=== PATIENT | male | born 1955 | race African-American/Black ===

== ENCOUNTER 2018-05-27 05:22 | Inpatient (IN) ==
[2018-05-27] MEDS ORDERED: Chlorhexidine Gluconate 2% 1 Pack (2 Cloths) TOPICAL ONE (05:42)
[2018-05-27] MEDS ORDERED: Metoprolol Tartrate 25 MG Tablet PO ONE (05:42)
[2018-05-27] MEDS ORDERED: Chlorhexidine 4% Topical 120 APPLIC/120 ML Bottle TOPICAL SCH (05:45)
[2018-05-27] MEDS ORDERED: Sodium Chlor 0.9% Inj 500 ML IV.SIG SCH (06:00)
[2018-05-27] MEDS ORDERED: Sodium Chlor 0.9% Inj 0 ML ONE (06:17)
[2018-05-27] MEDS ORDERED: Dexmedetomidine Inj 200 MCG/2 ML Vial ONE (06:18)
[2018-05-27] MEDS ORDERED: fentaNYL Citrate Inj 100 MCG/2 ML Ampul ONE ×3 (06:18→06:41)
[2018-05-27] MEDS ORDERED: Propofol Inj 500 MG/50 ML Vial ONE (06:18)
[2018-05-27] MEDS ORDERED: Famotidine PF Inj 20 MG/2 ML Vial ONE (06:18)
[2018-05-27] MEDS ORDERED: Bupivacaine/Dextrose 0.75% Inj 2 ML Ampul ONE (06:24)
[2018-05-27] MEDS ORDERED: Ketamine Inj 50 MG/5 ML Syringe IV.PUSH ONE (06:41)
[2018-05-27] MEDS ORDERED: Neostigmine Inj 5 MG/5 ML Syringe IV.PUSH ONE (06:42)
[2018-05-27] MEDS ORDERED: Lidocaine PF 1% Inj 5 ML Syringe OTHER ONE (06:42)
[2018-05-27] MEDS ORDERED: Glycopyrrolate Inj 1 MG/5 ML Syringe IV.PUSH ONE (06:42)
[2018-05-27] MEDS ORDERED: Phenylephrine/NS 1000 MCG/10ML Syringe IV.PUSH ONE (06:42)
[2018-05-27] MEDS ORDERED: Aluminum/Magnesium/Simethacone Susp 30 ML UDC PO PRN (06:51)
[2018-05-27] MEDS ORDERED: Morphine Sulfate Inj 2 MG/ML Vial IV.PUSH PRN (06:51)
[2018-05-27] MEDS ORDERED: Zolpidem Tartrate 5 MG Tablet PO PRN (06:51)
[2018-05-27] MEDS ORDERED: Tranexamic Acid Inj 0 MG in Sodium Chlor 0.9% Inj 100 ML IV.SIG ONE (06:51)
[2018-05-27] MEDS ORDERED: Bisacodyl 10 MG Supp RECTAL PRN (06:51)
[2018-05-27] MEDS ORDERED: Acetaminophen 325 MG Tablet PO PRN (06:51)
[2018-05-27] MEDS ORDERED: Post-op Orders (for Pharmacy) OTHER STA (06:51)
[2018-05-27] MEDS ORDERED: ceFAZolin Inj 3,000 MG in Sodium Chlor 0.9% Inj 100 ML IV.SIG SCH (07:00)
[2018-05-27] MEDS ORDERED: TRANEXAMIC ACID IV.SIG SCH ×5 (07:00→10:00)
[2018-05-27] MEDS ORDERED: SODIUM CHLOR 0.9% IV.SIG SCH ×5 (07:00→10:00)
[2018-05-27] MEDS ORDERED: Sodium Chlor 0.9% Inj 40 ML, Bupivacaine Liposo PF 1.3% Inj 20 ML P-ARTICULR SCH ×2 (07:00)
[2018-05-27] MEDS ORDERED: Dextrose 50% in Water 50 ML Vial IV.PUSH PRN (09:17)
--- NOTE | 2018-05-27 09:48 | P.DCO ---
- Physical Therapy Hip: Total hip, Protocol: Right, Posterior hip precautions, Progress to weight bearing Canvas Knee Splint: When in bed with 2 pillows between thighs Right Lower Extremity Weight Bearing: Weight bearing as tolerated Right Lower Extremity Range of Motion: Active ROM - Nursing Nursing: Dressing changes Dressing changes: Daily dressing change, Coverderm/Primapore Additional instructions: Do not remove Dermabond Prineo. - Certification Need for Home Health services: I have seen patient Alonso Daugherty on 05/27/18. My clinical findings support the need for the requested home health care services because: Need for Home Health Services: Limited mobility due to disease progression, Deconditioned with increased weakness, High risk of falls Homebound Certification: I certify that my clinical findings support that this patient is homebound because: Homebound Certification: Post-op weakness, Unsteady gait/balance, Unsafe to leave home unassisted
--- NOTE | 2018-05-27 09:59 | P.OP ---
- Preoperative Diagnosis (1) Primary osteoarthritis of right hip - Postoperative Diagnosis (1) Primary osteoarthritis of right hip Date of procedure: 05/27/18 Procedure: Right total hip arthroplasty using Anirudh prosthesis Anesthesia: GETA, local (Exparel L) Surgeon: Francesco Ward MD Tomato Paste Maker: WILDER Tubbs Estimated blood loss (mL): 200 Pathology: none sent Operation and Findings: Indications and Findings: This 62-year-old man has had long-standing arthritis in his right hip nonresponsive to conservative measures including intake inflammatory agents, analgesics, activity modification and ambulatory aids. He is ambulation tolerance is one half block because of the pain. He has pain in his buttock and lateral hip and has difficulty lying on his right side standing from a seated position, entering and exiting an automobile and ascending and descending stairs. Physical findings showed significant limitation of motion, antalgic gait, tenderness on motion. Radiographic findings showed severe osteoarthritis with loss of articular cartilage to expose subchondral bone, subchondral sclerosis. Operative findings: There is severe osteoarthritis with osteophytes, exposed subchondral bone, deformity of the femoral head, degenerative cysts. Implants: The acetabular component was a 48 mm Trident II Tritanium cluster cup with a 36 mm inner diameter 0 degree X3 polyethylene liner. The femoral component was an Accolade 2 size 3 x 132 degree stem. The femoral head was Biolox Delta 36 mm outer diameter with -5 mm offset. The patient was brought to the clean air operating suite and a general endotracheal anesthetic was administered. The patient was positioned into a lateral position with the operative hip up on a Biomet lateral positioner. The hip and lower extremity were prepped with alcohol, Hibiclens and ChloraPrep and draped in the usual manner with the hip draped free. Patient received prophylactic antibiotics preoperatively. The patient also received tranexamic acid preoperatively. An appropriate timeout procedure was carried out. An incision was made from the midportion of the greater trochanter proximally and posteriorly paralleling the fibers of the gluteus krunal. The incision was extended as needed. The incision was deepened through subcutaneous tissues down to the fascia kostas and gluteus fascia. The gluteus fascia was then split longitudinally in line with its fibers up to the upper portion of the fascia kostas. With wound towels in place, the Charnley retractor was inserted. The sciatic nerve was identified and protected throughout the procedure. Dissection was then carried down to the interval between the gluteus minimus and the piriformis. A retractor was inserted. The piriformis and obturator conjoined tendon was released from the greater trochanter and reflected off the capsule. A capsulotomy was made longitudinally along the femoral neck to the base of the femoral neck and then curved distally along the posterior aspect of the greater trochanter. The hip was internally rotated. Further release of the external rotators was carried out exposing the hip. The hip was dislocated. The femoral neck was transected at the appropriate level using the oscillating saw placement of appropriate retractors. The femoral head was removed. Preparation of the femur was initiated with a box osteotome followed by a curet to identify the medullary canal. Broaching was then initiated with the size 0 broach and went in 1 size increments up to size 3. The broach handle was removed. The femoral neck was then trimmed with a calcar planar. Attention was then directed to the acetabulum. Soft tissues were debrided from the acetabulum. Retractors were placed about the acetabulum. Reaming was then initiated with the 43 millimeter reamer and went in 1-2 mm increments up to the 48 millimeter diameter reamer. A trial reduction with the 48 millimeter trial prosthesis was carried out. When this was deemed to be appropriate, the trial prosthesis was removed. The acetabulum was irrigated and cleaned. The actual prosthesis as noted above was impacted into place and seated appropriately. Drill holes were made and sounded. Appropriate sized screws were inserted to stabilize the acetabulum further. The liner as noted above was inserted into the acetabular shell and impacted into place. Osteophytes were trimmed from the acetabulum. Local anesthetic was administered throughout the area of the acetabulum and anterior aspect of the femur. The trial neck was placed on the broach for the above-noted prosthesis. The femoral head trial was placed onto the femoral neck . A trial reduction was carried out. Adjustment was made as needed, after which the stability, leg length and motion were excellent. There was no pistoning. The trial prosthesis was removed. The broach was removed. The femoral component was impacted into the medullary canal of the femur after irrigation and suctioning. When this was appropriately seated a trial reduction was again carried out with the trial prosthesis. There was no pistoning. The leg length was appropriate. The stability and motion were excellent. The trial prosthesis was then removed. After cleaning and drying the trunion of the femoral component, the above-noted femoral head was impacted onto the trunnion. The hip was reduced. The stability and mobility were again checked along with leg lengths as noted above. The hip was positioned appropriately and closure commenced after the remainder of the local anesthetic was injected throughout the hip. The external rotators and capsule were repaired with #1 Vicryl interrupted transosseous sutures with a Krakw technique to reattach the external rotators and capsule to the posterior aspect of the greater trochanter. The capsule itself on the superior aspect was closed with #1 Vicryl interrupted [id number] sutures. The sciatic nerve was inspected. The fascia kostas and gluteus fascia were repaired with #1 Vicryl interrupted [id number] sutures. The subcutaneous tissues were closed with 2-0 Vicryl interrupted simple sutures with buried knots. The skin was closed with a continuous subcuticular closure of 4-0 Monocryl. The wound was then approximated with Dermabond Prineo. A silver impregnated dressing was applied to the hip. A knee immobilizer was applied to the leg. The patient was transferred from the operating room to the recovery room in satisfactory condition having tolerated the procedure well. Counts are correct. Specimens: None. Estimated blood loss: 200 mL
[2018-05-27] MEDS ORDERED: *morphine SULFATE 10 MG/ML PERIprocedure ONLY ONE (10:39)
[2018-05-27] MEDS: Ketorolac Inj 30 MG/ML (IVP) Vial IV.PUSH SCH ×3 (11:14→23:51)
[2018-05-27] MEDS: Insulin NovoLOG Aspart Correctional Sugar Inj SQ SCH ×3 (11:33→20:11)
--- NOTE | 2018-05-27 11:44 | XR ---
EXAM DATE: 05/27/2018 6:49 AM EDT AGE/SEX: 62 years / Male INDICATIONS: Post op right total hip replacement. CLINICAL DATA: This is the patient's initial encounter. Patient reports that signs and symptoms have been present for 1 day and indicates a pain score of 7/10. MEDICAL/SURGICAL HISTORY: Hypertension. Prostatectomy. COMPARISON: TLI, XR HIP AP AND LAT, RIGHT, 11/15/2015. . FINDINGS: Status post right total hip in anatomic alignment. Fracture not appreciated. CONCLUSION: Anatomic alignment. Electronically signed by: Misha Umaña MD 05/27/2018 11:43 AM EDT
--- NOTE | 2018-05-27 14:25 | P.CONIM ---
History of Present Illness Service: [facility] Consult date: 05/27/18 Requesting Physician: Francesco Ward Reason for Consult: MEDICAL EVALUATION AND TREATMENT Primary Care Provider: Vj Hernandez MD, R3 Family Provider: Vane Orta MD Chief Complaint: SSP RIGHT TOTAL HIP ARTHROPLASTY History of Present Illness: Patient is a 62-year-old gentleman who underwent a right total hip arthroplasty due to severe osteoarthritis. Patient has previously had bilateral arthroscopic surgeries. As well as a right total knee replacement. Has had prostate removal with the da Yash robotic procedure. Patient has a known history of diabetes and high cholesterol as well as hypertension history of a prostatectomy and history of the right total knee replacement as well as bilateral arthroscopic surgeries. We have been asked to help regarding medical management. Will place him on a sliding scale coverage with Accu-Cheks before meals and bedtime. Will continue on a diabetic diet and cardiac diet and will be followed throughout the admission. Review of Systems All other systems reviewed negative except as stated in HPI PMFSH - History History Provided By: Patient - Medical History Medical History: Medical History (Last Reviewed 05/27/18 @ 14:22 by Misha Zamora DO) Cold Diabetes High cholesterol History of claustrophobia Hypertension Joint pain Wears contact lenses Wears eyeglasses - Surgical History Surgical History: Surgical History (Last Updated 05/27/18 @ 14:22 by Misha Zamora DO) History of robot-assisted laparoscopic radical prostatectomy S/P arthroscopic surgery of left knee S/P arthroscopic surgery of right knee History of total right knee replacement (TKR) Hx of prostatectomy - Family History Family History: Family History (Last Updated 05/27/18 @ 14:22 by Misha Zamora DO) Other Family history of diabetes mellitus Family history of hypertension - Social History I have reviewed the patient's Social History: Yes - Tobacco History Second Hand Smoke Exposure: No Smoking Status: Never smoker - Alcohol History How Often Do You Have a Drink Containing Alcohol: Never - Substance Use History Substance History: No History of Abuse - Travel History Recent Travel in the [place] Within the Last 8 Weeks: Yes Recent Travel Out of the Country Within the Last 8 Weeks: No - Immunization History Tetanus Immunization: Unable to Assess Hx Influenza Vaccine This Season: No Medications and Allergies Active Medications: Active Medications Acetaminophen (Tylenol) 650 mg PO Q6H PRN PRN Reason: Pain Less Than 3 On Scale Hydrocodone Bitart/Acetaminophen ([place] 7.5/325) 1 tab PO Q4H PRN PRN Reason: PAIN SCALE 4 TO 6 MODERATE Last Admin: 05/27/18 13:31 Dose: 1 tab Hydrocodone Bitart/Acetaminophen ([place] 7.5/325) 2 tab PO Q6H PRN PRN Reason: PAIN SCALE 7 TO 10 SEVERE Al Hydrox/Mg Hydrox/Simethicone (Mag-Al Plus Susp Liq) 30 ml PO Q6H PRN PRN Reason: INDIGESTION Al Hydroxide/Mg Hydroxide (Milk Of Magnesia Liq) 30 ml PO BID PRN PRN Reason: Mild Constipation Amlodipine Besylate (Norvasc) 10 mg PO HS [facility] Aspirin (Aspirin Chew) 81 mg PO BID [facility] Last Admin: 05/27/18 11:14 Dose: 81 mg Bisacodyl (Dulcolax Supp) 10 mg RECTAL DAILY PRN PRN Reason: SEVERE CONSITIPATION Chlorhexidine Gluconate (Hibiclens 4% Topical) 1 applicatio TOPICAL ONCE [facility] Stop: 05/31/18 05:44 Last Admin: 05/27/18 05:45 Dose: 1 applicatio Dextrose (D50w Vial) 50 ml IV.PUSH UNSCH PRN PRN Reason: PER HYPOGLYCEMIA PROTOCOL Diphenhydramine HCl (Benadryl) 25 mg PO Q6H PRN PRN Reason: ITCHING Enalapril Maleate (Vasotec) 20 mg PO BID [facility] Glimepiride (Amaryl) 1 mg PO DAILY@0800 [facility] Glucagon (Glucagon Inj) 1 mg OTHER UNSCH PRN PRN Reason: for Hypoglycemia Protocol Cefazolin Sodium 3,000 mg/ (Sodium Chloride) 130 mls @ 200 mls/hr IV.SIG AUTO DEALER [facility] Stop: 05/31/18 06:59 Cefazolin Sodium 1,000 mg/ (Sodium Chloride) 100 mls @ 200 mls/hr IV.SIG Q6H [facility] Stop: 05/28/18 01:29 Last Admin: 05/27/18 12:36 Dose: 200 mls/hr Lactated Ringer's (Lr 1000 Ml Inj) 1,000 mls @ 80 mls/hr IV.CONT .[id number] [facility] Last Admin: 10/01/18 11:14 Dose: 80 mls/hr Insulin Aspart (Novolog Insulin Correctional Sugar Inj) 0 unit SQ ACHS AND 3AM HUMAIRA; Protocol Last Admin: 05/27/18 11:33 Dose: 3 unit Ketorolac Tromethamine (Toradol Inj) 15 mg IV.PUSH Q6H HUMAIRA Stop: 05/29/18 05:01 Last Admin: 05/27/18 11:14 Dose: 15 mg Lactulose (Lactulose Liq) 30 ml PO DAILY PRN PRN Reason: SEVERE CONSITIPATION Miscellaneous Information (Mis Nursing Information) 0 each OTHER UNSCH PRN PRN Reason: SEE LABEL COMMENTS Stop: 05/28/18 10:19 Morphine Sulfate (Morphine Inj) 2 mg IV.PUSH Q3H PRN PRN Reason: BREAKTHROUGH PAIN Ondansetron HCl (Zofran Odt) 4 mg PO Q6H PRN PRN Reason: NAUSEA OR VOMITING Pravastatin Sodium (Pravachol) 80 mg PO QPM [facility] Senna/Docusate Sodium (Nicole-Colace) 1 tab PO BID [facility] Sennosides (Senokot) 17.2 mg PO BID PRN PRN Reason: Moderate Constipation Sodium Chloride (Ns Flush) 2 ml IV.FLUSH BID [facility] Last Admin: 05/27/18 11:03 Dose: 2 ml Sodium Chloride (Ns Flush) 2 ml IV.FLUSH UNSCH PRN PRN Reason: FLUSH AFTER USING IV ACCESS Triamterene/HCTZ (Maxzide 37.5 Mg-25 Mg) 1 tab PO DAILY [facility] Zolpidem Tartrate (Ambien) 5 mg PO HS PRN PRN Reason: INSOMNIA Allergies Allergy/AdvReac Type Severity Reaction Status Date / Time No Known Allergies Allergy Verified 05/27/18 05:57 Home Medications Medication Instructions Recorded Confirmed Type amlodipine 10 mg PO HS 05/16/18 05/27/18 History enalapril maleate 20 mg PO BID 05/16/18 05/27/18 History glimepiride 1 mg PO QAM 05/16/18 05/27/18 History simvastatin 40 mg PO QPM 05/16/18 05/27/18 History triamterene-hydrochlorothiazid 1 tab PO DAILY 05/16/18 05/27/18 History Exam Vital signs: Vital Signs 05/27/18 05:45 05/27/18 10:19 10/01/18 10:30 Temperature 98.9 F 97.8 F Pulse Rate 99 H 74 80 Respiratory Rate 16 16 16 Blood Pressure 166/75 H 121/61 124/54 L Pulse Oximetry 98 100 97 05/27/18 10:45 05/27/18 11:00 05/27/18 12:00 Temperature 97.4 F L Pulse Rate 76 76 81 Respiratory Rate 16 16 18 Blood Pressure 116/56 L 118/60 111/58 L Pulse Oximetry 95 96 98 05/27/18 12:15 05/27/18 14:01 Temperature Pulse Rate 74 Respiratory Rate 16 18 Blood Pressure 112/56 L Pulse Oximetry 95 Intake & Output 05/26/18 05/27/18 05/27/18 18:59 06:59 18:59 Intake Total 2400.07 / 2400.07 Output Total 200 / 200 Balance 2200.07 / 2200.07 Weight 120.7 kg 123.8 kg Intake: IV 1112.07 / 1112.07 LR 1000 mL Inj 1,000 ML @ 30 1000 / 1000 mls/hr IV.SIG .Q24H [facility] Rx#: [id number] Cyklokapron Inj 1,207 MG In NS 112.07 / 112.07 Inj 100 ML @ 200 mls/hr IV.SIG ONCE HUMAIRA Rx#:[id number] Anesthesia Amount 1288 / 1288 Output: Estimated Blood Loss 200 / 200 Other: Weight On Admission 120.7 kg Narrative: GENERAL: Awake alert and oriented x3 talkative and cooperative appears to be in some pain at this time and is uncomfortable SKIN: Warm and dry. HEAD: Atraumatic. Normocephalic. EYES: Pupils equal and round. No scleral icterus. No injection or drainage. EOMI ENT: No nasal bleeding or discharge. Mucous membranes pink and moist. Tongue is midline NECK: Trachea midline. No JVD. Supple CARDIOVASCULAR: Regular rate and rhythm. S1-S2 no S3 or S4 RESPIRATORY: No accessory muscle use. Clear to auscultation. Breath sounds equal bilaterally. GASTROINTESTINAL: Abdomen soft, non-tender, nondistended. Hepatic and splenic margins not palpable. MUSCULOSKELETAL: Extremities without clubbing, cyanosis, or edema. No obvious deformities. Decreased range of motion of right hip at this time NEUROLOGICAL: Awake and alert. No obvious cranial nerve deficits. Motor grossly within normal limits. Five out of 5 muscle strength in the arms and legs. Normal speech. PSYCHIATRIC: Appropriate mood and affect; insight and judgment normal. Results - Labs Labs: Laboratory Results - last 24 hr 05/27/18 05/27/18 05:56 10:51 POC Glucose 245 H Blood Type A Positive Antibody Screen Negative - Imaging Impressions Hip X-Ray 05/27/18 06:49 CONCLUSION: Anatomic alignment. Assessment and Plan - Plan Status post right total hip arthroplasty due to severe osteoarthritis -Pain control -Physical therapy and occupational therapy -Patient will be going home with home health care at discharge -DVT prophylaxis Hypertension continue on home medications Hyperlipidemia continue on home medications Diabetes mellitus continue on sliding scale coverage with Accu-Cheks before meals and at bedtime and diabetic cardiac diet History of robotic prostatectomy stable Continue on GI and DVT prophylaxis A.m. labs Discussed with patient and RN and family and case management Code Status: Full code Discussed Condition With: RN and patient and family and case management Discharge Planning: Once cleared by orthopedic surgery will be discharged home with home health care
[2018-05-27] MEDS: Senna/Docusate Sodium 8.6/50 MG Tablet PO SCH ×2 (15:00→20:10)
[2018-05-27] MEDS: Glimepiride 1 MG Tablet PO SCH (15:01)
[2018-05-27] MEDS: Famotidine 20 MG Tablet PO SCH ×2 (16:13→20:10)
[2018-05-27] MEDS: amLODIPine 10 MG Tablet PO SCH (20:10)
[2018-05-28] MEDS: Insulin NovoLOG Aspart Correctional Sugar Inj SQ SCH ×5 (02:47→20:17)
[2018-05-28] MEDS: Ketorolac Inj 30 MG/ML (IVP) Vial IV.PUSH SCH ×4 (05:43→22:15)
--- NOTE | 2018-05-28 06:01 | P.PNOP ---
Subjective Interval history: Postop day #1 He is doing well. He has no complaints of significance. There is some pain. He does have difficulty with transfers. Physical therapy reports that the ambulation distance was 35 feet. Physical Exam Vital signs: Vital Signs 05/27/18 10:19 05/27/18 10:30 05/27/18 10:45 Temperature 97.8 F Pulse Rate 74 80 76 Respiratory Rate 16 16 16 Blood Pressure 121/61 124/54 L 116/56 L Pulse Oximetry 100 97 95 05/27/18 11:00 05/27/18 12:00 05/27/18 12:15 Temperature 97.4 F L Pulse Rate 76 81 74 Respiratory Rate 16 18 16 Blood Pressure 118/60 111/58 L 112/56 L Pulse Oximetry 96 98 95 05/27/18 14:01 05/27/18 15:55 05/27/18 16:54 Temperature 97.2 F L Pulse Rate 85 Respiratory Rate 18 20 18 Blood Pressure 121/57 L Pulse Oximetry 99 05/27/18 18:19 05/27/18 20:00 05/28/18 00:00 Temperature 99.4 F 98.9 F Pulse Rate 90 92 H Respiratory Rate 18 18 18 Blood Pressure 101/49 L 113/55 L Pulse Oximetry 97 98 Intake & Output 05/27/18 05/27/18 05/28/18 06:59 18:59 06:59 Intake Total 2600.07 / 2600.07 Output Total 200 / 200 Balance 2400.07 / 2400.07 Weight 120.7 kg 123.8 kg Intake: IV 1312.07 / 1312.07 LR 1000 mL Inj 1,000 ML @ 30 1000 / 1000 mls/hr IV.SIG .Q24H HUMAIRA Rx#: [id number] Cyklokapron Inj 1,207 MG In NS 112.07 / 112.07 Inj 100 ML @ 200 mls/hr IV.SIG ONCE HUMAIRA Rx#:[id number] Ancef Inj 1,000 MG In NS Inj 200 / 200 100 ML @ 200 mls/hr IV.SIG Q6H HUMAIRA Rx#:[id number] Anesthesia Amount 1288 / 1288 Output: Urine 0 / 0 Estimated Blood Loss 200 / 200 Other: Weight On Admission 120.7 kg Narrative: He is resting comfortably, supine in bed. The dressing is dry and intact. His neurovascular status is intact. Results - Labs CBC & Chem 7: 05/28/18 05:23 05/28/18 05:23 Laboratory Results - last 24 hr 05/27/18 05/27/18 05/27/18 05:56 10:51 16:20 POC Glucose 245 H 283 H Blood Type A Positive Antibody Screen Negative 05/27/18 05/28/18 19:48 02:40 POC Glucose 298 H 212 H Blood Type Antibody Screen - Imaging Impressions Hip X-Ray 05/27/18 06:49 CONCLUSION: Anatomic alignment. - Procedures Right total hip arthroplasty using [place] prosthesis on 05/27/2018. Assessment and Plan - Ortho Post Op Day # 1 - Problem List (1) Status post total replacement of right hip Code(s): Z96.641 - Presence of right artificial hip joint Status: Acute - Assessment and Plan Condition: Good. Orthopedically stable. DVT prophylaxis: TEDs, aspirin, sequentials. Discharge plans: Home with home health care. An appointment was scheduled through the office. Prescriptions: [place] 7.5/325; Patient is having significant pain caused by a total hip arthroplasty which will last more than 3 days. Trial of Tylenol has not helped. I believe that it is medically necessary to treat patients pain because it is affecting patients ability to participate in postoperative rehabilitation and perform activities of daily living in a comfortable and efficient manner.
[2018-05-28 06:37] LABS: Baso % (Auto) 0.1 % (0.0-2.0); Hematocrit 29.1 % (39.0-51.0); Hemoglobin 9.5 gm/dL (13.0-17.0); Lymph # (Auto) 1.6 th/mm3 (1.0-4.8); Lymph % (Auto) 12.7 % (9.0-44.0); Mean Corpuscular HGB Conc 32.8 % (32.0-36.0); Mean Corpuscular Hemoglobin 24.7 pg (27.0-34.0); Mean Corpuscular Volume 75.4 fL (80.0-100.0); Mean Platelet Volume 8.7 fL (7.0-11.0); Mono # (Auto) 1.3 th/mm3 (0.0-0.9); Mono % (Auto) 10.8 % (0.0-8.0); Neut # (Auto) 9.4 th/mm3 (1.8-7.7); Neut % (Auto) 76.4 % (16.0-70.0); Platelet Count 268 th/mm3 (150-450); Red Blood Count 3.85 mil/mm3 (4.50-5.90); Red Cell Distribution Width 15.9 % (11.6-17.2); White Blood Count 12.3 th/mm3 (4.0-11.0)
[2018-05-28 07:07] LABS: Anion Gap 9 meq/L (5-15); Aspartate Aminotransferase 42 U/L (15-37); Blood Urea Nitrogen 16 mg/dL (7-18); Calcium 7.5 mg/dL (8.5-10.1); Carbon Dioxide 28.2 meq/L (21.0-32.0); Chloride 100 meq/L (98-107); Glomerular Filtration Rate 78 mL/min (>89); Glucose,Random 230 mg/dL (74-106); Magnesium 1.9 mg/dL (1.5-2.5); Potassium 3.7 meq/L (3.5-5.1); Sodium 137 meq/L (136-145)
[2018-05-28 07:15] LABS: Alanine Aminotransferase 28 U/L (12-78); Alkaline Phosphatase 91 U/L (45-117); Free T4 (Free Thyroxine) 1.62 ng/dL (0.76-1.46); Phosphorus 2.7 mg/dL (2.5-4.9); Thyroid Stimulating Hormone 0.195 uIU/mL (0.358-3.740); Total Protein 6.7 g/dL (6.4-8.2)
[2018-05-28] MEDS: Famotidine 20 MG Tablet PO SCH ×2 (08:46→20:17)
[2018-05-28] MEDS: Glimepiride 1 MG Tablet PO SCH (08:47)
[2018-05-28] MEDS: Senna/Docusate Sodium 8.6/50 MG Tablet PO SCH ×2 (08:48→20:16)
[2018-05-28] MEDS: Calcium Carbonate 500 MG Tablet PO SCH ×2 (08:55→20:16)
--- NOTE | 2018-05-28 09:30 | P.PNIM ---
Subjective Interval history: Follow-up right total hip arthroplasty, osteoarthritis, hypertension, diabetes mellitus type 2, hyperlipidemia. Patient awake sitting in the bed, patient stated doing well, stated not sure if the pain is normal. Patient complaining of pain that is coming and going 7 out of 10 scale, worse with movement better with pain medication relieved with pain medication at 3 out of 10 scale. Patient denies any headache or dizziness denies any chest pain or shortness of breath, denies nausea or vomiting, denies diarrhea or constipation. Denies any fever or chills. Physical Exam Vital signs: Vital Signs 05/27/18 10:19 05/27/18 10:30 05/27/18 10:45 Temperature 97.8 F Pulse Rate 74 80 76 Respiratory Rate 16 16 16 Blood Pressure 121/61 124/54 L 116/56 L Pulse Oximetry 100 97 95 05/27/18 11:00 05/27/18 12:00 05/27/18 12:15 Temperature 97.4 F L Pulse Rate 76 81 74 Respiratory Rate 16 18 16 Blood Pressure 118/60 111/58 L 112/56 L Pulse Oximetry 96 98 95 05/27/18 14:01 05/27/18 15:55 05/27/18 16:54 Temperature 97.2 F L Pulse Rate 85 Respiratory Rate 18 20 18 Blood Pressure 121/57 L Pulse Oximetry 99 05/27/18 18:19 05/27/18 20:00 05/28/18 00:00 Temperature 99.4 F 98.9 F Pulse Rate 90 92 H Respiratory Rate 18 18 18 Blood Pressure 101/49 L 113/55 L Pulse Oximetry 97 98 05/28/18 04:00 Temperature 98.4 F Pulse Rate 94 H Respiratory Rate 20 Blood Pressure 108/54 L Pulse Oximetry 100 Intake & Output 05/27/18 05/28/18 05/28/18 18:59 06:59 18:59 Intake Total 2600.07 / 2600.07 1100 / 1100 Output Total 200 / 200 900 / 900 Balance 2400.07 / 2400.07 200 / 200 Weight 123.8 kg Intake: IV 1312.07 / 1312.07 1100 / 1100 LR 1000 mL Inj 1,000 ML @ 80 1000 / 1000 mls/hr IV.CONT .[id number] [facility] Rx# :[id number] LR 1000 mL Inj 1,000 ML @ 30 1000 / 1000 mls/hr IV.SIG .Q24H [facility] Rx#: [id number] Cyklokapron Inj 1,207 MG In NS 112.07 / 112.07 Inj 100 ML @ 200 mls/hr IV.SIG ONCE [facility] Rx#:[id number] Ancef Inj 1,000 MG In NS Inj 200 / 200 100 / 100 100 ML @ 200 mls/hr IV.SIG Q6H [facility] Rx#:[id number] Anesthesia Amount 1288 / 1288 Output: Urine 0 / 0 900 / 900 Estimated Blood Loss 200 / 200 Narrative: GENERAL: Well-developed, well-nourished, awake and alert oriented x3, in no apparent distress SKIN: Warm and dry. Right hip incision dressed no drainage noted, edema noted HEAD: Atraumatic. Normocephalic. EYES: Pupils equal and round. No scleral icterus. No injection or drainage. ENT: No nasal bleeding or discharge. Mucous membranes pink and moist. NECK: Trachea midline. No JVD. CARDIOVASCULAR: Regular rate and rhythm. RESPIRATORY: No accessory muscle use. Clear to auscultation. Breath sounds equal bilaterally. GASTROINTESTINAL: Abdomen obese, soft, non-tender, nondistended. Hepatic and splenic margins not palpable. MUSCULOSKELETAL: Extremities without clubbing, cyanosis, or edema. No obvious deformities. Right lower extremity with limited range of motion NEUROLOGICAL: Awake and alert. No obvious cranial nerve deficits. Motor grossly within normal limits. Moving all 4 extremities except right lower leg with limited range of motion. Normal speech. PSYCHIATRIC: Appropriate mood and affect; insight and judgment normal. Results - Labs CBC & Chem 7: 05/28/18 05:23 05/28/18 05:23 Laboratory Results - last 24 hr 05/27/18 05/27/18 05/27/18 10:51 16:20 19:48 WBC RBC Hgb Hct MCV MCH MCHC RDW Plt Count MPV Neut % (Auto) Lymph % (Auto) [place] % (Auto) Eos % (Auto) Baso % (Auto) Neut # (Auto) Lymph # (Auto) [place] # (Auto) Eos # (Auto) Baso # (Auto) WBC Differential Differential Comment Sodium Potassium Chloride Carbon Dioxide Anion Gap BUN Creatinine Estimated GFR POC Glucose 245 H 283 H 298 H Random Glucose Calcium Phosphorus Magnesium Total Bilirubin AST ALT Alkaline Phosphatase Total Protein Albumin TSH Free T4 1005/28/18 05/28/18 02:40 05:23 05:23 WBC 12.3 H RBC 3.85 L Hgb 9.5 L Hct 29.1 L MCV 75.4 L MCH 24.7 L MCHC 32.8 RDW 15.9 Plt Count 268 MPV 8.7 Neut % (Auto) 76.4 H Lymph % (Auto) 12.7 [place] % (Auto) 10.8 H Eos % (Auto) 0.0 Baso % (Auto) 0.1 Neut # (Auto) 9.4 H Lymph # (Auto) 1.6 [place] # (Auto) 1.3 H Eos # (Auto) 0.0 Baso # (Auto) 0.0 WBC Differential . Differential Comment Auto diff final Sodium 137 Potassium 3.7 Chloride 100 Carbon Dioxide 28.2 Anion Gap 9 BUN 16 Creatinine 1.15 Estimated GFR 78 L POC Glucose 212 H Random Glucose 230 H Calcium 7.5 L Phosphorus 2.7 Magnesium 1.9 Total Bilirubin 0.3 AST 42 H ALT 28 Alkaline Phosphatase 91 Total Protein 6.7 Albumin 3.0 L TSH 0.195 L Free T4 1.62 H - Imaging Impressions Hip X-Ray 05/27/18 06:49 CONCLUSION: Anatomic alignment. - Procedures Right total hip arthroplasty using [place] prosthesis on 05/27/2018. Assessment and Plan - Assessment (1) Diabetes mellitus type 2 in nonobese Code(s): E11.9 - Type 2 diabetes mellitus without complications Status: Acute (2) Hypertension Code(s): I10 - Essential (primary) hypertension Status: Acute (3) Hyperlipidemia Code(s): E78.5 - Hyperlipidemia, unspecified Status: Acute (4) Primary osteoarthritis of right hip Code(s): M16.11 - Unilateral primary osteoarthritis, right hip Status: Chronic (5) Status post total replacement of right hip Code(s): Z96.641 - Presence of right artificial hip joint Status: Acute - Plan Patient is a 62-year-old gentleman who underwent a right total hip arthroplasty due to severe osteoarthritis. Patient has previously had bilateral arthroscopic surgeries. As well as a right total knee replacement. Has had prostate removal with the da Yash robotic procedure. Patient has a known history of diabetes and high cholesterol as well as hypertension history of a prostatectomy and history of the right total knee replacement as well as bilateral arthroscopic surgeries. Medicine team consulted for medical management. Status post right total hip arthroplasty due to severe osteoarthritis -Pain control -Physical therapy and occupational therapy -Patient will be going home with home health care at discharge -DVT prophylaxis Hypocalcemia -add calcium carbonate -monitor BMP Hypertension -continue on home medication, Norvasc, Triam/Hctz -monitor BP Hyperlipidemia -continue on home medications Diabetes mellitus Type 2 -Accu-Cheks before meals and at bedtime -continue on sliding scale coverage -diabetic cardiac diet Elevated TSH /High Free T4, no known history of Hyper/hypothyroidism -asymptomatic -monitor signs and symptoms -follow up with PCP as out patient History of robotic prostatectomy:stable GI prophylaxis: continue Famotidine DVT prophylaxis: on Aspirin BID per Ortho Code Status: full code Discussed Condition With: patient and nurse
[2018-05-28] MEDS: Triamterene/HCTZ 37.5 MG/25 MG Tablet PO SCH (12:28)
[2018-05-28 16:21] LABS: Hemoglobin A1c 10.1 % (4.3-6.0)
[2018-05-28] MEDS: amLODIPine 10 MG Tablet PO SCH (20:17)
[2018-05-29] MEDS: Insulin NovoLOG Aspart Correctional Sugar Inj SQ SCH ×3 (03:06→15:34)
[2018-05-29] MEDS: Ketorolac Inj 30 MG/ML (IVP) Vial IV.PUSH SCH (04:52)
[2018-05-29 06:14] LABS: Hematocrit 27.3 % (39.0-51.0); Hemoglobin 9.1 gm/dL (13.0-17.0)
--- NOTE | 2018-05-29 07:10 | P.PNOP ---
Subjective Interval history: Postop day #2 He is doing well. He has minimal complaints related to the hip. Physical therapy reports that the ambulation distance was 80 feet. Physical Exam Vital signs: Vital Signs 05/28/18 08:00 05/28/18 09:17 05/28/18 12:00 Temperature 98 F 99.2 F Pulse Rate 104 H 101 H Respiratory Rate 20 18 22 Blood Pressure 131/61 137/66 Pulse Oximetry 96 96 05/28/18 14:15 05/28/18 14:42 05/28/18 16:00 Temperature 100.4 F H Pulse Rate 101 H Respiratory Rate 18 18 17 Blood Pressure 139/65 Pulse Oximetry 97 05/28/18 18:13 05/28/18 20:00 05/29/18 00:00 Temperature 99.8 F H 98.9 F Pulse Rate 102 H 93 H Respiratory Rate 18 19 18 Blood Pressure 151/73 H 108/49 L Pulse Oximetry 96 93 L 05/29/18 04:00 Temperature 99.8 F H Pulse Rate 104 H Respiratory Rate 18 Blood Pressure 111/56 L Pulse Oximetry 95 Intake & Output 05/28/18 05/29/18 05/29/18 18:59 06:59 18:59 Output Total 700 / 700 Balance -700 / -700 Weight 123.8 kg Output: Urine 700 / 700 Other: Date of Last Bowel Movement 05/27/18 05/27/18 Narrative: He is resting comfortably, supine in bed. The dressing is dry and intact. His neurovascular status is intact. Results - Labs CBC & Chem 7: 05/29/18 05:16 05/28/18 05:23 Laboratory Results - last 24 hr 05/28/18 05/28/18 05/28/18 05:23 05:23 11:53 Hgb Hct POC Glucose 241 H Hemoglobin A1c 10.1 H Phosphorus 2.7 Total Bilirubin 0.3 ALT 28 Alkaline Phosphatase 91 Total Protein 6.7 TSH 0.195 L Free T4 1.62 H 05/28/18 05/28/18 05/29/18 17:09 19:13 03:04 Hgb Hct POC Glucose 165 H 201 H 177 H Hemoglobin A1c Phosphorus Total Bilirubin ALT Alkaline Phosphatase Total Protein TSH Free T4 05/29/18 05:16 Hgb 9.1 L Hct 27.3 L POC Glucose Hemoglobin A1c Phosphorus Total Bilirubin ALT Alkaline Phosphatase Total Protein TSH Free T4 - Procedures Right total hip arthroplasty using [place] prosthesis on 05/27/2018. Assessment and Plan - Ortho Post Op Day # 2 - Problem List (1) Status post total replacement of right hip Code(s): Z96.641 - Presence of right artificial hip joint Status: Acute - Assessment and Plan Condition: Good. Orthopedically stable. DVT prophylaxis: TEDs, aspirin, sequentials. Discharge plans: Home with home health care. An appointment was scheduled through the office. Prescriptions: [place] 7.5/325; Patient is having significant pain caused by a total hip arthroplasty which will last more than 3 days. Trial of Tylenol has not helped. I believe that it is medically necessary to treat patients pain because it is affecting patients ability to participate in postoperative rehabilitation and perform activities of daily living in a comfortable and efficient manner.
--- NOTE | 2018-05-29 07:53 | P.DS ---
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 His ambulation tolerance has been limited to a significant degree. Physical findings showed severe loss of motion in his hip with tenderness on motion and an antalgic gait. X-rays show severe osteoarthritis with osteophytes, subchondral sclerosis and loss of joint space. DS: Diagnosis - Discharge Diagnosis (1) Status post total replacement of right hip Status: Acute Diagnosis: Principal (2) Diabetes mellitus type 2 in nonobese Status: Chronic Diagnosis: Secondary (3) Hyperlipidemia Status: Chronic Diagnosis: Secondary (4) Hypertension Status: Chronic Diagnosis: Secondary (5) Primary osteoarthritis of right hip Status: Chronic Diagnosis: Principal DS: Medications - Discharge Medications Prescriptions: hydrocodone-acetaminophen 1 tab PO Q4H PRN 7 Days #42 tab PRN Reason: Pain, Severe DS: Summary Hospital Course: The patient was admitted as noted above. The above noted operative procedure was carried out that day. Preoperatively prophylactic antibiotics were administered Ancef according to protocol. These were continued postoperatively. The patient also received tranexamic acid to help with hemostasis according to protocol. In the postanesthesia care unit mechanical methods of DVT prophylaxis in the form of SOPHIA stockings and sequentials were initiated. Physical therapy was initiated on the day of surgery. On postoperative day #1 physical therapy continued. DVT prophylaxis with aspirin 81 mg was initiated at this time. The patient continued physical therapy throughout the hospitalization. The distance walked and range of motion improved throughout the hospitalization. The patient was discharged on postoperative day 2 with the disposition being to home with home health care. An appointment for follow-up was made prior to admission. - Time Spent with Patient Total time spent providing and/or coordinating discharge services: Less than 30 minutes - Quality: VTE Deep Vein Thrombosis/Pulmonary Embolism Present on Admission: No Exam Vital signs: Vital Signs 05/28/18 08:00 05/28/18 09:17 05/28/18 12:00 Temperature 98 F 99.2 F Pulse Rate 104 H 101 H Respiratory Rate 20 18 22 Blood Pressure 131/61 137/66 Pulse Oximetry 96 96 05/28/18 14:15 05/28/18 14:42 05/28/18 16:00 Temperature 100.4 F H Pulse Rate 101 H Respiratory Rate 18 18 17 Blood Pressure 139/65 Pulse Oximetry 97 05/28/18 18:13 05/28/18 20:00 05/29/18 00:00 Temperature 99.8 F H 98.9 F Pulse Rate 102 H 93 H Respiratory Rate 18 19 18 Blood Pressure 151/73 H 108/49 L Pulse Oximetry 96 93 L 05/29/18 04:00 Temperature 99.8 F H Pulse Rate 104 H Respiratory Rate 18 Blood Pressure 111/56 L Pulse Oximetry 95 Intake & Output 05/28/18 05/29/18 05/29/18 18:59 06:59 18:59 Output Total 700 / 700 Balance -700 / -700 Weight 123.8 kg Output: Urine 700 / 700 Other: Date of Last Bowel Movement 05/27/18 05/27/18 Narrative: He is resting comfortably, supine in bed. The neurovascular status is intact. The dressing is dry and intact. Results Procedures completed during hospitalization: Right total hip arthroplasty using [place] prosthesis on 05/27/2018. Completed studies during hospitalization: Hip X-Ray 05/27/18 06:49 CONCLUSION: Anatomic alignment. The total hip arthroplasty appears to be in excellent position and alignment. Labs on day of discharge: Labs from last 24 hours 05/29/18 05/29/18 05/29/18 07:34 05:16 03:04 Hgb 9.1 L Hct 27.3 L POC Glucose 171 H 177 H Hemoglobin A1c 05/28/18 05/28/18 05/28/18 19:13 17:09 11:53 Hgb Hct POC Glucose 201 H 165 H 241 H Hemoglobin A1c 05/28/18 05:23 Hgb Hct POC Glucose Hemoglobin A1c 10.1 H - Impressions ITS Impressions Hip X-Ray 05/27/18 06:49 CONCLUSION: Anatomic alignment. Discharge Plan - Discharge Disposition Patient Disposition: W/Home Health Service - Discharge Condition Condition: Stable - Discharge Order Discharge Orders: Discharge Order (Routine); Ordered 05/28/18 Ordered By: Francesco Ward - Discharge Details Anticipated Discharge Date: 05/28/18 - Physicians Team Primary Care Provider: Vj Hernandez Attending Provider: Francesco Ward Other Providers: [facility] ; Misha Zamora DO - Rxs /Orders / Referrals /Forms Prescriptions: New aspirin 81 mg Tablet,Chewable 81 mg PO BID RF: 0 hydrocodone-acetaminophen 7.5-325 mg Tablet 1 tab PO Q4H PRN (Reason: Pain, Severe) 7 Days Qty: 42 RF: 0 Continue amlodipine 10 mg Tablet 10 mg PO HS enalapril maleate 20 mg Tablet 20 mg PO BID glimepiride 2 mg Tablet 1 mg PO QAM simvastatin 40 mg Tablet 40 mg PO QPM triamterene-hydrochlorothiazid 37.5-25 mg Tablet 1 tab PO DAILY Referrals: Francesco Ward MD [Physician] - See Instructions Vj Hernandez MD, R3 [Primary Care Provider] - See Instructions Vane Orta MD [Family Provider] - See Instructions - Discharge Instructions Patient Printed Instructions: Total Hip Replacement (DC)
[2018-05-29] MEDS: Calcium Carbonate 500 MG Tablet PO SCH (08:51)
[2018-05-29] MEDS: Famotidine 20 MG Tablet PO SCH (08:51)
[2018-05-29] MEDS: Glimepiride 1 MG Tablet PO SCH (08:51)
[2018-05-29] MEDS: Senna/Docusate Sodium 8.6/50 MG Tablet PO SCH (08:52)
[2018-05-29] MEDS: Triamterene/HCTZ 37.5 MG/25 MG Tablet PO SCH (08:52)
[2018-05-29 10:14] VITALS: BP 132/60; PULSE 101; RESP 19; TEMP 99.1; O2SAT 96
--- NOTE | 2018-05-29 11:39 | P.PNIM ---
Subjective Interval history: Chief Complaint: SP RIGHT TOTAL HIP ARTHROPLASTY History of Present Illness: Patient is a 62-year-old gentleman who underwent a right total hip arthroplasty due to severe osteoarthritis. Patient has previously had bilateral arthroscopic surgeries. As well as a right total knee replacement. Has had prostate removal with the da Yash robotic procedure. Patient has a known history of diabetes and high cholesterol as well as hypertension history of a prostatectomy and history of the right total knee replacement as well as bilateral arthroscopic surgeries. We have been asked to help regarding medical management. Will place him on a sliding scale coverage with Accu-Cheks before meals and bedtime. Will continue on a diabetic diet and cardiac diet and will be followed throughout the admission. 10-2 Follow-up right total hip arthroplasty, osteoarthritis, hypertension, diabetes mellitus type 2, hyperlipidemia. Patient awake sitting in the bed, patient stated doing well, stated not sure if the pain is normal. Patient complaining of pain that is coming and going 7 out of 10 scale, worse with movement better with pain medication relieved with pain medication at 3 out of 10 scale. Patient denies any headache or dizziness denies any chest pain or shortness of breath, denies nausea or vomiting, denies diarrhea or constipation. Denies any fever or chills. 10-3 CLEARED BY ORTHO DC TO HOME TODAY WITH [facility] Physical Exam Vital signs: Vital Signs 05/28/18 12:00 05/28/18 14:15 05/28/18 14:42 Temperature 99.2 F Pulse Rate 101 H Respiratory Rate 22 18 18 Blood Pressure 137/66 Pulse Oximetry 96 05/28/18 16:00 05/28/18 18:13 05/28/18 20:00 Temperature 100.4 F H 99.8 F H Pulse Rate 101 H 102 H Respiratory Rate 17 18 19 Blood Pressure 139/65 151/73 H Pulse Oximetry 97 96 05/29/18 00:00 05/29/18 04:00 05/29/18 08:00 Temperature 98.9 F 99.8 F H 99.1 F Pulse Rate 93 H 104 H 101 H Respiratory Rate 18 18 19 Blood Pressure 108/49 L 111/56 L 132/60 Pulse Oximetry 93 L 95 96 Intake & Output 05/28/18 05/29/18 05/29/18 18:59 06:59 18:59 Output Total 700 / 700 Balance -700 / -700 Weight 123.8 kg Output: Urine 700 / 700 Other: Date of Last Bowel Movement 05/27/18 05/27/18 05/27/08 Narrative: GENERAL: Well-developed, well-nourished, awake and alert oriented x3, in no apparent distress SKIN: Warm and dry. Right hip incision dressed no drainage noted, edema noted HEAD: Atraumatic. Normocephalic. EYES: Pupils equal and round. No scleral icterus. No injection or drainage. ENT: No nasal bleeding or discharge. Mucous membranes pink and moist. NECK: Trachea midline. No JVD. CARDIOVASCULAR: Regular rate and rhythm. RESPIRATORY: No accessory muscle use. Clear to auscultation. Breath sounds equal bilaterally. GASTROINTESTINAL: Abdomen obese, soft, non-tender, nondistended. Hepatic and splenic margins not palpable. MUSCULOSKELETAL: Extremities without clubbing, cyanosis, or edema. No obvious deformities. Right lower extremity with limited range of motion NEUROLOGICAL: Awake and alert. No obvious cranial nerve deficits. Motor grossly within normal limits. Moving all 4 extremities except right lower leg with limited range of motion. Normal speech. PSYCHIATRIC: Appropriate mood and affect; insight and judgment normal. Results - Labs CBC & Chem 7: 05/29/18 05:16 05/28/18 05:23 Laboratory Results - last 24 hr 05/28/18 05/28/18 05/28/18 05:23 11:53 17:09 Hgb Hct POC Glucose 241 H 165 H Hemoglobin A1c 10.1 H 05/28/18 05/29/18 05/29/18 19:13 03:04 05:16 Hgb 9.1 L Hct 27.3 L POC Glucose 201 H 177 H Hemoglobin A1c 05/29/18 07:34 Hgb Hct POC Glucose 171 H Hemoglobin A1c - Imaging ITS Impressions Hip X-Ray 05/27/18 06:49 CONCLUSION: Anatomic alignment. - Procedures Right total hip arthroplasty using [place] prosthesis on 05/27/2018. Assessment and Plan - Assessment (1) Diabetes mellitus type 2 in nonobese Code(s): E11.9 - Type 2 diabetes mellitus without complications Status: Chronic (2) Hypertension Code(s): I10 - Essential (primary) hypertension Status: Chronic (3) Hyperlipidemia Code(s): E78.5 - Hyperlipidemia, unspecified Status: Chronic (4) Primary osteoarthritis of right hip Code(s): M16.11 - Unilateral primary osteoarthritis, right hip Status: Chronic (5) Status post total replacement of right hip Code(s): Z96.641 - Presence of right artificial hip joint Status: Acute - Plan Patient is a 62-year-old gentleman who underwent a right total hip arthroplasty due to severe osteoarthritis. Patient has previously had bilateral arthroscopic surgeries. As well as a right total knee replacement. Has had prostate removal with the da Yash robotic procedure. Patient has a known history of diabetes and high cholesterol as well as hypertension history of a prostatectomy and history of the right total knee replacement as well as bilateral arthroscopic surgeries. Medicine team consulted for medical management. Status post right total hip arthroplasty due to severe osteoarthritis -Pain control -Physical therapy and occupational therapy -Patient will be going home with home health care at discharge -DVT prophylaxis Hypocalcemia -add calcium carbonate -monitor BMP Hypertension -continue on home medication, Norvasc, Triam/Hctz -monitor BP Hyperlipidemia -continue on home medications Diabetes mellitus Type 2 -Accu-Cheks before meals and at bedtime -continue on sliding scale coverage -diabetic cardiac diet HGBA1C 10 Elevated TSH /High Free T4, no known history of Hyper/hypothyroidism -asymptomatic -monitor signs and symptoms -follow up with PCP as out patient History of robotic prostatectomy:stable GI prophylaxis: continue Famotidine DVT prophylaxis: on Aspirin BID per Ortho Code Status: FULL CODE Discussed Condition With: RN AND PT AND FAMILY AND CM Discharge Planning: DCED HOME WITH [facility]
== END 2018-05-29 10:48 | disposition home health service (06) ==
LOC: HSDI 05:22 → N06 11:35
PROVIDERS: ADMIT Orthopaedic Surgery; ATTEND Orthopaedic Surgery

== ENCOUNTER 2018-06-14 21:58 | Inpatient (IN) ==
[2018-06-14] MEDS ORDERED: MethylPREDNISolone Sod Succinate Inj 125 MG/2 ML Vial IV.PUSH ONE (22:03)
[2018-06-14] MEDS ORDERED: Famotidine PF Inj 20 MG/2 ML Vial IV.PUSH ONE (22:04)
[2018-06-14] MEDS ORDERED: Dexamethasone Inj 20 MG/5 ML Vial IV.PUSH ONE (22:08)
[2018-06-14 22:15] LABS: Baso # (Auto) 0.2 th/mm3 (0.0-0.2); Baso % (Auto) 2.9 % (0.0-2.0); Eos # (Auto) 0.2 th/mm3 (0.0-0.4); Eos % (Auto) 2.6 % (0.0-4.0); Hematocrit 33.5 % (39.0-51.0); Hemoglobin 10.8 gm/dL (13.0-17.0); Lymph # (Auto) 2.5 th/mm3 (1.0-4.8); Mean Corpuscular HGB Conc 32.1 % (32.0-36.0); Mean Corpuscular Hemoglobin 24.6 pg (27.0-34.0); Mean Corpuscular Volume 76.7 fL (80.0-100.0); Mean Platelet Volume 7.6 fL (7.0-11.0); Mono # (Auto) 0.7 th/mm3 (0.0-0.9); Mono % (Auto) 10.1 % (0.0-8.0); Neut # (Auto) 3.8 th/mm3 (1.8-7.7); Neut % (Auto) 50.4 % (16.0-70.0); Platelet Count 541 th/mm3 (150-450); Red Blood Count 4.37 mil/mm3 (4.50-5.90); Red Cell Distribution Width 15.2 % (11.6-17.2); White Blood Count 7.4 th/mm3 (4.0-11.0)
[2018-06-14 22:24] LABS: Chloride 100 meq/L (98-107); Potassium 3.6 meq/L (3.5-5.1); Sodium 137 meq/L (136-145)
[2018-06-14 22:28] LABS: Albumin 3.5 g/dL (3.4-5.0); Anion Gap 7 meq/L (5-15); Blood Urea Nitrogen 14 mg/dL (7-18); Glucose,Random 125 mg/dL (74-106)
[2018-06-14 22:30] LABS: Alanine Aminotransferase 30 U/L (12-78)
[2018-06-14 22:31] LABS: Aspartate Aminotransferase 24 U/L (15-37); Glomerular Filtration Rate 82 mL/min (>89)
[2018-06-14 22:32] LABS: Total Protein 8.5 g/dL (6.4-8.2)
[2018-06-14 22:34] LABS: Alkaline Phosphatase 146 U/L (45-117)
[2018-06-14] MEDS ORDERED: Etomidate Inj 20 MG/10 ML Ampul IV.PUSH ONE (23:04)
[2018-06-14] MEDS ORDERED: Succinylcholine Inj 100 MG/5 ML Syringe IV.PUSH ONE (23:05)
[2018-06-14] MEDS ORDERED: Propofol 1000 mg/100 ml Inj 1,000 MG/100 ML BOTTLE ONE (23:14)
[2018-06-14] MEDS: Propofol 1000 mg/100 ml Inj 1,000 MG/100 ML BOTTLE IV.CONT PRN (23:35)
--- NOTE | 2018-06-14 23:50 | ED ---
HPI General Chief complaint: Allergic Reaction Stated complaint: Tongue swelling Time Seen by Provider: 06/14/18 22:03 History of Present Illness HPI narrative: Patient is a 62-year-old male who is on enalapril for hypertension for many years tonight about an hour prior to presentation his tongue started to swell mostly was left side of his tongue but it is significantly swollen he comes in difficulty speaking due to the mechanical obstruction of his tongue he denies any tightness or swelling in his throat no sensation of choking however he immediately is given epi sub-IM Decadron 10 IV Benadryl 50 IV and he is not responding to medical management after 45 minutes it is necessary to intubate him to protect his airway from severe angioedema that is now spreading to the posterior pharynx with a swollen uvula patient is informed that he will need to be sedated with etomidate sucks intubated with an 8 oh tube CMAC is used to directly visualize swollen edematous cords and he successfully intubated put on propofol drip vecuronium paralytic of 10 mg and transferred to the ICU spoke to Dr. Braun. Pt tongue swelling increased over the 45 minutes in ER and intubation was necessary Related Data Home Medications Medication Instructions Recorded Confirmed amlodipine 10 mg PO HS 05/16/18 06/14/18 enalapril maleate 20 mg PO BID 05/16/18 06/14/18 glimepiride 1 mg PO QAM 05/16/18 06/14/18 simvastatin 40 mg PO QPM 05/16/18 06/14/18 triamterene-hydrochlorothiazid 1 tab PO DAILY 05/16/18 06/14/18 Previous Rx's Medication Instructions Recorded aspirin 81 mg PO BID tab 05/27/18 Allergies Allergy/AdvReac Type Severity Reaction Status Date / Time No Known Allergies Allergy Verified 06/14/18 22:30 Review of Systems ROS: all other systems reviewed are negative FOR[facility] Social History Social History Substance History: No History of Abuse Second Hand Smoke Exposure: No Smoking Status: Never smoker How Often Do You Have a Drink Containing Alcohol: Never Recent Travel in [facility] within the Last 8 Weeks: No Recent Out of Country Travel within the Last 8 Weeks: No Immunization History Tetanus Immunization: <5 Years Exam Narrative Exam Narrative: GENERAL: Patient in no apparent distress although is obvious that he is having mechanical difficulty speaking due to his enlarged tongue SKIN: Warm and dry. HEAD: Atraumatic. Normocephalic. EYES: Pupils equal and round. No scleral icterus. No injection or drainage. ENT: tongue swollen with left > right swelling hoarse voice pale uvula NECK: Trachea midline. No JVD. CARDIOVASCULAR: Regular rate and rhythm. RESPIRATORY: No accessory muscle use. Clear to auscultation. Breath sounds equal bilaterally. GASTROINTESTINAL: Abdomen soft, non-tender, nondistended. Hepatic and splenic margins not palpable. MUSCULOSKELETAL: Extremities without clubbing, cyanosis, or edema. No obvious deformities. NEUROLOGICAL: Awake and alert. No obvious cranial nerve deficits. Motor grossly within normal limits. Five out of 5 muscle strength in the arms and legs. Normal speech. PSYCHIATRIC: Appropriate mood and affect; insight and judgment normal. Procedures Intubation Time Out Performed: Yes Sedative: etomidate Mg Given: 20 Paralytic: succinylcholine Mg Given: 100 Laryngoscope: fiber optic video scope ET Tube Size: 8 ET Tube Uncuffed: Yes Tube Secured Depth (cm): 24 Tube Secured Location: teeth Tube Placement Confirmation: visualized tube passing through cords, equal breath sounds bilaterally and confirmation by capnometry Patient Tolerated Procedure: well Intubation Complications: none Additional Comments: Patient is then sedated with propofol drip and vecuronium 10 mg push and he is then started on a fentanyl drip as well as the propofol drip to keep him sedated I re-bolused him another 10 of vecuronium and then he is transferred to the main to the ICU for severe angioedema Course Initial Documented Vital Signs Temperature 98.7 F 06/14/18 22:00 Pulse Rate 98 H 06/14/18 22:00 Respiratory Rate 18 06/14/18 22:00 Blood Pressure 200/80 H 06/14/18 22:00 Pulse Oximetry 99 06/14/18 22:00 Last Documented Vital Signs Temperature 99 F 06/16/18 16:00 Pulse Rate 71 06/16/18 17:00 Respiratory Rate 18 06/16/18 17:02 Blood Pressure 126/65 06/16/18 17:00 Pulse Oximetry 98 06/16/18 17:02 Critical Care Time Critical Care Time: Yes Total Critical Care Time: 60 Attestation: pt was needing airway observation and then after medical management needed Intubations Medical Decision Making MDM Narrative Medical decision making narrative: I observe the patient immediately give him epi Decadron and Benadryl Pepcid IV observed however he seems to be progressing I then used the CMAC blade to look at his uvula over his tongue and I see that it is pale and somewhat swollen I informed the patient he will need to be intubated to protect his airway as the angioedema and tongue swelling both increase and then make it very difficult to pass an ET tube he agrees he is rapid sequence intubation using a 8.0 ET tube and the CMAC his vocal cords are swollen as well as a past ET tube without complications he is then put on a propofol drip fentanyl drip he is given vecuronium 10 mg and then repeated bolus 30 minutes later to keep him sedated paralyzed and not fighting the vent he is then transferred to the main critical care time is 60 minutes I speak to Dr. Giang he is transferred by the paramedics sedated ventilated and intubated Medical Screen Exam Complete: Yes Emergency Medical Condition: Yes Differential Diagnosis Differential Diagnosis: Differential diagnosis includes allergic reaction angioedema or see 1 complement deficiency angioedema versus enalapril causing the angioedema versus other Lab Data Result diagrams: 06/16/18 03:49 06/16/18 03:49 Lab Results 06/14/18 06/14/18 06/15/18 Range/Units 22:08 22:08 03:00 CBC w Diff Slide review pending WBC 7.4 (4.0-11.0) th/mm3 RBC 4.37 L (4.50-5.90) mil/mm3 Hgb 10.8 L (13.0-17.0) gm/dL Hct 33.5 L (39.0-51.0) % MCV 76.7 L (80.0-100.0) fL MCH 24.6 L (27.0-34.0) pg MCHC 32.1 (32.0-36.0) % RDW 15.2 (11.6-17.2) % Plt Count 541 H D (150-450) th/mm3 MPV 7.6 (7.0-11.0) fL Neut % (Auto) 50.4 (16.0-70.0) % Lymph % (Auto) 34.0 (9.0-44.0) % Marion % (Auto) 10.1 H (0.0-8.0) % Eos % (Auto) 2.6 (0.0-4.0) % Baso % (Auto) 2.9 H (0.0-2.0) % Neut # (Auto) 3.8 (1.8-7.7) th/mm3 Lymph # (Auto) 2.5 (1.0-4.8) th/mm3 Marion # (Auto) 0.7 (0.0-0.9) th/mm3 Eos # (Auto) 0.2 (0.0-0.4) th/mm3 Baso # (Auto) 0.2 (0.0-0.2) th/mm3 WBC Differential . Diff Scan Auto diff confirmed Differential Comment . PT (9.8-11.6) sec INR Ratio APTT (24.3-30.1) sec Sodium 137 (136-145) meq/L Potassium 3.6 (3.5-5.1) meq/L Chloride 100 (98-107) meq/L Carbon Dioxide 30.0 (21.0-32.0) meq/L Anion Gap 7 (5-15) meq/L BUN 14 (7-18) mg/dL Creatinine 1.10 (0.60-1.30) mg/dL Estimated GFR 82 L (>89) mL/min POC Glucose (68-110) mg/dl Random Glucose 125 H (74-106) mg/dL Calcium 9.0 (8.5-10.1) mg/dL Phosphorus (2.5-4.9) mg/dL Magnesium (1.5-2.5) mg/dL Total Bilirubin 0.2 (0.2-1.0) mg/dL AST 24 (15-37) U/L ALT 30 (12-78) U/L Alkaline Phosphatase 146 H (45-117) U/L Total Protein 8.5 H (6.4-8.2) g/dL Albumin 3.5 (3.4-5.0) g/dL Nasal Screen MRSA (PCR) Not detected (Negative) 06/15/18 06/15/18 06/15/18 Range/Units 05:16 11:46 18:07 CBC w Diff WBC (4.0-11.0) th/mm3 RBC (4.50-5.90) mil/mm3 Hgb (13.0-17.0) gm/dL Hct (39.0-51.0) % MCV (80.0-100.0) fL MCH (27.0-34.0) pg MCHC (32.0-36.0) % RDW (11.6-17.2) % Plt Count (150-450) th/mm3 MPV (7.0-11.0) fL Neut % (Auto) (16.0-70.0) % Lymph % (Auto) (9.0-44.0) % Marion % (Auto) (0.0-8.0) % Eos % (Auto) (0.0-4.0) % Baso % (Auto) (0.0-2.0) % Neut # (Auto) (1.8-7.7) th/mm3 Lymph # (Auto) (1.0-4.8) th/mm3 Marion # (Auto) (0.0-0.9) th/mm3 Eos # (Auto) (0.0-0.4) th/mm3 Baso # (Auto) (0.0-0.2) th/mm3 WBC Differential Diff Scan Differential Comment PT (9.8-11.6) sec INR Ratio APTT (24.3-30.1) sec Sodium (136-145) meq/L Potassium (3.5-5.1) meq/L Chloride (98-107) meq/L Carbon Dioxide (21.0-32.0) meq/L Anion Gap (5-15) meq/L BUN (7-18) mg/dL Creatinine (0.60-1.30) mg/dL Estimated GFR (>89) mL/min POC Glucose 273 H 192 H 198 H (68-110) mg/dl Random Glucose (74-106) mg/dL Calcium (8.5-10.1) mg/dL Phosphorus (2.5-4.9) mg/dL Magnesium (1.5-2.5) mg/dL Total Bilirubin (0.2-1.0) mg/dL AST (15-37) U/L ALT (12-78) U/L Alkaline Phosphatase (45-117) U/L Total Protein (6.4-8.2) g/dL Albumin (3.4-5.0) g/dL Nasal Screen MRSA (PCR) (Negative) 06/15/18 06/16/18 06/16/18 Range/Units 23:03 03:49 03:49 CBC w Diff WBC 8.7 (4.0-11.0) th/mm3 RBC 3.70 L (4.50-5.90) mil/mm3 Hgb 9.0 L (13.0-17.0) gm/dL Hct 27.8 L (39.0-51.0) % MCV 75.2 L (80.0-100.0) fL MCH 24.4 L (27.0-34.0) pg MCHC 32.5 (32.0-36.0) % RDW 16.2 (11.6-17.2) % Plt Count 428 (150-450) th/mm3 MPV 7.6 (7.0-11.0) fL Neut % (Auto) 85.1 H (16.0-70.0) % Lymph % (Auto) 9.7 (9.0-44.0) % Marion % (Auto) 5.2 (0.0-8.0) % Eos % (Auto) 0.0 (0.0-4.0) % Baso % (Auto) 0.0 (0.0-2.0) % Neut # (Auto) 7.4 (1.8-7.7) th/mm3 Lymph # (Auto) 0.8 L (1.0-4.8) th/mm3 Marion # (Auto) 0.4 (0.0-0.9) th/mm3 Eos # (Auto) 0.0 (0.0-0.4) th/mm3 Baso # (Auto) 0.0 (0.0-0.2) th/mm3 WBC Differential . Diff Scan Differential Comment Auto diff final PT 10.5 (9.8-11.6) sec INR 1.0 Ratio APTT 21.8 L (24.3-30.1) sec Sodium (136-145) meq/L Potassium (3.5-5.1) meq/L Chloride (98-107) meq/L Carbon Dioxide (21.0-32.0) meq/L Anion Gap (5-15) meq/L BUN (7-18) mg/dL Creatinine (0.60-1.30) mg/dL Estimated GFR (>89) mL/min POC Glucose 207 H (68-110) mg/dl Random Glucose (74-106) mg/dL Calcium (8.5-10.1) mg/dL Phosphorus (2.5-4.9) mg/dL Magnesium (1.5-2.5) mg/dL Total Bilirubin (0.2-1.0) mg/dL AST (15-37) U/L ALT (12-78) U/L Alkaline Phosphatase (45-117) U/L Total Protein (6.4-8.2) g/dL Albumin (3.4-5.0) g/dL Nasal Screen MRSA (PCR) (Negative) 06/16/18 06/16/18 06/16/18 Range/Units 03:49 05:10 11:21 CBC w Diff WBC (4.0-11.0) th/mm3 RBC (4.50-5.90) mil/mm3 Hgb (13.0-17.0) gm/dL Hct (39.0-51.0) % MCV (80.0-100.0) fL MCH (27.0-34.0) pg MCHC (32.0-36.0) % RDW (11.6-17.2) % Plt Count (150-450) th/mm3 MPV (7.0-11.0) fL Neut % (Auto) (16.0-70.0) % Lymph % (Auto) (9.0-44.0) % Marion % (Auto) (0.0-8.0) % Eos % (Auto) (0.0-4.0) % Baso % (Auto) (0.0-2.0) % Neut # (Auto) (1.8-7.7) th/mm3 Lymph # (Auto) (1.0-4.8) th/mm3 Marion # (Auto) (0.0-0.9) th/mm3 Eos # (Auto) (0.0-0.4) th/mm3 Baso # (Auto) (0.0-0.2) th/mm3 WBC Differential Diff Scan Differential Comment PT (9.8-11.6) sec INR Ratio APTT (24.3-30.1) sec Sodium 137 (136-145) meq/L Potassium 4.1 (3.5-5.1) meq/L Chloride 103 (98-107) meq/L Carbon Dioxide 25.9 (21.0-32.0) meq/L Anion Gap 8 (5-15) meq/L BUN 17 (7-18) mg/dL Creatinine 1.12 (0.60-1.30) mg/dL Estimated GFR 81 L (>89) mL/min POC Glucose 222 H 209 H (68-110) mg/dl Random Glucose 214 H (74-106) mg/dL Calcium 8.1 L D (8.5-10.1) mg/dL Phosphorus 2.3 L (2.5-4.9) mg/dL Magnesium 2.4 (1.5-2.5) mg/dL Total Bilirubin 0.2 (0.2-1.0) mg/dL AST 17 (15-37) U/L ALT 30 (12-78) U/L Alkaline Phosphatase 118 H (45-117) U/L Total Protein 7.0 D (6.4-8.2) g/dL Albumin 2.9 L D (3.4-5.0) g/dL Nasal Screen MRSA (PCR) (Negative) 06/16/18 Range/Units 16:46 CBC w Diff WBC (4.0-11.0) th/mm3 RBC (4.50-5.90) mil/mm3 Hgb (13.0-17.0) gm/dL Hct (39.0-51.0) % MCV (80.0-100.0) fL MCH (27.0-34.0) pg MCHC (32.0-36.0) % RDW (11.6-17.2) % Plt Count (150-450) th/mm3 MPV (7.0-11.0) fL Neut % (Auto) (16.0-70.0) % Lymph % (Auto) (9.0-44.0) % Marion % (Auto) (0.0-8.0) % Eos % (Auto) (0.0-4.0) % Baso % (Auto) (0.0-2.0) % Neut # (Auto) (1.8-7.7) th/mm3 Lymph # (Auto) (1.0-4.8) th/mm3 Marion # (Auto) (0.0-0.9) th/mm3 Eos # (Auto) (0.0-0.4) th/mm3 Baso # (Auto) (0.0-0.2) th/mm3 WBC Differential Diff Scan Differential Comment PT (9.8-11.6) sec INR Ratio APTT (24.3-30.1) sec Sodium (136-145) meq/L Potassium (3.5-5.1) meq/L Chloride (98-107) meq/L Carbon Dioxide (21.0-32.0) meq/L Anion Gap (5-15) meq/L BUN (7-18) mg/dL Creatinine (0.60-1.30) mg/dL Estimated GFR (>89) mL/min POC Glucose 178 H (68-110) mg/dl Random Glucose (74-106) mg/dL Calcium (8.5-10.1) mg/dL Phosphorus (2.5-4.9) mg/dL Magnesium (1.5-2.5) mg/dL Total Bilirubin (0.2-1.0) mg/dL AST (15-37) U/L ALT (12-78) U/L Alkaline Phosphatase (45-117) U/L Total Protein (6.4-8.2) g/dL Albumin (3.4-5.0) g/dL Nasal Screen MRSA (PCR) (Negative) Imaging Data Radiologist's impression: Chest X-Ray 06/14/18 23:50 CONCLUSION: 1. Endotracheal tube 1 cm above the kari and can be retracted 2 to 3 cm. 2. Mild cardiomegaly. Discharge Plan Discharge Disposition Patient Disposition: 30 Still Patient Physicians Team ED Provider: Arpit Bonilla Primary Care Provider: Vj Hernandez Attending Provider: Shiraz Braun Discharge Interventions Interventions: ED Discharge Assessment Last Done: 06/15/18 02:00 Vital Signs Last Done: 06/15/18 02:00 Status ED Status: Left Department Discharge Information Discharge Date/Time: 06/15/18 02:00
--- NOTE | 2018-06-15 00:09 | XR ---
EXAM DATE: 06/15/2018 11:50 PM EDT AGE/SEX: 62 years / Male INDICATIONS: Post intubation CLINICAL DATA: This is the patient's initial encounter. Patient reports that signs and symptoms have been present for 1 day and indicates a pain score of Nonresponsive. MEDICAL/SURGICAL HISTORY: Hypertension. None. COMPARISON: [facility], XR CHEST PA AND LAT, 12/23/2015. . FINDINGS: A single AP view of the chest demonstrates the lungs to be symmetrically aerated without evidence of mass, infiltrate or effusion. The cardiomediastinal contours are unremarkable. Mild cardiomegaly. E ndotracheal tube 1 cm from the kari. Osseous structures are intact. CONCLUSION: 1. Endotracheal tube 1 cm above the kari and can be retracted 2 to 3 cm. 2. Mild cardiomegaly. Electronically signed by: David Mayer MD 06/15/2018 12:07 AM EDT
[2018-06-15] MEDS: fentaNYL 10 mcg/mL Premix Drip 2,500 MCG/250 ML BAG IV.SIG PRN ×2 (00:45→20:42)
[2018-06-15] MEDS: Propofol 1000 mg/100 ml Inj 1,000 MG/100 ML BOTTLE IV.CONT PRN ×5 (03:53→23:14)
[2018-06-15] MEDS ORDERED: Bisacodyl 10 MG Supp RECTAL PRN (04:05)
[2018-06-15] MEDS ORDERED: Dextrose 50% in Water 50 ML Vial IV.PUSH PRN (04:11)
--- NOTE | 2018-06-15 04:13 | P.HPCC ---
History of Present Illness Primary Care Physician: Vj Hernandez MD, R3 History of Present Illness: 62-year-old male who is on enalapril for hypertension for many years tonight about an hour prior to presentation started feeling the swelling of the tongue mostly on the left side. This was getting significantly worse, he presented in the emergency department with difficulty speaking due to the mechanical obstruction of his tongue. He denies any tightness or swelling in his throat no sensation of choking however he immediately was given epi IM, Decadron 10 IV Benadryl 50 IV and he was not responding to medical management after 45 minutes. He was intubated for the airway protection by ED attending. Inpatient Certification: I certify that the inpatient services were ordered in accordance with Medicare regulations governing the order. This includes certification that hospital inpatient services are reasonable and necessary and in the case of services not specified as inpatient-only under 42 CFR 419.22(n), that they are appropriately provided as inpatient services in accordance to with the 2-midnight benchmark under 43 CFR 412.3(e) Estimated Total Length of Stay (Days): 5 Plans for Post Hospital Care: Not yet determined Review of Systems unobtainable due to endotracheal tube PMFSH - History History Provided By: Patient - Medical History Medical History: Medical History (Last Reviewed 06/14/18 @ 22:36 by Sofia Hamilton RN) Cold Diabetes High cholesterol History of claustrophobia Hypertension Joint pain Wears contact lenses Wears eyeglasses - Surgical History Surgical History: Surgical History (Last Reviewed 06/14/18 @ 22:36 by Sofia Hamilton RN) History of robot-assisted laparoscopic radical prostatectomy History of total right knee replacement (TKR) Hx of prostatectomy S/P arthroscopic surgery of left knee S/P arthroscopic surgery of right knee - Family History Family History: Family History (Last Reviewed 05/29/18 @ 09:27 by Marline Jang) Other Family history of diabetes mellitus Family history of hypertension - Tobacco History Second Hand Smoke Exposure: No Tobacco Use In Past 30 Days: No Smoking Status: Never smoker - Alcohol History How Often Do You Have a Drink Containing Alcohol: Never - Substance Use History Substance History: No History of Abuse - Travel History Recent Travel in the [place] Within the Last 8 Weeks: No Recent Travel Out of the Country Within the Last 8 Weeks: No - Immunization History Tetanus Immunization: <5 Years Medications and Allergies Active Medications: Active Medications Acetaminophen (Tylenol) 650 mg PO Q6H PRN PRN Reason: PAIN 1-10 AND/OR FEVER >101F Al Hydroxide/Mg Hydroxide (Milk Of Magnesia Liq) 30 ml PO Q12H PRN PRN Reason: Mild Constipation Albuterol (Duoneb Neb (Prn)) 1 ampul NEB Q2HR NEB PRN PRN Reason: WHEEZING Amlodipine Besylate (Norvasc) 10 mg PO HS [facility] Aspirin (Aspirin Chew) 81 mg PO BID [facility] Bisacodyl (Dulcolax Supp) 10 mg RECTAL DAILY PRN PRN Reason: SEVERE CONSITIPATION Chlorhexidine Gluconate (Peridex 0.12% Oral Kit) 15 ml OROPHARYNG BID@0800, 2000 [facility] Chlorhexidine Gluconate (Chlorhexidine 2% Cloth) 3 pack TOPICAL DAILY@0400 [facility] Stop: 06/21/18 03:59 Chlorhexidine Gluconate (Chlorhexidine 2% Cloth) 3 pack TOPICAL DAILY@0400 PRN PRN Reason: Extra cloth needed Stop: 06/21/18 03:59 Dextrose (D50w Vial) 50 ml IV.PUSH UNSCH PRN PRN Reason: PER HYPOGLYCEMIA PROTOCOL Enoxaparin Sodium (Lovenox Inj) 40 mg SQ Q24H [facility] Famotidine (Pepcid Pf Inj) 20 mg IV.PUSH Q12HR [facility] Glucagon (Glucagon Inj) 1 mg OTHER PRN PRN PRN Reason: for Hypoglycemia Protocol Propofol (Diprivan 1000 Mg/100 Ml Inj) 1,000 mg in 100 mls @ 3.576 mls/hr IV.CONT TITRATE PRN; Protocol PRN Reason: Per Protocol Last Admin: 06/15/18 03:53 Dose: 50 mcg/kg/min, 35.76 mls/hr Fentanyl (Fentanyl 10 Mcg/Ml Premix Drip) 2,500 mcg in 250 mls @ 5 mls/hr IV.SIG TITRATE PRN; Protocol PRN Reason: Per Protocol Last Titration: 06/15/18 02:00 Dose: 50 mcg/hr, 5 mls/hr Sodium Chloride (Ns Inj) 1,000 mls @ 84 mls/hr IV.CONT .[id number] [facility] Insulin Aspart (Novolog Insulin Correctional Sugar Inj) 0 unit SQ Q6HR [facility]; Protocol Lactulose (Lactulose Liq) 30 ml PO DAILY PRN PRN Reason: SEVERE CONSITIPATION Midazolam HCl (Versed Inj) 2 mg IV.PUSH Q1H PRN PRN Reason: SEDATION Miscellaneous Medication () 1 each OROPHARYNG 0000,0400,1200,1600 [facility] Morphine Sulfate (Morphine Inj) 2 mg IV.PUSH Q2H PRN PRN Reason: PAIN SCALE 6 TO 10 Pravastatin Sodium (Pravachol) 80 mg PO QPM [facility] Senna/Docusate Sodium (Nicole-Colace) 1 tab PO BID [facility] Sennosides (Senokot) 17.2 mg PO Q12H PRN PRN Reason: Moderate Constipation Sodium Chloride (Ns Flush) 2 ml IV.FLUSH PRN PRN PRN Reason: FLUSH AFTER USING IV ACCESS Sodium Chloride (Ns Flush) 2 ml IV.FLUSH BID [facility] Sodium Chloride (Ns Flush) 2 ml IV.FLUSH PRN PRN PRN Reason: FLUSH AFTER USING IV ACCESS Triamterene/HCTZ (Maxzide 37.5 Mg-25 Mg) 1 tab PO DAILY [facility] Allergies Allergy/AdvReac Type Severity Reaction Status Date / Time No Known Allergies Allergy Verified 06/14/18 22:30 Home Medications Medication Instructions Recorded Confirmed Type amlodipine 10 mg PO HS 05/16/18 06/14/18 History enalapril maleate 20 mg PO BID 05/16/18 06/14/18 History glimepiride 1 mg PO QAM 05/16/18 06/14/18 History simvastatin 40 mg PO QPM 05/16/18 06/14/18 History triamterene-hydrochlorothiazid 1 tab PO DAILY 05/16/18 06/14/18 History Results - Labs CBC & Chem 7: 06/14/18 22:08 06/14/18 22:08 Labs: Short CBC 06/14/18 Range/Units 22:08 WBC 7.4 (4.0-11.0) th/mm3 Hgb 10.8 L (13.0-17.0) gm/dL Hct 33.5 L (39.0-51.0) % Plt Count 541 H D (150-450) th/mm3 BMP 06/14/18 22:08 Sodium 137 Potassium 3.6 Chloride 100 Carbon Dioxide 30.0 BUN 14 Creatinine 1.10 Calcium 9.0 Liver Function 06/14/18 Range/Units 22:08 Total Bilirubin 0.2 (0.2-1.0) mg/dL AST 24 (15-37) U/L ALT 30 (12-78) U/L Alkaline Phosphatase 146 H (45-117) U/L Albumin 3.5 (3.4-5.0) g/dL - Imaging Impressions Chest X-Ray 06/14/18 23:50 CONCLUSION: 1. Endotracheal tube 1 cm above the kari and can be retracted 2 to 3 cm. 2. Mild cardiomegaly. Exam Vital signs: Vital Signs 06/14/18 22:00 06/14/18 22:17 06/14/18 22:25 Temperature 98.7 F Pulse Rate 98 H 88 86 Respiratory Rate 18 20 18 Blood Pressure 200/80 H 175/84 H Pulse Oximetry 99 97 06/14/18 22:49 06/14/18 23:23 06/14/18 23:35 Temperature Pulse Rate 92 H 94 H Respiratory Rate 18 16 14 Blood Pressure 186/91 H 179/75 H Pulse Oximetry 99 100 100 06/14/18 23:47 06/15/18 00:03 06/15/18 01:15 Temperature Pulse Rate 96 H 100 H 111 H Respiratory Rate 14 14 14 Blood Pressure 140/75 177/89 H 175/72 H Pulse Oximetry 100 100 06/15/18 01:30 06/15/18 02:00 06/15/18 02:32 Temperature Pulse Rate 79 102 H Respiratory Rate 14 14 21 Blood Pressure 157/76 H 168/79 H Pulse Oximetry 100 98 Intake & Output 06/14/18 06/14/18 06/15/18 06:59 18:59 06:59 Intake Total 110 / 110 Output Total 600 / 600 Balance -490 / -490 Weight 119 kg Intake: IV 110 / 110 Diprivan 1000 mg/100 ml Inj 1, 100 / 100 000 mg In 100 ml @ 5 MCG/KG/MIN 3.576 mls/hr IV.CONT TITRATE PRN Rx#:[id number] fentaNYL 10 mcg/mL Premix Drip 2,500 mcg In 250 ml @ 50 MCG/HR 5 mls/hr IV.SIG TITRATE PRN Rx #:[id number] Output: Urine Amount (Catheter) 600 / 600 Indwelling Urethral Catheter 600 / 600 Other: Weight On Admission 119 kg - Constitutional no acute distress - Routine HEENT Exam Head: Present: normocephalic, atraumatic Eye: Present: PERRL, normal accommodation ENT: Present: mucous membranes moist - Routine Neck Exam Absent: JVD, carotid bruit - Routine Respiratory Exam Present: patient mechanically ventilated. Absent: rhonchi, stridor, wheezes - Routine Cardiovascular Exam Present: RRR, S1, S2 - Routine Abdominal Exam Present: soft, normoactive bowel sounds - Routine Extremities Exam Absent: cyanosis, clubbing, edema - Routine Skin Exam Present: intact. Absent: cyanosis, erythema - Routine Neurological Exam Present: moving all extremities Septic Shock Reassessment Septic shock perfusion: reassessment completed Caprini VTE Risk Assessment Caprini VTE Risk Assessment: Moderate/High Risk (score >= 2) Caprini Risk Assessment Model: Point Value = 1 Point Value = 2 Point Value = 3 Point Value = 5 Age 41-60 Minor surgery BMI > 25 kg/m2 Swollen legs Varicose veins or History of unexplained or recurrent spontaneous Oral contraceptives or hormone replacement Sepsis (< 1 month) Serious lung disease, including pneumonia (< 1 month) Abnormal pulmonary function Acute myocardial infarction Congestive heart failure (< 1 month) History of inflammatory bowel disease Medical patient at bed rest Age 61-74 Arthroscopic surgery Major open surgery (> 45 min) Laparoscopic surgery (> 45 min) Malignancy Confined to bed (> 72 hours) Immobilizing plaster cast Central venous access Age >= 75 History of VTE Family history of VTE Factor V Leiden Prothrombin [id number] Lupus anticoagulant Anticardiolipin antibodies Elevated serum homocysteine Heparin-induced thrombocytopenia Other congenital or acquired thrombophilia Stroke (< 1 month) Elective arthroplasty Hip, pelvis, or leg fracture Acute spinal cord injury (< 1 month) Prophylaxis Regimen: Total Risk Factor Score Risk Level Prophylaxis Regimen 0-1 Low Early ambulation 2 Moderate Order ONE of the following: *Sequential Compression Device (SCD) *Heparin 5000 units SQ BID 3-4 Higher Order ONE of the following medications: *Heparin 5000 units SQ TID *Enoxaparin/Lovenox 40 mg SQ daily (WT < 150 kg, CrCl > 30 mL/min) *Enoxaparin/Lovenox 30 mg SQ daily (WT < 150 kg, CrCl > 10-29 mL/min) *Enoxaparin/Lovenox 30 mg SQ BID (WT < 150 kg, CrCl > 30 mL/min) AND/OR *Sequential Compression Device (SCD) 5 or more Highest Order ONE of the following medications: *Heparin 5000 units SQ TID (Preferred with Epidurals) *Enoxaparin/Lovenox 40 mg SQ daily (WT < 150 kg, CrCl > 30 mL/min) *Enoxaparin/Lovenox 30 mg SQ daily (WT < 150 kg, CrCl > 10-29 mL/min) *Enoxaparin/Lovenox 30 mg SQ BID (WT < 150 kg, CrCl > 30 mL/min) AND *Sequential Compression Device (SCD) Assessment and Plan - Assessment and Plan Plan: Respiratory failure -Intubated for an airway protection -Due to angioedema -No weaning until angioedema resolved -Assist control -Vent bundle -DuoNeb's as needed Angioedema -DC enalapril -IV Decadron -P.o. Benadryl -IV Pepcid Hypertension -Continue Norvasc -Triamterene/hydrochlorothiazide -DC enalapril due to above Diabetes mellitus -Hold p.o. meds while in the ICU -Levemir and insulin sliding scale Dyslipidemia -Pravastatin DVT GI prophylaxis -Teds SCDs -Subcu Lovenox -IV Pepcid 35 minutes of critical care H&P: Quality - VTE Deep Vein Thrombosis/Pulmonary Embolism Present on Admission: No
[2018-06-15] MEDS: Enoxaparin Inj 40 MG/0.4 ML Syringe SQ SCH (05:21)
[2018-06-15] MEDS: Sod Chloride 0.9% Inj 1,000 ML IV.CONT SCH ×2 (05:22→17:44)
[2018-06-15] MEDS: Insulin NovoLOG Aspart Correctional Sugar Inj SQ SCH ×4 (05:22→23:13)
[2018-06-15] MEDS: Chlorhexidine 0.12% Oral Kit 15 ML UDC OROPHARYNG SCH ×2 (08:18→20:30)
[2018-06-15] MEDS: Insulin Detemir Inj 1,000 UNIT/10 ML Vial SQ SCH ×2 (08:19→20:31)
[2018-06-15] MEDS: Senna/Docusate Sodium 8.6/50 MG Tablet PO SCH ×2 (08:19→20:31)
[2018-06-15] MEDS: Famotidine PF Inj 20 MG/2 ML Vial IV.PUSH SCH ×2 (08:19→20:31)
[2018-06-15] MEDS: Triamterene/HCTZ 37.5 MG/25 MG Tablet PO SCH (08:21)
[2018-06-15] MEDS: Oral Hygiene Kit OROPHARYNG SCH ×3 (12:00→23:13)
--- NOTE | 2018-06-15 20:06 | ECG ---
Date Performed: 06/14/2018 Time Performed: 23:48:40 PTAGE: 62 years EKG: Sinus rhythm ST DEVIATION AND MODERATE T-WAVE ABNORMALITY ABNORMAL ECG Compared to PREVIOUS TRACING , ST-T changes more prominent DOCTOR: Cheng Oquendo Interpretating Date/Time 06/15/2018 20:05:03
[2018-06-15] MEDS: amLODIPine 10 MG Tablet PO SCH (20:30)
[2018-06-16] MEDS ORDERED: Chlorhexidine Gluconate 2% 1 Pack (2 Cloths) TOPICAL PRN (04:00)
[2018-06-16] MEDS: Sod Chloride 0.9% Inj 1,000 ML IV.CONT SCH ×2 (04:08→16:48)
[2018-06-16] MEDS: Enoxaparin Inj 40 MG/0.4 ML Syringe SQ SCH (04:08)
[2018-06-16] MEDS: Oral Hygiene Kit OROPHARYNG SCH ×4 (04:08→23:12)
[2018-06-16] MEDS: Chlorhexidine Gluconate 2% 1 Pack (2 Cloths) TOPICAL SCH (04:08)
[2018-06-16] MEDS: Propofol 1000 mg/100 ml Inj 1,000 MG/100 ML BOTTLE IV.CONT PRN ×4 (04:09→23:14)
[2018-06-16 04:22] LABS: Hematocrit 27.8 % (39.0-51.0); Lymph # (Auto) 0.8 th/mm3 (1.0-4.8); Lymph % (Auto) 9.7 % (9.0-44.0); Mean Corpuscular HGB Conc 32.5 % (32.0-36.0); Mean Corpuscular Hemoglobin 24.4 pg (27.0-34.0); Mean Corpuscular Volume 75.2 fL (80.0-100.0); Mean Platelet Volume 7.6 fL (7.0-11.0); Mono # (Auto) 0.4 th/mm3 (0.0-0.9); Mono % (Auto) 5.2 % (0.0-8.0); Neut # (Auto) 7.4 th/mm3 (1.8-7.7); Neut % (Auto) 85.1 % (16.0-70.0); Platelet Count 428 th/mm3 (150-450); Red Cell Distribution Width 16.2 % (11.6-17.2); White Blood Count 8.7 th/mm3 (4.0-11.0)
[2018-06-16 04:38] LABS: Activated Partial Thrombo Time 21.8 sec (24.3-30.1); Prothrombin Time 10.5 sec (9.8-11.6)
[2018-06-16 04:47] LABS: Albumin 2.9 g/dL (3.4-5.0); Anion Gap 8 meq/L (5-15); Aspartate Aminotransferase 17 U/L (15-37); Blood Urea Nitrogen 17 mg/dL (7-18); Calcium 8.1 mg/dL (8.5-10.1); Carbon Dioxide 25.9 meq/L (21.0-32.0); Chloride 103 meq/L (98-107); Glomerular Filtration Rate 81 mL/min (>89); Glucose,Random 214 mg/dL (74-106); Magnesium 2.4 mg/dL (1.5-2.5); Potassium 4.1 meq/L (3.5-5.1); Sodium 137 meq/L (136-145)
[2018-06-16 04:50] LABS: Alanine Aminotransferase 30 U/L (12-78); Alkaline Phosphatase 118 U/L (45-117); Phosphorus 2.3 mg/dL (2.5-4.9)
[2018-06-16] MEDS: Insulin NovoLOG Aspart Correctional Sugar Inj SQ SCH ×4 (05:14→23:12)
[2018-06-16] MEDS: Senna/Docusate Sodium 8.6/50 MG Tablet PO SCH ×2 (08:18→20:22)
[2018-06-16] MEDS: Triamterene/HCTZ 37.5 MG/25 MG Tablet PO SCH (08:18)
[2018-06-16] MEDS: Insulin Detemir Inj 1,000 UNIT/10 ML Vial SQ SCH ×2 (08:38→20:22)
[2018-06-16] MEDS: Famotidine PF Inj 20 MG/2 ML Vial IV.PUSH SCH ×2 (08:38→20:22)
[2018-06-16] MEDS: Chlorhexidine 0.12% Oral Kit 15 ML UDC OROPHARYNG SCH ×2 (08:45→20:21)
--- NOTE | 2018-06-16 10:33 | P.PNCC ---
Subjective Subjective Remarks/Hospital Course: 06/15: 62-year-old male who is on enalapril for hypertension for many years tonight about an hour prior to presentation started feeling the swelling of the tongue mostly on the left side. This was getting significantly worse, he presented in the emergency department with difficulty speaking due to the mechanical obstruction of his tongue. He denies any tightness or swelling in his throat no sensation of choking however he immediately was given epi IM, Decadron 10 IV Benadryl 50 IV and he was not responding to medical management after 45 minutes. He was intubated for the airway protection by ED attending. 06/16: Remains sedated, orally intubated on mechanical ventilation. Tongue swelling decreasing. Objective Vital Signs / I&O: Vital Signs 06/15/18 10:45 06/15/18 11:00 06/15/18 11:15 Temperature Pulse Rate 79 79 81 Respiratory Rate 20 20 20 Blood Pressure 119/56 L Pulse Oximetry 100 100 98 06/15/18 11:22 06/15/18 11:30 06/15/18 11:45 Temperature 99.6 F Pulse Rate 80 79 Respiratory Rate 20 20 20 Blood Pressure Pulse Oximetry 98 99 99 06/15/18 12:00 06/15/18 12:15 06/15/18 12:30 Temperature 99.6 F Pulse Rate 79 77 75 Respiratory Rate 18 19 19 Blood Pressure 119/58 L Pulse Oximetry 99 99 99 06/15/18 12:45 06/15/18 13:00 06/15/18 13:15 Temperature Pulse Rate 75 77 76 Respiratory Rate 19 19 19 Blood Pressure 120/61 Pulse Oximetry 99 99 99 06/15/18 13:30 06/15/18 13:45 06/15/18 14:00 Temperature Pulse Rate 78 83 82 Respiratory Rate 20 21 21 Blood Pressure 127/63 Pulse Oximetry 99 99 99 06/15/18 14:15 06/15/18 14:30 06/15/18 14:45 Temperature Pulse Rate 80 78 79 Respiratory Rate 20 20 20 Blood Pressure Pulse Oximetry 99 99 99 06/15/18 15:00 06/15/18 15:01 06/15/18 15:15 Temperature Pulse Rate 87 86 83 Respiratory Rate 22 22 21 Blood Pressure 147/70 H Pulse Oximetry 100 100 99 06/15/18 15:30 06/15/18 15:45 06/15/18 16:00 Temperature 100.3 F H Pulse Rate 80 93 H 93 H Respiratory Rate 20 24 24 Blood Pressure 142/65 H Pulse Oximetry 99 100 98 06/15/18 16:15 06/15/18 16:30 06/15/18 16:45 Temperature Pulse Rate 86 85 83 Respiratory Rate 22 22 21 Blood Pressure Pulse Oximetry 98 98 98 06/15/18 17:00 06/15/18 17:15 06/15/18 17:30 Temperature Pulse Rate 78 76 77 Respiratory Rate 20 19 19 Blood Pressure 118/58 L Pulse Oximetry 98 99 99 06/15/18 17:45 06/15/18 18:00 06/15/18 18:15 Temperature Pulse Rate 79 82 93 H Respiratory Rate 20 21 23 Blood Pressure 124/64 Pulse Oximetry 99 99 99 06/15/18 18:30 06/15/18 18:45 06/15/18 19:00 Temperature Pulse Rate 100 H 103 H 100 H Respiratory Rate 27 H 21 21 Blood Pressure 129/74 Pulse Oximetry 99 98 98 06/15/18 19:15 06/15/18 19:30 06/15/18 19:45 Temperature Pulse Rate 98 H 96 H 101 H Respiratory Rate 20 20 23 Blood Pressure Pulse Oximetry 98 98 99 06/15/18 20:00 06/15/18 20:14 06/15/18 20:15 Temperature 100.7 F H Pulse Rate 102 H 101 H Respiratory Rate 20 21 20 Blood Pressure 126/81 Pulse Oximetry 99 99 98 06/15/18 20:30 06/15/18 20:45 06/15/18 21:00 Temperature Pulse Rate 102 H 98 H 93 H Respiratory Rate 21 20 22 Blood Pressure 131/72 Pulse Oximetry 98 98 98 06/15/18 21:15 06/15/18 21:30 06/15/18 21:45 Temperature Pulse Rate 89 86 83 Respiratory Rate 23 22 21 Blood Pressure Pulse Oximetry 98 98 99 06/15/18 22:00 06/15/18 22:13 06/15/18 22:15 Temperature Pulse Rate 84 87 86 Respiratory Rate 21 22 22 Blood Pressure 133/69 Pulse Oximetry 99 99 99 06/15/18 22:30 06/15/18 22:45 06/15/18 23:00 Temperature Pulse Rate 81 79 78 Respiratory Rate 21 20 20 Blood Pressure Pulse Oximetry 98 99 99 06/15/18 23:01 06/15/18 23:15 06/15/18 23:30 Temperature 99.7 F H Pulse Rate 79 78 84 Respiratory Rate 21 20 21 Blood Pressure 118/63 Pulse Oximetry 99 99 99 06/15/18 23:45 06/15/18 23:59 06/16/18 00:00 Temperature 99.7 F H Pulse Rate 81 79 Respiratory Rate 21 19 20 Blood Pressure Pulse Oximetry 99 99 99 06/16/18 00:01 06/16/18 00:15 06/16/18 00:30 Temperature Pulse Rate 79 76 74 Respiratory Rate 20 19 19 Blood Pressure 121/65 Pulse Oximetry 99 99 99 06/16/18 00:45 06/16/18 01:00 06/16/18 01:01 Temperature Pulse Rate 75 75 75 Respiratory Rate 19 19 19 Blood Pressure 120/65 Pulse Oximetry 99 99 99 06/16/18 01:15 06/16/18 01:30 06/16/18 01:45 Temperature Pulse Rate 76 84 85 Respiratory Rate 19 21 22 Blood Pressure Pulse Oximetry 99 100 99 06/16/18 02:00 06/16/18 02:01 06/16/18 02:15 Temperature Pulse Rate 84 83 79 Respiratory Rate 21 21 20 Blood Pressure 152/70 H Pulse Oximetry 99 98 99 06/16/18 02:30 06/16/18 02:45 06/16/18 03:00 Temperature Pulse Rate 79 74 72 Respiratory Rate 20 21 22 Blood Pressure Pulse Oximetry 99 99 99 06/16/18 03:01 06/16/18 03:15 06/16/18 03:30 Temperature Pulse Rate 72 71 70 Respiratory Rate 22 22 24 Blood Pressure 130/60 Pulse Oximetry 99 99 99 06/16/18 03:43 06/16/18 03:45 06/16/18 04:00 Temperature 99.4 F Pulse Rate 78 78 81 Respiratory Rate 19 20 21 Blood Pressure 138/63 Pulse Oximetry 99 99 99 06/16/18 04:15 06/16/18 04:30 06/16/18 04:45 Temperature Pulse Rate 92 H 93 H 86 Respiratory Rate 23 23 22 Blood Pressure Pulse Oximetry 98 98 98 06/16/18 05:00 06/16/18 05:15 06/16/18 05:30 Temperature Pulse Rate 82 81 81 Respiratory Rate 21 20 21 Blood Pressure 138/62 Pulse Oximetry 98 98 98 06/16/18 05:45 06/16/18 06:00 06/16/18 07:00 Temperature Pulse Rate 79 75 75 Respiratory Rate 20 22 20 Blood Pressure 134/61 159/109 H Pulse Oximetry 99 99 100 06/16/18 08:00 06/16/18 08:39 06/16/18 09:00 Temperature 98.7 F Pulse Rate 69 76 Respiratory Rate 18 19 22 Blood Pressure 193/125 H 225/167 H Pulse Oximetry 100 98 99 Intake & Output 06/15/18 06/16/18 06/16/18 18:59 06:59 18:59 Intake Total 1615 / 1615 2085 / 2085 100 / 100 Output Total 950 / 950 850 / 850 Balance 665 / 665 1235 / 1235 100 / 100 Weight 120.5 kg Intake: IV 1200 / 1200 1450 / 1450 100 / 100 Diprivan 1000 mg/100 ml Inj 1, 200 / 200 200 / 200 100 / 100 000 mg In 100 ml @ 5 MCG/KG/MIN 3.576 mls/hr IV.CONT TITRATE PRN Rx#:[id number] NS Inj 1,000 ML @ 84 mls/hr IV. 1000 / 1000 1000 / 1000 CONT .[id number] [facility] Rx#:[id number] fentaNYL 10 mcg/mL Premix Drip 250 / 250 2,500 mcg In 250 ml @ 50 MCG/HR 5 mls/hr IV.SIG TITRATE PRN Rx #:[id number] Tube Feeding 295 / 295 575 / 575 Tube Irrigant 120 / 120 60 / 60 Output: Urine Amount (Catheter) 950 / 950 850 / 850 Indwelling Urethral Catheter 950 / 950 850 / 850 Result Diagrams: 06/16/18 03:49 06/16/18 03:49 Objective Remarks: - Constitutional no acute distress - Routine HEENT Exam Head: Present: normocephalic, atraumatic Eye: Present: PERRL, normal accommodation ENT: Present: mucous membranes moist. Tongue swelling decreasing - Routine Neck Exam Absent: JVD, carotid bruit - Routine Respiratory Exam Present: patient mechanically ventilated. Absent: rhonchi, stridor, wheezes - Routine Cardiovascular Exam Present: RRR, S1, S2 - Routine Abdominal Exam Present: soft, normoactive bowel sounds - Routine Extremities Exam Absent: cyanosis, clubbing, edema - Routine Skin Exam Present: intact. Absent: cyanosis, erythema - Routine Neurological Exam Present: moving all extremities Assessment and Plan - Assessment and Plan Plan: Respiratory failure -Intubated for an airway protection -Due to angioedema -No weaning until angioedema resolved -Assist control -Vent bundle -DuoNeb's as needed Angioedema -DC enalapril -IV Decadron -P.o. Benadryl -IV Pepcid Hypertension -Continue Norvasc -Triamterene/hydrochlorothiazide -DC enalapril due to above Diabetes mellitus -Hold p.o. meds while in the ICU -Levemir and insulin sliding scale Dyslipidemia -Pravastatin DVT GI prophylaxis -Teds SCDs -Subcu Lovenox -IV Pepcid 35 minutes of critical care
--- NOTE | 2018-06-16 11:11 | P.DIET ---
Nutritional Evaluation Type of nutrition evaluation: initial Nutrition consult regarding: Tube Feeding Objective - Diagnosis Severe angioadema, airway compromised - Objective [place] body weight: 67 kg % IBW: 177 Body Weight Used for Calculations: IBW Energy Needs - Lower Range (kCal/kg): 25 Energy Needs - Upper Range (kCal/kg): 30 Lower Limit kCal/kg (kCals): 1,675 Upper Limit kCal/kg (kCals): 2,010 Lower Limit Protein Factor (Grams per Kg): 1.2 Upper Limit Protein Factor (Grams per Kg): 1.5 Lower Protein Needs (Protein): 80 Upper Protein Needs (Protein): 101 Dietitian Reviewed in Medical Record: Curent medications, Intake & Output, Labs , Medical history, Tube feeding Diet Order: TF only Objective Comments: PMH: DM, HLD, HTN Meds include: Propofol, Novolog, Levemir Assessment Assessment: Pt at nutritional risk r/t dx and current clinical status. Pt intubated for an airway protection due to angioedema. Per MD note today, tongue swelling is decreasing. Pt's nutritional needs as assessed above. Current order for TF Glucerna 1.5 with goal rate 55ml/hr will provide 1980kcals, 109gms protein and 1002mls free water. This is adequate to meet pt's nutritional needs at this time. Will monitor TF tolerance, clinical course. Recommendations: TF Glucerna 1.5 with goal rate 55ml/hr Dietitian to Monitor: Lab values, Glucose level, Intake & Output, Tube feeding tolerance, Weight change, Medical course
[2018-06-16] MEDS: amLODIPine 10 MG Tablet PO SCH (20:22)
[2018-06-17] MEDS: Sod Chloride 0.9% Inj 1,000 ML IV.CONT SCH ×2 (04:10→16:05)
[2018-06-17] MEDS: Chlorhexidine Gluconate 2% 1 Pack (2 Cloths) TOPICAL SCH (04:10)
[2018-06-17] MEDS: Oral Hygiene Kit OROPHARYNG SCH ×3 (04:10→17:50)
[2018-06-17] MEDS: Enoxaparin Inj 40 MG/0.4 ML Syringe SQ SCH (04:10)
[2018-06-17] MEDS: Insulin NovoLOG Aspart Correctional Sugar Inj SQ SCH ×3 (05:21→17:46)
[2018-06-17] MEDS: Propofol 1000 mg/100 ml Inj 1,000 MG/100 ML BOTTLE IV.CONT PRN ×3 (06:25→19:39)
[2018-06-17] MEDS: fentaNYL 10 mcg/mL Premix Drip 2,500 MCG/250 ML BAG IV.SIG PRN ×2 (08:16→19:40)
[2018-06-17] MEDS: Triamterene/HCTZ 37.5 MG/25 MG Tablet PO SCH (08:17)
[2018-06-17] MEDS: Famotidine PF Inj 20 MG/2 ML Vial IV.PUSH SCH ×2 (08:17→20:56)
[2018-06-17] MEDS: Chlorhexidine 0.12% Oral Kit 15 ML UDC OROPHARYNG SCH ×2 (08:18→19:40)
[2018-06-17] MEDS: Senna/Docusate Sodium 8.6/50 MG Tablet PO SCH ×2 (08:18→20:55)
[2018-06-17] MEDS: Insulin Detemir Inj 1,000 UNIT/10 ML Vial SQ SCH ×2 (08:18→20:56)
--- NOTE | 2018-06-17 08:41 | P.PNCC ---
Subjective Subjective Remarks/Hospital Course: 06/15: 62-year-old male who is on enalapril for hypertension for many years tonight about an hour prior to presentation started feeling the swelling of the tongue mostly on the left side. This was getting significantly worse, he presented in the emergency department with difficulty speaking due to the mechanical obstruction of his tongue. He denies any tightness or swelling in his throat no sensation of choking however he immediately was given epi IM, Decadron 10 IV Benadryl 50 IV and he was not responding to medical management after 45 minutes. He was intubated for the airway protection by ED attending. 06/16: Remains sedated, orally intubated on mechanical ventilation. Tongue swelling decreasing. 06/17: Sedated, arousable, orally intubated on mechanical vent patient. Continues to have some tongue swelling currently. Objective Vital Signs / I&O: Vital Signs 06/16/18 09:00 06/16/18 10:00 06/16/18 11:00 Temperature Pulse Rate 76 88 85 Respiratory Rate 22 18 20 Blood Pressure 154/71 H 140/66 132/62 Pulse Oximetry 99 99 98 06/16/18 12:00 06/16/18 12:02 06/16/18 12:15 Temperature 99.1 F Pulse Rate 88 85 Respiratory Rate 18 16 19 Blood Pressure 139/64 Pulse Oximetry 98 98 98 06/16/18 12:30 06/16/18 12:45 06/16/18 13:00 Temperature Pulse Rate 86 83 82 Respiratory Rate 19 17 18 Blood Pressure 134/63 Pulse Oximetry 98 98 98 06/16/18 13:01 06/16/18 13:15 06/16/18 13:30 Temperature Pulse Rate 81 80 82 Respiratory Rate 18 17 19 Blood Pressure 134/63 Pulse Oximetry 98 99 99 06/16/18 13:45 06/16/18 14:00 06/16/18 14:15 Temperature 99.1 F Pulse Rate 79 77 74 Respiratory Rate 17 16 16 Blood Pressure 129/60 Pulse Oximetry 99 98 98 06/16/18 14:30 06/16/18 14:45 06/16/18 15:00 Temperature Pulse Rate 76 74 76 Respiratory Rate 17 16 18 Blood Pressure 134/63 Pulse Oximetry 98 98 99 06/16/18 15:15 06/16/18 15:30 06/16/18 15:45 Temperature Pulse Rate 76 74 73 Respiratory Rate 19 17 17 Blood Pressure Pulse Oximetry 99 98 98 06/16/18 16:00 06/16/18 16:15 06/16/18 16:30 Temperature 99 F Pulse Rate 71 70 68 Respiratory Rate 15 17 15 Blood Pressure 122/58 L Pulse Oximetry 98 98 98 06/16/18 16:45 06/16/18 17:00 06/16/18 17:02 Temperature Pulse Rate 68 71 Respiratory Rate 18 16 18 Blood Pressure 126/65 Pulse Oximetry 98 98 98 06/16/18 17:15 06/16/18 17:30 06/16/18 17:45 Temperature Pulse Rate 69 67 67 Respiratory Rate 16 17 15 Blood Pressure Pulse Oximetry 98 98 99 06/16/18 18:00 06/16/18 18:15 06/16/18 18:30 Temperature Pulse Rate 70 70 69 Respiratory Rate 21 16 16 Blood Pressure 123/62 Pulse Oximetry 99 98 98 06/16/18 18:45 06/16/18 19:00 06/16/18 19:15 Temperature Pulse Rate 68 66 65 Respiratory Rate 15 16 16 Blood Pressure 115/57 L Pulse Oximetry 98 97 98 06/16/18 19:30 06/16/18 19:45 06/16/18 20:00 Temperature 99 F Pulse Rate 66 66 72 Respiratory Rate 15 16 18 Blood Pressure 121/61 Pulse Oximetry 97 97 97 06/16/18 20:15 06/16/18 20:30 06/16/18 20:33 Temperature Pulse Rate 72 86 Respiratory Rate 18 21 21 Blood Pressure Pulse Oximetry 97 98 98 06/16/18 20:45 06/16/18 21:00 06/16/18 21:15 Temperature Pulse Rate 93 H 86 76 Respiratory Rate 22 18 16 Blood Pressure 133/64 Pulse Oximetry 98 96 96 06/16/18 21:30 06/16/18 21:45 06/16/18 22:00 Temperature Pulse Rate 74 72 71 Respiratory Rate 15 15 15 Blood Pressure 115/57 L Pulse Oximetry 96 97 97 06/16/18 22:15 06/16/18 22:28 06/16/18 22:30 Temperature Pulse Rate 68 66 Respiratory Rate 15 17 17 Blood Pressure Pulse Oximetry 97 97 97 06/16/18 22:45 06/16/18 23:00 06/16/18 23:15 Temperature Pulse Rate 65 64 61 Respiratory Rate 16 16 16 Blood Pressure 113/59 L Pulse Oximetry 97 97 98 06/16/18 23:30 06/16/18 23:45 06/17/18 00:00 Temperature 98.9 F Pulse Rate 65 68 66 Respiratory Rate 17 17 17 Blood Pressure 114/55 L Pulse Oximetry 98 98 98 06/17/18 00:15 06/17/18 00:30 06/17/18 00:45 Temperature Pulse Rate 62 60 61 Respiratory Rate 16 15 16 Blood Pressure Pulse Oximetry 98 98 98 06/17/18 01:00 06/17/18 01:15 06/17/18 01:17 Temperature Pulse Rate 61 60 Respiratory Rate 15 15 14 Blood Pressure 114/58 L Pulse Oximetry 98 98 98 06/17/18 01:30 06/17/18 01:45 06/17/18 02:00 Temperature Pulse Rate 61 64 63 Respiratory Rate 19 15 14 Blood Pressure 117/58 L Pulse Oximetry 97 98 97 06/17/18 02:15 06/17/18 02:30 06/17/18 02:45 Temperature Pulse Rate 62 69 64 Respiratory Rate 15 16 14 Blood Pressure Pulse Oximetry 98 97 98 06/17/18 03:00 06/17/18 03:15 06/17/18 03:30 Temperature Pulse Rate 71 77 69 Respiratory Rate 18 19 15 Blood Pressure 129/60 Pulse Oximetry 98 97 97 06/17/18 03:45 06/17/18 04:00 06/17/18 04:15 Temperature 98.9 F Pulse Rate 66 64 64 Respiratory Rate 14 14 14 Blood Pressure 120/58 L Pulse Oximetry 97 97 97 06/17/18 04:17 06/17/18 04:30 06/17/18 04:45 Temperature Pulse Rate 70 67 Respiratory Rate 15 14 15 Blood Pressure Pulse Oximetry 99 97 98 06/17/18 05:00 06/17/18 05:15 06/17/18 05:30 Temperature Pulse Rate 64 67 62 Respiratory Rate 14 15 14 Blood Pressure 120/60 Pulse Oximetry 97 98 98 06/17/18 05:45 06/17/18 06:00 06/17/18 06:15 Temperature Pulse Rate 64 62 80 Respiratory Rate 12 14 19 Blood Pressure 121/64 Pulse Oximetry 97 98 98 06/17/18 07:44 Temperature Pulse Rate Respiratory Rate 10 L Blood Pressure Pulse Oximetry 96 Intake & Output 06/16/18 06/17/18 06/17/18 18:59 06:59 18:59 Intake Total 1200 / 1200 1875 / 1875 250 / 250 Output Total 800 / 800 Balance 1200 / 1200 1075 / 1075 250 / 250 Weight 122 kg Intake: IV 1200 / 1200 1200 / 1200 250 / 250 Diprivan 1000 mg/100 ml Inj 1, 200 / 200 200 / 200 000 mg In 100 ml @ 5 MCG/KG/MIN 3.576 mls/hr IV.CONT TITRATE PRN Rx#:[id number] NS Inj 1,000 ML @ 84 mls/hr IV. 1000 / 1000 1000 / 1000 CONT .[id number] [facility] Rx#:[id number] fentaNYL 10 mcg/mL Premix Drip 250 / 250 2,500 mcg In 250 ml @ 50 MCG/HR 5 mls/hr IV.SIG TITRATE PRN Rx #:[id number] Tube Feeding 575 / 575 Tube Irrigant 100 / 100 Output: Urine 800 / 800 Result Diagrams: 06/16/18 03:49 06/16/18 03:49 Objective Remarks: - Constitutional no acute distress - Routine HEENT Exam Head: Present: normocephalic, atraumatic Eye: Present: PERRL, normal accommodation ENT: Present: mucous membranes moist. Tongue swelling decreasing - Routine Neck Exam Absent: JVD, carotid bruit - Routine Respiratory Exam Present: patient mechanically ventilated. Absent: rhonchi, stridor, wheezes - Routine Cardiovascular Exam Present: RRR, S1, S2 - Routine Abdominal Exam Present: soft, normoactive bowel sounds - Routine Extremities Exam Absent: cyanosis, clubbing, edema - Routine Skin Exam Present: intact. Absent: cyanosis, erythema - Routine Neurological Exam Present: moving all extremities Assessment and Plan - Assessment and Plan Plan: Respiratory failure -Intubated for an airway protection -Due to angioedema -Daily SBT, await improvement in angioedema prior to attempting extubation -Assist control -Vent bundle -DuoNeb's as needed Angioedema -DC enalapril -IV Decadron -P.o. Benadryl -IV Pepcid Hypertension -Continue Norvasc -Triamterene/hydrochlorothiazide -DC enalapril due to above Diabetes mellitus -Hold p.o. meds while in the ICU -Levemir and insulin sliding scale Dyslipidemia -Pravastatin DVT GI prophylaxis -Teds SCDs -Subcu Lovenox -IV Pepcid 35 minutes of critical care
[2018-06-17] MEDS: amLODIPine 10 MG Tablet PO SCH (20:55)
[2018-06-18] MEDS: Propofol 1000 mg/100 ml Inj 1,000 MG/100 ML BOTTLE IV.CONT PRN ×6 (00:01→23:01)
[2018-06-18] MEDS: Oral Hygiene Kit OROPHARYNG SCH ×5 (00:01→23:40)
[2018-06-18] MEDS: Insulin NovoLOG Aspart Correctional Sugar Inj SQ SCH ×4 (00:24→17:56)
[2018-06-18] MEDS: Sod Chloride 0.9% Inj 1,000 ML IV.CONT SCH ×4 (00:45→23:39)
[2018-06-18] MEDS: Enoxaparin Inj 40 MG/0.4 ML Syringe SQ SCH (04:38)
[2018-06-18] MEDS: Chlorhexidine Gluconate 2% 1 Pack (2 Cloths) TOPICAL SCH (04:39)
--- NOTE | 2018-06-18 04:41 | XR ---
EXAM DATE: 06/18/2018 5:00 AM EDT AGE/SEX: 62 years / Male INDICATIONS: Short of breath. CLINICAL DATA: This is the patient's subsequent encounter. Patient reports that signs and symptoms h ave been present for 3 days and indicates a pain score of 0/10. MEDICAL/SURGICAL HISTORY: Hypertension. Non-responsive. COMPARISON: HPO, CHEST 1V SINGLE AP, 06/14/2018. . FINDINGS: The ET tube and NG tube are well placed. The heart size is normal. The lungs are grossly clear. CONCLUSION: No acute abnormality is seen. Electronically signed by: Renato Jimenez MD 06/18/2018 4:39 AM EDT
[2018-06-18 07:00] LABS: Baso % (Auto) 0.3 % (0.0-2.0); Hematocrit 29.5 % (39.0-51.0); Hemoglobin 9.2 gm/dL (13.0-17.0); Lymph # (Auto) 0.9 th/mm3 (1.0-4.8); Lymph % (Auto) 7.6 % (9.0-44.0); Mean Corpuscular HGB Conc 31.2 % (32.0-36.0); Mean Corpuscular Hemoglobin 24.1 pg (27.0-34.0); Mean Corpuscular Volume 77.2 fL (80.0-100.0); Mean Platelet Volume 8.3 fL (7.0-11.0); Mono # (Auto) 1.2 th/mm3 (0.0-0.9); Mono % (Auto) 10.5 % (0.0-8.0); Neut # (Auto) 9.1 th/mm3 (1.8-7.7); Neut % (Auto) 81.6 % (16.0-70.0); Platelet Count 360 th/mm3 (150-450); Red Blood Count 3.82 mil/mm3 (4.50-5.90); Red Cell Distribution Width 16.4 % (11.6-17.2); White Blood Count 11.2 th/mm3 (4.0-11.0)
[2018-06-18 07:33] LABS: Alanine Aminotransferase 22 U/L (12-78); Alkaline Phosphatase 109 U/L (45-117); Anion Gap 9 meq/L (5-15); Aspartate Aminotransferase 10 U/L (15-37); Blood Urea Nitrogen 32 mg/dL (7-18); Calcium 7.8 mg/dL (8.5-10.1); Carbon Dioxide 27.4 meq/L (21.0-32.0); Chloride 102 meq/L (98-107); Glomerular Filtration Rate 69 mL/min (>89); Glucose,Random 221 mg/dL (74-106); Potassium 4.8 meq/L (3.5-5.1); Sodium 138 meq/L (136-145); Total Protein 7.4 g/dL (6.4-8.2)
[2018-06-18] MEDS: Triamterene/HCTZ 37.5 MG/25 MG Tablet PO SCH (08:05)
[2018-06-18] MEDS: Insulin Detemir Inj 1,000 UNIT/10 ML Vial SQ SCH ×2 (08:05→20:31)
[2018-06-18] MEDS: Senna/Docusate Sodium 8.6/50 MG Tablet PO SCH ×2 (08:05→20:31)
[2018-06-18] MEDS: Chlorhexidine 0.12% Oral Kit 15 ML UDC OROPHARYNG SCH ×2 (08:05→20:31)
[2018-06-18] MEDS: Famotidine PF Inj 20 MG/2 ML Vial IV.PUSH SCH ×2 (08:06→20:30)
[2018-06-18] MEDS: fentaNYL 10 mcg/mL Premix Drip 2,500 MCG/250 ML BAG IV.SIG PRN ×2 (08:11→20:31)
--- NOTE | 2018-06-18 09:59 | P.PNCC ---
Subjective Subjective Remarks/Hospital Course: 06/15: 62-year-old male who is on enalapril for hypertension for many years tonight about an hour prior to presentation started feeling the swelling of the tongue mostly on the left side. This was getting significantly worse, he presented in the emergency department with difficulty speaking due to the mechanical obstruction of his tongue. He denies any tightness or swelling in his throat no sensation of choking however he immediately was given epi IM, Decadron 10 IV Benadryl 50 IV and he was not responding to medical management after 45 minutes. He was intubated for the airway protection by ED attending. 06/16: Remains sedated, orally intubated on mechanical ventilation. Tongue swelling decreasing. 06/17: Sedated, arousable, orally intubated on mechanical vent. Continues to have some tongue swelling currently. 06/18: Sedated, arousable, orally intubated on mechanical ventilation. Continues to have tongue swelling currently. Objective Vital Signs / I&O: Vital Signs 06/17/18 10:00 06/17/18 10:01 06/17/18 10:15 Temperature Pulse Rate 94 H 92 H 95 H Respiratory Rate 9 L 12 10 L Blood Pressure 149/81 H Pulse Oximetry 96 97 97 06/17/18 10:30 06/17/18 10:45 06/17/18 11:00 Temperature Pulse Rate 100 H 102 H 99 H Respiratory Rate 8 L 8 L 9 L Blood Pressure 132/74 Pulse Oximetry 97 97 98 06/17/18 11:15 06/17/18 11:30 06/17/18 11:45 Temperature Pulse Rate 98 H 103 H 104 H Respiratory Rate 8 L 8 L 9 L Blood Pressure Pulse Oximetry 97 97 97 06/17/18 12:00 06/17/18 12:07 06/17/18 12:15 Temperature Pulse Rate 103 H 104 H Respiratory Rate 8 L 16 7 L Blood Pressure 119/79 Pulse Oximetry 97 98 97 06/17/18 12:30 06/17/18 12:45 06/17/18 13:00 Temperature Pulse Rate 101 H 92 H 81 Respiratory Rate 7 L 20 16 Blood Pressure 113/62 Pulse Oximetry 97 97 96 06/17/18 13:15 06/17/18 13:30 06/17/18 13:45 Temperature Pulse Rate 79 74 70 Respiratory Rate 16 17 17 Blood Pressure Pulse Oximetry 96 96 96 06/17/18 14:00 06/17/18 14:15 06/17/18 14:30 Temperature Pulse Rate 70 72 76 Respiratory Rate 16 13 18 Blood Pressure 111/56 L 111/56 L Pulse Oximetry 95 91 L 97 06/17/18 14:45 06/17/18 15:00 06/17/18 15:15 Temperature Pulse Rate 79 81 81 Respiratory Rate 18 11 L 17 Blood Pressure 119/68 Pulse Oximetry 97 97 97 06/17/18 15:30 06/17/18 15:41 06/17/18 15:43 Temperature Pulse Rate 79 79 Respiratory Rate 15 18 15 Blood Pressure Pulse Oximetry 97 98 06/17/18 15:45 06/17/18 16:00 06/17/18 16:15 Temperature Pulse Rate 78 79 81 Respiratory Rate 17 15 17 Blood Pressure 114/58 L Pulse Oximetry 97 97 97 06/17/18 16:30 06/17/18 16:45 06/17/18 17:00 Temperature Pulse Rate 84 82 81 Respiratory Rate 12 17 9 L Blood Pressure 109/74 Pulse Oximetry 97 97 98 06/17/18 17:15 06/17/18 17:30 06/17/18 17:45 Temperature Pulse Rate 82 82 79 Respiratory Rate 11 L 11 L 11 L Blood Pressure Pulse Oximetry 98 98 98 06/17/18 18:00 06/17/18 18:15 06/17/18 18:30 Temperature Pulse Rate 80 87 78 Respiratory Rate 21 15 14 Blood Pressure 113/85 Pulse Oximetry 98 98 98 06/17/18 18:45 06/17/18 19:00 06/17/18 19:15 Temperature Pulse Rate 81 76 82 Respiratory Rate 11 L 16 11 L Blood Pressure 127/76 Pulse Oximetry 98 99 98 06/17/18 19:30 06/17/18 19:45 06/17/18 20:00 Temperature 97.4 F L Pulse Rate 74 76 75 Respiratory Rate 17 12 11 L Blood Pressure 129/78 Pulse Oximetry 99 98 98 06/17/18 20:15 06/17/18 20:26 06/17/18 20:30 Temperature Pulse Rate 80 79 73 Respiratory Rate 6 L 14 17 Blood Pressure Pulse Oximetry 97 98 98 06/17/18 20:45 06/17/18 21:00 06/17/18 21:15 Temperature Pulse Rate 75 74 73 Respiratory Rate 18 17 19 Blood Pressure 128/68 Pulse Oximetry 98 97 99 06/17/18 21:30 06/17/18 21:45 06/17/18 22:00 Temperature Pulse Rate 76 80 82 Respiratory Rate 16 16 19 Blood Pressure 127/62 Pulse Oximetry 97 96 98 06/17/18 22:15 06/17/18 22:30 06/17/18 22:45 Temperature Pulse Rate 83 82 83 Respiratory Rate 15 16 13 Blood Pressure Pulse Oximetry 99 98 98 06/17/18 23:00 06/17/18 23:15 06/17/18 23:30 Temperature Pulse Rate 80 78 79 Respiratory Rate 16 18 14 Blood Pressure 132/66 Pulse Oximetry 98 98 97 06/17/18 23:45 06/18/18 00:00 06/18/18 00:15 Temperature 97.7 F Pulse Rate 80 81 90 Respiratory Rate 17 13 13 Blood Pressure 144/72 H Pulse Oximetry 98 98 100 06/18/18 00:30 06/18/18 00:45 06/18/18 01:00 Temperature Pulse Rate 89 82 78 Respiratory Rate 12 10 L 12 Blood Pressure 135/72 Pulse Oximetry 99 98 98 06/18/18 01:15 06/18/18 01:30 06/18/18 01:45 Temperature Pulse Rate 75 79 72 Respiratory Rate 11 L 15 16 Blood Pressure Pulse Oximetry 98 98 98 06/18/18 02:00 06/18/18 02:15 06/18/18 02:30 Temperature Pulse Rate 72 72 70 Respiratory Rate 15 15 16 Blood Pressure 130/70 Pulse Oximetry 97 98 97 06/18/18 02:45 06/18/18 03:00 06/18/18 03:15 Temperature Pulse Rate 70 71 69 Respiratory Rate 16 10 L 16 Blood Pressure 133/73 Pulse Oximetry 96 97 98 06/18/18 03:30 06/18/18 03:45 06/18/18 04:00 Temperature 98.1 F Pulse Rate 69 68 68 Respiratory Rate 11 L 16 16 Blood Pressure 129/72 Pulse Oximetry 97 97 97 06/18/18 04:15 06/18/18 04:30 06/18/18 04:45 Temperature Pulse Rate 74 80 75 Respiratory Rate 11 L 14 12 Blood Pressure Pulse Oximetry 98 100 99 06/18/18 05:00 06/18/18 05:15 06/18/18 05:30 Temperature Pulse Rate 79 80 79 Respiratory Rate 14 13 13 Blood Pressure 126/61 Pulse Oximetry 99 100 100 06/18/18 05:45 06/18/18 06:00 06/18/18 06:15 Temperature Pulse Rate 81 77 75 Respiratory Rate 14 14 15 Blood Pressure 122/61 Pulse Oximetry 100 99 98 06/18/18 07:25 Temperature Pulse Rate Respiratory Rate 16 Blood Pressure Pulse Oximetry 96 Intake & Output 06/17/18 06/18/18 06/18/18 18:59 06:59 18:59 Intake Total 1450 / 1450 2381 / 2381 250 / 250 Output Total 1300 / 1300 Balance 150 / 150 2381 / 2381 250 / 250 Weight 122.5 kg Intake: IV 1450 / 1450 1550 / 1550 250 / 250 Diprivan 1000 mg/100 ml Inj 1, 100 / 100 300 / 300 000 mg In 100 ml @ 5 MCG/KG/MIN 3.576 mls/hr IV.CONT TITRATE PRN Rx#:[id number] NS Inj 1,000 ML @ 84 mls/hr IV. 1000 / 1000 1000 / 1000 CONT .[id number] [facility] Rx#:[id number] fentaNYL 10 mcg/mL Premix Drip 250 / 250 250 / 250 250 / 250 2,500 mcg In 250 ml @ 50 MCG/HR 5 mls/hr IV.SIG TITRATE PRN Rx #:[id number] Tube Feeding 731 / 731 Water Bolus Amount 100 / 100 Output: Urine 1300 / 1300 Other: # Voids 6 Result Diagrams: 06/18/18 05:16 06/18/18 05:16 Imaging: Impressions Chest X-Ray 06/18/18 05:00 CONCLUSION: No acute abnormality is seen. Objective Remarks: - Constitutional no acute distress - Routine HEENT Exam Head: Present: normocephalic, atraumatic Eye: Present: PERRL, normal accommodation ENT: Present: mucous membranes moist. Tongue swelling present - Routine Neck Exam Absent: JVD, carotid bruit - Routine Respiratory Exam Present: patient mechanically ventilated. Absent: rhonchi, stridor, wheezes - Routine Cardiovascular Exam Present: RRR, S1, S2 - Routine Abdominal Exam Present: soft, normoactive bowel sounds - Routine Extremities Exam Absent: cyanosis, clubbing, edema - Routine Skin Exam Present: intact. Absent: cyanosis, erythema - Routine Neurological Exam Present: moving all extremities Assessment and Plan - Assessment and Plan Plan: Respiratory failure -Intubated for an airway protection -Due to angioedema -Daily SBT, await improvement in angioedema prior to attempting extubation -Assist control -Vent bundle -DuoNeb's as needed Angioedema -Off enalapril -IV Decadron -P.o. Benadryl -IV Pepcid Hypertension -Continue Norvasc -Triamterene/hydrochlorothiazide -DC enalapril due to above Diabetes mellitus -Hold p.o. meds while in the ICU -Levemir and insulin sliding scale Dyslipidemia -Pravastatin DVT GI prophylaxis -Teds SCDs -Subcu Lovenox -IV Pepcid 35 minutes of critical care
[2018-06-18] MEDS: amLODIPine 10 MG Tablet PO SCH (20:31)
[2018-06-19] MEDS: Insulin NovoLOG Aspart Correctional Sugar Inj SQ SCH ×4 (01:56→18:40)
[2018-06-19] MEDS: Propofol 1000 mg/100 ml Inj 1,000 MG/100 ML BOTTLE IV.CONT PRN ×5 (05:07→23:37)
[2018-06-19] MEDS: Enoxaparin Inj 40 MG/0.4 ML Syringe SQ SCH (05:07)
[2018-06-19] MEDS: Sod Chloride 0.9% Inj 1,000 ML IV.CONT SCH ×3 (05:07→23:37)
[2018-06-19] MEDS: Chlorhexidine Gluconate 2% 1 Pack (2 Cloths) TOPICAL SCH (05:07)
[2018-06-19] MEDS: Oral Hygiene Kit OROPHARYNG SCH ×3 (05:07→18:40)
[2018-06-19 05:38] LABS: Baso % (Auto) 0.3 % (0.0-2.0); Hematocrit 27.2 % (39.0-51.0); Hemoglobin 8.8 gm/dL (13.0-17.0); Lymph # (Auto) 0.6 th/mm3 (1.0-4.8); Lymph % (Auto) 6.8 % (9.0-44.0); Mean Corpuscular HGB Conc 32.3 % (32.0-36.0); Mean Corpuscular Hemoglobin 24.4 pg (27.0-34.0); Mean Corpuscular Volume 75.7 fL (80.0-100.0); Mean Platelet Volume 7.9 fL (7.0-11.0); Mono % (Auto) 10.5 % (0.0-8.0); Neut # (Auto) 7.6 th/mm3 (1.8-7.7); Neut % (Auto) 82.4 % (16.0-70.0); Platelet Count 332 th/mm3 (150-450); Red Cell Distribution Width 16.3 % (11.6-17.2); White Blood Count 9.2 th/mm3 (4.0-11.0)
[2018-06-19] MEDS: Chlorhexidine 0.12% Oral Kit 15 ML UDC OROPHARYNG SCH ×2 (09:02→21:04)
[2018-06-19] MEDS: Famotidine PF Inj 20 MG/2 ML Vial IV.PUSH SCH ×2 (09:03→21:06)
[2018-06-19] MEDS: Senna/Docusate Sodium 8.6/50 MG Tablet PO SCH ×2 (09:03→21:04)
[2018-06-19] MEDS: Triamterene/HCTZ 37.5 MG/25 MG Tablet PO SCH (09:03)
[2018-06-19] MEDS: Insulin Detemir Inj 1,000 UNIT/10 ML Vial SQ SCH ×2 (09:03→21:05)
[2018-06-19] MEDS: fentaNYL 10 mcg/mL Premix Drip 2,500 MCG/250 ML BAG IV.SIG PRN ×2 (09:04→21:38)
--- NOTE | 2018-06-19 15:58 | P.PNCC ---
Subjective Subjective Remarks/Hospital Course: 06/15: 62-year-old male who is on enalapril for hypertension for many years tonight about an hour prior to presentation started feeling the swelling of the tongue mostly on the left side. This was getting significantly worse, he presented in the emergency department with difficulty speaking due to the mechanical obstruction of his tongue. He denies any tightness or swelling in his throat no sensation of choking however he immediately was given epi IM, Decadron 10 IV Benadryl 50 IV and he was not responding to medical management after 45 minutes. He was intubated for the airway protection by ED attending. 06/16: Remains sedated, orally intubated on mechanical ventilation. Tongue swelling decreasing. 06/17: Sedated, arousable, orally intubated on mechanical vent. Continues to have some tongue swelling currently. 06/18: Sedated, arousable, orally intubated on mechanical ventilation. Continues to have tongue swelling currently. 06/19: Remains sedated, arousable, orally intubated on mechanical ventilation. Continues to have tongue swelling. Objective Vital Signs / I&O: Vital Signs 06/18/18 16:00 06/18/18 16:15 06/18/18 16:30 Temperature Pulse Rate 78 79 75 Respiratory Rate 13 14 17 Blood Pressure 139/70 Pulse Oximetry 99 99 99 06/18/18 16:45 06/18/18 17:00 06/18/18 17:15 Temperature Pulse Rate 75 77 76 Respiratory Rate 18 14 16 Blood Pressure 143/77 H Pulse Oximetry 99 99 99 06/18/18 17:30 06/18/18 17:45 06/18/18 18:00 Temperature Pulse Rate 75 74 75 Respiratory Rate 14 13 15 Blood Pressure 134/71 Pulse Oximetry 99 99 99 06/18/18 18:15 06/18/18 18:30 06/18/18 18:45 Temperature Pulse Rate 72 71 70 Respiratory Rate 17 13 22 Blood Pressure Pulse Oximetry 99 99 99 06/18/18 19:00 06/18/18 19:15 06/18/18 19:30 Temperature Pulse Rate 72 69 68 Respiratory Rate 14 15 14 Blood Pressure 136/68 Pulse Oximetry 99 99 99 06/18/18 19:45 06/18/18 20:00 06/18/18 20:15 Temperature 98.7 F Pulse Rate 80 71 72 Respiratory Rate 14 18 17 Blood Pressure 140/67 Pulse Oximetry 100 99 99 06/18/18 20:30 06/18/18 20:45 06/18/18 21:00 Temperature Pulse Rate 71 69 69 Respiratory Rate 16 13 12 Blood Pressure 140/65 Pulse Oximetry 99 99 99 06/18/18 21:07 06/18/18 21:15 06/18/18 21:30 Temperature Pulse Rate 68 78 Respiratory Rate 15 20 12 Blood Pressure Pulse Oximetry 99 99 99 06/18/18 21:45 06/18/18 22:00 06/18/18 22:15 Temperature Pulse Rate 69 66 67 Respiratory Rate 16 14 13 Blood Pressure 133/63 Pulse Oximetry 99 99 99 06/18/18 22:30 06/18/18 22:45 06/18/18 23:00 Temperature Pulse Rate 67 67 69 Respiratory Rate 22 13 14 Blood Pressure 138/70 Pulse Oximetry 99 99 99 06/18/18 23:15 06/18/18 23:30 06/18/18 23:45 Temperature Pulse Rate 70 67 72 Respiratory Rate 14 21 16 Blood Pressure Pulse Oximetry 99 99 98 06/19/18 00:00 06/19/18 00:04 06/19/18 00:05 Temperature Pulse Rate 69 68 Respiratory Rate 13 13 12 Blood Pressure 137/65 Pulse Oximetry 99 99 06/19/18 00:15 06/19/18 00:30 06/19/18 00:45 Temperature Pulse Rate 68 69 78 Respiratory Rate 12 14 12 Blood Pressure Pulse Oximetry 99 99 99 06/19/18 01:00 06/19/18 01:15 06/19/18 01:30 Temperature Pulse Rate 76 74 71 Respiratory Rate 12 15 12 Blood Pressure 139/65 Pulse Oximetry 99 98 99 06/19/18 01:45 06/19/18 02:00 06/19/18 02:15 Temperature Pulse Rate 69 69 69 Respiratory Rate 13 12 12 Blood Pressure 125/58 L Pulse Oximetry 98 99 98 06/19/18 02:30 06/19/18 02:45 06/19/18 03:00 Temperature Pulse Rate 71 74 78 Respiratory Rate 13 17 12 Blood Pressure 128/59 L Pulse Oximetry 99 99 99 06/19/18 03:15 06/19/18 03:30 06/19/18 03:45 Temperature Pulse Rate 77 76 74 Respiratory Rate 12 13 12 Blood Pressure Pulse Oximetry 99 99 99 06/19/18 04:00 06/19/18 04:13 06/19/18 04:15 Temperature Pulse Rate 72 71 Respiratory Rate 12 13 12 Blood Pressure 133/62 Pulse Oximetry 99 99 98 06/19/18 04:30 06/19/18 04:45 06/19/18 05:00 Temperature Pulse Rate 71 77 90 Respiratory Rate 12 34 H 14 Blood Pressure 141/65 H Pulse Oximetry 98 95 100 06/19/18 05:15 06/19/18 05:30 06/19/18 05:45 Temperature Pulse Rate 76 72 71 Respiratory Rate 14 16 14 Blood Pressure Pulse Oximetry 100 99 99 06/19/18 06:00 06/19/18 06:15 06/19/18 06:30 Temperature Pulse Rate 71 69 68 Respiratory Rate 14 15 15 Blood Pressure 136/63 Pulse Oximetry 99 99 99 06/19/18 06:45 06/19/18 07:00 06/19/18 07:15 Temperature Pulse Rate 67 67 68 Respiratory Rate 13 16 15 Blood Pressure 133/61 Pulse Oximetry 99 99 99 06/19/18 07:30 06/19/18 07:45 06/19/18 08:00 Temperature Pulse Rate 68 70 70 Respiratory Rate 13 17 13 Blood Pressure 137/63 Pulse Oximetry 99 99 99 06/19/18 08:15 06/19/18 08:30 06/19/18 08:45 Temperature Pulse Rate 69 69 71 Respiratory Rate 13 13 15 Blood Pressure Pulse Oximetry 99 99 99 06/19/18 09:00 06/19/18 09:15 06/19/18 09:28 Temperature Pulse Rate 72 72 Respiratory Rate 14 14 14 Blood Pressure 130/60 Pulse Oximetry 99 99 100 06/19/18 09:30 06/19/18 09:45 06/19/18 10:00 Temperature Pulse Rate 79 73 72 Respiratory Rate 26 H 18 19 Blood Pressure 130/59 L Pulse Oximetry 98 99 99 06/19/18 10:15 06/19/18 10:53 Temperature Pulse Rate 72 Respiratory Rate 18 6 L Blood Pressure Pulse Oximetry 99 99 Intake & Output 06/18/18 06/19/18 06/19/18 18:59 06:59 18:59 Intake Total 2221 / 2221 2205 / 2205 350 / 350 Output Total 1400 / 1400 1300 / 1300 Balance 821 / 821 905 / 905 350 / 350 Weight 121 kg Intake: IV 1550 / 1550 1450 / 1450 350 / 350 Diprivan 1000 mg/100 ml Inj 1, 300 / 300 200 / 200 100 / 100 000 mg In 100 ml @ 5 MCG/KG/MIN 3.576 mls/hr IV.CONT TITRATE PRN Rx#:[id number] NS Inj 1,000 ML @ 84 mls/hr IV. 1000 / 1000 1000 / 1000 CONT .[id number] [facility] Rx#:[id number] fentaNYL 10 mcg/mL Premix Drip 250 / 250 250 / 250 250 / 250 2,500 mcg In 250 ml @ 50 MCG/HR 5 mls/hr IV.SIG TITRATE PRN Rx #:[id number] Tube Feeding 671 / 671 705 / 705 Water Bolus Amount 50 / 50 Output: Urine 1400 / 1400 1300 / 1300 Result Diagrams: 06/19/18 05:07 06/18/18 05:16 Objective Remarks: - Constitutional no acute distress - Routine HEENT Exam Head: Present: normocephalic, atraumatic Eye: Present: PERRL, normal accommodation ENT: Present: mucous membranes moist. Tongue swelling present - Routine Neck Exam Absent: JVD, carotid bruit - Routine Respiratory Exam Present: patient mechanically ventilated. Absent: rhonchi, stridor, wheezes - Routine Cardiovascular Exam Present: RRR, S1, S2 - Routine Abdominal Exam Present: soft, normoactive bowel sounds - Routine Extremities Exam Absent: cyanosis, clubbing, edema - Routine Skin Exam Present: intact. Absent: cyanosis, erythema - Routine Neurological Exam Present: moving all extremities Assessment and Plan - Assessment and Plan Plan: Acute Respiratory failure -Intubated for an airway protection -Due to angioedema -Daily SBT, await improvement in angioedema prior to attempting extubation -Assist control -Vent bundle -DuoNeb's as needed Angioedema -Off enalapril -IV Decadron -P.o. Benadryl -IV Pepcid Hypertension -Continue Norvasc -Triamterene/hydrochlorothiazide -DC enalapril due to above Diabetes mellitus -Hold p.o. meds while in the ICU -Levemir and insulin sliding scale Dyslipidemia -Pravastatin DVT GI prophylaxis -Teds SCDs -Subcu Lovenox -IV Pepcid 35 minutes of critical care
[2018-06-19 20:36] LABS: Bacteria,Urine Many /hpf; Bilirubin,Urine Negative (Negative); Clarity,Urine Hazy (Clear); Color,Urine Yellow (Yellw/Straw); Glucose,Urine (UA) Negative (Negative); Leukocyte Esterase,Urine Negative (Negative); Nitrite,Urine Negative (Negative); Specific Gravity,Urine 1.019 (1.002-1.035)
[2018-06-19] MEDS: amLODIPine 10 MG Tablet PO SCH (21:05)
[2018-06-20] MEDS: Oral Hygiene Kit OROPHARYNG SCH ×4 (00:20→15:53)
[2018-06-20] MEDS: Insulin NovoLOG Aspart Correctional Sugar Inj SQ SCH ×2 (00:22→06:09)
[2018-06-20] MEDS: Propofol 1000 mg/100 ml Inj 1,000 MG/100 ML BOTTLE IV.CONT PRN ×4 (03:38→22:16)
[2018-06-20] MEDS: Chlorhexidine Gluconate 2% 1 Pack (2 Cloths) TOPICAL SCH (03:39)
[2018-06-20] MEDS: Enoxaparin Inj 40 MG/0.4 ML Syringe SQ SCH (04:35)
[2018-06-20 05:14] LABS: Hematocrit 26.3 % (39.0-51.0); Hemoglobin 8.3 gm/dL (13.0-17.0); Lymph # (Auto) 0.7 th/mm3 (1.0-4.8); Mean Corpuscular HGB Conc 31.7 % (32.0-36.0); Mean Corpuscular Hemoglobin 24.3 pg (27.0-34.0); Mean Corpuscular Volume 76.5 fL (80.0-100.0); Mean Platelet Volume 8.2 fL (7.0-11.0); Mono # (Auto) 1.1 th/mm3 (0.0-0.9); Mono % (Auto) 13.4 % (0.0-8.0); Neut # (Auto) 6.5 th/mm3 (1.8-7.7); Neut % (Auto) 77.6 % (16.0-70.0); Platelet Count 300 th/mm3 (150-450); Red Blood Count 3.44 mil/mm3 (4.50-5.90); Red Cell Distribution Width 16.3 % (11.6-17.2); White Blood Count 8.3 th/mm3 (4.0-11.0)
[2018-06-20] MEDS: Senna/Docusate Sodium 8.6/50 MG Tablet PO SCH ×2 (08:34→20:55)
[2018-06-20] MEDS: Triamterene/HCTZ 37.5 MG/25 MG Tablet PO SCH (08:34)
[2018-06-20] MEDS: Famotidine PF Inj 20 MG/2 ML Vial IV.PUSH SCH ×2 (08:34→20:56)
--- NOTE | 2018-06-20 08:39 | P.PNCC ---
Subjective Subjective Remarks/Hospital Course: 06/15: 62-year-old male who is on enalapril for hypertension for many years tonight about an hour prior to presentation started feeling the swelling of the tongue mostly on the left side. This was getting significantly worse, he presented in the emergency department with difficulty speaking due to the mechanical obstruction of his tongue. He denies any tightness or swelling in his throat no sensation of choking however he immediately was given epi IM, Decadron 10 IV Benadryl 50 IV and he was not responding to medical management after 45 minutes. He was intubated for the airway protection by ED attending. 06/16: Remains sedated, orally intubated on mechanical ventilation. Tongue swelling decreasing. 06/17: Sedated, arousable, orally intubated on mechanical vent. Continues to have some tongue swelling currently. 06/18: Sedated, arousable, orally intubated on mechanical ventilation. Continues to have tongue swelling currently. 06/19: Remains sedated, arousable, orally intubated on mechanical ventilation. Continues to have tongue swelling. 06/20: edema somewhat improved. OG tube not in the stomach and tube feeds in the hypopharynx. replaced OGT and ordered CXR. also with distended abdomen today and no BM x 3 days. will need to have successful BM before weaning towards extubation. Objective Vital Signs / I&O: Vital Signs 06/19/18 08:45 06/19/18 09:00 06/19/18 09:15 Temperature Pulse Rate 71 72 72 Respiratory Rate 15 14 14 Blood Pressure 130/60 Pulse Oximetry 99 99 99 06/19/18 09:28 06/19/18 09:30 06/19/18 09:45 Temperature Pulse Rate 79 73 Respiratory Rate 14 26 H 18 Blood Pressure Pulse Oximetry 100 98 99 06/19/18 10:00 06/19/18 10:15 06/19/18 10:30 Temperature Pulse Rate 72 72 73 Respiratory Rate 19 18 15 Blood Pressure 130/59 L Pulse Oximetry 99 99 99 06/19/18 10:45 06/19/18 10:53 06/19/18 11:00 Temperature Pulse Rate 72 71 Respiratory Rate 16 6 L 19 Blood Pressure 138/64 Pulse Oximetry 99 99 99 06/19/18 11:15 06/19/18 11:30 06/19/18 11:45 Temperature Pulse Rate 68 68 68 Respiratory Rate 14 20 18 Blood Pressure Pulse Oximetry 99 99 99 06/19/18 12:00 06/19/18 12:15 06/19/18 12:30 Temperature Pulse Rate 68 69 67 Respiratory Rate 19 23 14 Blood Pressure 138/63 Pulse Oximetry 99 99 99 06/19/18 12:45 06/19/18 13:00 06/19/18 13:15 Temperature Pulse Rate 70 70 71 Respiratory Rate 21 21 16 Blood Pressure 135/63 Pulse Oximetry 99 99 99 06/19/18 13:30 06/19/18 13:45 06/19/18 14:00 Temperature Pulse Rate 69 69 71 Respiratory Rate 20 18 19 Blood Pressure 134/63 Pulse Oximetry 99 99 99 06/19/18 14:15 06/19/18 14:30 06/19/18 14:45 Temperature Pulse Rate 71 72 70 Respiratory Rate 16 19 14 Blood Pressure Pulse Oximetry 99 99 99 06/19/18 15:00 06/19/18 15:15 06/19/18 15:30 Temperature Pulse Rate 69 71 69 Respiratory Rate 17 16 15 Blood Pressure 137/64 Pulse Oximetry 99 99 99 06/19/18 15:45 06/19/18 16:00 06/19/18 16:15 Temperature Pulse Rate 69 71 73 Respiratory Rate 19 20 16 Blood Pressure 132/59 L Pulse Oximetry 99 99 99 06/19/18 16:30 06/19/18 16:45 06/19/18 17:00 Temperature Pulse Rate 73 69 69 Respiratory Rate 18 16 20 Blood Pressure 141/65 H Pulse Oximetry 99 99 99 06/19/18 17:08 06/19/18 17:15 06/19/18 17:30 Temperature Pulse Rate 79 72 Respiratory Rate 6 L 20 19 Blood Pressure Pulse Oximetry 99 100 99 06/19/18 17:45 06/19/18 18:00 06/19/18 18:15 Temperature Pulse Rate 71 71 77 Respiratory Rate 17 12 19 Blood Pressure 135/62 135/62 Pulse Oximetry 99 99 99 06/19/18 18:30 06/19/18 18:45 06/19/18 19:00 Temperature Pulse Rate 71 72 71 Respiratory Rate 12 12 12 Blood Pressure 143/68 H Pulse Oximetry 98 99 99 06/19/18 19:15 06/19/18 19:30 06/19/18 19:45 Temperature Pulse Rate 70 70 70 Respiratory Rate 12 12 12 Blood Pressure Pulse Oximetry 99 99 99 06/19/18 20:00 06/19/18 20:15 06/19/18 20:30 Temperature 37.6 C H Pulse Rate 72 71 69 Respiratory Rate 12 12 12 Blood Pressure 152/72 H Pulse Oximetry 98 98 98 06/19/18 20:45 06/19/18 21:00 06/19/18 21:15 Temperature Pulse Rate 70 71 89 Respiratory Rate 12 12 24 Blood Pressure 141/66 H Pulse Oximetry 99 99 97 06/19/18 21:30 06/19/18 21:45 06/19/18 22:00 Temperature Pulse Rate 76 70 69 Respiratory Rate 12 12 12 Blood Pressure 141/65 H Pulse Oximetry 99 99 99 06/19/18 22:01 06/19/18 22:15 06/19/18 22:30 Temperature Pulse Rate 68 68 Respiratory Rate 12 12 12 Blood Pressure Pulse Oximetry 99 99 99 06/19/18 22:45 06/19/18 23:00 06/19/18 23:15 Temperature Pulse Rate 67 66 67 Respiratory Rate 12 12 12 Blood Pressure 140/65 Pulse Oximetry 98 98 98 06/19/18 23:30 06/19/18 23:45 06/20/18 00:00 Temperature 37.7 C H Pulse Rate 66 68 69 Respiratory Rate 12 12 12 Blood Pressure 138/64 Pulse Oximetry 98 99 99 06/20/18 00:15 06/20/18 00:30 06/20/18 00:45 Temperature Pulse Rate 69 67 66 Respiratory Rate 12 12 12 Blood Pressure Pulse Oximetry 99 99 98 06/20/18 00:57 06/20/18 01:00 06/20/18 01:15 Temperature Pulse Rate 66 65 Respiratory Rate 12 12 12 Blood Pressure 141/66 H Pulse Oximetry 98 99 98 06/20/18 01:30 06/20/18 01:45 06/20/18 02:00 Temperature Pulse Rate 70 66 66 Respiratory Rate 12 12 12 Blood Pressure 127/61 Pulse Oximetry 99 99 99 06/20/18 02:15 06/20/18 02:30 06/20/18 02:45 Temperature Pulse Rate 65 64 65 Respiratory Rate 12 12 13 Blood Pressure Pulse Oximetry 99 99 99 06/20/18 03:00 06/20/18 03:15 06/20/18 03:30 Temperature Pulse Rate 63 63 63 Respiratory Rate 12 12 12 Blood Pressure 131/62 Pulse Oximetry 99 99 99 06/20/18 03:45 06/20/18 04:00 06/20/18 04:07 Temperature 37.4 C Pulse Rate 63 64 Respiratory Rate 12 12 13 Blood Pressure 135/63 Pulse Oximetry 99 99 99 06/20/18 04:15 06/20/18 04:30 06/20/18 04:45 Temperature Pulse Rate 63 64 64 Respiratory Rate 12 12 12 Blood Pressure Pulse Oximetry 99 99 99 06/20/18 05:00 06/20/18 05:15 06/20/18 05:30 Temperature Pulse Rate 63 65 62 Respiratory Rate 12 12 12 Blood Pressure 135/62 Pulse Oximetry 99 99 99 06/20/18 05:45 06/20/18 06:00 06/20/18 06:01 Temperature Pulse Rate 64 70 84 Respiratory Rate 12 16 23 Blood Pressure 139/78 Pulse Oximetry 99 96 92 L Intake & Output 06/19/18 06/20/18 06/20/18 18:59 06:59 18:59 Intake Total 2408 / 2408 2171 / 2171 Output Total 2100 / 2100 1500 / 1500 Balance 308 / 308 671 / 671 Weight 124.5 kg Intake: IV 1550 / 1550 1450 / 1450 Diprivan 1000 mg/100 ml Inj 1, 300 / 300 200 / 200 000 mg In 100 ml @ 5 MCG/KG/MIN 3.576 mls/hr IV.CONT TITRATE PRN Rx#:[id number] NS Inj 1,000 ML @ 84 mls/hr IV. 1000 / 1000 1000 / 1000 CONT .[id number] [facility] Rx#:[id number] fentaNYL 10 mcg/mL Premix Drip 250 / 250 250 / 250 2,500 mcg In 250 ml @ 50 MCG/HR 5 mls/hr IV.SIG TITRATE PRN Rx #:[id number] Tube Feeding 758 / 758 601 / 601 Water Bolus Amount 100 / 100 120 / 120 Output: Urine 2100 / 2100 1500 / 1500 Other: # Bowel Movements 0 Result Diagrams: 06/20/18 04:14 06/18/18 05:16 Objective Remarks: gen: middle-aged morbidly obese male, lying in bed, intubated, sedated heent: nc. at. perrl. mmm. oral edema somewhat improved from prior documented. neck: large neck circumference. unable to accurately assess JVD. trachea midline. chest: equal chest rise. fio2 40%. cv: normal rate, regular rhythm. sinus. abd: mildly distended. morbidly obese. soft. nontender, nondistended. no guarding. extr: no edema. distal pulses 2+. neuro: RASS -2. sedated. withdraws x 4. Assessment and Plan - Assessment and Plan Plan: Assessment: 62yM with severe angioedema causing airway compromise and associated hypoxic respiratory failure. will work towards weaning mechanical ventilation today. need to have BM in order to improve respiratory mechanics. remains critically ill and off pathway, unable to wean mechanical ventilation over last 48h. Acute Hypoxic Respiratory failure- persistent Severe acute angioedema Severe laryngeal edema- improving. -Daily SBT, await improvement in angioedema prior to attempting extubation -Vent bundle -DuoNeb's as needed -Off enalapril -IV Decadron -P.o. Benadryl -IV Pepcid - start forced diuresis - HOB elevated to promote venous drainage Abdominal distension Constipation - mag citrate, suppository, lactulose - goal BM today - needs BM before successful weaning of mechanical ventilation.. Hypertension -Continue Norvasc -Triamterene/hydrochlorothiazide -DC enalapril due to above Diabetes mellitus -Hold p.o. meds while in the ICU -Levemir and insulin sliding scale Morbid Obesity - hold TF for now given abdominal distension Dyslipidemia -Pravastatin DVT GI prophylaxis -Teds SCDs -Subcu Lovenox -IV Pepcid Critical care time: 31 minutes, exclusive of separately billable procedures.
[2018-06-20] MEDS ORDERED: Magnesium Citrate Liq 300 ML Bottle PO ONE (09:00)
--- NOTE | 2018-06-20 09:13 | XR ---
EXAM DATE: 06/20/2018 12:00 AM EDT AGE/SEX: 62 years / Male INDICATIONS: Respiratory failure. CLINICAL DATA: This is the patient's subsequent encounter. Patient reports that signs and symptoms h ave been present for 4 - 6 days and indicates a pain score of Nonresponsive. MEDICAL/SURGICAL HISTORY: Hypertension. Non-responsive. COMPARISON: [facility], CHEST 1V SINGLE AP, 06/18/2018. . FINDINGS: Lungs are symmetrically aerated with some mild atelectatic changes above the left hemidiaphragm. Othe rwise, no confluent infiltrate. Accounting for the technique, heart size is normal. Endotracheal tube remains appropriately positioned above the kari. However, the nasogastric tube ap pears to be folded back on itself with the tip possibly projecting over the distal esophagus. CONCLUSION: 1. Mild atelectatic changes in the left lung base. Lungs are otherwise clear. 2. Nasogastric tube appears to be folded back on itself with the tip actually projecting over the ex pected location of the distal esophagus. Endotracheal tube remains appropriately position. Electronically signed by: Peter Lopez MD 06/20/2018 9:12 AM EDT
[2018-06-20] MEDS: Chlorhexidine 0.12% Oral Kit 15 ML UDC OROPHARYNG SCH ×2 (09:40→20:55)
[2018-06-20] MEDS: Bisacodyl 10 MG Supp RECTAL SCH (09:40)
[2018-06-20] MEDS: Insulin Detemir Inj 1,000 UNIT/10 ML Vial SQ SCH ×2 (09:41→20:56)
[2018-06-20] MEDS: fentaNYL 10 mcg/mL Premix Drip 2,500 MCG/250 ML BAG IV.SIG PRN ×2 (10:18→23:20)
--- NOTE | 2018-06-20 11:39 | XR ---
EXAM DATE: 06/20/2018 11:26 AM EDT AGE/SEX: 62 years / Male INDICATIONS: NG tube placement. CLINICAL DATA: This is the patient's subsequent encounter. Patient reports that signs and symptoms h ave been present for 4 - 6 days and indicates a pain score of Nonresponsive. MEDICAL/SURGICAL HISTORY: Hypertension. . Prostatectomy COMPARISON: [facility] [place] & PELVIS W CONTRAST, 04/01/2016. . FINDINGS: There is an NGT with tip just beyond the GE junction. Air is seen in the colon and rectum. No signif icantly dilated small bowel loops are noted. No gross pneumatosis or free air. No abnormal calcificat ions. There is a right hip arthroplasty in place. CONCLUSION: 1. NGT just beyond the GE junction. 2. Nonobstructive bowel gas pattern. Electronically signed by: Daniel Parker MD 06/20/2018 11:38 AM EDT
[2018-06-20] MEDS: Insulin NovoLIN Regular Correctional Sugar Inj SQ SCH ×2 (12:10→17:39)
[2018-06-20] MEDS ORDERED: PEG 3350/E-Lyte Soln 4000 ML Bottle PO ONE (18:00)
[2018-06-20] MEDS: Sod Chloride 0.9% Inj 1,000 ML IV.CONT SCH (18:53)
[2018-06-20] MEDS: amLODIPine 10 MG Tablet PO SCH (20:55)
[2018-06-20] MEDS: Labetalol HCl Inj 100 MG/20 ML Vial IV.PUSH PRN (23:18)
[2018-06-21] MEDS: Insulin NovoLIN Regular Correctional Sugar Inj SQ SCH ×3 (00:24→13:35)
[2018-06-21] MEDS: Oral Hygiene Kit OROPHARYNG SCH ×3 (00:25→12:28)
[2018-06-21] MEDS: Propofol 1000 mg/100 ml Inj 1,000 MG/100 ML BOTTLE IV.CONT PRN ×3 (02:53→23:48)
[2018-06-21] MEDS: Enoxaparin Inj 40 MG/0.4 ML Syringe SQ SCH (03:56)
[2018-06-21 06:16] LABS: Hematocrit 29.1 % (39.0-51.0); Hemoglobin 9.5 gm/dL (13.0-17.0); Mean Corpuscular HGB Conc 32.6 % (32.0-36.0); Mean Corpuscular Hemoglobin 24.2 pg (27.0-34.0); Mean Corpuscular Volume 74.3 fL (80.0-100.0); Mean Platelet Volume 8.3 fL (7.0-11.0); Platelet Count 326 th/mm3 (150-450); Red Blood Count 3.92 mil/mm3 (4.50-5.90); Red Cell Distribution Width 15.7 % (11.6-17.2); White Blood Count 7.8 th/mm3 (4.0-11.0)
[2018-06-21 06:38] LABS: Anion Gap 7 meq/L (5-15); Blood Urea Nitrogen 22 mg/dL (7-18); Calcium 8.3 mg/dL (8.5-10.1); Carbon Dioxide 36.8 meq/L (21.0-32.0); Chloride 95 meq/L (98-107); Glomerular Filtration Rate Greater Than 89 mL/min (>89); Glucose,Random 179 mg/dL (74-106); Potassium 4.4 meq/L (3.5-5.1); Sodium 139 meq/L (136-145)
[2018-06-21 06:39] LABS: Phosphorus 2.5 mg/dL (2.5-4.9)
--- NOTE | 2018-06-21 08:01 | P.PNCC ---
Subjective Subjective Remarks/Hospital Course: 06/15: 62-year-old male who is on enalapril for hypertension for many years tonight about an hour prior to presentation started feeling the swelling of the tongue mostly on the left side. This was getting significantly worse, he presented in the emergency department with difficulty speaking due to the mechanical obstruction of his tongue. He denies any tightness or swelling in his throat no sensation of choking however he immediately was given epi IM, Decadron 10 IV Benadryl 50 IV and he was not responding to medical management after 45 minutes. He was intubated for the airway protection by ED attending. 06/16: Remains sedated, orally intubated on mechanical ventilation. Tongue swelling decreasing. 06/17: Sedated, arousable, orally intubated on mechanical vent. Continues to have some tongue swelling currently. 06/18: Sedated, arousable, orally intubated on mechanical ventilation. Continues to have tongue swelling currently. 06/19: Remains sedated, arousable, orally intubated on mechanical ventilation. Continues to have tongue swelling. 06/20: edema somewhat improved. OG tube not in the stomach and tube feeds in the hypopharynx. replaced OGT and ordered CXR. also with distended abdomen today and no BM x 3 days. will need to have successful BM before weaning towards extubation. 06/21: abdominal distension is worse today. no BM yet despite aggressive attempts. still not able to successfully tolerate spontaneous breathing trials with degree of abdominal distension. KUB nonobstructive- will repeat today. Objective Vital Signs / I&O: Vital Signs 06/20/18 08:00 06/20/18 08:01 06/20/18 08:15 Temperature 36.9 C Pulse Rate 79 76 84 Respiratory Rate 12 16 43 H Blood Pressure 169/79 H Pulse Oximetry 99 99 99 06/20/18 08:30 06/20/18 08:45 06/20/18 08:51 Temperature Pulse Rate 76 96 H Respiratory Rate 14 30 H 12 Blood Pressure Pulse Oximetry 99 99 99 06/20/18 08:54 06/20/18 09:00 06/20/18 09:15 Temperature Pulse Rate 76 72 74 Respiratory Rate 12 12 18 Blood Pressure 159/71 H Pulse Oximetry 100 97 06/20/18 09:30 06/20/18 09:45 06/20/18 10:00 Temperature Pulse Rate 88 70 67 Respiratory Rate 21 13 12 Blood Pressure 188/85 H Pulse Oximetry 100 97 98 06/20/18 10:02 06/20/18 10:15 06/20/18 10:26 Temperature Pulse Rate 67 66 66 Respiratory Rate 12 12 12 Blood Pressure 175/78 H 165/77 H Pulse Oximetry 98 98 97 06/20/18 10:30 06/20/18 10:45 06/20/18 11:00 Temperature Pulse Rate 65 89 74 Respiratory Rate 12 12 12 Blood Pressure Pulse Oximetry 97 99 96 06/20/18 11:15 06/20/18 12:00 06/20/18 13:00 Temperature 36.9 C Pulse Rate 83 65 66 Respiratory Rate 13 12 12 Blood Pressure 139/65 143/69 H Pulse Oximetry 97 97 98 06/20/18 14:00 06/20/18 15:00 06/20/18 15:55 Temperature Pulse Rate 64 64 Respiratory Rate 12 12 12 Blood Pressure 146/70 H 148/70 H Pulse Oximetry 98 98 98 06/20/18 16:00 06/20/18 17:00 06/20/18 17:15 Temperature 37.5 C Pulse Rate 66 63 62 Respiratory Rate 12 12 12 Blood Pressure 156/74 H 149/71 H Pulse Oximetry 98 98 98 06/20/18 17:30 06/20/18 17:45 06/20/18 18:00 Temperature Pulse Rate 63 63 60 Respiratory Rate 12 13 12 Blood Pressure 149/71 H Pulse Oximetry 98 98 98 06/20/18 19:00 06/20/18 20:00 06/20/18 20:32 Temperature 37.1 C Pulse Rate 59 L 60 Respiratory Rate 12 12 12 Blood Pressure 145/70 H 161/78 H Pulse Oximetry 98 98 96 06/20/18 21:00 06/20/18 22:00 06/20/18 23:00 Temperature Pulse Rate 59 L 57 L 57 L Respiratory Rate 12 12 12 Blood Pressure 152/77 H 166/82 H 147/70 H Pulse Oximetry 97 98 98 06/20/18 23:48 06/21/18 00:00 06/21/18 01:00 Temperature 37.7 C H Pulse Rate 53 L 54 L Respiratory Rate 12 12 12 Blood Pressure 149/70 H 152/70 H Pulse Oximetry 98 100 98 06/21/18 02:00 06/21/18 03:00 06/21/18 03:27 Temperature Pulse Rate 53 L 55 L Respiratory Rate 12 12 12 Blood Pressure 162/77 H 160/76 H Pulse Oximetry 98 97 98 06/21/18 04:00 06/21/18 05:00 06/21/18 06:00 Temperature 37.6 C H Pulse Rate 55 L 53 L 53 L Respiratory Rate 12 12 12 Blood Pressure 147/68 H 142/68 H 149/70 H Pulse Oximetry 98 99 97 Intake & Output 06/20/18 06/21/18 06/21/18 18:59 06:59 18:59 Intake Total 1250 / 1250 570 / 570 Output Total 2800 / 2800 1400 / 1400 Balance -1550 / -1550 -830 / -830 Weight 122 kg Intake: IV 1250 / 1250 450 / 450 Diprivan 1000 mg/100 ml Inj 1, 200 / 200 200 / 200 000 mg In 100 ml @ 5 MCG/KG/MIN 3.576 mls/hr IV.CONT TITRATE PRN Rx#:[id number] NS Inj 1,000 ML @ 84 mls/hr IV. 800 / 800 CONT .[id number] [facility] Rx#:[id number] fentaNYL 10 mcg/mL Premix Drip 250 / 250 250 / 250 2,500 mcg In 250 ml @ 50 MCG/HR 5 mls/hr IV.SIG TITRATE PRN Rx #:[id number] Tube Irrigant 120 / 120 Output: Urine Amount (Catheter) 2800 / 2800 1400 / 1400 Condom 2800 / 2800 1400 / 1400 Result Diagrams: 06/21/18 04:43 06/21/18 04:43 Objective Remarks: gen: middle-aged morbidly obese male, lying in bed, intubated, sedated heent: nc. at. perrl. mmm. oral edema somewhat improved from prior documented. neck: large neck circumference. unable to accurately assess JVD. trachea midline. chest: equal chest rise. fio2 40%. cv: normal rate, regular rhythm. sinus. abd: moderately distended. morbidly obese. soft. nontender. no guarding. extr: no edema. distal pulses 2+. neuro: RASS -2. sedated. withdraws x 4. Assessment and Plan - Assessment and Plan Plan: Assessment: 62yM with severe angioedema causing airway compromise and associated hypoxic respiratory failure. will work towards weaning mechanical ventilation. still working on successful bowel movement to improve abdominal distension: will add Relistor and enema today. may require neostigmine to assist in bowel movement. Acute Hypoxic Respiratory failure- persistent Severe acute angioedema Severe laryngeal edema- improving. -Daily SBT, await improvement in angioedema prior to attempting extubation -Vent bundle -DuoNeb's as needed -Off enalapril -IV Decadron -P.o. Benadryl -IV Pepcid - HOB elevated to promote venous drainage Abdominal distension Constipation - mag citrate, suppository, lactulose, GoLytely on 06/20 - enema and Relistor SQ today. may require neostigmine - repeat KUB - goal BM today - needs BM before successful weaning of mechanical ventilation. Hypertension -Continue Norvasc -Triamterene/hydrochlorothiazide -DC enalapril due to above Diabetes mellitus -Hold p.o. meds while in the ICU -Levemir and insulin sliding scale Morbid Obesity - hold TF for now given abdominal distension Dyslipidemia -Pravastatin DVT GI prophylaxis -Teds SCDs -Subcu Lovenox -IV Pepcid
--- NOTE | 2018-06-21 08:56 | XR ---
EXAM DATE: 06/21/2018 8:52 AM EDT AGE/SEX: 62 years / Male INDICATIONS: Distention. CLINICAL DATA: This is the patient's subsequent encounter. Patient reports that signs and symptoms h ave been present for 4 - 6 days and indicates a pain score of Nonresponsive. MEDICAL/SURGICAL HISTORY: Hypertension. . Prostatectomy COMPARISON: [facility], ABDOMEN 1V KUB, 06/20/2018. . FINDINGS: Right hip arthroplasty. Enteric tube is noted and the side-port overlies expected location of the di stal esophagus, distal tip projects over the proximal most stomach. The bowel gas pattern is nonobstr uctive. There are degenerative changes of the spine. CONCLUSION: Enteric tube as above. No definite dilated loops of bowel seen. Electronically signed by: Delonte Ivory MD 06/21/2018 8:54 AM EDT
[2018-06-21] MEDS ORDERED: Methylnaltrexone Inj 12 MG/0.6 ML Vial SQ ONE (09:00)
[2018-06-21] MEDS: Chlorhexidine 0.12% Oral Kit 15 ML UDC OROPHARYNG SCH ×2 (09:31→20:40)
[2018-06-21] MEDS: Bisacodyl 10 MG Supp RECTAL SCH (09:32)
[2018-06-21] MEDS: Insulin Detemir Inj 1,000 UNIT/10 ML Vial SQ SCH ×2 (09:33→20:40)
[2018-06-21] MEDS: Triamterene/HCTZ 37.5 MG/25 MG Tablet PO SCH (09:34)
[2018-06-21] MEDS: Senna/Docusate Sodium 8.6/50 MG Tablet PO SCH ×2 (09:34→20:39)
[2018-06-21] MEDS: Famotidine PF Inj 20 MG/2 ML Vial IV.PUSH SCH ×2 (10:16→20:40)
[2018-06-21] MEDS ORDERED: Neostigmine Inj 5 MG/5 ML Syringe IV.PUSH ONE (11:00)
[2018-06-21] MEDS ORDERED: Atropine Inj 1 MG/10 ML Syringe ONE (12:19)
[2018-06-21] MEDS: Labetalol HCl Inj 100 MG/20 ML Vial IV.PUSH PRN (16:23)
[2018-06-21] MEDS: amLODIPine 10 MG Tablet PO SCH (20:39)
[2018-06-22] MEDS: Insulin NovoLIN Regular Correctional Sugar Inj SQ SCH ×5 (00:29→20:24)
[2018-06-22] MEDS: Oral Hygiene Kit OROPHARYNG SCH ×5 (00:29→20:24)
[2018-06-22] MEDS: Enoxaparin Inj 40 MG/0.4 ML Syringe SQ SCH (03:37)
[2018-06-22 05:23] LABS: Hematocrit 33.2 % (39.0-51.0); Hemoglobin 10.9 gm/dL (13.0-17.0); Mean Corpuscular HGB Conc 32.7 % (32.0-36.0); Mean Corpuscular Hemoglobin 24.4 pg (27.0-34.0); Mean Corpuscular Volume 74.6 fL (80.0-100.0); Mean Platelet Volume 8.6 fL (7.0-11.0); Platelet Count 319 th/mm3 (150-450); Red Blood Count 4.45 mil/mm3 (4.50-5.90); Red Cell Distribution Width 16.4 % (11.6-17.2); White Blood Count 11.5 th/mm3 (4.0-11.0)
[2018-06-22] MEDS: Propofol 1000 mg/100 ml Inj 1,000 MG/100 ML BOTTLE IV.CONT PRN (05:31)
[2018-06-22] MEDS ORDERED: Dexmedetomidine Inj 200 MCG in Sodium Chlor 0.9% Inj 48 ML IV.CONT PRN (07:33)
[2018-06-22 07:42] LABS: Anion Gap 7 meq/L (5-15); Blood Urea Nitrogen 23 mg/dL (7-18); Calcium 8.6 mg/dL (8.5-10.1); Carbon Dioxide 33.9 meq/L (21.0-32.0); Chloride 98 meq/L (98-107); Glomerular Filtration Rate Greater Than 89 mL/min (>89); Glucose,Random 146 mg/dL (74-106); Magnesium 2.5 mg/dL (1.5-2.5); Phosphorus 3.1 mg/dL (2.5-4.9); Potassium 3.7 meq/L (3.5-5.1); Sodium 139 meq/L (136-145)
[2018-06-22] MEDS: Senna/Docusate Sodium 8.6/50 MG Tablet PO SCH ×2 (09:26→21:57)
[2018-06-22] MEDS: Insulin Detemir Inj 1,000 UNIT/10 ML Vial SQ SCH ×2 (09:27→21:57)
[2018-06-22] MEDS: Chlorhexidine 0.12% Oral Kit 15 ML UDC OROPHARYNG SCH ×2 (09:27→20:25)
[2018-06-22] MEDS: Triamterene/HCTZ 37.5 MG/25 MG Tablet PO SCH (09:34)
[2018-06-22] MEDS: Famotidine PF Inj 20 MG/2 ML Vial IV.PUSH SCH ×2 (09:34→21:56)
[2018-06-22] MEDS ORDERED: hydrALAZINE HCl Inj 20 MG/ML Vial IV.PUSH PRN (15:14)
[2018-06-22] MEDS ORDERED: Labetalol HCl Inj 100 MG/20 ML Vial IV.PUSH PRN (15:15)
--- NOTE | 2018-06-22 15:20 | P.PNCC ---
Subjective Subjective Remarks/Hospital Course: 62-year-old male who is on enalapril for hypertension for many years tonight about an hour prior to presentation started feeling the swelling of the tongue mostly on the left side. This was getting significantly worse, he presented in the emergency department with difficulty speaking due to the mechanical obstruction of his tongue. He denies any tightness or swelling in his throat no sensation of choking however he immediately was given epi IM, Decadron 10 IV Benadryl 50 IV and he was not responding to medical management after 45 minutes. He was intubated for the airway protection by ED attending. 06/16: Remains sedated, orally intubated on mechanical ventilation. Tongue swelling decreasing. 06/17: Sedated, arousable, orally intubated on mechanical vent. Continues to have some tongue swelling currently. 06/18: Sedated, arousable, orally intubated on mechanical ventilation. Continues to have tongue swelling currently. 06/19: Remains sedated, arousable, orally intubated on mechanical ventilation. Continues to have tongue swelling. 06/20: edema somewhat improved. OG tube not in the stomach and tube feeds in the hypopharynx. replaced OGT and ordered CXR. also with distended abdomen today and no BM x 3 days. will need to have successful BM before weaning towards extubation. 06/21: abdominal distension is worse today. no BM yet despite aggressive attempts. still not able to successfully tolerate spontaneous breathing trials with degree of abdominal distension. KUB nonobstructive- will repeat today. Subjective 06/22: -2400 from NG tube since placement. Extubated today without complication. Will attempt to mobilize. Aggressive pulmonary and GI bowel regimen to be initiated Objective Vital Signs / I&O: Vital Signs 06/21/18 16:00 06/21/18 16:46 06/21/18 18:00 Temperature Pulse Rate 86 86 Respiratory Rate 12 Blood Pressure Pulse Oximetry 100 06/21/18 18:48 06/21/18 20:00 06/21/18 20:45 Temperature 99.8 F H Pulse Rate 67 Respiratory Rate 14 12 Blood Pressure 147/77 H Pulse Oximetry 99 100 100 06/21/18 22:00 06/22/18 00:00 06/22/18 00:42 Temperature 99.4 F Pulse Rate 72 69 Respiratory Rate 14 12 Blood Pressure 137/72 Pulse Oximetry 100 100 06/22/18 02:00 06/22/18 03:30 06/22/18 04:00 Temperature 100.9 F H Pulse Rate 64 69 Respiratory Rate 12 12 12 Blood Pressure 141/74 H 155/72 H Pulse Oximetry 100 100 100 06/22/18 04:45 06/22/18 06:00 06/22/18 06:30 Temperature 100.9 F H Pulse Rate 75 73 75 Respiratory Rate 12 12 12 Blood Pressure 145/77 H Pulse Oximetry 98 98 98 06/22/18 06:45 06/22/18 07:00 06/22/18 07:15 Temperature Pulse Rate 74 72 76 Respiratory Rate 12 13 15 Blood Pressure 131/73 Pulse Oximetry 99 99 98 06/22/18 07:30 06/22/18 07:44 06/22/18 07:45 Temperature Pulse Rate 101 H 88 Respiratory Rate 30 H 10 L 11 L Blood Pressure Pulse Oximetry 97 99 99 06/22/18 08:00 06/22/18 08:01 06/22/18 08:15 Temperature 100.3 F H Pulse Rate 106 H 83 84 Respiratory Rate 18 22 15 Blood Pressure 160/80 H Pulse Oximetry 97 97 98 06/22/18 08:30 06/22/18 08:45 06/22/18 09:00 Temperature Pulse Rate 92 H 83 80 Respiratory Rate 23 28 H 27 H Blood Pressure Pulse Oximetry 99 96 96 06/22/18 09:01 06/22/18 09:15 06/22/18 09:30 Temperature Pulse Rate 79 79 81 Respiratory Rate 27 H 27 H 28 H Blood Pressure 143/70 H Pulse Oximetry 96 96 96 06/22/18 09:45 06/22/18 10:00 06/22/18 10:15 Temperature Pulse Rate 84 106 H 80 Respiratory Rate 27 H 27 H 27 H Blood Pressure 145/78 H Pulse Oximetry 97 97 97 06/22/18 10:30 06/22/18 10:45 06/22/18 11:00 Temperature Pulse Rate 106 H 85 83 Respiratory Rate 32 H 20 18 Blood Pressure Pulse Oximetry 96 96 96 06/22/18 11:10 06/22/18 11:15 06/22/18 11:30 Temperature Pulse Rate 84 84 83 Respiratory Rate 20 19 20 Blood Pressure 158/79 H Pulse Oximetry 96 93 L 93 L 06/22/18 11:45 10/27/18 12:00 06/22/18 12:03 Temperature 99.2 F Pulse Rate 84 78 Respiratory Rate 18 15 15 Blood Pressure Pulse Oximetry 97 98 98 06/22/18 12:15 06/22/18 12:30 06/22/18 12:45 Temperature Pulse Rate 79 78 79 Respiratory Rate 16 16 14 Blood Pressure Pulse Oximetry 98 98 98 06/22/18 13:00 06/22/18 13:15 06/22/18 13:30 Temperature Pulse Rate 82 98 H 87 Respiratory Rate 23 22 19 Blood Pressure Pulse Oximetry 98 98 98 06/22/18 13:45 06/22/18 14:00 06/22/18 15:11 Temperature Pulse Rate 90 80 Respiratory Rate 20 11 L Blood Pressure Pulse Oximetry 96 97 97 Intake & Output 06/21/18 06/22/18 06/22/18 18:59 06:59 18:59 Intake Total 320 / 320 200 / 200 Output Total 2125 / 2125 2600 / 2600 Balance -1805 / -1805 -2400 / -2400 Weight 118.4 kg Intake: IV 100 / 100 200 / 200 Diprivan 1000 mg/100 ml Inj 1, 100 / 100 200 / 200 000 mg In 100 ml @ 5 MCG/KG/MIN 3.576 mls/hr IV.CONT TITRATE PRN Rx#:[id number] Tube Feeding 0 / 0 Tube Irrigant 120 / 120 Water Bolus Amount 100 / 100 Output: Stool 500 / 500 Urine Amount (Catheter) 1625 / 1625 1100 / 1100 Condom 1625 / 1625 1100 / 1100 Gastric Drainage 1500 / 1500 Left Nare Nasogastric Tube 1500 / 1500 Other: Date of Last Bowel Movement 06/21/18 06/21/18 # Bowel Movements 6 Result Diagrams: 06/22/18 04:50 06/22/18 07:08 Other Results: Microbiology 06/19/18 11:00 Sputum - Endotracheal Gram Stain - Final 06/19/18 11:00 Sputum - Endotracheal Sputum Culture - Final Haemophilus influenzae Imaging: Chest X-Ray 06/14/18 23:50 CONCLUSION: 1. Endotracheal tube 1 cm above the kari and can be retracted 2 to 3 cm. 2. Mild cardiomegaly. Chest X-Ray 06/18/18 05:00 CONCLUSION: No acute abnormality is seen. Chest X-Ray 06/20/18 00:00 CONCLUSION: 1. Mild atelectatic changes in the left lung base. Lungs are otherwise clear. 2. Nasogastric tube appears to be folded back on itself with the tip actually projecting over the expected location of the distal esophagus. Endotracheal tube remains appropriately position. Abdomen X-Ray 06/20/18 10:48 CONCLUSION: 1. NGT just beyond the GE junction. 2. Nonobstructive bowel gas pattern. Abdomen X-Ray 06/21/18 00:00 CONCLUSION: Enteric tube as above. No definite dilated loops of bowel seen. Objective Remarks: gen: middle-aged morbidly obese male, lying in bed, nasal cannula in no acute distress heent: nc. at. perrl. mmm.. Oral ulcer on tongue noted neck: large neck circumference. unable to accurately assess JVD. trachea midline. chest: equal chest rise. Minutes breath sounds throughout. No wheezing. On nasal cannula cv: normal rate, regular rhythm. sinus. S1, S2. No S4. abd: moderately distended. morbidly obese. soft. nontender. no guarding. extr: no edema. distal pulses 2+. neuro: Cranial nerves II through XII appear grossly intact. Moving all 4 extremities spontaneously Assessment and Plan - Assessment and Plan Plan: Neuro/Psych: Acetaminophen 650 every 4 hours as needed fever Morphine sulfate 2 mg IV every 2 hours as needed pain Pulm: Acute angioedema resolved Severe laryngeal edema resolved Extubated today without complication Currently on nasal cannula 2 L to maintain saturations greater than equal to 92% Incentive spirometry while awake Albuterol/ipratropium aerosols every 4 hours while awake albuterol aerosols every 2 hours. Dyspnea Rapidly wean off Decadron CV: Essential hypertension Continue amlodipine 10 mg daily Continue triamterene/hydrochlorothiazide 37.5/25 1 tablet daily As needed labetalol, hydralazine Nitropaste Enalapril added to his allergy GI: Ileus NG tube to low intermittent wall suction Aggressive bowel regimen with docusate sodium/senna Metoclopramide 10 mg IV every 8 hours Received methylnaltrexone yesterday. : Remove Brand catheter Endo: Diabetes mellitus Acute hyperglycemia secondary to steroids Holding glimepiride 2 mg daily Sliding scale insulin aspart insulin to maintain euglycemia On insulin detemir 5 units twice daily. Renal: Creatinine currently within normal Accurate I's and O's Monitor urine output Heme: Leukocytosis Microcytic anemia Monitor CBC daily. Follow trends per No indication for transfusion of blood products at this time ID: Monitor for signs and symptomatology infection MSK: Elevated BMI PT evaluate and treat Weight loss encouraged FEN: Replace electrolytes as clinically indicated Access -Utilize peripheral IV. Central line if indicated Prophylaxis -GI -famotidine - -DVT SCD/enoxaparin Level 2 follow-up
[2018-06-22] MEDS: Bisacodyl 10 MG Supp RECTAL SCH (15:52)
[2018-06-22] MEDS: Sodium Chloride 0.45 % Inj 1,000 ML IV.CONT SCH (16:06)
[2018-06-22] MEDS ORDERED: niCARdipine Inj 25 MG in Sodium Chlor 0.9% Inj 240 ML IV.CONT PRN (16:23)
[2018-06-22] MEDS: diphenhydrAMINE HCl 12.5 MG/5 ML Elixir UDC PO SCH (21:55)
[2018-06-23] MEDS: Oral Hygiene Kit OROPHARYNG SCH ×4 (00:08→18:26)
[2018-06-23] MEDS: Insulin NovoLIN Regular Correctional Sugar Inj SQ SCH ×4 (03:54→18:27)
[2018-06-23] MEDS: diphenhydrAMINE HCl 12.5 MG/5 ML Elixir UDC PO SCH ×4 (05:09→21:11)
[2018-06-23] MEDS: Enoxaparin Inj 40 MG/0.4 ML Syringe SQ SCH (05:30)
[2018-06-23 05:41] LABS: Hematocrit 33.5 % (39.0-51.0); Hemoglobin 10.6 gm/dL (13.0-17.0); Mean Corpuscular HGB Conc 31.7 % (32.0-36.0); Mean Corpuscular Hemoglobin 23.9 pg (27.0-34.0); Mean Corpuscular Volume 75.3 fL (80.0-100.0); Mean Platelet Volume 7.9 fL (7.0-11.0); Platelet Count 316 th/mm3 (150-450); Red Blood Count 4.45 mil/mm3 (4.50-5.90); Red Cell Distribution Width 15.8 % (11.6-17.2); White Blood Count 11.3 th/mm3 (4.0-11.0)
[2018-06-23 06:07] LABS: Anion Gap 9 meq/L (5-15); Blood Urea Nitrogen 23 mg/dL (7-18); Calcium 8.5 mg/dL (8.5-10.1); Carbon Dioxide 34.5 meq/L (21.0-32.0); Chloride 98 meq/L (98-107); Glomerular Filtration Rate Greater Than 89 mL/min (>89); Glucose,Random 167 mg/dL (74-106); Magnesium 2.7 mg/dL (1.5-2.5); Phosphorus 3.5 mg/dL (2.5-4.9); Potassium 3.5 meq/L (3.5-5.1); Sodium 141 meq/L (136-145)
[2018-06-23] MEDS: Sodium Chloride 0.45 % Inj 1,000 ML IV.CONT SCH (08:57)
[2018-06-23] MEDS: Triamterene/HCTZ 37.5 MG/25 MG Tablet PO SCH (08:58)
[2018-06-23] MEDS: Senna/Docusate Sodium 8.6/50 MG Tablet PO SCH ×2 (08:58→21:12)
[2018-06-23] MEDS: Insulin Detemir Inj 1,000 UNIT/10 ML Vial SQ SCH ×2 (08:59→21:14)
[2018-06-23] MEDS: Famotidine PF Inj 20 MG/2 ML Vial IV.PUSH SCH ×2 (08:59→21:13)
[2018-06-23] MEDS: Bisacodyl 10 MG Supp RECTAL SCH (08:59)
[2018-06-23] MEDS: Chlorhexidine 0.12% Oral Kit 15 ML UDC OROPHARYNG SCH ×2 (10:59→20:28)
--- NOTE | 2018-06-23 12:56 | P.PNCC ---
Subjective Subjective Remarks/Hospital Course: 62-year-old male who is on enalapril for hypertension for many years tonight about an hour prior to presentation started feeling the swelling of the tongue mostly on the left side. This was getting significantly worse, he presented in the emergency department with difficulty speaking due to the mechanical obstruction of his tongue. He denies any tightness or swelling in his throat no sensation of choking however he immediately was given epi IM, Decadron 10 IV Benadryl 50 IV and he was not responding to medical management after 45 minutes. He was intubated for the airway protection by ED attending. 06/16: Remains sedated, orally intubated on mechanical ventilation. Tongue swelling decreasing. 06/17: Sedated, arousable, orally intubated on mechanical vent. Continues to have some tongue swelling currently. 06/18: Sedated, arousable, orally intubated on mechanical ventilation. Continues to have tongue swelling currently. 06/19: Remains sedated, arousable, orally intubated on mechanical ventilation. Continues to have tongue swelling. 06/20: edema somewhat improved. OG tube not in the stomach and tube feeds in the hypopharynx. replaced OGT and ordered CXR. also with distended abdomen today and no BM x 3 days. will need to have successful BM before weaning towards extubation. 06/21: abdominal distension is worse today. no BM yet despite aggressive attempts. still not able to successfully tolerate spontaneous breathing trials with degree of abdominal distension. KUB nonobstructive- will repeat today. 06/22: -2400 from NG tube since placement. Extubated today without complication. Will attempt to mobilize. Aggressive pulmonary and GI bowel regimen to be initiated Subjective 06/23: Extubated yesterday without complication. Out of bed to chair today. Past swallow evaluation. Objective Vital Signs / I&O: Vital Signs 06/22/18 13:00 06/22/18 13:15 06/22/18 13:30 Temperature Pulse Rate 82 98 H 87 Respiratory Rate 23 22 19 Blood Pressure Pulse Oximetry 98 98 98 06/22/18 13:45 06/22/18 14:00 06/22/18 14:15 Temperature Pulse Rate 90 76 85 Respiratory Rate 20 11 L 16 Blood Pressure Pulse Oximetry 96 97 98 06/22/18 14:30 06/22/18 14:45 06/22/18 15:00 Temperature Pulse Rate 95 H 99 H 86 Respiratory Rate 23 27 H 22 Blood Pressure Pulse Oximetry 98 97 97 06/22/18 15:11 06/22/18 15:15 06/22/18 15:17 Temperature Pulse Rate 91 H 92 H Respiratory Rate 24 26 H Blood Pressure 174/124 H Pulse Oximetry 97 96 96 06/22/18 15:18 06/22/18 15:30 06/22/18 15:37 Temperature Pulse Rate 88 93 H 91 H Respiratory Rate 23 31 H 24 Blood Pressure 193/89 H 198/96 H Pulse Oximetry 96 95 98 06/22/18 15:41 06/22/18 15:45 06/22/18 16:00 Temperature 99.6 F Pulse Rate 87 80 84 Respiratory Rate 23 21 26 H Blood Pressure 172/82 H Pulse Oximetry 99 98 98 06/22/18 16:06 06/22/18 16:15 06/22/18 16:30 Temperature Pulse Rate 76 77 76 Respiratory Rate 16 19 19 Blood Pressure Pulse Oximetry 98 99 06/22/18 16:34 06/22/18 16:45 06/22/18 17:00 Temperature Pulse Rate 79 81 84 Respiratory Rate 21 19 22 Blood Pressure 161/83 H Pulse Oximetry 97 97 97 06/22/18 17:15 06/22/18 17:30 06/22/18 17:45 Temperature Pulse Rate 82 76 77 Respiratory Rate 25 H 18 17 Blood Pressure Pulse Oximetry 98 97 97 06/22/18 18:00 06/22/18 18:15 06/22/18 18:30 Temperature Pulse Rate 80 76 79 Respiratory Rate 21 18 20 Blood Pressure Pulse Oximetry 98 99 98 06/22/18 18:45 06/22/18 19:00 06/22/18 19:15 Temperature Pulse Rate 77 81 80 Respiratory Rate 18 18 20 Blood Pressure Pulse Oximetry 99 99 98 06/22/18 19:30 06/22/18 19:45 06/22/18 20:00 Temperature 98.9 F Pulse Rate 79 86 85 Respiratory Rate 18 22 22 Blood Pressure Pulse Oximetry 98 99 98 06/22/18 20:15 06/22/18 20:30 06/22/18 20:45 Temperature Pulse Rate 84 82 79 Respiratory Rate 19 20 20 Blood Pressure Pulse Oximetry 98 98 97 06/22/18 20:56 06/22/18 21:00 06/22/18 21:15 Temperature Pulse Rate 84 82 80 Respiratory Rate 22 18 16 Blood Pressure Pulse Oximetry 97 98 06/22/18 21:30 06/22/18 21:45 06/22/18 22:00 Temperature Pulse Rate 85 87 83 Respiratory Rate 19 21 19 Blood Pressure Pulse Oximetry 98 99 98 06/22/18 22:15 06/22/18 22:30 06/22/18 22:45 Temperature Pulse Rate 89 83 82 Respiratory Rate 20 16 17 Blood Pressure Pulse Oximetry 98 97 95 06/22/18 23:00 06/22/18 23:15 06/22/18 23:30 Temperature Pulse Rate 80 80 81 Respiratory Rate 18 16 15 Blood Pressure Pulse Oximetry 96 99 97 06/22/18 23:45 06/23/18 00:00 06/23/18 00:15 Temperature 98.9 F Pulse Rate 81 73 86 Respiratory Rate 15 16 18 Blood Pressure Pulse Oximetry 96 97 99 06/23/18 00:30 06/23/18 00:45 06/23/18 01:00 Temperature Pulse Rate 81 80 80 Respiratory Rate 15 15 16 Blood Pressure Pulse Oximetry 99 97 100 06/23/18 01:15 06/23/18 01:30 06/23/18 01:45 Temperature Pulse Rate 78 88 81 Respiratory Rate 15 21 15 Blood Pressure Pulse Oximetry 99 98 95 06/23/18 02:00 06/23/18 02:15 06/23/18 02:30 Temperature Pulse Rate 72 80 79 Respiratory Rate 20 19 28 H Blood Pressure Pulse Oximetry 98 98 97 06/23/18 02:45 06/23/18 03:00 06/23/18 03:15 Temperature Pulse Rate 75 74 75 Respiratory Rate 16 14 16 Blood Pressure Pulse Oximetry 99 99 100 06/23/18 03:30 06/23/18 03:45 06/23/18 03:54 Temperature Pulse Rate 82 75 76 Respiratory Rate 24 16 15 Blood Pressure 161/81 H Pulse Oximetry 99 99 99 06/23/18 04:00 06/23/18 04:13 06/23/18 04:15 Temperature 99.5 F Pulse Rate 76 75 75 Respiratory Rate 16 18 15 Blood Pressure 159/85 H Pulse Oximetry 99 99 06/23/18 04:30 06/23/18 04:45 06/23/18 05:00 Temperature Pulse Rate 77 80 110 H Respiratory Rate 16 16 34 H Blood Pressure Pulse Oximetry 99 99 97 06/23/18 05:01 06/23/18 05:06 06/23/18 05:15 Temperature Pulse Rate 100 H 86 84 Respiratory Rate 19 18 17 Blood Pressure 226/106 H 178/99 H Pulse Oximetry 97 99 99 06/23/18 05:30 06/23/18 05:45 06/23/18 06:00 Temperature Pulse Rate 84 88 81 Respiratory Rate 17 22 15 Blood Pressure 157/73 H Pulse Oximetry 99 99 99 06/23/18 06:15 06/23/18 06:30 06/23/18 06:45 Temperature Pulse Rate 87 94 H 87 Respiratory Rate 16 22 20 Blood Pressure Pulse Oximetry 99 98 98 06/23/18 07:00 06/23/18 07:15 06/23/18 07:30 Temperature Pulse Rate 84 80 85 Respiratory Rate 16 16 25 H Blood Pressure 140/63 Pulse Oximetry 99 100 99 06/23/18 07:41 06/23/18 07:45 06/23/18 08:00 Temperature 97.9 F Pulse Rate 83 82 89 Respiratory Rate 14 17 19 Blood Pressure 162/82 H Pulse Oximetry 99 100 98 06/23/18 08:15 06/23/18 08:30 06/23/18 08:45 Temperature Pulse Rate 85 96 H 99 H Respiratory Rate 24 20 20 Blood Pressure Pulse Oximetry 99 98 98 06/23/18 09:00 06/23/18 09:15 06/23/18 09:30 Temperature Pulse Rate 96 H 92 H 91 H Respiratory Rate 20 19 16 Blood Pressure 180/98 H Pulse Oximetry 98 97 98 06/23/18 09:45 06/23/18 10:00 06/23/18 10:15 Temperature Pulse Rate 84 100 H 90 Respiratory Rate 14 21 18 Blood Pressure 182/110 H Pulse Oximetry 99 97 98 06/23/18 10:30 06/23/18 10:45 06/23/18 10:48 Temperature Pulse Rate 95 H 92 H 92 H Respiratory Rate 16 18 23 Blood Pressure 179/97 H Pulse Oximetry 98 97 97 06/23/18 12:30 Temperature Pulse Rate 87 Respiratory Rate 16 Blood Pressure Pulse Oximetry Intake & Output 06/22/18 06/23/18 06/23/18 18:59 06:59 18:59 Intake Total 350 / 350 1000 / 1000 Output Total 2180 / 2180 1480 / 1480 Balance -2180 / -2180 -1130 / -1130 1000 / 1000 Weight 118.4 kg Intake: IV 350 / 350 1000 / 1000 Diprivan 1000 mg/100 ml Inj 1, 100 / 100 000 mg In 100 ml @ 5 MCG/KG/MIN 3.576 mls/hr IV.CONT TITRATE PRN Rx#:[id number] 1/2 Normal Saline Inj 1,000 ML 1000 / 1000 @ 60 mls/hr IV.CONT .[id number] [facility] Rx#:[id number] Tube Feeding 0 / 0 Output: Urine 300 / 300 Stool 500 / 500 Urine Amount (Catheter) 680 / 680 680 / 680 Condom 680 / 680 680 / 680 Gastric Drainage 1500 / 1500 Left Nare Nasogastric Tube 1500 / 1500 Other: # Voids 1 # Incontinent Voids 3 # Urine Diapers 3 Date of Last Bowel Movement 06/21/18 06/21/18 06/21/18 # Bowel Movements 6 Result Diagrams: 06/23/18 05:17 06/23/18 05:17 Other Results: Microbiology 06/19/18 11:00 Sputum - Endotracheal Gram Stain - Final 06/19/18 11:00 Sputum - Endotracheal Sputum Culture - Final Haemophilus influenzae Imaging: Chest X-Ray 06/14/18 23:50 CONCLUSION: 1. Endotracheal tube 1 cm above the kari and can be retracted 2 to 3 cm. 2. Mild cardiomegaly. Chest X-Ray 06/18/18 05:00 CONCLUSION: No acute abnormality is seen. Chest X-Ray 06/20/18 00:00 CONCLUSION: 1. Mild atelectatic changes in the left lung base. Lungs are otherwise clear. 2. Nasogastric tube appears to be folded back on itself with the tip actually projecting over the expected location of the distal esophagus. Endotracheal tube remains appropriately position. Abdomen X-Ray 06/20/18 10:48 CONCLUSION: 1. NGT just beyond the GE junction. 2. Nonobstructive bowel gas pattern. Abdomen X-Ray 06/21/18 00:00 CONCLUSION: Enteric tube as above. No definite dilated loops of bowel seen. Objective Remarks: gen: middle-aged morbidly obese male, lying in bed, nasal cannula in no acute distress heent: nc. at. perrl. mmm.. Oral ulcer on tongue noted. neck: large neck circumference. unable to accurately assess JVD. trachea midline. chest: equal chest rise. Minutes breath sounds throughout. No wheezing. On nasal cannula cv: normal rate, regular rhythm. sinus. S1, S2. No S4. abd: moderately distended. morbidly obese. soft. nontender. no guarding. extr: no edema. distal pulses 2+. neuro: Cranial nerves II through XII appear grossly intact. Moving all 4 extremities spontaneously Assessment and Plan - Assessment and Plan Plan: Neuro/Psych: Acetaminophen 650 every 4 hours as needed fever Morphine sulfate 2 mg IV every 2 hours as needed pain Pulm: Acute angioedema resolved Severe laryngeal edema resolved Extubated 06/22 without complication Currently on nasal cannula 2 L to maintain saturations greater than equal to 92% Incentive spirometry while awake Albuterol/ipratropium aerosols every 4 hours while awake albuterol aerosols every 2 hours. Dyspnea Rapidly wean off dexamethasone currently 4 mg every 12 hours, diphenhydramine 12.5 mill grams IV every 6 hours and famotidine 20 mg IV every 12 hours CV: Essential hypertension Discontinue amlodipine 10 mg daily Continue triamterene/hydrochlorothiazide 37.5/25 1 tablet daily Start isosorbide dinitrate 10 mg 3 times daily and hydralazine 20 mg 3 times daily As needed labetalol, hydralazine Nitropaste Enalapril added to his allergy GI: Ileus NG tube discontinued/fell out overnight. Aggressive bowel regimen with docusate sodium/senna Metoclopramide 10 mg IV every 8 hours Received methylnaltrexone 06/21 : Remove Brand catheter Endo: Diabetes mellitus Acute hyperglycemia secondary to steroids Holding glimepiride 2 mg daily Sliding scale insulin aspart insulin to maintain euglycemia On insulin detemir 5 units twice daily. Renal: Creatinine currently within normal Accurate I's and O's Monitor urine output Heme: Leukocytosis Microcytic anemia Monitor CBC daily. Follow trends per No indication for transfusion of blood products at this time ID: Monitor for signs and symptomatology infection MSK: Elevated BMI PT evaluate and treat Weight loss encouraged FEN: Replace electrolytes as clinically indicated Access -Utilize peripheral IV. Central line if indicated Prophylaxis -GI -famotidine - -DVT SCD/enoxaparin Level 2 follow-up
[2018-06-23] MEDS: hydrALAZINE 25 MG Tablet PO SCH ×2 (13:47→18:25)
[2018-06-23] MEDS: Acetaminophen 325 MG Tablet PO PRN (21:12)
[2018-06-24 00:53] LABS: Baso % (Auto) 0.2 % (0.0-2.0); Eos % (Auto) 0.1 % (0.0-4.0); Hematocrit 30.6 % (39.0-51.0); Hemoglobin 9.9 gm/dL (13.0-17.0); Lymph # (Auto) 0.7 th/mm3 (1.0-4.8); Lymph % (Auto) 6.7 % (9.0-44.0); Mean Corpuscular HGB Conc 32.5 % (32.0-36.0); Mean Corpuscular Hemoglobin 24.1 pg (27.0-34.0); Mean Corpuscular Volume 74.3 fL (80.0-100.0); Mean Platelet Volume 7.9 fL (7.0-11.0); Mono # (Auto) 1.3 th/mm3 (0.0-0.9); Mono % (Auto) 12.1 % (0.0-8.0); Neut # (Auto) 8.9 th/mm3 (1.8-7.7); Neut % (Auto) 80.9 % (16.0-70.0); Platelet Count 288 th/mm3 (150-450); Red Blood Count 4.11 mil/mm3 (4.50-5.90); Red Cell Distribution Width 16.1 % (11.6-17.2)
[2018-06-24] MEDS: Oral Hygiene Kit OROPHARYNG SCH ×6 (00:57→23:56)
[2018-06-24] MEDS: Insulin NovoLIN Regular Correctional Sugar Inj SQ SCH ×5 (00:57→20:53)
[2018-06-24 01:58] LABS: Anion Gap 7 meq/L (5-15); Blood Urea Nitrogen 24 mg/dL (7-18); Calcium 8.5 mg/dL (8.5-10.1); Carbon Dioxide 32.6 meq/L (21.0-32.0); Chloride 99 meq/L (98-107); Glomerular Filtration Rate Greater Than 89 mL/min (>89); Glucose,Random 163 mg/dL (74-106); Magnesium 2.6 mg/dL (1.5-2.5); Phosphorus 3.1 mg/dL (2.5-4.9); Potassium 3.8 meq/L (3.5-5.1); Sodium 139 meq/L (136-145)
[2018-06-24] MEDS: diphenhydrAMINE HCl 12.5 MG/5 ML Elixir UDC PO SCH ×4 (02:15→20:52)
[2018-06-24] MEDS: Enoxaparin Inj 40 MG/0.4 ML Syringe SQ SCH (07:43)
[2018-06-24] MEDS: Senna/Docusate Sodium 8.6/50 MG Tablet PO SCH ×2 (09:07→20:52)
[2018-06-24] MEDS: Bisacodyl 10 MG Supp RECTAL SCH (09:07)
[2018-06-24] MEDS: Famotidine PF Inj 20 MG/2 ML Vial IV.PUSH SCH ×2 (09:08→20:53)
[2018-06-24] MEDS: hydrALAZINE 25 MG Tablet PO SCH ×3 (09:08→17:18)
[2018-06-24] MEDS: Triamterene/HCTZ 37.5 MG/25 MG Tablet PO SCH (09:08)
[2018-06-24] MEDS: Chlorhexidine 0.12% Oral Kit 15 ML UDC OROPHARYNG SCH ×3 (09:09→20:52)
[2018-06-24] MEDS: Insulin Detemir Inj 1,000 UNIT/10 ML Vial SQ SCH ×2 (09:09→20:53)
[2018-06-24] MEDS: Acetaminophen 325 MG Tablet PO PRN ×2 (11:38→18:33)
[2018-06-24 11:49] LABS: Anion Gap 8 meq/L (5-15); Blood Urea Nitrogen 25 mg/dL (7-18); Calcium 8.7 mg/dL (8.5-10.1); Carbon Dioxide 31.4 meq/L (21.0-32.0); Chloride 99 meq/L (98-107); Glomerular Filtration Rate Greater Than 89 mL/min (>89); Glucose,Random 204 mg/dL (74-106); Magnesium 2.6 mg/dL (1.5-2.5); Potassium 3.6 meq/L (3.5-5.1); Sodium 138 meq/L (136-145)
[2018-06-24 11:50] LABS: Phosphorus 2.2 mg/dL (2.5-4.9)
--- NOTE | 2018-06-24 12:18 | P.PNCC ---
Subjective Subjective Remarks/Hospital Course: 62-year-old male who is on enalapril for hypertension for many years tonight about an hour prior to presentation started feeling the swelling of the tongue mostly on the left side. This was getting significantly worse, he presented in the emergency department with difficulty speaking due to the mechanical obstruction of his tongue. He denies any tightness or swelling in his throat no sensation of choking however he immediately was given epi IM, Decadron 10 IV Benadryl 50 IV and he was not responding to medical management after 45 minutes. He was intubated for the airway protection by ED attending. 06/16: Remains sedated, orally intubated on mechanical ventilation. Tongue swelling decreasing. 06/17: Sedated, arousable, orally intubated on mechanical vent. Continues to have some tongue swelling currently. 06/18: Sedated, arousable, orally intubated on mechanical ventilation. Continues to have tongue swelling currently. 06/19: Remains sedated, arousable, orally intubated on mechanical ventilation. Continues to have tongue swelling. 06/20: edema somewhat improved. OG tube not in the stomach and tube feeds in the hypopharynx. replaced OGT and ordered CXR. also with distended abdomen today and no BM x 3 days. will need to have successful BM before weaning towards extubation. 06/21: abdominal distension is worse today. no BM yet despite aggressive attempts. still not able to successfully tolerate spontaneous breathing trials with degree of abdominal distension. KUB nonobstructive- will repeat today. 06/22: -2400 from NG tube since placement. Extubated today without complication. Will attempt to mobilize. Aggressive pulmonary and GI bowel regimen to be initiated 06/23: Extubated yesterday without complication. Out of bed to chair today. Passed swallow evaluation. Subjective 06/24: 22.3. Voice is more hoarse today. Able to identify uvula when opens mouth able to swallow adequately. On nasal cannula. Objective Vital Signs / I&O: Vital Signs 06/23/18 12:15 06/23/18 12:30 06/23/18 12:45 Temperature Pulse Rate 83 87 94 H Respiratory Rate 16 17 18 Blood Pressure Pulse Oximetry 98 99 98 06/23/18 13:00 06/23/18 13:15 06/23/18 13:30 Temperature Pulse Rate 93 H 90 92 H Respiratory Rate 18 17 20 Blood Pressure 182/84 H Pulse Oximetry 98 98 98 06/23/18 13:45 06/23/18 14:00 06/23/18 14:01 Temperature Pulse Rate 92 H 97 H 97 H Respiratory Rate 21 14 17 Blood Pressure 143/65 H Pulse Oximetry 99 99 99 06/23/18 14:15 06/23/18 14:30 06/23/18 14:45 Temperature Pulse Rate 92 H 93 H 95 H Respiratory Rate 15 16 16 Blood Pressure Pulse Oximetry 100 100 100 06/23/18 15:00 06/23/18 15:15 06/23/18 15:30 Temperature Pulse Rate 94 H 114 H 102 H Respiratory Rate 19 24 20 Blood Pressure 137/60 Pulse Oximetry 100 98 98 06/23/18 15:40 06/23/18 15:45 06/23/18 16:00 Temperature Pulse Rate 97 H 96 H 90 Respiratory Rate 18 19 Blood Pressure Pulse Oximetry 99 06/23/18 16:03 06/23/18 16:09 06/23/18 16:15 Temperature 99.7 F H Pulse Rate 95 H 92 H 103 H Respiratory Rate 26 H 17 21 Blood Pressure 165/75 H Pulse Oximetry 97 100 98 06/23/18 16:30 06/23/18 16:45 06/23/18 17:00 Temperature Pulse Rate 92 H 100 H 91 H Respiratory Rate 19 24 28 H Blood Pressure 154/70 H Pulse Oximetry 99 99 99 06/23/18 17:15 06/23/18 17:30 06/23/18 17:45 Temperature Pulse Rate 87 87 94 H Respiratory Rate 24 21 22 Blood Pressure Pulse Oximetry 100 99 99 06/23/18 18:00 06/23/18 18:15 06/23/18 18:30 Temperature Pulse Rate 87 88 92 H Respiratory Rate 19 21 20 Blood Pressure 139/69 Pulse Oximetry 100 99 100 06/23/18 18:45 06/23/18 19:00 06/23/18 19:15 Temperature Pulse Rate 92 H 93 H 97 H Respiratory Rate 19 18 19 Blood Pressure 137/64 Pulse Oximetry 98 97 99 06/23/18 19:30 06/23/18 19:45 06/23/18 20:00 Temperature 101.0 F H Pulse Rate 95 H 90 92 H Respiratory Rate 18 16 18 Blood Pressure 144/74 H Pulse Oximetry 99 100 100 06/23/18 20:15 06/23/18 20:30 06/23/18 20:45 Temperature Pulse Rate 93 H 90 92 H Respiratory Rate 17 15 19 Blood Pressure Pulse Oximetry 100 100 99 06/23/18 21:00 06/23/18 21:15 06/23/18 21:30 Temperature Pulse Rate 95 H 98 H 104 H Respiratory Rate 21 20 21 Blood Pressure 159/77 H Pulse Oximetry 96 95 93 L 06/23/18 21:45 06/23/18 22:00 06/23/18 22:15 Temperature Pulse Rate 101 H 99 H 97 H Respiratory Rate 23 31 H 36 H Blood Pressure 133/73 Pulse Oximetry 93 L 92 L 93 L 06/23/18 22:30 06/23/18 22:45 06/23/18 23:00 Temperature Pulse Rate 95 H 91 H 92 H Respiratory Rate 35 H 28 H 27 H Blood Pressure 148/72 H Pulse Oximetry 94 L 96 96 06/23/18 23:15 06/23/18 23:30 06/23/18 23:45 Temperature Pulse Rate 93 H 88 98 H Respiratory Rate 36 H 34 H 30 H Blood Pressure Pulse Oximetry 96 97 94 L 06/24/18 00:00 06/24/18 00:15 06/24/18 00:30 Temperature 99.5 F Pulse Rate 96 H 99 H 96 H Respiratory Rate 25 H 25 H 21 Blood Pressure 137/65 Pulse Oximetry 93 L 97 94 L 06/24/18 00:45 06/24/18 01:00 06/24/18 01:15 Temperature Pulse Rate 95 H 90 91 H Respiratory Rate 34 H 32 H 19 Blood Pressure 125/58 L Pulse Oximetry 94 L 93 L 95 06/24/18 01:30 06/24/18 01:45 06/24/18 02:00 Temperature Pulse Rate 92 H 91 H 94 H Respiratory Rate 40 H 29 H 28 H Blood Pressure 135/68 Pulse Oximetry 97 96 96 06/24/18 02:15 06/24/18 02:30 06/24/18 02:45 Temperature Pulse Rate 90 91 H 86 Respiratory Rate 22 22 20 Blood Pressure Pulse Oximetry 94 L 96 96 06/24/18 03:00 06/24/18 03:15 06/24/18 03:30 Temperature Pulse Rate 85 89 83 Respiratory Rate 18 24 18 Blood Pressure 136/64 Pulse Oximetry 97 97 98 06/24/18 03:45 06/24/18 04:00 06/24/18 04:15 Temperature Pulse Rate 88 87 88 Respiratory Rate 29 H 23 22 Blood Pressure 136/68 Pulse Oximetry 96 95 95 06/24/18 04:30 06/24/18 04:45 06/24/18 05:00 Temperature Pulse Rate 87 87 89 Respiratory Rate 22 21 21 Blood Pressure 142/69 H Pulse Oximetry 96 96 96 06/24/18 05:15 06/24/18 05:30 06/24/18 05:45 Temperature Pulse Rate 87 92 H 91 H Respiratory Rate 19 25 H 21 Blood Pressure Pulse Oximetry 97 96 96 06/24/18 06:00 06/24/18 06:15 06/24/18 06:30 Temperature Pulse Rate 90 90 86 Respiratory Rate 24 21 19 Blood Pressure 150/71 H Pulse Oximetry 96 95 95 06/24/18 06:45 06/24/18 07:00 06/24/18 07:15 Temperature Pulse Rate 87 88 87 Respiratory Rate 18 22 22 Blood Pressure 136/63 Pulse Oximetry 93 L 95 96 06/24/18 07:30 06/24/18 07:45 06/24/18 08:00 Temperature 102.3 F H Pulse Rate 84 91 H 90 Respiratory Rate 18 24 Blood Pressure Pulse Oximetry 96 96 06/24/18 08:40 06/24/18 10:00 06/24/18 11:49 Temperature Pulse Rate 96 H 99 H 93 H Respiratory Rate 22 25 H Blood Pressure Pulse Oximetry 94 L Intake & Output 06/23/18 06/24/18 06/24/18 18:59 06:59 18:59 Intake Total 1720 / 1720 1000 / 1000 Output Total 500 / 500 Balance 1720 / 1720 500 / 500 Weight 118.4 kg Intake: IV 1000 / 1000 1000 / 1000 1/2 Normal Saline Inj 1,000 ML 1000 / 1000 1000 / 1000 @ 60 mls/hr IV.CONT .[id number] [facility] Rx#:[id number] Oral 720 / 720 0 / 0 Output: Stool 500 / 500 Other: # Voids 4 # Incontinent Voids 4 # Urine Diapers 4 Date of Last Bowel Movement 06/23/18 06/23/18 06/23/18 # Bowel Movements 1 1 # Incontinent Bowel Movements 1 1 Result Diagrams: 06/24/18 00:28 06/24/18 10:57 Other Results: Microbiology 06/19/18 11:00 Sputum - Endotracheal Gram Stain - Final 06/19/18 11:00 Sputum - Endotracheal Sputum Culture - Final Haemophilus influenzae Imaging: Chest X-Ray 06/14/18 23:50 CONCLUSION: 1. Endotracheal tube 1 cm above the kari and can be retracted 2 to 3 cm. 2. Mild cardiomegaly. Chest X-Ray 06/18/18 05:00 CONCLUSION: No acute abnormality is seen. Chest X-Ray 06/20/18 00:00 CONCLUSION: 1. Mild atelectatic changes in the left lung base. Lungs are otherwise clear. 2. Nasogastric tube appears to be folded back on itself with the tip actually projecting over the expected location of the distal esophagus. Endotracheal tube remains appropriately position. Abdomen X-Ray 06/20/18 10:48 CONCLUSION: 1. NGT just beyond the GE junction. 2. Nonobstructive bowel gas pattern. Abdomen X-Ray 06/21/18 00:00 CONCLUSION: Enteric tube as above. No definite dilated loops of bowel seen. Objective Remarks: gen: middle-aged morbidly obese male, resting in chair, nasal cannula in no acute distress heent: nc. at. perrl. mmm.. Oral ulcer on tongue noted. Able to identify uvula neck: large neck circumference. unable to accurately assess JVD. trachea midline. chest: equal chest rise. Transmitted upper airways sounds identified. No stridor. cv: normal rate, regular rhythm. sinus. S1, S2. No S4. abd: moderately distended. morbidly obese. soft. nontender. no guarding. extr: no edema. distal pulses 2+. neuro: Cranial nerves II through XII appear grossly intact. Moving all 4 extremities spontaneously Assessment and Plan - Assessment and Plan Plan: Neuro/Psych: Acetaminophen 650 every 4 hours as needed fever Morphine sulfate 2 mg IV every 2 hours as needed pain Pulm: Acute angioedema resolved Severe laryngeal edema resolved Extubated 06/22 without complication Currently on nasal cannula 2 L to maintain saturations greater than equal to 92% Incentive spirometry while awake Albuterol/ipratropium aerosols every 4 hours while awake albuterol aerosols every 2 hours. Dyspnea Rapidly wean off dexamethasone currently 4 mg every 12 hours, diphenhydramine 12.5 mill grams IV every 6 hours and famotidine 20 mg IV every [address] soft tissue disorder 06/24. Results pending CV: Essential hypertension Discontinue amlodipine 10 mg daily Continue triamterene/hydrochlorothiazide 37.5/25 1 tablet daily Start isosorbide dinitrate 10 mg 3 times daily and hydralazine 50 mg 3 times daily As needed labetalol, hydralazine Nitropaste Enalapril added to his allergy GI: Ileus Continue nectar thickened liquid/pured diet. Advance as tolerated Aggressive bowel regimen with docusate sodium/senna Metoclopramide 10 mg IV every 8 hours Received methylnaltrexone 06/21 : Remove Brand catheter Endo: Diabetes mellitus Acute hyperglycemia secondary to steroids Holding glimepiride 2 mg daily Sliding scale insulin aspart insulin high regimen AC/at bedtime to maintain euglycemia On insulin detemir 5 units twice daily. Renal: Creatinine currently within normal Accurate I's and O's Monitor urine output Heme: Microcytic anemia Monitor CBC daily. Follow trends per No indication for transfusion of blood products at this time ID: Monitor for signs and symptomatology infection MSK: Elevated BMI PT evaluate and treat Weight loss encouraged FEN: Acute hypophosphatemia 30 mmol K-Phos IV times now. Recheck in a.m. Replace electrolytes as clinically indicated Access -Utilize peripheral IV. Central line if indicated Prophylaxis -GI -famotidine - -DVT SCD/enoxaparin Level 2 follow-up
--- NOTE | 2018-06-24 12:44 | P.DIET ---
Nutritional Evaluation Type of nutrition evaluation: follow-up Nutrition consult regarding: Diet Evaluation Objective - Diagnosis Severe angioadema, airway compromised - Objective [place] body weight: 67 kg % IBW: 177 Body Weight Used for Calculations: IBW Energy Needs - Lower Range (kCal/kg): 25 Energy Needs - Upper Range (kCal/kg): 30 Lower Limit kCal/kg (kCals): 1,675 Upper Limit kCal/kg (kCals): 2,010 Lower Limit Protein Factor (Grams per Kg): 1.2 Upper Limit Protein Factor (Grams per Kg): 1.5 Lower Protein Needs (Protein): 80 Upper Protein Needs (Protein): 101 Dietitian Reviewed in Medical Record: Current diet, Curent medications, Intake & Output, Labs, Medical history, Tube feeding Diet Order: reg, pureed, nectar thick Objective Comments: PMH: DM, HLD, HTN Meds include: Novolog, Levemir Labs: BUN 24, POC glucose 186, random glucose 163 Assessment Assessment: Pt extubated on 06/22 w/o any complications. Pt currently on pureed, nectar thick diet and TF d/ernestina on 06/23. ST recs noted. Per MD note, able to identify pts uvula and able to swallow adequately. Will monitor PO intake, clinical course. Recommendations: 1. Will monitor PO intake and clinical course 2. Will assess nutritional needs for PO supplement as appropriate 3. Dietitian following Dietitian to Monitor: Lab values, Glucose level, Intake & Output, Tube feeding tolerance, Weight change, Medical course
[2018-06-24] MEDS ORDERED: Potassium Phosphate Inj 30 MMOL in Sodium Chlor 0.9% Inj 250 ML IV.SIG ONE (13:00)
--- NOTE | 2018-06-24 13:38 | CT ---
EXAM DATE: 06/24/2018 1:33 PM EDT AGE/SEX: 62 years / Male INDICATIONS: Recent angioedema. CLINICAL DATA: This is the patient's initial encounter. Patient reports that signs and symptoms have been present for 1 day and indicates a pain score of 0/10. MEDICAL/SURGICAL HISTORY: Diabetes. Hypertension. None. RADIATION DOSE: 23.11 CTDI (mGy) COMPARISON: No prior exams available for comparison. TECHNIQUE: Helical acquisition was performed using a multirow detector CT scanner without contrast. Using automated exposure control and adjustment of the mA and/or kV according to patient size, radiat ion dose was kept as low as reasonably achievable to obtain optimal diagnostic quality images. DICOM format image data is available electronically for review and comparison. FINDINGS: Sinuses: Mucoperiosteal thickening is seen in both maxillary sinuses with an air-fluid level evident. Mucoperiosteal thickening is present in the sphenoid sinus. Nasopharynx: The nasopharyngeal airway has a normal configuration. No mucosal thickening or mass is seen. Oropharynx: The intrinsic muscles of the tongue are symmetric. The tonsillar pillars are intact. T he prevertebral soft tissues are not thickened. Larynx: The supraglottic, glottic, and infraglottic structures are intact. Parapharyngeal: The parapharyngeal space is intact. Salivary Glands: The parotid and submandibular glands are intact. Lymph Nodes: Scattered nonspecific lymph nodes are seen in both the right left neck Thyroid: Grossly intact. Bones: Unremarkable. CONCLUSION: 1. Sinus disease, otherwise negative Electronically signed by: Misha Umaña MD 06/24/2018 1:37 PM EDT
[2018-06-24] MEDS ORDERED: RESP: Racemic Epinephrine 2.25% 0.5 ML Neb NEB PRN (16:07)
[2018-06-24] MEDS ORDERED: RESP: Racemic Epinephrine 2.25% 0.5 ML Neb NEB ONE (16:07)
[2018-06-24] MEDS ORDERED: RESP: Racemic Epinephrine 2.25% 0.5 ML Neb ONE ×2 (16:09→16:13)
[2018-06-24] MEDS ORDERED: MethylPREDNISolone Sod Succinate Inj 125 MG/2 ML Vial IV.PUSH ONE (17:00)
--- NOTE | 2018-06-24 17:10 | XR ---
EXAM DATE: 06/24/2018 5:06 PM EDT AGE/SEX: 62 years / Male INDICATIONS: Short of breath. CLINICAL DATA: This is the patient's subsequent encounter. Patient reports that signs and symptoms h ave been present for 1 week and indicates a pain score of Nonresponsive. MEDICAL/SURGICAL HISTORY: Hypertension. None. COMPARISON: [facility] [place], CHEST 1V SINGLE AP, 06/20/2018. . FINDINGS: A single AP view of the chest demonstrates the lungs to be symmetrically aerated without evidence of mass, infiltrate or effusion. The cardiomediastinal contours are unremarkable. Osseous structures a re intact. Normal alignment. CONCLUSION: No acute cardiopulmonary disease. Electronically signed by: Vj Carrasco MD 06/24/2018 5:09 PM EDT
[2018-06-24] MEDS ORDERED: Etomidate Inj 40 MG/20 ML Vial IV.PUSH ONE (19:03)
[2018-06-24] MEDS ORDERED: Midazolam Inj 5 MG/ML 1 ML Vial ONE (19:03)
[2018-06-24] MEDS ORDERED: Propofol Inj 500 MG/50 ML Vial ONE ×2 (19:25→20:41)
[2018-06-24] MEDS ORDERED: Etomidate Inj 20 MG/10 ML Ampul IV.PUSH ONE (19:26)
[2018-06-24] MEDS ORDERED: Succinylcholine Inj 200 MG/10 ML Vial IV.PUSH ONE (19:26)
[2018-06-24] MEDS: Propofol 1000 mg/100 ml Inj 1,000 MG/100 ML BOTTLE IV.CONT PRN ×2 (19:30→21:18)
--- NOTE | 2018-06-24 19:32 | P.PCN ---
Date of procedure: 06/24/18 Pre-op diagnosis: Stridor Post-op diagnosis: same Procedure: A time out was performed. The patient was placed on a surveillance system monitor including continuous pulse oximetry. Rapid Sequence Intubation was conducted. The patient received 20 mg etomidate IV, 10 mg Versed IV, for induction and 70 mg mg of rocuronium IV for adequate paralysis. Cricoid pressure was maintained from time induction agent was given to time of cuff balloon inflation. Using a direct laryngoscopy MAC 4 blade and a size 7.5 endotracheal tube with stylet, the patient was intubated on the first attempt. There was no evidence of glottic or vocal cord edema at the time of intubation and intubation was easy. The stylet was removed and cuff balloon was inflated. Appropriate endotracheal tube position was confirmed by direct visualization of vocal cord passage, fogging of the tube, CO2 colometric indicator and symmetric breath sounds. The tube was secured at 24 cm at the lips. Post intubation chest x-ray is pending at this time. Anesthesia: regional Surgeon: Bairon Gross Estimated blood loss (mL): 0 Condition: stable Disposition: ICU
--- NOTE | 2018-06-24 19:57 | XR ---
EXAM DATE: 06/24/2018 7:50 PM EDT AGE/SEX: 62 years / Male INDICATIONS: Post intubation. CLINICAL DATA: This is the patient's initial encounter. Patient reports that signs and symptoms have been present for 1 day and indicates a pain score of Nonresponsive. MEDICAL/SURGICAL HISTORY: Non-responsive. Non-responsive. COMPARISON: [facility] – [place], CHEST 1V SINGLE AP, 06/24/2018. . FINDINGS: There is an ETT at the level the clavicles. There is an NGT coursing beyond the GE junction. No signi ficant new focal pleural or parenchymal opacities. Cardiomediastinal contours are within normal limit s. Remainder of the exam is unchanged. CONCLUSION: 1. ETT in good position. 2. NGT beyond the GE junction. 3. Lungs are essentially clear. Electronically signed by: Daniel Parker MD 06/24/2018 7:56 PM EDT
[2018-06-24 23:00] LABS: ABG Base Excess 4.2 mmol/L (-2-2); ABG PCO2 39 mmHg (38-42); ABG PO2 240 mmHG (61-120)
[2018-06-25] MEDS: Propofol 1000 mg/100 ml Inj 1,000 MG/100 ML BOTTLE IV.CONT PRN ×8 (00:41→23:12)
[2018-06-25] MEDS: diphenhydrAMINE HCl 12.5 MG/5 ML Elixir UDC PO SCH ×4 (01:57→20:28)
[2018-06-25] MEDS: Oral Hygiene Kit OROPHARYNG SCH ×8 (03:05→23:18)
[2018-06-25] MEDS: Enoxaparin Inj 40 MG/0.4 ML Syringe SQ SCH (03:36)
--- NOTE | 2018-06-25 04:42 | XR ---
EXAM DATE: 06/25/2018 4:26 AM EDT AGE/SEX: 62 years / Male INDICATIONS: Short of breath. CLINICAL DATA: This is the patient's subsequent encounter. Patient reports that signs and symptoms h ave been present for 2 days and indicates a pain score of 0/10. MEDICAL/SURGICAL HISTORY: Non-responsive. Non-responsive. COMPARISON: [facility] – [place] CHEST 1V SINGLE AP, 06/24/2018. . FINDINGS: Mild left base parenchymal opacities are without significant change. Right lung remains clear. No ple ural effusion or pneumothorax. Heart size stable, upper limits of normal. Endotracheal tube tip is approximately 5 cm above the kari. Nasogastric tube courses into the stoma ch. CONCLUSION: No significant change. Slight parenchymal consolidation at the left base again noted. Electronically signed by: Renato Limon MD 06/25/2018 4:41 AM EDT
[2018-06-25 06:13] LABS: Hematocrit 29.4 % (39.0-51.0); Hemoglobin 9.7 gm/dL (13.0-17.0); Mean Corpuscular HGB Conc 32.9 % (32.0-36.0); Mean Corpuscular Hemoglobin 24.2 pg (27.0-34.0); Mean Corpuscular Volume 73.4 fL (80.0-100.0); Mean Platelet Volume 8.7 fL (7.0-11.0); Platelet Count 219 th/mm3 (150-450); Red Blood Count 4.01 mil/mm3 (4.50-5.90); White Blood Count 11.7 th/mm3 (4.0-11.0)
[2018-06-25 06:40] LABS: Anion Gap 9 meq/L (5-15); Blood Urea Nitrogen 26 mg/dL (7-18); Calcium 8.2 mg/dL (8.5-10.1); Carbon Dioxide 29.5 meq/L (21.0-32.0); Chloride 97 meq/L (98-107); Glomerular Filtration Rate Greater Than 89 mL/min (>89); Glucose,Random 256 mg/dL (74-106); Magnesium 2.5 mg/dL (1.5-2.5); Phosphorus 3.8 mg/dL (2.5-4.9); Potassium 4.3 meq/L (3.5-5.1); Sodium 135 meq/L (136-145)
[2018-06-25] MEDS: Insulin Detemir Inj 1,000 UNIT/10 ML Vial SQ SCH ×2 (08:08→20:29)
[2018-06-25] MEDS: Senna/Docusate Sodium 8.6/50 MG Tablet PO SCH ×2 (08:08→20:27)
[2018-06-25] MEDS: Triamterene/HCTZ 37.5 MG/25 MG Tablet PO SCH (08:08)
[2018-06-25] MEDS: Chlorhexidine 0.12% Oral Kit 15 ML UDC OROPHARYNG SCH ×4 (08:09→20:29)
[2018-06-25] MEDS: Bisacodyl 10 MG Supp RECTAL SCH (08:16)
[2018-06-25] MEDS: hydrALAZINE 25 MG Tablet PO SCH ×3 (08:27→17:02)
[2018-06-25] MEDS: Famotidine PF Inj 20 MG/2 ML Vial IV.PUSH SCH ×2 (08:28→20:28)
[2018-06-25] MEDS: Insulin NovoLIN Regular Correctional Sugar Inj SQ SCH ×4 (08:34→20:34)
--- NOTE | 2018-06-25 10:27 | P.PNCC ---
Subjective Subjective Remarks/Hospital Course: 62-year-old male who is on enalapril for hypertension for many years tonight about an hour prior to presentation started feeling the swelling of the tongue mostly on the left side. This was getting significantly worse, he presented in the emergency department with difficulty speaking due to the mechanical obstruction of his tongue. He denies any tightness or swelling in his throat no sensation of choking however he immediately was given epi IM, Decadron 10 IV Benadryl 50 IV and he was not responding to medical management after 45 minutes. He was intubated for the airway protection by ED attending. 06/16: Remains sedated, orally intubated on mechanical ventilation. Tongue swelling decreasing. 06/17: Sedated, arousable, orally intubated on mechanical vent. Continues to have some tongue swelling currently. 06/18: Sedated, arousable, orally intubated on mechanical ventilation. Continues to have tongue swelling currently. 06/19: Remains sedated, arousable, orally intubated on mechanical ventilation. Continues to have tongue swelling. 06/20: edema somewhat improved. OG tube not in the stomach and tube feeds in the hypopharynx. replaced OGT and ordered CXR. also with distended abdomen today and no BM x 3 days. will need to have successful BM before weaning towards extubation. 06/21: abdominal distension is worse today. no BM yet despite aggressive attempts. still not able to successfully tolerate spontaneous breathing trials with degree of abdominal distension. KUB nonobstructive- will repeat today. 06/22: -2400 from NG tube since placement. Extubated today without complication. Will attempt to mobilize. Aggressive pulmonary and GI bowel regimen to be initiated 06/23: Extubated yesterday without complication. Out of bed to chair today. Passed swallow evaluation. Subjective 06/24: 22.3. Voice is more hoarse today. Able to identify uvula when opens mouth able to swallow adequately. On nasal cannula. 06/25: Patient developed worsening stridor last evening and required reintubation and was placed on mechanical ventilation. Vocal cords appeared okay per intubation note by Dr. Gross. Currently remains sedated, orally intubated on mechanical ventilation. Objective Vital Signs / I&O: Vital Signs 06/24/18 11:49 06/24/18 12:00 06/24/18 14:00 Temperature Pulse Rate 93 H 103 H 96 H Respiratory Rate 25 H Blood Pressure Pulse Oximetry 06/24/18 15:23 06/24/18 16:00 06/24/18 16:06 Temperature 99 F Pulse Rate 114 H 91 H Respiratory Rate 26 H Blood Pressure Pulse Oximetry 06/24/18 16:07 06/24/18 16:19 06/24/18 16:26 Temperature Pulse Rate 96 H 99 H Respiratory Rate 27 H 24 Blood Pressure Pulse Oximetry 95 06/24/18 16:46 06/24/18 17:22 06/24/18 17:27 Temperature Pulse Rate 101 H 102 H 99 H Respiratory Rate 16 26 H 26 H Blood Pressure 202/88 H 203/88 H Pulse Oximetry 93 L 93 L 06/24/18 17:30 06/24/18 17:33 06/24/18 17:45 Temperature Pulse Rate 100 H 104 H 108 H Respiratory Rate 27 H 28 H 25 H Blood Pressure 211/93 H 199/84 H Pulse Oximetry 95 96 95 06/24/18 18:00 06/24/18 18:09 06/24/18 18:15 Temperature Pulse Rate 114 H 115 H 113 H Respiratory Rate 27 H 30 H 32 H Blood Pressure 172/74 H Pulse Oximetry 94 L 95 94 L 06/24/18 18:30 06/24/18 18:45 06/24/18 18:48 Temperature Pulse Rate 116 H 119 H 121 H Respiratory Rate 35 H 40 H 41 H Blood Pressure 170/77 H 184/79 H Pulse Oximetry 95 93 L 90 L 06/24/18 19:00 06/24/18 19:15 06/24/18 19:22 Temperature Pulse Rate 122 H 122 H 115 H Respiratory Rate 38 H 33 H 50 H Blood Pressure 188/81 H 204/90 H Pulse Oximetry 95 100 100 06/24/18 19:24 06/24/18 19:30 06/24/18 19:31 Temperature Pulse Rate 118 H 117 H 117 H Respiratory Rate 37 H 25 H 25 H Blood Pressure 168/60 H 155/63 H Pulse Oximetry 99 100 100 06/24/18 19:34 06/24/18 19:45 06/24/18 19:46 Temperature Pulse Rate 115 H 115 H Respiratory Rate 29 H 27 H 27 H Blood Pressure 105/57 L Pulse Oximetry 100 100 100 06/24/18 20:00 06/24/18 20:01 06/24/18 20:15 Temperature 101.7 F H Pulse Rate 111 H 112 H 109 H Respiratory Rate 27 H 26 H 27 H Blood Pressure 128/79 156/75 H Pulse Oximetry 100 100 100 06/24/18 20:30 06/24/18 20:45 06/24/18 21:00 Temperature Pulse Rate 110 H 102 H 101 H Respiratory Rate 28 H 21 22 Blood Pressure 160/72 H 158/72 H 136/63 Pulse Oximetry 100 100 99 06/24/18 21:15 06/24/18 21:30 06/24/18 21:45 Temperature Pulse Rate 101 H 97 H 96 H Respiratory Rate 23 22 20 Blood Pressure 118/56 L 122/58 L 129/64 Pulse Oximetry 98 99 99 06/24/18 22:00 06/24/18 22:15 06/24/18 22:30 Temperature Pulse Rate 97 H 93 H 92 H Respiratory Rate 22 21 20 Blood Pressure 131/66 123/62 116/58 L Pulse Oximetry 99 98 98 06/24/18 22:45 06/24/18 23:00 06/24/18 23:15 Temperature Pulse Rate 92 H 90 87 Respiratory Rate 21 21 21 Blood Pressure 118/57 L 121/60 116/61 Pulse Oximetry 98 98 99 06/24/18 23:30 06/24/18 23:45 06/24/18 23:53 Temperature Pulse Rate 84 82 Respiratory Rate 20 21 19 Blood Pressure 119/61 119/61 Pulse Oximetry 99 99 99 06/25/18 00:00 06/25/18 00:15 06/25/18 00:30 Temperature 100.7 F H Pulse Rate 79 80 78 Respiratory Rate 19 21 21 Blood Pressure 122/64 121/66 Pulse Oximetry 99 99 99 06/25/18 00:45 06/25/18 01:00 06/25/18 01:15 Temperature Pulse Rate 76 75 74 Respiratory Rate 20 20 20 Blood Pressure 121/66 Pulse Oximetry 99 99 99 06/25/18 01:30 06/25/18 01:45 06/25/18 02:00 Temperature Pulse Rate 73 71 68 Respiratory Rate 20 20 19 Blood Pressure 123/66 135/73 Pulse Oximetry 99 99 100 06/25/18 02:15 06/25/18 02:30 06/25/18 02:45 Temperature Pulse Rate 70 70 72 Respiratory Rate 22 20 21 Blood Pressure 153/74 H Pulse Oximetry 100 100 100 06/25/18 03:00 06/25/18 03:15 06/25/18 03:30 Temperature Pulse Rate 74 72 69 Respiratory Rate 21 20 16 Blood Pressure 131/69 135/72 Pulse Oximetry 100 100 99 06/25/18 03:45 06/25/18 04:00 06/25/18 04:15 Temperature 98.9 F Pulse Rate 68 71 70 Respiratory Rate 20 21 20 Blood Pressure 142/78 H Pulse Oximetry 100 100 100 06/25/18 04:30 06/25/18 04:45 06/25/18 06:00 Temperature Pulse Rate 68 74 Respiratory Rate 20 19 Blood Pressure 126/72 Pulse Oximetry 100 100 06/25/18 07:00 06/25/18 07:15 06/25/18 07:30 Temperature Pulse Rate 73 71 73 Respiratory Rate 20 20 21 Blood Pressure 119/70 124/72 Pulse Oximetry 100 100 99 06/25/18 07:45 06/25/18 08:00 06/25/18 08:15 Temperature 99.1 F Pulse Rate 72 73 75 Respiratory Rate 21 19 21 Blood Pressure 146/78 H Pulse Oximetry 99 100 100 06/25/18 08:30 06/25/18 08:45 06/25/18 09:00 Temperature Pulse Rate 79 84 87 Respiratory Rate 21 25 H 24 Blood Pressure 150/83 H 147/67 H Pulse Oximetry 100 100 100 06/25/18 09:15 06/25/18 09:30 06/25/18 09:45 Temperature Pulse Rate 89 90 89 Respiratory Rate 22 19 19 Blood Pressure 143/70 H Pulse Oximetry 100 100 99 Intake & Output 06/24/18 06/25/18 06/25/18 18:59 06:59 18:59 Intake Total 820 / 820 560 / 560 Output Total 1200 / 1200 300 / 300 Balance -380 / -380 260 / 260 Weight 108 kg Intake: IV 560 / 560 Diprivan 1000 mg/100 ml Inj 1, 300 / 300 000 mg In 100 ml @ 5 MCG/KG/MIN 3.552 mls/hr IV.CONT TITRATE PRN Rx#:[id number] Potassium Phosphate Inj 30 MMOL 260 / 260 In NS Inj 250 ML @ 43.333 mls/ hr IV.SIG ONCE ONE Rx#:[id number] Oral 820 / 820 0 / 0 Output: Urine 1200 / 1200 Urine Amount (Catheter) 300 / 300 Indwelling Urethral Catheter 300 / 300 Other: Date of Last Bowel Movement 06/23/18 06/23/18 06/23/18 Result Diagrams: 06/25/18 03:51 06/25/18 03:51 Objective Remarks: HEENT/ Neuro: Sedated, orally intubated, Pallor present, no icterus, tongue/ mucosa moist Neck: No JVD Chest/Pulm: on mech vent, good air entry bilaterally, no wheezing or crackles CVS: S1-S2 regular, no murmur GI/abdomen: soft, nontender, bowel sounds sluggish Extremities: warm bilaterally, no edema Assessment and Plan - Assessment and Plan Plan: Neuro/Psych: Sedation while intubated, daily sedation vacation Acetaminophen 650 every 4 hours as needed fever Morphine sulfate 2 mg IV every 2 hours as needed pain Pulm: Stridor Acute respiratory failure on mechanical ventilation Acute angioedema resolved Severe laryngeal edema resolved Extubated 06/22 Required reintubation on 06/24 for stridor and worsening respiratory distress Albuterol/ipratropium aerosols every 4 hours while awake albuterol aerosols every 2 hours. Dyspnea Rapidly wean off dexamethasone currently 4 mg every 12 hours, diphenhydramine 12.5 mill grams IV every 6 hours and famotidine 20 mg IV every [address] soft tissue disorder 06/24 unremarkable CV: Essential hypertension Off amlodipine 10 mg daily Continue triamterene/hydrochlorothiazide 37.5/25 1 tablet daily Continue isosorbide dinitrate 10 mg 3 times daily and hydralazine 50 mg 3 times daily As needed labetalol, hydralazine Nitropaste Enalapril added to his allergy GI: Ileus Resume tube feeds and advance to goal as tolerated Aggressive bowel regimen with docusate sodium/senna Metoclopramide 10 mg IV every 8 hours Received methylnaltrexone 06/21 : Remove Brand catheter Endo: Diabetes mellitus Acute hyperglycemia secondary to steroids Holding glimepiride 2 mg daily Sliding scale insulin aspart insulin high regimen AC/at bedtime to maintain euglycemia On insulin detemir 5 units twice daily. Renal: Creatinine currently within normal Accurate I's and O's Monitor urine output Heme: Microcytic anemia Monitor CBC daily. Follow trends per No indication for transfusion of blood products at this time ID: Monitor for signs and symptomatology infection MSK: Elevated BMI PT evaluate and treat Weight loss encouraged FEN: Acute hypophosphatemia 30 mmol K-Phos IV times now. Recheck in a.m. Replace electrolytes as clinically indicated Access -Utilize peripheral IV. Central line if indicated Prophylaxis -GI -famotidine - -DVT SCD/enoxaparin Condition critical. Time spent on critical care excluding procedures 30 minutes
[2018-06-25] MEDS: Morphine Inj 4 MG/ML Vial IV.PUSH PRN (13:36)
[2018-06-26] MEDS: diphenhydrAMINE HCl 12.5 MG/5 ML Elixir UDC PO SCH ×4 (01:19→20:41)
[2018-06-26] MEDS: Propofol 1000 mg/100 ml Inj 1,000 MG/100 ML BOTTLE IV.CONT PRN ×3 (02:12→09:04)
[2018-06-26] MEDS: Enoxaparin Inj 40 MG/0.4 ML Syringe SQ SCH (05:10)
[2018-06-26] MEDS: Oral Hygiene Kit OROPHARYNG SCH ×6 (05:10→17:44)
[2018-06-26 07:36] LABS: Calcium 8.4 mg/dL (8.5-10.1); Carbon Dioxide 30.1 meq/L (21.0-32.0); Magnesium 2.8 mg/dL (1.5-2.5); Phosphorus 3.2 mg/dL (2.5-4.9); Potassium 4.3 meq/L (3.5-5.1)
[2018-06-26 07:41] LABS: Hematocrit 31.1 % (39.0-51.0); Mean Corpuscular HGB Conc 32.3 % (32.0-36.0); Mean Corpuscular Hemoglobin 24.3 pg (27.0-34.0); Mean Corpuscular Volume 75.1 fL (80.0-100.0); Platelet Count 201 th/mm3 (150-450); Red Blood Count 4.14 mil/mm3 (4.50-5.90); Red Cell Distribution Width 16.1 % (11.6-17.2); White Blood Count 20.8 th/mm3 (4.0-11.0)
[2018-06-26] MEDS: hydrALAZINE 25 MG Tablet PO SCH ×3 (08:55→17:44)
[2018-06-26] MEDS: Chlorhexidine 0.12% Oral Kit 15 ML UDC OROPHARYNG SCH ×4 (08:56→20:41)
[2018-06-26] MEDS: Insulin Detemir Inj 1,000 UNIT/10 ML Vial SQ SCH ×2 (08:56→20:41)
[2018-06-26] MEDS: Bisacodyl 10 MG Supp RECTAL SCH (08:56)
[2018-06-26] MEDS: Triamterene/HCTZ 37.5 MG/25 MG Tablet PO SCH (08:57)
[2018-06-26] MEDS: Senna/Docusate Sodium 8.6/50 MG Tablet PO SCH ×2 (08:58→20:42)
[2018-06-26] MEDS: Insulin NovoLIN Regular Correctional Sugar Inj SQ SCH ×4 (09:03→20:42)
[2018-06-26] MEDS: Famotidine PF Inj 20 MG/2 ML Vial IV.PUSH SCH ×2 (09:05→20:42)
--- NOTE | 2018-06-26 14:07 | P.PNCC ---
Subjective Subjective Remarks/Hospital Course: 62-year-old male who is on enalapril for hypertension for many years tonight about an hour prior to presentation started feeling the swelling of the tongue mostly on the left side. This was getting significantly worse, he presented in the emergency department with difficulty speaking due to the mechanical obstruction of his tongue. He denies any tightness or swelling in his throat no sensation of choking however he immediately was given epi IM, Decadron 10 IV Benadryl 50 IV and he was not responding to medical management after 45 minutes. He was intubated for the airway protection by ED attending. 06/16: Remains sedated, orally intubated on mechanical ventilation. Tongue swelling decreasing. 06/17: Sedated, arousable, orally intubated on mechanical vent. Continues to have some tongue swelling currently. 06/18: Sedated, arousable, orally intubated on mechanical ventilation. Continues to have tongue swelling currently. 06/19: Remains sedated, arousable, orally intubated on mechanical ventilation. Continues to have tongue swelling. 06/20: edema somewhat improved. OG tube not in the stomach and tube feeds in the hypopharynx. replaced OGT and ordered CXR. also with distended abdomen today and no BM x 3 days. will need to have successful BM before weaning towards extubation. 06/21: abdominal distension is worse today. no BM yet despite aggressive attempts. still not able to successfully tolerate spontaneous breathing trials with degree of abdominal distension. KUB nonobstructive- will repeat today. 06/22: -2400 from NG tube since placement. Extubated today without complication. Will attempt to mobilize. Aggressive pulmonary and GI bowel regimen to be initiated 06/23: Extubated yesterday without complication. Out of bed to chair today. Passed swallow evaluation. Subjective 06/24: 22.3. Voice is more hoarse today. Able to identify uvula when opens mouth able to swallow adequately. On nasal cannula. 06/25: Patient developed worsening stridor last evening and required reintubation and was placed on mechanical ventilation. Vocal cords appeared okay per intubation note by Dr. Gross. Currently remains sedated, orally intubated on mechanical ventilation. 06/26: Arousable off sedation, following commands. Orally intubated on mechanical ventilation. Tolerating tube feeds. Started on Rocephin yesterday for H. influenzae pneumonia. Objective Vital Signs / I&O: Vital Signs 06/25/18 14:15 06/25/18 14:30 06/25/18 14:45 Temperature Pulse Rate 86 85 84 Respiratory Rate 16 16 16 Blood Pressure 133/72 Pulse Oximetry 99 99 98 06/25/18 15:00 06/25/18 15:15 06/25/18 15:25 Temperature Pulse Rate 83 80 Respiratory Rate 18 16 16 Blood Pressure 128/78 Pulse Oximetry 98 99 99 06/25/18 15:30 06/25/18 15:45 06/25/18 16:00 Temperature 99 F Pulse Rate 80 81 81 Respiratory Rate 17 17 18 Blood Pressure 131/75 135/76 Pulse Oximetry 99 99 99 06/25/18 16:15 06/25/18 16:30 06/25/18 16:45 Temperature Pulse Rate 80 79 80 Respiratory Rate 17 16 19 Blood Pressure 141/81 H Pulse Oximetry 99 99 100 06/25/18 17:00 06/25/18 17:15 06/25/18 17:30 Temperature Pulse Rate 80 82 82 Respiratory Rate 20 29 H 23 Blood Pressure 146/77 H 151/81 H Pulse Oximetry 100 100 100 06/25/18 17:45 06/25/18 18:00 06/25/18 18:15 Temperature Pulse Rate 82 84 82 Respiratory Rate 22 23 20 Blood Pressure 148/84 H Pulse Oximetry 100 100 100 06/25/18 18:30 06/25/18 18:45 06/25/18 19:00 Temperature Pulse Rate 85 85 86 Respiratory Rate 19 20 20 Blood Pressure 153/79 H 146/78 H Pulse Oximetry 100 100 100 06/25/18 19:15 06/25/18 19:30 06/25/18 19:45 Temperature Pulse Rate 88 90 87 Respiratory Rate 22 21 21 Blood Pressure 146/79 H Pulse Oximetry 100 100 100 06/25/18 20:00 06/25/18 20:15 06/25/18 20:30 Temperature 99.8 F H Pulse Rate 85 87 85 Respiratory Rate 21 22 21 Blood Pressure 149/79 H 151/78 H Pulse Oximetry 100 99 100 06/25/18 20:45 06/25/18 21:00 06/25/18 21:15 Temperature Pulse Rate 92 H 84 84 Respiratory Rate 22 20 21 Blood Pressure 156/82 H Pulse Oximetry 100 100 100 10/30/18 21:21 06/25/18 21:22 06/25/18 21:30 Temperature Pulse Rate 91 H 87 Respiratory Rate 24 24 18 Blood Pressure 141/76 H Pulse Oximetry 100 100 06/25/18 21:45 06/25/18 22:00 06/25/18 22:15 Temperature Pulse Rate 87 86 85 Respiratory Rate 16 18 17 Blood Pressure 135/73 Pulse Oximetry 100 100 100 06/25/18 22:30 06/25/18 22:45 06/25/18 23:00 Temperature Pulse Rate 86 84 88 Respiratory Rate 18 18 19 Blood Pressure 142/77 H 131/72 Pulse Oximetry 100 100 98 06/25/18 23:15 06/25/18 23:30 06/25/18 23:45 Temperature Pulse Rate 87 86 86 Respiratory Rate 18 19 19 Blood Pressure 124/68 Pulse Oximetry 99 100 100 06/26/18 00:00 06/26/18 00:15 06/26/18 00:30 Temperature 99.5 F Pulse Rate 82 81 80 Respiratory Rate 19 18 18 Blood Pressure 126/70 114/71 Pulse Oximetry 99 100 100 06/26/18 00:45 06/26/18 01:00 06/26/18 01:15 Temperature Pulse Rate 79 77 78 Respiratory Rate 19 17 17 Blood Pressure 136/70 Pulse Oximetry 99 99 99 06/26/18 01:28 06/26/18 01:30 06/26/18 01:45 Temperature Pulse Rate 78 82 Respiratory Rate 16 17 18 Blood Pressure 138/72 Pulse Oximetry 100 100 100 06/26/18 02:00 06/26/18 02:15 06/26/18 02:30 Temperature Pulse Rate 82 82 81 Respiratory Rate 20 18 17 Blood Pressure 153/78 H 139/72 Pulse Oximetry 100 100 100 06/26/18 02:45 06/26/18 03:00 06/26/18 03:15 Temperature Pulse Rate 83 83 82 Respiratory Rate 19 20 19 Blood Pressure 137/75 Pulse Oximetry 100 99 98 06/26/18 03:30 06/26/18 03:45 06/26/18 04:00 Temperature 100 F H Pulse Rate 81 79 76 Respiratory Rate 19 16 24 Blood Pressure 134/78 179/88 H Pulse Oximetry 98 98 100 06/26/18 04:01 06/26/18 04:15 06/26/18 04:30 Temperature Pulse Rate 76 79 80 Respiratory Rate 20 26 H 18 Blood Pressure 179/88 H 146/75 H Pulse Oximetry 100 100 100 06/26/18 04:45 06/26/18 05:00 06/26/18 05:15 Temperature Pulse Rate 86 88 89 Respiratory Rate 19 20 19 Blood Pressure 152/77 H Pulse Oximetry 100 100 100 06/26/18 05:30 06/26/18 05:45 06/26/18 06:00 Temperature Pulse Rate 90 91 H 88 Respiratory Rate 21 18 18 Blood Pressure 159/80 H 137/67 Pulse Oximetry 100 99 99 06/26/18 06:15 06/26/18 06:30 06/26/18 06:45 Temperature Pulse Rate 85 84 80 Respiratory Rate 18 19 18 Blood Pressure 136/72 Pulse Oximetry 99 99 99 06/26/18 07:00 06/26/18 07:15 06/26/18 07:30 Temperature Pulse Rate 79 84 80 Respiratory Rate 18 16 17 Blood Pressure 128/67 143/73 H Pulse Oximetry 99 98 98 06/26/18 07:45 06/26/18 07:47 06/26/18 08:00 Temperature 100.0 F H Pulse Rate 80 79 Respiratory Rate 17 17 18 Blood Pressure 145/68 H Pulse Oximetry 98 98 98 06/26/18 08:15 06/26/18 08:30 06/26/18 08:45 Temperature Pulse Rate 79 78 82 Respiratory Rate 18 18 18 Blood Pressure 147/67 H Pulse Oximetry 98 98 98 06/26/18 09:00 06/26/18 09:15 06/26/18 09:30 Temperature Pulse Rate 84 80 84 Respiratory Rate 21 18 24 Blood Pressure 166/78 H 152/75 H Pulse Oximetry 98 99 99 06/26/18 09:45 06/26/18 10:00 06/26/18 10:20 Temperature Pulse Rate 87 85 Respiratory Rate 21 23 22 Blood Pressure Pulse Oximetry 99 99 99 06/26/18 13:15 06/26/18 13:21 Temperature Pulse Rate 93 H Respiratory Rate 22 25 H Blood Pressure Pulse Oximetry Intake & Output 06/25/18 06/26/18 06/26/18 18:59 06:59 18:59 Intake Total 400 / 400 710 / 710 100 / 100 Output Total 1100 / 1100 750 / 750 Balance -700 / -700 -40 / -40 100 / 100 Weight 111.5 kg Intake: IV 400 / 400 350 / 350 100 / 100 Diprivan 1000 mg/100 ml Inj 1, 300 / 300 350 / 350 100 / 100 000 mg In 100 ml @ 5 MCG/KG/MIN 3.552 mls/hr IV.CONT TITRATE PRN Rx#:[id number] Rocephin Inj 1,000 MG In NS Inj 100 / 100 100 ML @ 200 mls/hr IV.SIG Q24H HUMAIRA Rx#:[id number] Tube Irrigant 360 / 360 Output: Urine 750 / 750 Urine Amount (Catheter) 1100 / 1100 Indwelling Urethral Catheter 1100 / 1100 Other: Date of Last Bowel Movement 06/23/18 06/23/18 06/23/18 # Bowel Movements 0 Result Diagrams: 06/26/18 05:00 06/26/18 05:00 Imaging: Impressions Chest X-Ray 06/24/18 00:00 CONCLUSION: 1. ETT in good position. 2. NGT beyond the GE junction. 3. Lungs are essentially clear. Chest X-Ray 06/24/18 16:40 CONCLUSION: No acute cardiopulmonary disease. Chest X-Ray 06/25/18 06:00 CONCLUSION: No significant change. Slight parenchymal consolidation at the left base again noted. Objective Remarks: HEENT/ Neuro: Sedated, orally intubated, Pallor present, no icterus, tongue/ mucosa moist Neck: No JVD Chest/Pulm: on mech vent, good air entry bilaterally, no wheezing or crackles CVS: S1-S2 regular, no murmur GI/abdomen: soft, nontender, bowel sounds sluggish Extremities: warm bilaterally, no edema Assessment and Plan - Assessment and Plan Plan: Neuro/Psych: Sedation while intubated, daily sedation vacation Acetaminophen 650 every 4 hours as needed fever Morphine sulfate 2 mg IV every 2 hours as needed pain Pulm: Stridor Acute respiratory failure on mechanical ventilation Acute angioedema resolved Severe laryngeal edema resolved Extubated 06/22 Required reintubation on 06/24 for stridor and worsening respiratory distress Albuterol/ipratropium aerosols every 4 hours while awake albuterol aerosols every 2 hours. Dyspnea Rapidly wean off dexamethasone currently 4 mg every 12 hours, diphenhydramine 12.5 mill grams IV every 6 hours and famotidine 20 mg IV every [address] soft tissue disorder 06/24 unremarkable Tolerating CPAP trials today with cuff leak. Will go ahead and extubate and watch closely. If Patient developed stridor will consider racemic epinephrine and ENT eval for vocal cord dysfunction. CV: Essential hypertension Off amlodipine 10 mg daily Continue triamterene/hydrochlorothiazide 37.5/25 1 tablet daily Continue isosorbide dinitrate 10 mg 3 times daily and hydralazine 50 mg 3 times daily As needed labetalol, hydralazine Nitropaste Enalapril added to his allergy GI: Ileus Tolerating tube feedings, hold for extubated Aggressive bowel regimen with docusate sodium/senna Metoclopramide 10 mg IV every 8 hours Received methylnaltrexone 06/21 : Removed Brand catheter Endo: Diabetes mellitus Acute hyperglycemia secondary to steroids Holding glimepiride 2 mg daily Sliding scale insulin aspart insulin high regimen AC/at bedtime to maintain euglycemia On insulin detemir 5 units twice daily. Renal: Creatinine currently within normal Accurate I's and O's Monitor urine output Heme: Microcytic anemia Monitor CBC daily. Follow trends per No indication for transfusion of blood products at this time ID: Monitor for signs and symptomatology infection MSK: Elevated BMI PT evaluate and treat Weight loss encouraged FEN: Acute hypophosphatemia 30 mmol K-Phos IV times now. Recheck in a.m. Replace electrolytes as clinically indicated Access -Utilize peripheral IV. Central line if indicated Prophylaxis -GI -famotidine - -DVT SCD/enoxaparin
[2018-06-26] MEDS: Morphine Inj 4 MG/ML Vial IV.PUSH PRN (18:22)
[2018-06-27] MEDS: diphenhydrAMINE HCl 12.5 MG/5 ML Elixir UDC PO SCH ×2 (04:18→09:49)
[2018-06-27] MEDS: Enoxaparin Inj 40 MG/0.4 ML Syringe SQ SCH (04:19)
[2018-06-27] MEDS: Oral Hygiene Kit OROPHARYNG SCH ×3 (04:19→16:09)
[2018-06-27 04:53] LABS: Hematocrit 31.6 % (39.0-51.0); Mean Corpuscular HGB Conc 31.5 % (32.0-36.0); Mean Corpuscular Hemoglobin 23.5 pg (27.0-34.0); Mean Corpuscular Volume 74.5 fL (80.0-100.0); Mean Platelet Volume 8.6 fL (7.0-11.0); Platelet Count 198 th/mm3 (150-450); Red Blood Count 4.25 mil/mm3 (4.50-5.90); White Blood Count 16.6 th/mm3 (4.0-11.0)
[2018-06-27 05:17] LABS: Anion Gap 8 meq/L (5-15); Blood Urea Nitrogen 28 mg/dL (7-18); Calcium 8.7 mg/dL (8.5-10.1); Carbon Dioxide 30.6 meq/L (21.0-32.0); Chloride 98 meq/L (98-107); Glomerular Filtration Rate Greater Than 89 mL/min (>89); Glucose,Random 198 mg/dL (74-106); Magnesium 2.6 mg/dL (1.5-2.5); Potassium 4.2 meq/L (3.5-5.1); Sodium 137 meq/L (136-145)
[2018-06-27 05:19] LABS: Phosphorus 2.6 mg/dL (2.5-4.9)
[2018-06-27] MEDS: Insulin NovoLIN Regular Correctional Sugar Inj SQ SCH ×4 (09:50→23:04)
[2018-06-27] MEDS: hydrALAZINE 25 MG Tablet PO SCH ×3 (09:50→17:26)
[2018-06-27] MEDS: Triamterene/HCTZ 37.5 MG/25 MG Tablet PO SCH (09:51)
[2018-06-27] MEDS: Famotidine PF Inj 20 MG/2 ML Vial IV.PUSH SCH (09:51)
[2018-06-27] MEDS: Insulin Detemir Inj 1,000 UNIT/10 ML Vial SQ SCH ×2 (09:51→23:01)
[2018-06-27] MEDS: Bisacodyl 10 MG Supp RECTAL SCH (09:51)
[2018-06-27] MEDS: Senna/Docusate Sodium 8.6/50 MG Tablet PO SCH ×2 (09:51→22:42)
[2018-06-27] MEDS: Chlorhexidine 0.12% Oral Kit 15 ML UDC OROPHARYNG SCH ×4 (09:51→22:39)
[2018-06-27] MEDS ORDERED: diphenhydrAMINE HCl 12.5 MG/5 ML Elixir UDC PO PRN (11:39)
--- NOTE | 2018-06-27 11:50 | P.PNFP ---
Subjective Interval history: Patient extubated yesterday. Doing well. No complaints. Discussed plan of care with patient including PT and OT consults prior to discharge. Discussed need to go to dentist after discharge. <Vj Hernandez - 06/28/18 13:22> Results - Labs Result diagrams: 06/27/18 04:31 06/27/18 04:31 <MirzaJamesMatilde M - 06/29/18 12:37> Abnormal lab results 06/28/18 06/28/18 06/29/18 Range/Units 15:59 20:21 08:16 POC Glucose 227 H 233 H 121 H (68-110) mg/dl <Matilde Blue - 06/29/18 12:37> Abnormal lab results 06/26/18 06/26/18 06/27/18 Range/Units 17:27 20:24 04:31 WBC 16.6 H (4.0-11.0) th/mm3 RBC 4.25 L (4.50-5.90) mil/mm3 Hgb 10.0 L (13.0-17.0) gm/dL Hct 31.6 L (39.0-51.0) % MCV 74.5 L (80.0-100.0) fL MCH 23.5 L (27.0-34.0) pg MCHC 31.5 L (32.0-36.0) % BUN (7-18) mg/dL POC Glucose 170 H 141 H (68-110) mg/dl Random Glucose (74-106) mg/dL Magnesium (1.5-2.5) mg/dL 06/27/18 06/27/18 Range/Units 04:31 08:08 WBC (4.0-11.0) th/mm3 RBC (4.50-5.90) mil/mm3 Hgb (13.0-17.0) gm/dL Hct (39.0-51.0) % MCV (80.0-100.0) fL MCH (27.0-34.0) pg MCHC (32.0-36.0) % BUN 28 H (7-18) mg/dL POC Glucose 234 H (68-110) mg/dl Random Glucose 198 H (74-106) mg/dL Magnesium 2.6 H (1.5-2.5) mg/dL Short CBC 06/27/18 Range/Units 04:31 WBC 16.6 H (4.0-11.0) th/mm3 Hgb 10.0 L (13.0-17.0) gm/dL Hct 31.6 L (39.0-51.0) % Plt Count 198 (150-450) th/mm3 BMP 06/27/18 04:31 Sodium 137 Potassium 4.2 Chloride 98 Carbon Dioxide 30.6 BUN 28 H Creatinine 0.83 Calcium 8.7 <Vj Hernandez - 06/27/18 11:50> - Imaging Impressions Chest X-Ray 06/28/18 19:17 CONCLUSION: Suspected mild atelectasis or consolidation at the lateral left lower lobe abutting the lateral aspect of the left hemidiaphragm. <Matilde Blue - 06/29/18 12:37> Physical Exam Vital signs: Vital Signs 06/28/18 16:00 06/28/18 20:00 06/28/18 21:02 Temperature 99.2 F 98.4 F Pulse Rate 86 77 72 Respiratory Rate 18 18 19 Blood Pressure 132/66 163/71 H Pulse Oximetry 98 97 97 06/28/18 22:16 06/29/18 00:00 06/29/18 02:00 Temperature Pulse Rate 78 66 Respiratory Rate 18 18 Blood Pressure 125/69 142/70 H Pulse Oximetry 96 06/29/18 03:50 06/29/18 04:00 06/29/18 08:00 Temperature 98.1 F 98.0 F Pulse Rate 76 80 Respiratory Rate 20 18 16 Blood Pressure 132/70 142/71 H Pulse Oximetry 97 100 06/29/18 08:30 Temperature Pulse Rate Respiratory Rate Blood Pressure Pulse Oximetry 99 Intake & Output 06/28/18 06/29/18 06/29/18 18:59 06:59 18:59 Intake Total 1600 / 1600 Output Total 1000 / 1000 450 / 450 Balance 600 / 600 -450 / -450 Weight 111.6 kg Intake: IV 100 / 100 Rocephin Inj 1,000 MG In NS Inj 100 / 100 100 ML @ 200 mls/hr IV.SIG Q24H HUMAIRA Rx#:[id number] Oral 1500 / 1500 Output: Urine 1000 / 1000 450 / 450 Other: Date of Last Bowel Movement 06/27/18 06/28/18 # Bowel Movements 1 <Matilde Blue M - 06/29/18 12:37> Vital Signs 06/26/18 12:00 06/26/18 12:15 06/26/18 12:30 Temperature 100.0 F H Pulse Rate 88 87 92 H Respiratory Rate 24 22 23 Blood Pressure 142/73 H 145/68 H Pulse Oximetry 98 99 98 06/26/18 12:45 06/26/18 13:00 06/26/18 13:15 Temperature Pulse Rate 92 H 95 H 92 H Respiratory Rate 25 H 21 21 Blood Pressure 144/73 H Pulse Oximetry 98 98 99 06/26/18 13:21 06/26/18 13:30 06/26/18 13:45 Temperature Pulse Rate 87 86 Respiratory Rate 25 H 25 H 27 H Blood Pressure 132/67 Pulse Oximetry 99 99 06/26/18 14:00 06/26/18 14:15 06/26/18 14:30 Temperature Pulse Rate 85 90 90 Respiratory Rate 24 35 H 28 H Blood Pressure 137/64 143/68 H Pulse Oximetry 99 96 93 L 06/26/18 14:45 06/26/18 15:00 06/26/18 15:01 Temperature Pulse Rate 89 92 H 91 H Respiratory Rate 28 H 24 28 H Blood Pressure 130/112 H Pulse Oximetry 97 97 96 06/26/18 15:10 06/26/18 15:15 06/26/18 15:30 Temperature Pulse Rate 88 85 93 H Respiratory Rate 28 H 23 31 H Blood Pressure 144/70 H 161/80 H Pulse Oximetry 96 96 94 L 06/26/18 15:45 06/26/18 16:00 06/26/18 16:01 Temperature 99.6 F Pulse Rate 89 89 89 Respiratory Rate 27 H 27 H 27 H Blood Pressure 154/71 H Pulse Oximetry 93 L 93 L 94 L 06/26/18 20:00 06/26/18 21:22 06/26/18 22:00 Temperature 100.0 F H Pulse Rate 88 87 88 Respiratory Rate 20 20 Blood Pressure 175/85 H Pulse Oximetry 93 L 06/26/18 22:45 06/26/18 23:00 06/26/18 23:15 Temperature Pulse Rate 89 85 86 Respiratory Rate 26 H 25 H 26 H Blood Pressure 138/63 Pulse Oximetry 93 L 94 L 94 L 06/26/18 23:30 06/26/18 23:45 06/27/18 00:00 Temperature 98.8 F Pulse Rate 84 81 81 Respiratory Rate 28 H 26 H 25 H Blood Pressure 143/67 H Pulse Oximetry 94 L 94 L 93 L 06/27/18 00:15 06/27/18 00:30 06/27/18 00:45 Temperature Pulse Rate 79 79 79 Respiratory Rate 25 H 26 H 24 Blood Pressure Pulse Oximetry 94 L 95 95 06/27/18 01:00 06/27/18 01:15 06/27/18 01:30 Temperature Pulse Rate 78 77 77 Respiratory Rate 25 H 24 24 Blood Pressure 152/73 H Pulse Oximetry 95 96 95 06/27/18 01:45 06/27/18 02:00 06/27/18 02:15 Temperature Pulse Rate 75 77 81 Respiratory Rate 24 24 25 H Blood Pressure 160/76 H Pulse Oximetry 96 96 96 06/27/18 02:30 06/27/18 02:45 06/27/18 03:00 Temperature Pulse Rate 77 75 75 Respiratory Rate 24 24 24 Blood Pressure 157/74 H Pulse Oximetry 95 95 95 06/27/18 03:15 06/27/18 03:30 06/27/18 03:45 Temperature Pulse Rate 77 73 72 Respiratory Rate 27 H 24 24 Blood Pressure Pulse Oximetry 95 96 96 06/27/18 04:00 06/27/18 04:15 06/27/18 04:30 Temperature 98.7 F Pulse Rate 73 78 80 Respiratory Rate 25 H 21 26 H Blood Pressure 160/80 H Pulse Oximetry 95 95 95 06/27/18 04:45 06/27/18 05:00 06/27/18 05:01 Temperature Pulse Rate 74 73 73 Respiratory Rate 23 23 24 Blood Pressure 131/63 Pulse Oximetry 95 96 95 06/27/18 05:15 06/27/18 05:30 06/27/18 05:45 Temperature Pulse Rate 71 71 73 Respiratory Rate 22 22 22 Blood Pressure Pulse Oximetry 96 96 96 06/27/18 06:00 06/27/18 06:15 06/27/18 06:30 Temperature Pulse Rate 75 79 78 Respiratory Rate 24 24 23 Blood Pressure 117/62 Pulse Oximetry 94 L 94 L 95 06/27/18 06:45 06/27/18 07:00 06/27/18 07:15 Temperature Pulse Rate 75 73 71 Respiratory Rate 22 23 24 Blood Pressure 120/65 Pulse Oximetry 96 96 97 06/27/18 07:30 06/27/18 07:45 06/27/18 08:00 Temperature 98.7 F Pulse Rate 78 72 71 Respiratory Rate 23 24 24 Blood Pressure 136/69 Pulse Oximetry 97 98 97 06/27/18 08:15 06/27/18 09:05 06/27/18 10:00 Temperature Pulse Rate 72 75 Respiratory Rate 24 Blood Pressure Pulse Oximetry 96 96 Intake & Output 06/26/18 06/27/18 06/27/18 18:59 06:59 18:59 Intake Total 200 / 200 480 / 480 Output Total 1450 / 1450 1200 / 1200 Balance -1250 / -1250 -720 / -720 Weight 109.5 kg Intake: IV 200 / 200 Diprivan 1000 mg/100 ml Inj 1, 200 / 200 000 mg In 100 ml @ 5 MCG/KG/MIN 3.552 mls/hr IV.CONT TITRATE PRN Rx#:[id number] Oral 480 / 480 Output: Urine 1200 / 1200 Urine Amount (Catheter) 1450 / 1450 Condom 1450 / 1450 Other: Date of Last Bowel Movement 06/23/18 06/23/18 06/23/18 <Vj Hernandez - 06/27/18 11:50> Narrative: GENERAL: Well-nourished, well-developed obese male patient with O2 via NC in place. SKIN: Warm and dry. HEAD: Normocephalic. EYES: No scleral icterus. No injection or drainage. ENT: no swelling of the lips or tongue. + scalloping of tongue and some dental caries. NECK: Supple, trachea midline. No JVD or lymphadenopathy. CARDIOVASCULAR: Regular rate and rhythm without murmurs, gallops, or rubs. RESPIRATORY: Breath sounds CTAB and equal bilaterally. No accessory muscle use. GASTROINTESTINAL: Abdomen soft, non-tender, nondistended. EXTREMITIES: No cyanosis, or edema. NEUROLOGICAL: Awake, alert, and oriented x 3. Non-focal. <Vj Hernandez - 06/28/18 18:49> - Urinary Catheter Management Condom Cath placed during this visit: no <Matilde Blue - 06/29/18 12:37> no <Vj Hernandez - 06/28/18 18:49> Indwelling Urethral Catheter Cath placed during this visit: no <Matilde Blue - 06/29/18 12:37> yes <Vj Hernandez - 06/28/18 18:49> Reason for continuing: Hourly intake/output <Vj Hernandez - 06/27/18 11:50 > Insertion date: 06/15/18 <Vj Hernandez - 06/27/18 11:50> Insertion time: 01:14 <Vj Hernandez - 06/27/18 11:50> Assessment and Plan - Assessment (1) Angioedema Code(s): T78.3XXA - Angioneurotic edema, initial encounter Status: Acute (2) Pneumonia Code(s): J18.9 - Pneumonia, unspecified organism Status: Acute (3) Weakness acquired in ICU Code(s): R53.1 - Weakness Status: Acute (4) Hypertension Code(s): I10 - Essential (primary) hypertension Status: Chronic (5) Type 2 diabetes mellitus Code(s): E11.9 - Type 2 diabetes mellitus without complications Status: Acute (6) Hyperlipidemia Code(s): E78.5 - Hyperlipidemia, unspecified Status: Chronic (7) Status post total replacement of right hip Code(s): Z96.641 - Presence of right artificial hip joint Status: Acute <Matilde Blue - 06/29/18 12:37> (1) Angioedema Code(s): T78.3XXA - Angioneurotic edema, initial encounter Status: Acute Plan: Resolved after patient was intubated in ICU for almost 2 weeks on high-dose steroids. -Planning on steroid taper: start today with decreasing to Decadron 4mg IV q12h and then transition to oral steroids tomorrow -Pulmonology consulted Fluids Access -Utilize peripheral IV. Trend labs. Replace electrolytes as clinically indicated Prophylaxis: -GI: -famotidine po -DVT: SCD/enoxaparin -Aggressive bowel regimen with docusate sodium/senna and lactulose and mag hydroxide (2) Pneumonia Code(s): J18.9 - Pneumonia, unspecified organism Status: Acute Plan: Patient was started on Rocephin on 06/25 for H. influenzae pneumonia. -Continue Rocephin 1g IV q24h -Sputum culture shows beta lactamase positive, sensitive to Augmentin and third- generation cephalosporins, thus will discharge on one of these medications if needed (3) Weakness acquired in ICU Code(s): R53.1 - Weakness Status: Acute Plan: -PT and OT consults -Discharge planning based on PT/OT recommendations (4) Hypertension Code(s): I10 - Essential (primary) hypertension Status: Chronic Plan: Avoid ACEi and ARB Off amlodipine 10 mg daily Continue triamterene/hydrochlorothiazide 37.5/25 1 tablet daily Continue isosorbide dinitrate 10 mg 3 times daily and hydralazine 50 mg 3 times daily; plan to transition back to home regimen As needed labetalol, hydralazine, Nitropaste Enalapril added to his allergy (5) Type 2 diabetes mellitus Code(s): E11.9 - Type 2 diabetes mellitus without complications Status: Acute Plan: Holding glimepiride 2 mg daily Sliding scale insulin aspart insulin high regimen AC/at bedtime to maintain euglycemia On insulin detemir 5 units twice daily. Hypoglycemia protocol ordered. (6) Hyperlipidemia Code(s): E78.5 - Hyperlipidemia, unspecified Status: Chronic Plan: -Continue home medication of statin and aspirin (7) Status post total replacement of right hip Code(s): Z96.641 - Presence of right artificial hip joint Status: Acute Plan: -This may be a factor in discharge planning <Vj Hernandez - 06/28/18 18:47> - Assessment and Plan 62-year-old male who was on enalapril for hypertension for many years presented to the ED with swelling of the tongue mostly on the left side. This was getting significantly worse, he presented in the emergency department with difficulty speaking due to the mechanical obstruction of his tongue. He immediately was given epi IM, Decadron 10 IV, Benadryl 50 IV, and he was not responding to medical management after 45 minutes. He was intubated for the airway protection by ED attending and remained intubated and ventilated in the ICU until 06/22 when he was extubated. On 06/24, patient developed stridor and was reintubated and ventilated (vocal cords appeared ok). CT soft tissue disorder 06/24 unremarkable. On 06/25, patient was started on Rocephin for H. influenzae pneumonia. On 06/26, patient was successfully extubated. He remained in the ICU for almost 24 hours prior to transfer to med/surg floor for PT/OT consults and recommendations. <Vj Hernandez - 06/28/18 18:49> Discussed Condition With: Dr. Blue <Vj Hernandez - 06/28/18 13:22> - Attending Attestation The exam, history, and the medical decision-making described in the above note were completed with the assistance of the resident physician. I reviewed and agree with the findings presented. I attest that I had a [id number] encounter with the patient on the same day, and personally performed and documented my assessment and findings in the medical record. fortunately, he is doing well. he had a long time on the vent and it would be safest to taper his steroids. especially at the lower doses of 5-10 mg of prednisone is where people can have adrenal insufficiency <Matilde Blue M - 06/29/18 12:37> <Vj Hernandez - Last Filed: 06/28/18 18:47> (2) Pneumonia Qualifiers: Pneumonia type: due to Haemophilus influenzae <Matilde Blue M - Last Filed: 06/29/18 12:37> (2) Pneumonia Qualifiers: Pneumonia type: due to Haemophilus influenzae <Vj Hernandez - Last Filed: 06/28/18 18:47> (2) Pneumonia Qualifiers: Pneumonia type: due to Haemophilus influenzae <Matilde Blue M - Last Filed: 06/29/18 12:37> (2) Pneumonia Qualifiers: Pneumonia type: due to Haemophilus influenzae
--- NOTE | 2018-06-27 16:40 | MB ---
cc: Koko Sutherland MD DATE: 06/27/2018 REASON FOR CONSULTATION: Angioedema with upper airway obstruction. HISTORY OF PRESENT ILLNESS: The patient is a 62-year-old male, admitted with angioedema, progressive respiratory distress, given steroids and antihistamines without good response, intubated to protect the airway, admitted to the intensive care unit improved, now extubated, alert without shortness of breath and oxygen via nasal cannula oxygen saturation 96%. Denies history of shortness of breath, fever, chills, cough or expectoration. PAST MEDICAL HISTORY: Diabetes mellitus, hypertension, hyperlipidemia, had a radical prostatectomy and bilateral arthroscopic knee surgeries. FAMILY HISTORY: Noncontributory. Notable for diabetes and hypertension. REVIEW OF SYSTEMS: A 12-point review of systems as per HPI and past history, otherwise negative. MEDICATIONS: Include: 1. Amlodipine. 2. Aspirin. 3. Pepcid. 4. Enoxaparin prophylaxis. 5. Hydralazine. 6. Insulin coverage as needed. 7. Nitroglycerin as needed. 8. Pravachol. 9. Albuterol nebulizer as needed. PHYSICAL EXAMINATION: GENERAL: The patient is alert, appears in no distress, on O2 nasal cannula, oxygen saturation 97%. Temperature 98, pulse 74, respirations 18, blood pressure 124/70. HEENT: Unremarkable. Eyes without icterus. NECK: Without adenopathy or thyroid enlargement. Trachea is central. CHEST: Without dullness to percussion. Clear to auscultation. HEART: PMI not appreciated. S1, S2 audible. No murmur. No rub. ABDOMEN: Lax, bowel sounds audible. EXTREMITIES: No clubbing, cyanosis or edema. LABORATORY DATA: White count 16,000, hemoglobin 10, hematocrit 31, platelets 191,000. INR 1.0. Arterial blood gas 06/24/2018 pH 7.46, pCO2 of 39, pO2 240. Sodium 137, potassium 4.2, BUN 28, creatinine 0.8. Chest x-ray done 06/25/2018 with atelectatic change, left lung base. IMPRESSION: 1. Respiratory failure, resolved. 2. Angioedema, markedly improved. 3. Hypertension. 4. Diabetes mellitus. 5. Hyperlipidemia. 6. Obesity. 7. Status post radical prostatectomy. PLAN: The patient is significantly improved. He does not have previous history of smoking or drinking. No history of previous lung or cardiac disease. Once stable, we will check his pulmonary function. Meanwhile, we will continue pulmonary toilet, increase the patient's activity, assess his response. I do thank you for asking me to partake in Mr. Daugherty' care. Koko Sutherland MD WWW/ct , 03:01 PM , 03:11 PM
[2018-06-27] MEDS: Famotidine 20 MG Tablet PO SCH (22:41)
[2018-06-28] MEDS: Oral Hygiene Kit OROPHARYNG SCH ×5 (05:01→19:08)
[2018-06-28] MEDS: Enoxaparin Inj 40 MG/0.4 ML Syringe SQ SCH (05:31)
[2018-06-28] MEDS: Morphine Inj 4 MG/ML Vial IV.PUSH PRN ×3 (05:31→20:23)
--- NOTE | 2018-06-28 08:45 | P.PNFP ---
Subjective Interval history: Patient reports doing well. His only complaint is about the diet. He is requesting more fresh fruit. He denies any dysphagia or dyspnea or tongue or lip swelling. We discussed his plan of care to work with PT and OT and appreciate their recommendations. <Vj Hernandez - 06/28/18 18:51> Results - Labs Result diagrams: 06/27/18 04:31 06/27/18 04:31 <Matilde Blue - 06/29/18 12:41> Abnormal lab results 06/28/18 06/28/18 06/29/18 Range/Units 15:59 20:21 08:16 POC Glucose 227 H 233 H 121 H (68-110) mg/dl <Matilde Blue - 06/29/18 12:41> Abnormal lab results 06/27/18 06/27/18 06/27/18 Range/Units 12:22 16:08 22:49 POC Glucose 209 H 176 H 152 H (68-110) mg/dl 06/28/18 Range/Units 07:16 POC Glucose 182 H (68-110) mg/dl <Vj Hernandez - 06/28/18 08:45> - Imaging Impressions Chest X-Ray 06/28/18 19:17 CONCLUSION: Suspected mild atelectasis or consolidation at the lateral left lower lobe abutting the lateral aspect of the left hemidiaphragm. <Matilde Blue - 06/29/18 12:41> Physical Exam Vital signs: Vital Signs 06/28/18 16:00 06/28/18 20:00 06/28/18 21:02 Temperature 99.2 F 98.4 F Pulse Rate 86 77 72 Respiratory Rate 18 18 19 Blood Pressure 132/66 163/71 H Pulse Oximetry 98 97 97 06/28/18 22:16 06/29/18 00:00 06/29/18 02:00 Temperature Pulse Rate 78 66 Respiratory Rate 18 18 Blood Pressure 125/69 142/70 H Pulse Oximetry 96 06/29/18 03:50 06/29/18 04:00 06/29/18 08:00 Temperature 98.1 F 98.0 F Pulse Rate 76 80 Respiratory Rate 20 18 16 Blood Pressure 132/70 142/71 H Pulse Oximetry 97 100 06/29/18 08:30 Temperature Pulse Rate Respiratory Rate Blood Pressure Pulse Oximetry 99 Intake & Output 06/28/18 06/29/18 06/29/18 18:59 06:59 18:59 Intake Total 1600 / 1600 Output Total 1000 / 1000 450 / 450 Balance 600 / 600 -450 / -450 Weight 111.6 kg Intake: IV 100 / 100 Rocephin Inj 1,000 MG In NS Inj 100 / 100 100 ML @ 200 mls/hr IV.SIG Q24H HUMAIRA Rx#:[id number] Oral 1500 / 1500 Output: Urine 1000 / 1000 450 / 450 Other: Date of Last Bowel Movement 06/27/18 06/28/18 # Bowel Movements 1 <Matilde Blue M - 06/29/18 12:41> Vital Signs 06/27/18 08:45 06/27/18 09:00 06/27/18 09:05 Temperature Pulse Rate 71 73 Respiratory Rate 24 27 H Blood Pressure 133/68 Pulse Oximetry 96 96 96 06/27/18 09:15 06/27/18 09:30 06/27/18 09:45 Temperature Pulse Rate 71 73 73 Respiratory Rate 42 H 25 H 26 H Blood Pressure Pulse Oximetry 97 97 96 06/27/18 10:00 06/27/18 10:01 06/27/18 10:15 Temperature Pulse Rate 71 73 76 Respiratory Rate 27 H 28 H 25 H Blood Pressure 167/77 H Pulse Oximetry 97 97 97 06/27/18 10:30 06/27/18 10:45 06/27/18 11:00 Temperature Pulse Rate 80 76 77 Respiratory Rate 24 26 H 25 H Blood Pressure 129/61 Pulse Oximetry 97 97 96 06/27/18 11:15 06/27/18 11:30 06/27/18 11:45 Temperature Pulse Rate 80 74 75 Respiratory Rate 30 H 25 H 26 H Blood Pressure Pulse Oximetry 98 98 97 06/27/18 12:00 06/27/18 12:15 06/27/18 14:00 Temperature 98.1 F Pulse Rate 76 75 75 Respiratory Rate 34 H 24 Blood Pressure 124/67 Pulse Oximetry 97 06/27/18 16:00 06/27/18 20:00 06/28/18 00:00 Temperature 97.7 F 98.2 F 97.7 F Pulse Rate 80 79 70 Respiratory Rate 18 18 18 Blood Pressure 119/69 133/71 121/64 Pulse Oximetry 99 97 96 06/28/18 04:00 Temperature 97.9 F Pulse Rate 74 Respiratory Rate 18 Blood Pressure 139/71 Pulse Oximetry 100 Intake & Output 06/27/18 06/28/18 06/28/18 18:59 06:59 18:59 Intake Total 600 / 600 Output Total 300 / 300 700 / 700 Balance 300 / 300 -700 / -700 Weight 110.3 kg Intake: IV 100 / 100 Rocephin Inj 1,000 MG In NS Inj 100 / 100 100 ML @ 200 mls/hr IV.SIG Q24H HUMAIRA Rx#:[id number] Oral 500 / 500 Output: Urine 300 / 300 700 / 700 Other: # Voids 1 Date of Last Bowel Movement 06/27/18 06/27/18 06/27/18 <Vj Hernandez 06/28/18 08:45> Narrative: GENERAL: Well-nourished, well-developed obese male patient with O2 via NC in place. SKIN: Warm and dry. HEAD: Normocephalic. EYES: No scleral icterus. No injection or drainage. ENT: no swelling of the lips or tongue. + scalloping of tongue and some dental caries. NECK: Supple, trachea midline. No JVD or lymphadenopathy. CARDIOVASCULAR: Regular rate and rhythm without murmurs, gallops, or rubs. RESPIRATORY: Breath sounds CTAB and equal bilaterally. No accessory muscle use. GASTROINTESTINAL: Abdomen soft, non-tender, nondistended. EXTREMITIES: No cyanosis, or edema. NEUROLOGICAL: Awake, alert, and oriented x 3. Non-focal. <Vj Hernandez 06/28/18 18:51> - Urinary Catheter Management Condom Cath placed during this visit: no <Matilde Blue 06/29/18 12:41> no <Vj Hernandez 06/28/18 18:58> Indwelling Urethral Catheter Cath placed during this visit: no <Matilde Blue 06/29/18 12:41> yes <Vj Hernandez 06/28/18 18:58> Reason for continuing: Hourly intake/output <Vj Hernandez 06/28/18 08:45 > Insertion date: 06/15/18 <Vj Hernandez 06/28/18 08:45> Insertion time: 01:14 <Vj Hernandez - 06/28/18 08:45> Assessment and Plan - Assessment (1) Angioedema Code(s): T78.3XXA - Angioneurotic edema, initial encounter Status: Acute (2) Pneumonia Code(s): J18.9 - Pneumonia, unspecified organism Status: Acute (3) Weakness acquired in ICU Code(s): R53.1 - Weakness Status: Acute (4) Hypertension Code(s): I10 - Essential (primary) hypertension Status: Chronic (5) Type 2 diabetes mellitus Code(s): E11.9 - Type 2 diabetes mellitus without complications Status: Acute (6) Hyperlipidemia Code(s): E78.5 - Hyperlipidemia, unspecified Status: Chronic (7) Status post total replacement of right hip Code(s): Z96.641 - Presence of right artificial hip joint Status: Acute <Matilde Blue Sandy - 06/29/18 12:41> (1) Angioedema Code(s): T78.3XXA - Angioneurotic edema, initial encounter Status: Acute Plan: Resolved after patient was intubated in ICU for almost 2 weeks on high-dose steroids. -Planning on steroid taper: start today with decreasing to Decadron 4mg IV q12h and then transition to oral steroids tomorrow -Pulmonology consulted Fluids Access -Utilize peripheral IV. Trend labs. Replace electrolytes as clinically indicated Prophylaxis: -GI: -famotidine po -DVT: SCD/enoxaparin -Aggressive bowel regimen with docusate sodium/senna and lactulose and mag hydroxide (2) Pneumonia Code(s): J18.9 - Pneumonia, unspecified organism Status: Acute Plan: Patient was started on Rocephin on 06/25 for H. influenzae pneumonia. -Continue Rocephin 1g IV q24h -Sputum culture shows beta lactamase positive, sensitive to Augmentin and third- generation cephalosporins, thus will discharge on one of these medications if needed. However, patient will get 5th dose of Rocephin tomorrow morning, which will likely complete treatment of pneumonia. (3) Weakness acquired in ICU Code(s): R53.1 - Weakness Status: Acute Plan: -PT and OT consults -Discharge planning based on PT/OT recommendations (4) Hypertension Code(s): I10 - Essential (primary) hypertension Status: Chronic Plan: Avoid ACEi and ARB Restart home medication of amlodipine 10 mg daily Continue triamterene/hydrochlorothiazide 37.5/25 1 tablet daily Discontinue isosorbide dinitrate 10 mg 3 times daily; convert hydralazine 50 mg 3 times daily to PRN; transitioning back to a home regimen As needed labetalol, hydralazine, Nitropaste Enalapril added to his allergy (5) Type 2 diabetes mellitus Code(s): E11.9 - Type 2 diabetes mellitus without complications Status: Acute Plan: Holding glimepiride 2 mg daily; restart upon discharge Sliding scale insulin aspart insulin high regimen AC/at bedtime to maintain euglycemia On insulin detemir 5 units twice daily. Hypoglycemia protocol ordered. (6) Hyperlipidemia Code(s): E78.5 - Hyperlipidemia, unspecified Status: Chronic Plan: -Continue home medication of statin and aspirin (7) Status post total replacement of right hip Code(s): Z96.641 - Presence of right artificial hip joint Status: Acute Plan: -this may be a factor in discharge planning; patient will likely need a SNF <Vj Hernandez - 06/28/18 18:52> - Assessment and Plan 62-year-old male who was on enalapril for hypertension for many years presented to the ED with swelling of the tongue mostly on the left side. This was getting significantly worse, he presented in the emergency department with difficulty speaking due to the mechanical obstruction of his tongue. He immediately was given epi IM, Decadron 10 IV, Benadryl 50 IV, and he was not responding to medical management after 45 minutes. He was intubated for the airway protection by ED attending and remained intubated and ventilated in the ICU until 06/22 when he was extubated. On 06/24, patient developed stridor and was reintubated and ventilated (vocal cords appeared ok). CT soft tissue disorder 06/24 unremarkable. On 06/25, patient was started on Rocephin for H. influenzae pneumonia. On 06/26, patient was successfully extubated. He remained in the ICU for almost 24 hours prior to transfer to med/surg floor for PT/OT consults and recommendations. <Vj Hernandez - 06/28/18 18:58> Discussed Condition With: Dr. Blue <Vj Hernandez - 06/28/18 18:58> - Attending Attestation The exam, history, and the medical decision-making described in the above note were completed with the assistance of the resident physician. I reviewed and agree with the findings presented. I attest that I had a [id number] encounter with the patient on the same day, and personally performed and documented my assessment and findings in the medical record. his WBC is normalizing as he is decreasing the steroids. plus he's on abx. He and his reported he had been scheduled to go to [facility] as an outpt. They are interested in investigating inpt rehab possibly at [facility]. <Matilde Blue - 06/29/18 12:41> <Vj Hernandez - Last Filed: 06/28/18 18:52> (2) Pneumonia Qualifiers: Pneumonia type: due to Haemophilus influenzae <Matilde Blue M - Last Filed: 06/29/18 12:41> (2) Pneumonia Qualifiers: Pneumonia type: due to Haemophilus influenzae <Vj Hernandez - Last Filed: 06/28/18 18:52> (2) Pneumonia Qualifiers: Pneumonia type: due to Haemophilus influenzae <Matilde Blue M - Last Filed: 06/29/18 12:41> (2) Pneumonia Qualifiers: Pneumonia type: due to Haemophilus influenzae
[2018-06-28] MEDS: Bisacodyl 10 MG Supp RECTAL SCH (09:12)
[2018-06-28] MEDS: Insulin Detemir Inj 1,000 UNIT/10 ML Vial SQ SCH ×2 (09:13→20:24)
[2018-06-28] MEDS: Senna/Docusate Sodium 8.6/50 MG Tablet PO SCH ×2 (09:13→20:25)
[2018-06-28] MEDS: hydrALAZINE 25 MG Tablet PO SCH ×2 (09:13→12:08)
[2018-06-28] MEDS: Chlorhexidine 0.12% Oral Kit 15 ML UDC OROPHARYNG SCH ×4 (09:13→20:10)
[2018-06-28] MEDS: Triamterene/HCTZ 37.5 MG/25 MG Tablet PO SCH (09:13)
[2018-06-28] MEDS: Famotidine 20 MG Tablet PO SCH ×2 (09:13→20:23)
[2018-06-28] MEDS: Insulin NovoLIN Regular Correctional Sugar Inj SQ SCH ×4 (09:14→20:45)
--- NOTE | 2018-06-28 09:53 | P.DCO ---
- Physical Therapy Order: Evaluate and treat, Improve ambulation, Strength and gait training - Occupational Therapy Order: Evaluate and treat, Improve ADL, Gross motor coordination, Fine motor coordination - Speech Therapy Order: To improve: Speech and communication skills, Swallowing - Home Health Nursing Order: Medical education, Signs/symptoms of disease process, Medication education-adverse effect, Nursing assessment with vital signs - Case Management Consult Yes - Certification I have seen patient Alonso Daugherty on 06/28/18. My clinical findings support the need for the requested home health care services because: Deconditioned with increased weakness, High risk of falls I certify that my clinical findings support that this patient is homebound because: Unsteady gait/balance
[2018-06-28] MEDS: predniSONE 10 MG Tablet PO SCH (12:08)
[2018-06-28] MEDS ORDERED: hydrALAZINE 25 MG Tablet PO PRN (14:35)
--- NOTE | 2018-06-28 19:16 | P.PN ---
Subjective Interval history: ALERT NOW ON MED FLOOR Physical Exam Vital signs: Vital Signs 06/27/18 20:00 06/28/18 00:00 06/28/18 04:00 Temperature 98.2 F 97.7 F 97.9 F Pulse Rate 79 70 74 Respiratory Rate Blood Pressure 133/71 121/64 139/71 Pulse Oximetry 97 96 100 06/28/18 08:00 06/28/18 12:00 06/28/18 16:00 Temperature 99.4 F 98.2 F 99.2 F Pulse Rate 79 82 86 Respiratory Rate Blood Pressure 121/64 139/72 132/66 Pulse Oximetry 96 98 98 Intake & Output 06/28/18 06/28/18 06/29/18 06:59 18:59 06:59 Intake Total 1600 / 1600 Output Total 700 / 700 1000 / 1000 Balance -700 / -700 600 / 600 Weight 110.3 kg Intake: IV 100 / 100 Rocephin Inj 1,000 MG In NS Inj 100 / 100 100 ML @ 200 mls/hr IV.SIG Q24H HUMAIRA Rx#:[id number] Oral 1500 / 1500 Output: Urine 700 / 700 1000 / 1000 Other: # Voids 1 Date of Last Bowel Movement 06/27/18 06/27/18 # Bowel Movements 1 Narrative: GENERAL: Well-nourished, well-developed obese male patient with O2 via NC in place. SKIN: Warm and dry. HEAD: Normocephalic. EYES: No scleral icterus. No injection or drainage. ENT: no swelling of the lips or tongue. + scalloping of tongue and some dental caries. NECK: Supple, trachea midline. No JVD or lymphadenopathy. CARDIOVASCULAR: Regular rate and rhythm without murmurs, gallops, or rubs. RESPIRATORY: Breath sounds CTAB and equal bilaterally. No accessory muscle use. GASTROINTESTINAL: Abdomen soft, non-tender, nondistended. EXTREMITIES: No cyanosis, or edema. NEUROLOGICAL: Awake, alert, and oriented x 3. Non-focal. - Urinary Catheter Management Indwelling Urethral Catheter Cath placed during this visit: yes Reason for continuing: Hourly intake/output Insertion date: 06/15/18 Insertion time: 01:14 Condom Cath placed during this visit: no Results - Labs CBC & Chem 7: 06/27/18 04:31 06/27/18 04:31 Laboratory Results - last 24 hr 06/27/18 06/28/18 06/28/18 22:49 07:16 11:40 POC Glucose 152 H 182 H 225 H 06/28/18 15:59 POC Glucose 227 H Assessment and Plan - Plan IMPRESSION RESPIRATORY FAILURE, RESOLVED ANGIODEMA, RESOLVED MULUGETA, NON COMPLIANT PLAN O2 NEEDED INCREASE ACTIVITY NPSG POST DC
--- NOTE | 2018-06-28 19:50 | XR ---
EXAM DATE: 06/28/2018 7:47 PM EDT AGE/SEX: 62 years / Male INDICATIONS: COPD. Lower back pain. CLINICAL DATA: This is the patient's subsequent encounter. Patient reports that signs and symptoms h ave been present for 4 - 6 days and indicates a pain score of 0/10. MEDICAL/SURGICAL HISTORY: None. None. COMPARISON: [facility] [place], CHEST 1V SINGLE AP, 06/25/2018. . FINDINGS: Since the prior exam, the ET tube and NG tube have been removed. The patient is rotated towards the l eft. There is some increased density at the lateral left base silhouetting the lateral aspect of the left hemidiaphragm. The right lung appears clear. Spurs are seen throughout the thoracic spine. CONCLUSION: Suspected mild atelectasis or consolidation at the lateral left lower lobe abutting the lateral aspec t of the left hemidiaphragm. Electronically signed by: Renato Jimenez MD 06/28/2018 7:49 PM EDT
[2018-06-29] MEDS: Oral Hygiene Kit OROPHARYNG SCH ×8 (03:42→17:35)
[2018-06-29] MEDS: Enoxaparin Inj 40 MG/0.4 ML Syringe SQ SCH (03:56)
[2018-06-29] MEDS: Morphine Inj 4 MG/ML Vial IV.PUSH PRN ×2 (05:28→10:33)
[2018-06-29] MEDS: Chlorhexidine 0.12% Oral Kit 15 ML UDC OROPHARYNG SCH ×4 (08:17→21:47)
[2018-06-29] MEDS ORDERED: amLODIPine 10 MG Tablet PO SCH (09:00)
--- NOTE | 2018-06-29 09:05 | P.PNFP ---
Subjective Interval history: Pt seen and examined this morning. No acute events overnight. Pt complains of some lower back pain today, but otherwise reports no new complaints. Has been working with PT/OT, who recommend rehab. Denies any new fever/chills, headache, chest pain, SOB, abdominal pain, leg pain. Denies any change in his voice or new swelling. Is eager to move forward in rehab. <Balaji Alston - 06/29/18 09:05> Results - Labs Result diagrams: 06/27/18 04:31 06/27/18 04:31 <Matilde Blue - 06/29/18 12:46> Abnormal lab results 06/28/18 06/28/18 06/29/18 Range/Units 15:59 20:21 08:16 POC Glucose 227 H 233 H 121 H (68-110) mg/dl <Matilde Blue - 06/29/18 12:46> Abnormal lab results 06/28/18 06/28/18 06/28/18 Range/Units 11:40 15:59 20:21 POC Glucose 225 H 227 H 233 H (68-110) mg/dl 06/29/18 Range/Units 08:16 POC Glucose 121 H (68-110) mg/dl <Balaji Alston - 06/29/18 09:05> - Imaging Impressions Chest X-Ray 06/28/18 19:17 CONCLUSION: Suspected mild atelectasis or consolidation at the lateral left lower lobe abutting the lateral aspect of the left hemidiaphragm. <Matilde Blue 06/29/18 12:46> Impressions Chest X-Ray 06/28/18 19:17 CONCLUSION: Suspected mild atelectasis or consolidation at the lateral left lower lobe abutting the lateral aspect of the left hemidiaphragm. <Balaji Alston - 06/29/18 09:05> Physical Exam Vital signs: Vital Signs 06/28/18 16:00 06/28/18 20:00 06/28/18 21:02 Temperature 99.2 F 98.4 F Pulse Rate 86 77 72 Respiratory Rate 18 18 19 Blood Pressure 132/66 163/71 H Pulse Oximetry 98 97 97 06/28/18 22:16 06/29/18 00:00 06/29/18 02:00 Temperature Pulse Rate 78 66 Respiratory Rate 18 18 Blood Pressure 125/69 142/70 H Pulse Oximetry 96 06/29/18 03:50 06/29/18 04:00 06/29/18 08:00 Temperature 98.1 F 98.0 F Pulse Rate 76 80 Respiratory Rate 20 18 16 Blood Pressure 132/70 142/71 H Pulse Oximetry 97 100 06/29/18 08:30 Temperature Pulse Rate Respiratory Rate Blood Pressure Pulse Oximetry 99 Intake & Output 06/28/18 06/29/18 06/29/18 18:59 06:59 18:59 Intake Total 1600 / 1600 Output Total 1000 / 1000 450 / 450 Balance 600 / 600 -450 / -450 Weight 111.6 kg Intake: IV 100 / 100 Rocephin Inj 1,000 MG In NS Inj 100 / 100 100 ML @ 200 mls/hr IV.SIG Q24H HUMAIRA Rx#:[id number] Oral 1500 / 1500 Output: Urine 1000 / 1000 450 / 450 Other: Date of Last Bowel Movement 06/27/18 06/28/18 # Bowel Movements 1 <Matilde Blue M - 06/29/18 12:46> Vital Signs 06/28/18 12:00 06/28/18 16:00 06/28/18 20:00 Temperature 98.2 F 99.2 F 98.4 F Pulse Rate 82 86 77 Respiratory Rate 18 18 18 Blood Pressure 139/72 132/66 163/71 H Pulse Oximetry 98 98 97 06/28/18 21:02 06/28/18 22:16 06/29/18 00:00 Temperature Pulse Rate 72 78 66 Respiratory Rate 19 18 Blood Pressure 125/69 142/70 H Pulse Oximetry 97 96 06/29/18 02:00 06/29/18 03:50 06/29/18 04:00 Temperature 98.1 F Pulse Rate 76 Respiratory Rate 18 20 18 Blood Pressure 132/70 Pulse Oximetry 97 06/29/18 08:00 Temperature 98.0 F Pulse Rate 80 Respiratory Rate 16 Blood Pressure 142/71 H Pulse Oximetry 100 Intake & Output 06/28/18 06/29/18 06/29/18 18:59 06:59 18:59 Intake Total 1600 / 1600 Output Total 1000 / 1000 450 / 450 Balance 600 / 600 -450 / -450 Weight 111.6 kg Intake: IV 100 / 100 Rocephin Inj 1,000 MG In NS Inj 100 / 100 100 ML @ 200 mls/hr IV.SIG Q24H HUMAIRA Rx#:[id number] Oral 1500 / 1500 Output: Urine 1000 / 1000 450 / 450 Other: Date of Last Bowel Movement 06/27/18 06/28/18 # Bowel Movements 1 <ChaimdmitryBalaji Saloni - 06/29/18 09:05> Narrative: GENERAL: Well-nourished, well-developed obese male patient with O2 via NC in place. SKIN: Warm and dry. HEAD: Normocephalic. ENT: no swelling of the lips or tongue. + scalloping of tongue and some dental caries, unchanged CARDIOVASCULAR: Regular rate and rhythm without murmurs, gallops, or rubs. RESPIRATORY: Breath sounds CTAB and equal bilaterally. No accessory muscle use. GASTROINTESTINAL: Abdomen soft, non-tender, nondistended. BS+ EXTREMITIES: No cyanosis, or edema. NEUROLOGICAL: Awake, alert, and oriented x 3. Non-focal. <Balaji Alston - 06/29/18 09:18> - Urinary Catheter Management Condom Cath placed during this visit: no <Matilde Blue - 06/29/18 12:46> no <Balaji Alston - 06/29/18 09:18> Indwelling Urethral Catheter Cath placed during this visit: no <Matilde Blue - 06/29/18 12:46> yes <Balaji Alston - 06/29/18 09:18> Reason for continuing: Hourly intake/output <Balaji Alston - 06/29/18 09:05 > Insertion date: 06/15/18 <Balaji Alston 06/29/18 09:05> Insertion time: 01:14 <Balaji Alston 06/29/18 09:05> Assessment and Plan - Assessment (1) Angioedema Code(s): T78.3XXA - Angioneurotic edema, initial encounter Status: Acute (2) Pneumonia Code(s): J18.9 - Pneumonia, unspecified organism Status: Acute (3) Weakness acquired in ICU Code(s): R53.1 - Weakness Status: Acute (4) Hypertension Code(s): I10 - Essential (primary) hypertension Status: Chronic (5) Type 2 diabetes mellitus Code(s): E11.9 - Type 2 diabetes mellitus without complications Status: Acute (6) Hyperlipidemia Code(s): E78.5 - Hyperlipidemia, unspecified Status: Chronic (7) Status post total replacement of right hip Code(s): Z96.641 - Presence of right artificial hip joint Status: Acute <Matilde Blue - 06/29/18 12:46> (1) Angioedema Code(s): T78.3XXA - Angioneurotic edema, initial encounter Status: Acute Plan: Resolved after patient was intubated in ICU for almost 2 weeks on high-dose steroids. -On oral steroid taper through 07/04 -Pulmonology consulted -Recommend oxygen as needed -NPSG post discharge -Monitor breathing and swallowing status (2) Pneumonia Code(s): J18.9 - Pneumonia, unspecified organism Status: Acute Plan: Patient was started on Rocephin on 06/25 for H. influenzae pneumonia. -Will complete 5 day course today -Sputum culture shows beta lactamase positive, sensitive to Augmentin and third- generation cephalosporins -Monitor for new fever/chills -Pulm rehab (3) Weakness acquired in ICU Code(s): R53.1 - Weakness Status: Acute Plan: PT and OT consults -Recommend inpatient rehab -Plan to d/c to [facility] on Sunday (4) Hypertension Code(s): I10 - Essential (primary) hypertension Status: Chronic Plan: Avoid ACEi and ARB due to angioedema BPs improving -Amlodipine 10 mg daily -Continue triamterene/hydrochlorothiazide 37.5/25 1 tablet daily -Hydralazine/Clonidine PRN BP (5) Type 2 diabetes mellitus Code(s): E11.9 - Type 2 diabetes mellitus without complications Status: Acute Plan: Holding glimepiride 2 mg daily; restart upon discharge Sliding scale insulin aspart insulin high regimen AC/at bedtime to maintain euglycemia On insulin detemir 5 units twice daily. Hypoglycemia protocol. Regular accuchecks (6) Hyperlipidemia Code(s): E78.5 - Hyperlipidemia, unspecified Status: Chronic Plan: -Continue home medication of statin and aspirin (7) Status post total replacement of right hip Code(s): Z96.641 - Presence of right artificial hip joint Status: Acute Plan: Will need SNF upon discharge <FilipemartinBalaji Saloni - 06/29/18 09:07> - Assessment and Plan 62-year-old male who was on enalapril for hypertension for many years presented to the ED with swelling of the tongue mostly on the left side. This was getting significantly worse, he presented in the emergency department with difficulty speaking due to the mechanical obstruction of his tongue. He immediately was given epi IM, Decadron 10 IV, Benadryl 50 IV, and he was not responding to medical management after 45 minutes. He was intubated for the airway protection by ED attending and remained intubated and ventilated in the ICU until 06/22 when he was extubated. On 06/24, patient developed stridor and was reintubated and ventilated (vocal cords appeared ok). CT soft tissue disorder 06/24 unremarkable. On 06/25, patient was started on Rocephin for H. influenzae pneumonia. On 06/26, patient was successfully extubated. He remained in the ICU for almost 24 hours prior to transfer to med/surg floor for PT/OT consults and recommendations. Will be completely treated with Rocephin today. Managing BPs and will discharge to SNF on Sunday. Fluids: none Electrolytes: monitor, replace PRN Nutrition: regular diet DVT ppx: Lovenox GI ppx: Famotidine Pain medication: Tylenol, morphine PRN <Balaji Alston - 06/29/18 09:18> Discussed Condition With: Dr. Blue <Balaji Alston - 06/29/18 09:18> - Attending Attestation The exam, history, and the medical decision-making described in the above note were completed with the assistance of the resident physician. I reviewed and agree with the findings presented. I attest that I had a [id number] encounter with the patient on the same day, and personally performed and documented my assessment and findings in the medical record. he is such a positive and joyful man who will work hard and get better quickly. <Matilde Blue - 06/29/18 12:46> <Balaji Alston - Last Filed: 06/29/18 09:07> (2) Pneumonia Qualifiers: Pneumonia type: due to Haemophilus influenzae <Matilde Blue - Last Filed: 06/29/18 12:46> (2) Pneumonia Qualifiers: Pneumonia type: due to Haemophilus influenzae <Balaji Alston - Last Filed: 06/29/18 09:07> (2) Pneumonia Qualifiers: Pneumonia type: due to Haemophilus influenzae <Matilde Blue Last Filed: 06/29/18 12:46> (2) Pneumonia Qualifiers: Pneumonia type: due to Haemophilus influenzae
[2018-06-29] MEDS: amLODIPine 10 MG Tablet PO SCH (09:28)
[2018-06-29] MEDS: Triamterene/HCTZ 37.5 MG/25 MG Tablet PO SCH (09:28)
[2018-06-29] MEDS: Famotidine 20 MG Tablet PO SCH ×2 (09:29→21:45)
[2018-06-29] MEDS: Senna/Docusate Sodium 8.6/50 MG Tablet PO SCH ×2 (09:29→21:44)
[2018-06-29] MEDS: predniSONE 10 MG Tablet PO SCH (09:45)
[2018-06-29] MEDS: Bisacodyl 10 MG Supp RECTAL SCH (09:46)
[2018-06-29] MEDS: Insulin Detemir Inj 1,000 UNIT/10 ML Vial SQ SCH ×2 (09:46→21:46)
[2018-06-29] MEDS: Insulin NovoLIN Regular Correctional Sugar Inj SQ SCH ×4 (09:47→21:46)
[2018-06-29] MEDS ORDERED: Ibuprofen 400 MG Tablet PO PRN (15:57)
[2018-06-29] MEDS: Acetaminophen 325 MG Tablet PO PRN (21:45)
[2018-06-30] MEDS: Oral Hygiene Kit OROPHARYNG SCH ×8 (00:37→17:37)
[2018-06-30] MEDS: Enoxaparin Inj 40 MG/0.4 ML Syringe SQ SCH (05:15)
[2018-06-30] MEDS: Chlorhexidine 0.12% Oral Kit 15 ML UDC OROPHARYNG SCH ×4 (08:33→20:33)
[2018-06-30] MEDS: Bisacodyl 10 MG Supp RECTAL SCH (08:34)
[2018-06-30] MEDS: amLODIPine 10 MG Tablet PO SCH (08:39)
[2018-06-30] MEDS: Triamterene/HCTZ 37.5 MG/25 MG Tablet PO SCH (08:39)
[2018-06-30] MEDS: Famotidine 20 MG Tablet PO SCH ×2 (08:39→20:47)
[2018-06-30] MEDS: Acetaminophen 325 MG Tablet PO PRN (08:40)
[2018-06-30] MEDS: Insulin NovoLIN Regular Correctional Sugar Inj SQ SCH ×4 (08:41→20:47)
[2018-06-30] MEDS: Insulin Detemir Inj 1,000 UNIT/10 ML Vial SQ SCH ×2 (08:42→20:48)
[2018-06-30] MEDS: Senna/Docusate Sodium 8.6/50 MG Tablet PO SCH ×2 (08:42→20:47)
[2018-06-30 09:30] LABS: Baso % (Auto) 0.2 % (0.0-2.0); Eos % (Auto) 0.2 % (0.0-4.0); Hematocrit 30.4 % (39.0-51.0); Hemoglobin 10.1 gm/dL (13.0-17.0); Lymph # (Auto) 1.3 th/mm3 (1.0-4.8); Lymph % (Auto) 8.7 % (9.0-44.0); Mean Corpuscular HGB Conc 33.2 % (32.0-36.0); Mean Corpuscular Hemoglobin 24.5 pg (27.0-34.0); Mean Corpuscular Volume 73.8 fL (80.0-100.0); Mean Platelet Volume 8.2 fL (7.0-11.0); Mono # (Auto) 1.3 th/mm3 (0.0-0.9); Mono % (Auto) 9.1 % (0.0-8.0); Neut # (Auto) 12.1 th/mm3 (1.8-7.7); Neut % (Auto) 81.8 % (16.0-70.0); Platelet Count 229 th/mm3 (150-450); Red Blood Count 4.11 mil/mm3 (4.50-5.90); Red Cell Distribution Width 16.3 % (11.6-17.2); White Blood Count 14.8 th/mm3 (4.0-11.0)
--- NOTE | 2018-06-30 09:32 | P.PNFP ---
Subjective Interval history: Pt seen and examined this morning. Upon entering this morning , the nurse had called respiratory therapy due to change in breathing status. Patient became more short of breath this morning. Also spiked a fever overnight and this morning up to 101.9. Overnight, there was a call about some confusion the patient was having, but resolved. This morning, he endorses some shortness of breath and increased sputum production. Feels fatigued. Endorses fever/ chills overnight. Pain with breathing this morning. Denies any abdominal pain or leg pain. Denies any throat, tongue swelling or trouble swallowing. <Balaji Alston - 06/30/18 10:55> Results - Labs Result diagrams: 06/30/18 08:30 06/30/18 08:30 <Daljit Joya - 06/30/18 11:50> Abnormal lab results 06/29/18 06/29/18 06/29/18 Range/Units 12:45 16:30 20:22 WBC (4.0-11.0) th/mm3 RBC (4.50-5.90) mil/mm3 Hgb (13.0-17.0) gm/dL Hct (39.0-51.0) % MCV (80.0-100.0) fL MCH (27.0-34.0) pg Neut % (Auto) (16.0-70.0) % Lymph % (Auto) (9.0-44.0) % [place] % (Auto) (0.0-8.0) % Neut # (Auto) (1.8-7.7) th/mm3 [place] # (Auto) (0.0-0.9) th/mm3 Sodium (136-145) meq/L Chloride (98-107) meq/L POC Glucose 270 H 244 H 265 H (68-110) mg/dl Random Glucose (74-106) mg/dL 06/30/18 06/30/18 06/30/18 Range/Units 03:59 08:04 08:30 WBC 14.8 H (4.0-11.0) th/mm3 RBC 4.11 L (4.50-5.90) mil/mm3 Hgb 10.1 L (13.0-17.0) gm/dL Hct 30.4 L (39.0-51.0) % MCV 73.8 L (80.0-100.0) fL MCH 24.5 L (27.0-34.0) pg Neut % (Auto) 81.8 H (16.0-70.0) % Lymph % (Auto) 8.7 L (9.0-44.0) % [place] % (Auto) 9.1 H (0.0-8.0) % Neut # (Auto) 12.1 H (1.8-7.7) th/mm3 [place] # (Auto) 1.3 H (0.0-0.9) th/mm3 Sodium (136-145) meq/L Chloride (98-107) meq/L POC Glucose 133 H 168 H (68-110) mg/dl Random Glucose (74-106) mg/dL 06/30/18 Range/Units 08:30 WBC (4.0-11.0) th/mm3 RBC (4.50-5.90) mil/mm3 Hgb (13.0-17.0) gm/dL Hct (39.0-51.0) % MCV (80.0-100.0) fL MCH (27.0-34.0) pg Neut % (Auto) (16.0-70.0) % Lymph % (Auto) (9.0-44.0) % [place] % (Auto) (0.0-8.0) % Neut # (Auto) (1.8-7.7) th/mm3 [place] # (Auto) (0.0-0.9) th/mm3 Sodium 131 L (136-145) meq/L Chloride 93 L (98-107) meq/L POC Glucose (68-110) mg/dl Random Glucose 154 H (74-106) mg/dL Short CBC 06/30/18 Range/Units 08:30 WBC 14.8 H (4.0-11.0) th/mm3 Hgb 10.1 L (13.0-17.0) gm/dL Hct 30.4 L (39.0-51.0) % Plt Count 229 (150-450) th/mm3 BMP 06/30/18 08:30 Sodium 131 L Potassium 3.7 Chloride 93 L Carbon Dioxide 28.2 BUN 13 Creatinine 0.91 Calcium 8.7 <Daljit Joya - 11/04/18 11:50> Abnormal lab results 06/29/18 06/29/18 06/29/18 Range/Units 12:45 16:30 20:22 POC Glucose 270 H 244 H 265 H (68-110) mg/dl 06/30/18 06/30/18 Range/Units 03:59 08:04 POC Glucose 133 H 168 H (68-110) mg/dl <Balaji Alston - 06/30/18 09:32> - Imaging Impressions Chest X-Ray 06/30/18 00:00 CONCLUSION: Persistent bibasilar opacity greater on the left with no significant change compared to the prior study. <Daljit Joya - 06/30/18 11:50> Physical Exam Vital signs: Vital Signs 06/29/18 16:00 06/29/18 19:35 06/29/18 20:00 Temperature 99.6 F 101.3 F H Pulse Rate 90 92 H Respiratory Rate 14 18 Blood Pressure 135/72 136/75 Pulse Oximetry 97 98 97 06/30/18 00:00 06/30/18 04:00 06/30/18 08:00 Temperature 99.5 F 98 F 101.9 F H Pulse Rate 86 78 98 H Respiratory Rate 18 18 18 Blood Pressure 128/62 100/59 L 133/66 Pulse Oximetry 98 96 99 06/30/18 08:54 Temperature Pulse Rate 102 H Respiratory Rate 39 H Blood Pressure Pulse Oximetry 97 Intake & Output 06/29/18 06/30/18 06/30/18 19:59 06:59 18:59 Intake Total Output Total Balance Intake: IV Rocephin Inj 1,000 MG In NS Inj 100 ML @ 200 mls/hr IV.SIG ONCE ONE Rx#:[id number] Oral Output: Urine Other: # Incontinent Voids 1 # Urine Diapers 1 Date of Last Bowel Movement 06/29/18 <Daljit Joya - 06/30/18 11:50> Vital Signs 06/29/18 12:00 06/29/18 16:00 06/29/18 19:35 Temperature 98.2 F 99.6 F Pulse Rate 91 H 90 Respiratory Rate 18 14 Blood Pressure 116/59 L 135/72 Pulse Oximetry 97 97 98 06/29/18 20:00 06/30/18 00:00 06/30/18 04:00 Temperature 101.3 F H 99.5 F 98 F Pulse Rate 92 H 86 78 Respiratory Rate 18 18 18 Blood Pressure 136/75 128/62 100/59 L Pulse Oximetry 97 98 96 06/30/18 08:00 06/30/18 08:54 Temperature 101.9 F H Pulse Rate 98 H 102 H Respiratory Rate 18 39 H Blood Pressure 133/66 Pulse Oximetry 99 97 Intake & Output 06/29/18 06/30/18 06/30/18 19:59 06:59 18:59 Intake Total Output Total Balance Intake: IV Rocephin Inj 1,000 MG In NS Inj 100 ML @ 200 mls/hr IV.SIG ONCE ONE Rx#:[id number] Oral Output: Urine Other: # Incontinent Voids 1 # Urine Diapers 1 Date of Last Bowel Movement <Balaji Alston 06/30/18 09:32> Narrative: GENERAL: Well-nourished, well-developed obese male patient with nasal cannula in place receiving breathing treatment SKIN: Warm and moist. HEAD: Normocephalic. ENT: no swelling of the lips or tongue. MMM CARDIOVASCULAR: Regular rate and rhythm without murmurs, gallops, or rubs. RESPIRATORY: Breath sounds decreased bilaterally. Coarse breath sounds throughout. GASTROINTESTINAL: Abdomen soft, non-tender, nondistended. EXTREMITIES: No cyanosis or edema. NEUROLOGICAL: Awake, alert, and oriented x 3. No focal neurological deficits. <Balaji Alston 06/30/18 09:59> - Urinary Catheter Management Condom Cath placed during this visit: no <Daljit Joya 06/30/18 11:50> no <Balaji Alston 06/30/18 10:55> Indwelling Urethral Catheter Cath placed during this visit: no <Daljit Joya 06/30/18 11:50> yes <Balaji Alston 06/30/18 10:55> Reason for continuing: Hourly intake/output <Balaji Alston 06/30/18 10:12 > Insertion date: 06/15/18 <Balaji Alston 06/30/18 10:12> Insertion time: 01:14 <Balaji Alston 06/30/18 10:12> Assessment and Plan - Assessment (1) SIRS (systemic inflammatory response syndrome) Code(s): R65.10 - Systemic inflammatory response syndrome (SIRS) of non- infectious origin without acute organ dysfunction Status: Acute (2) Angioedema Code(s): T78.3XXA - Angioneurotic edema, initial encounter Status: Acute (3) Pneumonia Code(s): J18.9 - Pneumonia, unspecified organism Status: Acute (4) Weakness acquired in ICU Code(s): R53.1 - Weakness Status: Acute (5) Hypertension Code(s): I10 - Essential (primary) hypertension Status: Chronic (6) Type 2 diabetes mellitus Code(s): E11.9 - Type 2 diabetes mellitus without complications Status: Acute (7) Anemia Code(s): D64.9 - Anemia, unspecified Status: Acute (8) Hyperlipidemia Code(s): E78.5 - Hyperlipidemia, unspecified Status: Chronic <Daljit Joya - 06/30/18 11:50> (1) SIRS (systemic inflammatory response syndrome) Code(s): R65.10 - Systemic inflammatory response syndrome (SIRS) of non- infectious origin without acute organ dysfunction Status: Acute Plan: Pt with fever up to 101.9 this morning. Pulse 102 and RR up to 30 this morning. History of recent pneumonia, treated with Rocephin. Lung exam with coarse breath sounds, suspicious for underlying infection. CXR 06/28/18: Mild atelectasis or consolidation of lateral left lower lobe -Stat CXR, blood cultures -Lactic acid pending -Given albuterol treatment, will schedule Duonebs q4H -Start Zosyn and Azithromycin for empiric coverage; may need Vanc for MRSA coverage -CBC, BMP this morning -Will transfer to ICU for closer monitoring (2) Angioedema Code(s): T78.3XXA - Angioneurotic edema, initial encounter Status: Acute Plan: Resolved after patient was intubated in ICU for almost 2 weeks on high-dose steroids. -On oral steroid taper through 07/04 -Pulmonology consulted -Recommend oxygen as needed -NPSG post discharge -May need re-consulted if worsening of breathing/lung status -Monitor breathing and swallowing status (3) Pneumonia Code(s): J18.9 - Pneumonia, unspecified organism Status: Acute Plan: Patient was started on Rocephin on 06/25 for H. influenzae pneumonia. Completed 5 day course on 06/29 -Sputum culture shows beta lactamase positive, sensitive to Augmentin and third- generation cephalosporins -Continue IS -Repeat sputum culture and XR today -Started on antibiotics as above (4) Weakness acquired in ICU Code(s): R53.1 - Weakness Status: Acute Plan: PT and OT consults -Recommend inpatient rehab -Plan to d/c to [facility] when stable (5) Hypertension Code(s): I10 - Essential (primary) hypertension Status: Chronic Plan: Avoid ACEi and ARB due to angioedema BPs improving -Amlodipine 10 mg daily -Continue triamterene/hydrochlorothiazide 37.5/25 1 tablet daily -Hydralazine PRN BP (6) Type 2 diabetes mellitus Code(s): E11.9 - Type 2 diabetes mellitus without complications Status: Acute Plan: Holding glimepiride 2 mg daily; restart upon discharge Sliding scale insulin aspart insulin high regimen AC/at bedtime to maintain euglycemia On insulin detemir 5 units twice daily. Hypoglycemia protocol. Regular accuchecks (7) Anemia Code(s): D64.9 - Anemia, unspecified Status: Acute Plan: Microcytic anemia present since admission. Stable Hgb/Hct. Continue to monitor Monitor for signs of bleeding (8) Hyperlipidemia Code(s): E78.5 - Hyperlipidemia, unspecified Status: Chronic Plan: -Continue home medication of statin and aspirin <Balaji Alston - 06/30/18 10:55> - Assessment and Plan 62-year-old male who was on enalapril for hypertension for many years presented to the ED with swelling of the tongue mostly on the left side. This was getting significantly worse, he presented in the emergency department with difficulty speaking due to the mechanical obstruction of his tongue. He immediately was given epi IM, Decadron 10 IV, Benadryl 50 IV, and he was not responding to medical management after 45 minutes. He was intubated for the airway protection by ED attending and remained intubated and ventilated in the ICU until 06/22 when he was extubated. On 06/24, patient developed stridor and was reintubated and ventilated (vocal cords appeared ok). CT soft tissue disorder 06/24 unremarkable. On 06/25, patient was started on Rocephin for H. influenzae pneumonia. On 06/26, patient was successfully extubated. He remained in the ICU for almost 24 hours prior to transfer to med/surg floor for PT/OT consults and recommendations. Will be completely treated with Rocephin today. Managing BPs and will discharge to SNF on Sunday. Fluids: none Electrolytes: monitor, replace PRN Nutrition: regular diet DVT ppx: Lovenox GI ppx: Famotidine Pain medication: [place]/tylenol PRN <Balaji Alston - 06/30/18 09:59> - Attending Attestation Patient seen and examined. Discussed with Dr. Alston. Spiked a fever of 101.9 over night. c/o shortness of breath, mildly productive cough. Transferred to ICU. Repeat CXR unchanged from 06/28. CTA has been ordered. Patient covered with broad spectrum antibiotics for treatment of Hospital acquired pna. Will check U/ A. Blood cultures drawn. <Daljit Joya - 06/30/18 11:50> <Balaji Alston - Last Filed: 06/30/18 10:55> (3) Pneumonia Qualifiers: Pneumonia type: due to Haemophilus influenzae (7) Anemia Qualifiers: Anemia type: unspecified type Qualified Code(s): D64.9 - Anemia, unspecified <Daljit Joya - Last Filed: 06/30/18 11:50> (3) Pneumonia Qualifiers: Pneumonia type: due to Haemophilus influenzae (7) Anemia Qualifiers: Anemia type: unspecified type Qualified Code(s): D64.9 - Anemia, unspecified <Balaji Alston - Last Filed: 06/30/18 10:55> (3) Pneumonia Qualifiers: Pneumonia type: due to Haemophilus influenzae (7) Anemia Qualifiers: Anemia type: unspecified type Qualified Code(s): D64.9 - Anemia, unspecified <Daljit Joya - Last Filed: 06/30/18 11:50> (3) Pneumonia Qualifiers: Pneumonia type: due to Haemophilus influenzae (7) Anemia Qualifiers: Anemia type: unspecified type Qualified Code(s): D64.9 - Anemia, unspecified
[2018-06-30] MEDS: Azithromycin Inj 500 MG in Sodium Chlor 0.9% Inj 250 ML IV.SIG SCH (09:49)
[2018-06-30 09:54] LABS: Anion Gap 10 meq/L (5-15); Blood Urea Nitrogen 13 mg/dL (7-18); Calcium 8.7 mg/dL (8.5-10.1); Carbon Dioxide 28.2 meq/L (21.0-32.0); Chloride 93 meq/L (98-107); Glomerular Filtration Rate Greater Than 89 mL/min (>89); Glucose,Random 154 mg/dL (74-106); Potassium 3.7 meq/L (3.5-5.1); Sodium 131 meq/L (136-145)
--- NOTE | 2018-06-30 10:00 | XR ---
EXAM DATE: 06/30/2018 9:53 AM EST AGE/SEX: 62 years / Male INDICATIONS: Shortness of breath. CLINICAL DATA: This is the patient's subsequent encounter. Patient reports that signs and symptoms h ave been present for 1 day and indicates a pain score of 0/10. MEDICAL/SURGICAL HISTORY: None. None. COMPARISON: [facility] – [place]ST 1V SINGLE AP, 06/28/2018. . FINDINGS: The chest is unchanged in appearance. There is persistent left basilar airspace disease. Some minimal haziness is also present in the right base. The mid to upper lung barnes remain clear. Heart and mediastinal structures are stable. CONCLUSION: Persistent bibasilar opacity greater on the left with no significant change compared to the prior brandee dy. Electronically signed by: Delbert Chaudhry MD 06/30/2018 9:59 AM EST
[2018-06-30] MEDS: Piperacil/Tazo 4.5 GM Premix 4.5 GM/100 ML BAG IV.SIG SCH ×3 (11:30→22:53)
--- NOTE | 2018-06-30 12:19 | CT ---
EXAM DATE: 06/30/2018 12:05 PM EST AGE/SEX: 62 years / Male INDICATIONS: Embolism CLINICAL DATA: This is the patient's initial encounter. Patient reports that signs and symptoms have been present for 1 day and indicates a pain score of 0/10. MEDICAL/SURGICAL HISTORY: Diabetes. Hypertension. Prostatectomy. RADIATION DOSE: 23.35 CTDI (mGy) COMPARISON: No prior exams available for comparison. TECHNIQUE: Volumetric scanning was performed using a multi-row detector CT scanner during bolus infu alma of 73ML ml Omnipaque 350 (iohexol) nonionic water-soluble contrast as a single exam dose. The d va was post processed with a variety of visualization algorithms including full volume maximum inten sity projection and sliding thin slab reformation. Using automated exposure control and adjustment of the mA and/or kV according to patient size, radiation dose was kept as low as reasonably achievable to obtain optimal diagnostic quality images. DICOM format image data is available electronically for review and comparison. FINDINGS: Pulmonary Arteries: Moderate-sized saddle embolism is identified extending across the pulmonary tariq rial bifurcation. There is thrombus extending into the main pulmonary arteries as well as the lobar p ulmonary arteries. Lung: Basilar consolidating airspace disease is noted. There is mild consolidation in the right lowe r lobe. Effusion: None. Mediastinum: No evidence of mediastinal or hilar adenopathy. Other: The axilla is unremarkable. CONCLUSION: 1. Acute pulmonary embolism with moderate size central embolism extending across the pulmonary trunk bifurcation into the lobar pulmonary arteries. 2. Basilar consolidating infiltrate with segmental consolidation in the right lower lobe. Electronically signed by: Delbert Chaudhry MD 06/30/2018 12:17 PM EST
[2018-06-30] MEDS ORDERED: Heparin 10,000 UNITS/10 ML Vial (for IV use) IV.PUSH STA (13:53)
[2018-06-30] MEDS ORDERED: Heparin 10,000 UNITS/10 ML Vial (for IV use) ONE (14:00)
--- NOTE | 2018-06-30 14:03 | P.PNCC ---
Subjective Subjective Remarks/Hospital Course: 62-year-old male who is on enalapril for hypertension for many years tonight about an hour prior to presentation started feeling the swelling of the tongue mostly on the left side. This was getting significantly worse, he presented in the emergency department with difficulty speaking due to the mechanical obstruction of his tongue. He denies any tightness or swelling in his throat no sensation of choking however he immediately was given epi IM, Decadron 10 IV Benadryl 50 IV and he was not responding to medical management after 45 minutes. He was intubated for the airway protection by ED attending. 06/16: Remains sedated, orally intubated on mechanical ventilation. Tongue swelling decreasing. 06/17: Sedated, arousable, orally intubated on mechanical vent. Continues to have some tongue swelling currently. 06/18: Sedated, arousable, orally intubated on mechanical ventilation. Continues to have tongue swelling currently. 06/19: Remains sedated, arousable, orally intubated on mechanical ventilation. Continues to have tongue swelling. 06/20: edema somewhat improved. OG tube not in the stomach and tube feeds in the hypopharynx. replaced OGT and ordered CXR. also with distended abdomen today and no BM x 3 days. will need to have successful BM before weaning towards extubation. 06/21: abdominal distension is worse today. no BM yet despite aggressive attempts. still not able to successfully tolerate spontaneous breathing trials with degree of abdominal distension. KUB nonobstructive- will repeat today. 06/22: -2400 from NG tube since placement. Extubated today without complication. Will attempt to mobilize. Aggressive pulmonary and GI bowel regimen to be initiated 06/23: Extubated yesterday without complication. Out of bed to chair today. Passed swallow evaluation. Subjective 06/24: 22.3. Voice is more hoarse today. Able to identify uvula when opens mouth able to swallow adequately. On nasal cannula. 06/25: Patient developed worsening stridor last evening and required reintubation and was placed on mechanical ventilation. Vocal cords appeared okay per intubation note by Dr. Gross. Currently remains sedated, orally intubated on mechanical ventilation. 06/26: Arousable off sedation, following commands. Orally intubated on mechanical ventilation. Tolerating tube feeds. Started on Rocephin yesterday for H. influenzae pneumonia. 11/04: Patient developed sudden shortness of breath earlier today and CTA of the chest reveals a saddle pulmonary embolism. The right ventricular dimensions are moderately enlarged compared to the left side and the patient is quite short of breath. His oxygenation is fine with supplemental oxygen but his respiratory rate is labored and his work of breathing is increased. He underwent a joint replacement about 5 weeks ago and has no contraindications to thrombolytic therapy. I have discussed thrombolysis in detail with the patient and his at the bedside. They accept the risks including catastrophic hemorrhage and stroke and wish for us to proceed with lytic agents. Objective Vital Signs / I&O: Vital Signs 06/29/18 16:00 06/29/18 19:35 06/29/18 20:00 Temperature 99.6 F 101.3 F H Pulse Rate 90 92 H Respiratory Rate 14 18 Blood Pressure 135/72 136/75 Pulse Oximetry 97 98 97 06/30/18 00:00 06/30/18 04:00 06/30/18 08:00 Temperature 99.5 F 98 F 101.9 F H Pulse Rate 86 78 98 H Respiratory Rate 18 18 18 Blood Pressure 128/62 100/59 L 133/66 Pulse Oximetry 98 96 99 06/30/18 08:54 06/30/18 12:00 Temperature Pulse Rate 102 H Respiratory Rate 39 H Blood Pressure Pulse Oximetry 97 99 Intake & Output 06/29/18 06/30/18 06/30/18 19:59 06:59 18:59 Intake Total 350 / 350 Output Total Balance 350 / 350 Intake: IV 350 / 350 Azithromycin Inj 500 MG In NS 250 / 250 Inj 250 ML @ 250 mls/hr IV.SIG Q24H HUMAIRA Rx#:[id number] Zosyn 4.5 GM Premix 4.5 gm In 100 / 100 100 ml @ 200 mls/hr IV.SIG Q6H HUMAIRA Rx#:[id number] Rocephin Inj 1,000 MG In NS Inj 100 ML @ 200 mls/hr IV.SIG ONCE ONE Rx#:[id number] Oral Output: Urine Other: # Incontinent Voids 1 # Urine Diapers 1 Date of Last Bowel Movement 06/29/18 Result Diagrams: 06/30/18 08:30 06/30/18 08:30 Objective Remarks: General: Pleasant alert gentleman Head: Atraumatic normal Neck: Supple no airway obstruction, no obstructive noises. Lungs: Clear bilaterally without wheezes or crackles, moderately labored, tachypneic Heart: Normal S1-S2, soft systolic murmur heard over apex, neck veins are full but not distended Abdomen: Soft, large, no guarding, bowel sounds are active, no tenderness. Extremities: Warm, well-perfused Neuro: Oriented x3, alert, speech is clear, moves 4 extremities to command and spontaneously with purpose. Assessment and Plan - Assessment and Plan Plan: Neuro/Psych: Sedation while intubated, daily sedation vacation Acetaminophen 650 every 4 hours as needed fever Morphine sulfate 2 mg IV every 2 hours as needed pain Pulm: Saddle pulmonary embolus with right ventricular strain Stridor Acute respiratory failure on mechanical ventilation Acute angioedema resolved Severe laryngeal edema resolved Extubated 06/22 Required reintubation on 06/24 for stridor and worsening respiratory distress Albuterol/ipratropium aerosols every 4 hours while awake albuterol aerosols every 2 hours. Dyspnea Rapidly wean off dexamethasone currently 4 mg every 12 hours, diphenhydramine 12.5 mill grams IV every 6 hours and famotidine 20 mg IV every [address] soft tissue disorder 06/24 unremarkable Tolerating CPAP trials today with cuff leak. Will go ahead and extubate and watch closely. If Patient developed stridor will consider racemic epinephrine and ENT eval for vocal cord dysfunction. TPA 50 mg dose, with heparin gtt infusion. CV: Essential hypertension Off amlodipine 10 mg daily Continue triamterene/hydrochlorothiazide 37.5/25 1 tablet daily Continue isosorbide dinitrate 10 mg 3 times daily and hydralazine 50 mg 3 times daily As needed labetalol, hydralazine Nitropaste Enalapril added to his allergy GI: Ileus Tolerating tube feedings, hold for extubated Aggressive bowel regimen with docusate sodium/senna Metoclopramide 10 mg IV every 8 hours Received methylnaltrexone 06/21 : Removed Brand catheter Endo: Diabetes mellitus Acute hyperglycemia secondary to steroids Holding glimepiride 2 mg daily Sliding scale insulin aspart insulin high regimen AC/at bedtime to maintain euglycemia On insulin detemir 5 units twice daily. Renal: Creatinine currently within normal Accurate I's and O's Monitor urine output Heme: Microcytic anemia Monitor CBC daily. Follow trends per No indication for transfusion of blood products at this time ID: Monitor for signs and symptomatology infection MSK: Elevated BMI PT evaluate and treat Weight loss encouraged FEN: Acute hypophosphatemia 30 mmol K-Phos IV times now. Recheck in a.m. Replace electrolytes as clinically indicated Access -Utilize peripheral IV. Central line if indicated Prophylaxis -GI -famotidine - -DVT SCD/heparin gtt Overall impression: This gentleman is critically ill having sustained a sudden saddle pulmonary embolism with right ventricular strain and hypoxia. Fortunately his hemodynamics are acceptable and he is not in shock. Because of the clot burden his risk for long-standing pulmonary hypertension and right ventricular dysfunction is increased. For that reason we will give him TPA and continuous heparin infusion. The TPA dose will be [address] inform [address] Ward of the patient's status change. Critical care 40 minutes aside from invasive procedures.
[2018-06-30] MEDS ORDERED: WATER FOR INJ IV.SIG ONE (15:00)
[2018-06-30] MEDS ORDERED: WATER FOR INJECTION IV.SIG ONE (15:00)
[2018-06-30] MEDS ORDERED: ALTEPLASE IV.SIG ONE ×2 (15:00)
[2018-06-30] MEDS ORDERED: STERILE IV.SIG ONE ×2 (15:00)
[2018-06-30] MEDS ORDERED: Labetalol HCl Inj 100 MG/20 ML Vial IV.PUSH PRN (15:00)
[2018-06-30] MEDS: Heparin Drip 25,000 UNIT/250 ML BAG IV.CONT PRN (15:34)
[2018-06-30 16:01] LABS: Hematocrit 30.1 % (39.0-51.0); Hemoglobin 9.6 gm/dL (13.0-17.0); Mean Corpuscular HGB Conc 31.9 % (32.0-36.0); Mean Corpuscular Hemoglobin 23.8 pg (27.0-34.0); Mean Corpuscular Volume 74.8 fL (80.0-100.0); Mean Platelet Volume 8.1 fL (7.0-11.0); Platelet Count 205 th/mm3 (150-450); Red Blood Count 4.03 mil/mm3 (4.50-5.90); Red Cell Distribution Width 16.2 % (11.6-17.2); White Blood Count 14.1 th/mm3 (4.0-11.0)
[2018-06-30 17:07] LABS: Activated Partial Thrombo Time 89.1 sec (23.4-31.7); INR 1.1 Ratio; Prothrombin Time 11.6 sec (9.8-11.6)
[2018-06-30] MEDS: Morphine Inj 4 MG/ML Vial IV.PUSH PRN ×2 (18:57→20:58)
[2018-07-01] MEDS: Morphine Inj 4 MG/ML Vial IV.PUSH PRN ×2 (00:04→04:38)
[2018-07-01] MEDS: Acetaminophen 325 MG Tablet PO PRN ×2 (00:18→12:07)
[2018-07-01] MEDS: Oral Hygiene Kit OROPHARYNG SCH ×8 (02:01→16:51)
[2018-07-01 03:21] LABS: Baso # (Auto) 0.1 th/mm3 (0.0-0.2); Baso % (Auto) 0.6 % (0.0-2.0); Eos # (Auto) 0.1 th/mm3 (0.0-0.4); Eos % (Auto) 0.6 % (0.0-4.0); Hematocrit 27.8 % (39.0-51.0); Lymph % (Auto) 7.7 % (9.0-44.0); Mean Corpuscular HGB Conc 32.4 % (32.0-36.0); Mean Corpuscular Hemoglobin 23.9 pg (27.0-34.0); Mean Corpuscular Volume 73.6 fL (80.0-100.0); Mean Platelet Volume 7.9 fL (7.0-11.0); Mono % (Auto) 7.7 % (0.0-8.0); Neut # (Auto) 11.1 th/mm3 (1.8-7.7); Neut % (Auto) 83.4 % (16.0-70.0); Platelet Count 218 th/mm3 (150-450); Red Blood Count 3.77 mil/mm3 (4.50-5.90); Red Cell Distribution Width 16.2 % (11.6-17.2); White Blood Count 13.4 th/mm3 (4.0-11.0)
[2018-07-01 03:33] LABS: Anion Gap 11 meq/L (5-15); Aspartate Aminotransferase 25 U/L (15-37); Blood Urea Nitrogen 12 mg/dL (7-18); Calcium 8.1 mg/dL (8.5-10.1); Carbon Dioxide 28.4 meq/L (21.0-32.0); Chloride 94 meq/L (98-107); Glomerular Filtration Rate Greater Than 89 mL/min (>89); Glucose,Random 172 mg/dL (74-106); Potassium 3.3 meq/L (3.5-5.1); Sodium 133 meq/L (136-145)
[2018-07-01 03:37] LABS: Alanine Aminotransferase 52 U/L (12-78); Alkaline Phosphatase 132 U/L (45-117); Total Protein 6.9 g/dL (6.4-8.2)
[2018-07-01] MEDS: Heparin Drip 25,000 UNIT/250 ML BAG IV.CONT PRN ×2 (04:40→20:56)
[2018-07-01] MEDS: Piperacil/Tazo 4.5 GM Premix 4.5 GM/100 ML BAG IV.SIG SCH ×3 (05:07→16:14)
--- NOTE | 2018-07-01 08:55 | P.PNFP ---
Subjective Interval history: Over the last 24 hours, patient initially presented with fever, tachycardia, and shortness of breath. Patient was evaluated and found to be in severe sepsis. Patient was started on antibiotics and CTA was ordered. CTA showed acute saddle pulmonary embolism with right heart strain despite being on daily Lovenox for anticoagulation after his hip replacement.. Patient was transferred to the ICU, naphtha washing system operator consulted, and consented for bedside TPA. Patient seen and examined this morning. Patient states that he feels approximately 60% better this morning breathing is "much better" which is confirmed by his at the bedside. He states that he is relieved to know that there was a cause for his shortness of breath and is hopeful that his treatment will resolve his issues. His only major complaint this morning is continued lower back pain. Otherwise he has no acute complaints he denies any recent fevers, chills, chest pain, NVD, abdominal pain, or calf tenderness at this time. <Solis Crum - 07/01/18 09:16> Results - Labs Result diagrams: 07/02/18 04:50 07/01/18 03:00 <Daljit Joya - 07/02/18 09:08> Abnormal lab results 07/01/18 07/01/18 07/01/18 Range/Units 09:10 11:49 16:31 WBC (4.0-11.0) th/mm3 RBC (4.50-5.90) mil/mm3 Hgb (13.0-17.0) gm/dL Hct (39.0-51.0) % MCV (80.0-100.0) fL MCH (27.0-34.0) pg POC Glucose 174 H 251 H 192 H (68-110) mg/dl 07/01/18 07/02/18 07/02/18 Range/Units 21:28 04:50 08:29 WBC 11.5 H (4.0-11.0) th/mm3 RBC 3.58 L (4.50-5.90) mil/mm3 Hgb 8.4 L (13.0-17.0) gm/dL Hct 25.8 L (39.0-51.0) % MCV 72.3 L (80.0-100.0) fL MCH 23.5 L (27.0-34.0) pg POC Glucose 183 H 168 H (68-110) mg/dl Short CBC 07/02/18 Range/Units 04:50 WBC 11.5 H (4.0-11.0) th/mm3 Hgb 8.4 L (13.0-17.0) gm/dL Hct 25.8 L (39.0-51.0) % Plt Count 286 D (150-450) th/mm3 <Daljit Joya - 07/02/18 09:08> Abnormal lab results 06/30/18 06/30/18 06/30/18 Range/Units 08:30 08:30 11:13 WBC 14.8 H (4.0-11.0) th/mm3 RBC 4.11 L (4.50-5.90) mil/mm3 Hgb 10.1 L (13.0-17.0) gm/dL Hct 30.4 L (39.0-51.0) % MCV 73.8 L (80.0-100.0) fL MCH 24.5 L (27.0-34.0) pg MCHC (32.0-36.0) % Neut % (Auto) 81.8 H (16.0-70.0) % Lymph % (Auto) 8.7 L (9.0-44.0) % Gates % (Auto) 9.1 H (0.0-8.0) % Neut # (Auto) 12.1 H (1.8-7.7) th/mm3 Gates # (Auto) 1.3 H (0.0-0.9) th/mm3 APTT (23.4-31.7) sec Sodium 131 L (136-145) meq/L Potassium (3.5-5.1) meq/L Chloride 93 L (98-107) meq/L POC Glucose (68-110) mg/dl Random Glucose 154 H (74-106) mg/dL Lactic Acid 3.7 H (0.4-2.0) mmol/L Calcium (8.5-10.1) mg/dL Alkaline Phosphatase (45-117) U/L Albumin (3.4-5.0) g/dL 06/30/18 06/30/18 06/30/18 Range/Units 12:28 15:11 16:39 WBC 14.1 H (4.0-11.0) th/mm3 RBC 4.03 L (4.50-5.90) mil/mm3 Hgb 9.6 L (13.0-17.0) gm/dL Hct 30.1 L (39.0-51.0) % MCV 74.8 L (80.0-100.0) fL MCH 23.8 L (27.0-34.0) pg MCHC 31.9 L (32.0-36.0) % Neut % (Auto) (16.0-70.0) % Lymph % (Auto) (9.0-44.0) % Gates % (Auto) (0.0-8.0) % Neut # (Auto) (1.8-7.7) th/mm3 Gates # (Auto) (0.0-0.9) th/mm3 APTT 89.1 H (23.4-31.7) sec Sodium (136-145) meq/L Potassium (3.5-5.1) meq/L Chloride (98-107) meq/L POC Glucose 311 H (68-110) mg/dl Random Glucose (74-106) mg/dL Lactic Acid (0.4-2.0) mmol/L Calcium (8.5-10.1) mg/dL Alkaline Phosphatase (45-117) U/L Albumin (3.4-5.0) g/dL 06/30/18 06/30/18 06/30/18 Range/Units 17:35 20:25 20:41 WBC (4.0-11.0) th/mm3 RBC (4.50-5.90) mil/mm3 Hgb (13.0-17.0) gm/dL Hct (39.0-51.0) % MCV (80.0-100.0) fL MCH (27.0-34.0) pg MCHC (32.0-36.0) % Neut % (Auto) (16.0-70.0) % Lymph % (Auto) (9.0-44.0) % Gates % (Auto) (0.0-8.0) % Neut # (Auto) (1.8-7.7) th/mm3 Gates # (Auto) (0.0-0.9) th/mm3 APTT 64.4 H D (23.4-31.7) sec Sodium (136-145) meq/L Potassium (3.5-5.1) meq/L Chloride (98-107) meq/L POC Glucose 205 H 179 H (68-110) mg/dl Random Glucose (74-106) mg/dL Lactic Acid (0.4-2.0) mmol/L Calcium (8.5-10.1) mg/dL Alkaline Phosphatase (45-117) U/L Albumin (3.4-5.0) g/dL 07/01/18 07/01/18 07/01/18 Range/Units 02:00 03:00 03:00 WBC 13.4 H (4.0-11.0) th/mm3 RBC 3.77 L (4.50-5.90) mil/mm3 Hgb 9.0 L (13.0-17.0) gm/dL Hct 27.8 L (39.0-51.0) % MCV 73.6 L (80.0-100.0) fL MCH 23.9 L (27.0-34.0) pg MCHC (32.0-36.0) % Neut % (Auto) 83.4 H (16.0-70.0) % Lymph % (Auto) 7.7 L (9.0-44.0) % Gates % (Auto) (0.0-8.0) % Neut # (Auto) 11.1 H (1.8-7.7) th/mm3 Gates # (Auto) 1.0 H (0.0-0.9) th/mm3 APTT 66.0 H (23.4-31.7) sec Sodium 133 L (136-145) meq/L Potassium 3.3 L (3.5-5.1) meq/L Chloride 94 L (98-107) meq/L POC Glucose (68-110) mg/dl Random Glucose 172 H (74-106) mg/dL Lactic Acid (0.4-2.0) mmol/L Calcium 8.1 L (8.5-10.1) mg/dL Alkaline Phosphatase 132 H (45-117) U/L Albumin 2.0 L (3.4-5.0) g/dL Short CBC 11/04/18 11/04/18 11/05/18 Range/Units 08:30 15:11 03:00 WBC 14.8 H 14.1 H 13.4 H (4.0-11.0) th/mm3 Hgb 10.1 L 9.6 L 9.0 L (13.0-17.0) gm/dL Hct 30.4 L 30.1 L 27.8 L (39.0-51.0) % Plt Count 229 205 218 (150-450) th/mm3 BMP 06/30/18 07/01/18 08:30 03:00 Sodium 131 L 133 L Potassium 3.7 3.3 L Chloride 93 L 94 L Carbon Dioxide 28.2 28.4 BUN 13 12 Creatinine 0.91 0.93 Calcium 8.7 8.1 L Liver Function 07/01/18 Range/Units 03:00 Total Bilirubin 0.5 (0.2-1.0) mg/dL AST 25 (15-37) U/L ALT 52 (12-78) U/L Alkaline Phosphatase 132 H (45-117) U/L Albumin 2.0 L (3.4-5.0) g/dL <Solis Crum H - 07/01/18 08:55> - Imaging Impressions Chest CTA 06/30/18 00:00 CONCLUSION: 1. Acute pulmonary embolism with moderate size central embolism extending across the pulmonary trunk bifurcation into the lobar pulmonary arteries. 2. Basilar consolidating infiltrate with segmental consolidation in the right lower lobe. Chest X-Ray 06/30/18 00:00 CONCLUSION: Persistent bibasilar opacity greater on the left with no significant change compared to the prior study. <Solis Crum H - 07/01/18 08:55> Physical Exam Vital signs: Vital Signs 07/01/18 09:15 07/01/18 09:23 07/01/18 09:30 Temperature Pulse Rate 100 H 94 H 92 H Respiratory Rate 34 H 24 28 H Blood Pressure Pulse Oximetry 94 L 96 99 07/01/18 09:45 07/01/18 10:00 07/01/18 10:15 Temperature Pulse Rate 103 H 103 H 102 H Respiratory Rate 27 H 31 H 31 H Blood Pressure 142/69 H Pulse Oximetry 93 L 95 96 07/01/18 10:30 07/01/18 10:45 07/01/18 11:00 Temperature Pulse Rate 100 H 98 H 99 H Respiratory Rate 32 H 27 H 32 H Blood Pressure 143/68 H Pulse Oximetry 95 95 96 07/01/18 11:15 07/01/18 11:30 07/01/18 11:45 Temperature Pulse Rate 93 H 92 H 94 H Respiratory Rate 23 24 31 H Blood Pressure 129/65 Pulse Oximetry 97 96 96 07/01/18 12:00 07/01/18 12:15 07/01/18 12:30 Temperature 101.3 F H Pulse Rate 97 H 94 H 92 H Respiratory Rate 35 H 28 H 29 H Blood Pressure Pulse Oximetry 95 97 95 07/01/18 12:45 07/01/18 13:00 07/01/18 13:45 Temperature Pulse Rate 90 90 85 Respiratory Rate 12 21 27 H Blood Pressure 137/63 129/61 Pulse Oximetry 95 95 96 07/01/18 14:00 07/01/18 14:45 07/01/18 15:00 Temperature Pulse Rate 85 84 83 Respiratory Rate 23 13 15 Blood Pressure 139/67 Pulse Oximetry 96 97 97 07/01/18 15:45 07/01/18 16:00 07/01/18 16:45 Temperature 98.8 F Pulse Rate 78 88 79 Respiratory Rate 18 21 19 Blood Pressure 149/70 H 150/69 H Pulse Oximetry 98 99 98 07/01/18 17:00 07/01/18 17:24 07/01/18 19:00 Temperature Pulse Rate 85 87 90 Respiratory Rate 25 H 24 26 H Blood Pressure Pulse Oximetry 99 100 07/01/18 19:45 07/01/18 20:00 07/01/18 20:45 Temperature 100.9 F H Pulse Rate 89 97 H 92 H Respiratory Rate 18 14 23 Blood Pressure 140/68 138/67 Pulse Oximetry 100 100 95 07/01/18 20:54 07/01/18 21:00 07/01/18 21:45 Temperature Pulse Rate 96 H 94 H 98 H Respiratory Rate 22 29 H 33 H Blood Pressure 142/70 H Pulse Oximetry 95 97 100 07/01/18 22:00 07/01/18 22:45 07/01/18 23:00 Temperature Pulse Rate 87 91 H 92 H Respiratory Rate 22 30 H 32 H Blood Pressure 142/70 H 142/74 H Pulse Oximetry 100 100 100 07/01/18 23:45 07/02/18 00:00 07/02/18 00:08 Temperature 99.0 F Pulse Rate 94 H 93 H 94 H Respiratory Rate 31 H 30 H 22 Blood Pressure 135/68 Pulse Oximetry 100 07/02/18 00:45 07/02/18 01:00 07/02/18 01:45 Temperature Pulse Rate 89 86 81 Respiratory Rate 21 19 19 Blood Pressure 145/68 H 146/72 H Pulse Oximetry 94 L 95 95 07/02/18 02:00 07/02/18 02:45 07/02/18 03:00 Temperature Pulse Rate 80 81 86 Respiratory Rate 20 20 24 Blood Pressure 131/70 Pulse Oximetry 95 95 96 07/02/18 03:45 07/02/18 04:00 07/02/18 04:06 Temperature 99.1 F Pulse Rate 90 87 87 Respiratory Rate 27 H 28 H 21 Blood Pressure 146/76 H Pulse Oximetry 95 94 L 07/02/18 04:45 07/02/18 05:00 07/02/18 05:45 Temperature Pulse Rate 95 H 96 H 84 Respiratory Rate 32 H 34 H 22 Blood Pressure 146/71 H 148/70 H Pulse Oximetry 93 L 93 L 94 L 07/02/18 06:00 07/02/18 06:45 07/02/18 07:00 Temperature Pulse Rate 86 89 89 Respiratory Rate 27 H 31 H 10 L Blood Pressure 142/66 H Pulse Oximetry 95 96 97 07/02/18 07:44 07/02/18 07:45 07/02/18 08:00 Temperature 98.7 F Pulse Rate 84 84 92 H Respiratory Rate 17 22 30 H Blood Pressure 141/65 H Pulse Oximetry 96 100 95 07/02/18 08:45 07/02/18 09:00 Temperature Pulse Rate 92 H 90 Respiratory Rate 29 H 28 H Blood Pressure 155/72 H Pulse Oximetry 93 L 93 L Intake & Output 07/01/18 07/02/18 07/02/18 18:59 06:59 18:59 Intake Total 1040 / 1040 200 / 200 Output Total 800 / 800 700 / 700 Balance 240 / 240 -500 / -500 Weight 111.1 kg Intake: IV 600 / 600 200 / 200 Heparin/D5W 25,000 U/250 mL 25, 250 / 250 000 unit In 250 ml @ Per Protocol IV.CONT TITRATE PRN Rx #:[id number] Azithromycin Inj 500 MG In NS 250 / 250 Inj 250 ML @ 250 mls/hr IV.SIG Q24H HUMAIRA Rx#:[id number] Zosyn 4.5 GM Premix 4.5 gm In 100 / 100 200 / 200 100 ml @ 200 mls/hr IV.SIG Q6H [facility] Rx#:[id number] Oral 440 / 440 Output: Urine Amount (Catheter) 800 / 800 700 / 700 Indwelling Urethral Catheter 800 / 800 700 / 700 Other: Date of Last Bowel Movement 06/29/18 06/29/18 06/29/18 <Daljit Joya - 07/02/18 09:08> Vital Signs 06/30/18 08:54 06/30/18 10:26 06/30/18 10:28 Temperature Pulse Rate 102 H 101 H 103 H Respiratory Rate 39 H 25 H Blood Pressure 93/64 L Pulse Oximetry 97 06/30/18 11:00 06/30/18 12:00 06/30/18 12:07 Temperature Pulse Rate 85 101 H Respiratory Rate 21 37 H Blood Pressure 129/69 128/79 Pulse Oximetry 100 99 97 06/30/18 13:00 06/30/18 14:00 06/30/18 15:00 Temperature Pulse Rate 86 89 88 Respiratory Rate 27 H 34 H 25 H Blood Pressure 164/74 H 129/58 L 109/55 L Pulse Oximetry 99 98 98 06/30/18 16:00 06/30/18 16:13 06/30/18 17:00 Temperature 98.4 F Pulse Rate 86 90 86 Respiratory Rate 25 H 16 32 H Blood Pressure 121/66 111/58 L Pulse Oximetry 100 98 06/30/18 18:00 06/30/18 20:00 06/30/18 20:18 Temperature 98.2 F Pulse Rate 87 88 90 Respiratory Rate 24 29 H 22 Blood Pressure 112/59 L 105/64 Pulse Oximetry 97 96 07/01/18 00:00 07/01/18 00:03 07/01/18 03:48 Temperature 100.9 F H Pulse Rate 106 H 105 H 92 H Respiratory Rate 32 H 20 17 Blood Pressure 115/83 Pulse Oximetry 95 07/01/18 04:00 Temperature 99.1 F Pulse Rate 94 H Respiratory Rate 28 H Blood Pressure 154/78 H Pulse Oximetry 99 Intake & Output 11/04/18 11/05/18 11/05/18 18:59 06:59 18:59 Intake Total 500 / 500 690 / 690 Output Total 425 / 425 Balance 500 / 500 265 / 265 Weight 107.3 kg Intake: IV 500 / 500 450 / 450 Heparin/D5W 25,000 U/250 mL 25, 250 / 250 000 unit In 250 ml @ Per Protocol IV.CONT TITRATE PRN Rx #:[id number] Activase Inj 40 MG In Sterile 40 / 40 Water for Inj 40 ML @ 50 mls/hr IV.SIG ONCE ONE Rx#:[id number] Activase Inj 10 MG In Sterile 10 / 10 Water for Injection 10 ML @ 60 mls/hr IV.SIG ONCE ONE Rx#: [id number] Azithromycin Inj 500 MG In NS 250 / 250 Inj 250 ML @ 250 mls/hr IV.SIG Q24H [facility] Rx#:[id number] Zosyn 4.5 GM Premix 4.5 gm In 200 / 200 200 / 200 100 ml @ 200 mls/hr IV.SIG Q6H HUMAIRA Rx#:[id number] Oral 240 / 240 Output: Urine Amount (Catheter) 425 / 425 Indwelling Urethral Catheter 425 / 425 Other: # Incontinent Voids 1 # Urine Diapers 1 Date of Last Bowel Movement 06/29/18 06/29/18 <Solis Crum H - 07/01/18 08:55> Narrative: GENERAL: Well-nourished, well-developed -[place] male lying in bed in no acute distress with his at the bedside. SKIN: Warm and dry. No rash. Appropriate capillary refill. HEENT: Atraumatic, normocephalic with extraocular motions intact. No rhinorrhea. No visible lymphadenopathy or jugulovenous distension appreciated. CARDIOVASCULAR: Tachycardic rate and regular rhythm without obvious murmurs, gallops, or rubs. 2+ pulses in all four extremities. RESPIRATORY: Difficult to appropriately auscultate bilateral lungs as patient states it is difficult to take deep breaths. Shallow breath sounds appreciated anteriorly bilaterally without obvious CRW at this time. Mild increase in respiratory effort with nasal cannula applied. GASTROINTESTINAL: Abdomen soft, non-tender, nondistended with positive bowel sounds. No masses appreciated. MUSCULOSKELETAL: No cyanosis or edema. No calf tenderness with SCDs in place. NEURO/PSYCH: Afocal. Awake, alert, and oriented x3. Normal speech and judgement. <Solis Crum H - 07/01/18 09:16> - Urinary Catheter Management Condom Cath placed during this visit: no <Wilmer Joyawin - 07/02/18 09:08> no <Solis Crum - 07/01/18 17:45> Indwelling Urethral Catheter Cath placed during this visit: no <BuffyogDaljit - 07/02/18 09:08> yes <Solis Crum - 07/01/18 17:45> Reason for continuing: Hourly intake/output <Solis Crum - 07/01/18 08:55> Insertion date: 06/30/18 <Solis Crum - 07/01/18 08:55> Insertion time: 15:00 <Solis Crum - 07/01/18 08:55> Assessment and Plan - Assessment (1) Acute saddle pulmonary embolism Code(s): I26.92 - Saddle embolus of pulmonary artery without acute cor pulmonale Status: Acute (2) Severe sepsis Code(s): A41.9 - Sepsis, unspecified organism; R65.20 - Severe sepsis without septic shock Status: Acute (3) Pneumonia Code(s): J18.9 - Pneumonia, unspecified organism Status: Acute (4) Angioedema Code(s): T78.3XXA - Angioneurotic edema, initial encounter Status: Acute (5) Weakness acquired in ICU Code(s): R53.1 - Weakness Status: Acute (6) Hypertension Code(s): I10 - Essential (primary) hypertension Status: Chronic (7) Type 2 diabetes mellitus Code(s): E11.9 - Type 2 diabetes mellitus without complications Status: Acute (8) Anemia Code(s): D64.9 - Anemia, unspecified Status: Acute (9) Hyperlipidemia Code(s): E78.5 - Hyperlipidemia, unspecified Status: Chronic <AnnacordeliaogDaljit - 07/02/18 09:08> (1) Acute saddle pulmonary embolism Code(s): I26.92 - Saddle embolus of pulmonary artery without acute cor pulmonale Status: Acute Plan: Patient presenting with fever overnight on 06/30/18 with shortness of breath and tachycardia. CTA 06/30/18: Acute pulmonary embolism with moderate size and central location extending across the pulmonary trunk bifurcation into the lobar pulmonary arteries. Basilar consolidating infiltrate was segmental consolidation in the right lower lobe. Patient was transferred to the ICU, Cellophane Tester consulted, and consented for bedside TPA 50mg. Patient currently on heparin drip per protocol Per report, plan for repeat echocardiogram today to evaluate for continued right heart strain for possible additional dose of TPA. (2) Severe sepsis Code(s): A41.9 - Sepsis, unspecified organism; R65.20 - Severe sepsis without septic shock Status: Acute Plan: Patient presenting in severe sepsis with leukocytosis, elevated respiratory rate, and tachycardia on 07/01/18 with suspected pneumonia. Likely related to acute saddle pulmonary embolism, see above Lactic acid 3.7 Patient restarted on Zosyn and azithromycin (07/01) Patient recently completed a course of Rocephin for Haemophilus influenza pneumonia (3) Pneumonia Code(s): J18.9 - Pneumonia, unspecified organism Status: Acute Plan: Patient was started on Rocephin on 06/25 for H. influenzae pneumonia. Completed 5 day course on 06/29 -Sputum culture shows beta lactamase positive, sensitive to Augmentin and third- generation cephalosporins -Continue IS -Chest x-ray 06/30/18: Persistent bibasilar opacity greater on the left with no significant change compared to prior study Patient restarted on Zosyn and Azithromycin (07/01) -Lactic acid 3.7 (4) Angioedema Code(s): T78.3XXA - Angioneurotic edema, initial encounter Status: Acute Plan: Resolved after patient was intubated in ICU for almost 2 weeks on high-dose steroids. -On oral steroid taper through 07/04 -Pulmonology consulted -Recommend oxygen as needed -NPSG post discharge -May need re-consulted if worsening of breathing/lung status -Monitor breathing and swallowing status (5) Weakness acquired in ICU Code(s): R53.1 - Weakness Status: Acute Plan: PT and OT consults -Recommend inpatient rehab -Plan to d/c to [facility] when stable (6) Hypertension Code(s): I10 - Essential (primary) hypertension Status: Chronic Plan: Avoid ACEi and ARB due to angioedema BPs improving -Amlodipine 10 mg daily -Continue triamterene/hydrochlorothiazide 37.5/25 1 tablet daily -Hydralazine PRN BP (7) Type 2 diabetes mellitus Code(s): E11.9 - Type 2 diabetes mellitus without complications Status: Acute Plan: Holding glimepiride 2 mg daily; restart upon discharge Sliding scale insulin aspart insulin high regimen AC/at bedtime to maintain euglycemia On insulin detemir 5 units twice daily. Hypoglycemia protocol. Regular accuchecks (8) Anemia Code(s): D64.9 - Anemia, unspecified Status: Acute Plan: Microcytic anemia present since admission. Stable Hgb/Hct. Continue to monitor Monitor for signs of bleeding (9) Hyperlipidemia Code(s): E78.5 - Hyperlipidemia, unspecified Status: Chronic Plan: -Continue home medication of statin and aspirin <Solis Crum - 07/01/18 17:45> - Assessment and Plan 62-year-old male who was on enalapril for hypertension for many years presented to the ED with swelling of the tongue mostly on the left side. This was getting significantly worse, he presented in the emergency department with difficulty speaking due to the mechanical obstruction of his tongue. He immediately was given epi IM, Decadron 10 IV, Benadryl 50 IV, and he was not responding to medical management after 45 minutes. He was intubated for the airway protection by ED attending and remained intubated and ventilated in the ICU until 06/22 when he was extubated. On 06/24, patient developed stridor and was reintubated and ventilated (vocal cords appeared ok). CT soft tissue disorder 06/24 unremarkable. On 06/25, patient was started on Rocephin for H. influenzae pneumonia. On 06/26, patient was successfully extubated. He remained in the ICU for almost 24 hours prior to transfer to med/surg floor for PT/OT consults and recommendations. On 06/30/18 patient presented to medical team with severe sepsis with presumed pneumonia and lactic acid of 3.7. Patient was started on azithromycin and Zosyn for antibiotic coverage. CTA was ordered which showed an acute saddle pulmonary embolism. Patient was transferred to the ICU and consented for bedside TPA. Fluids: none Electrolytes: monitor, replace PRN Nutrition: regular diet DVT ppx: s/p TPA, currently on Heparin drip GI ppx: Famotidine Pain medication: [place]/tylenol PRN <Solis Crum - 07/01/18 08:55> - Attending Attestation Patient seen and examined. Discussed with Dr. Crum. Agree with assessment and plan as documented. <Daljit Joya - 07/02/18 09:08> <Solis Crum - Last Filed: 07/01/18 17:45> (3) Pneumonia Qualifiers: Pneumonia type: due to Haemophilus influenzae (8) Anemia Qualifiers: Anemia type: unspecified type Qualified Code(s): D64.9 - Anemia, unspecified <Daljit Joya - Last Filed: 07/02/18 09:08> (8) Anemia Qualifiers: Qualified Code(s): D64.9 - Anemia, unspecified <Solis Crum H - Last Filed: 07/01/18 17:45> (3) Pneumonia Qualifiers: Pneumonia type: due to Haemophilus influenzae (8) Anemia Qualifiers: Anemia type: unspecified type Qualified Code(s): D64.9 - Anemia, unspecified <Daljit Joya - Last Filed: 07/02/18 09:08> (8) Anemia Qualifiers: Qualified Code(s): D64.9 - Anemia, unspecified
[2018-07-01] MEDS: Chlorhexidine 0.12% Oral Kit 15 ML UDC OROPHARYNG SCH ×4 (09:07→21:25)
[2018-07-01] MEDS: amLODIPine 10 MG Tablet PO SCH (09:13)
[2018-07-01] MEDS: Famotidine 20 MG Tablet PO SCH ×2 (09:13→21:25)
[2018-07-01] MEDS: Triamterene/HCTZ 37.5 MG/25 MG Tablet PO SCH (09:13)
[2018-07-01] MEDS: Bisacodyl 10 MG Supp RECTAL SCH (09:13)
[2018-07-01] MEDS: Senna/Docusate Sodium 8.6/50 MG Tablet PO SCH ×2 (09:13→21:25)
[2018-07-01] MEDS: Insulin NovoLIN Regular Correctional Sugar Inj SQ SCH ×4 (09:22→21:34)
[2018-07-01] MEDS: Insulin Detemir Inj 1,000 UNIT/10 ML Vial SQ SCH ×2 (09:22→21:34)
[2018-07-01] MEDS: Azithromycin Inj 500 MG in Sodium Chlor 0.9% Inj 250 ML IV.SIG SCH (10:29)
--- NOTE | 2018-07-01 11:47 | P.DIET ---
Nutritional Evaluation Type of nutrition evaluation: follow-up Nutrition consult regarding: Diet Evaluation Objective - Diagnosis Severe angioadema, airway compromised - Objective [place] body weight: 67 kg % IBW: 177 Body Weight Used for Calculations: IBW Energy Needs - Lower Range (kCal/kg): 25 Energy Needs - Upper Range (kCal/kg): 30 Lower Limit kCal/kg (kCals): 1,675 Upper Limit kCal/kg (kCals): 2,010 Lower Limit Protein Factor (Grams per Kg): 1.2 Upper Limit Protein Factor (Grams per Kg): 1.5 Lower Protein Needs (Protein): 80 Upper Protein Needs (Protein): 101 Dietitian Reviewed in Medical Record: Current diet, Curent medications, Intake & Output, Labs, Medical history, Tube feeding Diet Order: reg, pureed, nectar thick Objective Comments: PMH: DM, HLD, HTN Meds include: Novolog, Levemir Assessment Assessment: Pt currently on regular, mech soft, thin liquids diet. Pt eating around 75-100% for most meals and tolerating well. ST recs noted. RD to recommend Glucerna BID for PO supplement. Will monitor PO intake, clinical course. Recommendations: 1. Continue current diet per ST rec 2. Recommend Glucerna Vanilla BID 3. Dietitian following Dietitian to Monitor: Lab values, Glucose level, Intake & Output, Tube feeding tolerance, Weight change, Medical course
--- NOTE | 2018-07-01 15:19 | P.PN ---
Subjective Interval history: ALERT NOW IN INTENSIVE CARE POST ACUTE PE NO DISTRESS OR SOB Physical Exam Vital signs: Vital Signs 06/30/18 16:00 06/30/18 16:13 06/30/18 17:00 Temperature 98.4 F Pulse Rate 86 90 86 Respiratory Rate 25 H 16 32 H Blood Pressure 121/66 111/58 L Pulse Oximetry 100 98 06/30/18 18:00 06/30/18 20:00 06/30/18 20:18 Temperature 98.2 F Pulse Rate 87 88 90 Respiratory Rate 24 29 H 22 Blood Pressure 112/59 L 105/64 Pulse Oximetry 97 96 07/01/18 00:00 07/01/18 00:03 07/01/18 00:15 Temperature 100.9 F H Pulse Rate 106 H 105 H 103 H Respiratory Rate 32 H 20 35 H Blood Pressure 115/83 Pulse Oximetry 95 96 07/01/18 00:30 07/01/18 00:45 07/01/18 01:00 Temperature Pulse Rate 96 H 96 H 91 H Respiratory Rate 30 H 23 21 Blood Pressure 114/57 L Pulse Oximetry 96 95 96 07/01/18 01:15 07/01/18 01:30 07/01/18 01:45 Temperature Pulse Rate 93 H 94 H 95 H Respiratory Rate 21 30 H 26 H Blood Pressure Pulse Oximetry 96 96 96 07/01/18 02:00 07/01/18 02:15 07/01/18 02:30 Temperature Pulse Rate 95 H 94 H 92 H Respiratory Rate 23 27 H 28 H Blood Pressure 94/52 L Pulse Oximetry 95 96 97 07/01/18 02:45 07/01/18 03:00 07/01/18 03:15 Temperature Pulse Rate 89 91 H 90 Respiratory Rate 23 21 22 Blood Pressure 126/70 Pulse Oximetry 96 98 98 07/01/18 03:30 07/01/18 03:45 07/01/18 03:48 Temperature Pulse Rate 88 84 92 H Respiratory Rate 24 16 17 Blood Pressure Pulse Oximetry 98 98 07/01/18 04:00 07/01/18 04:15 07/01/18 04:30 Temperature 99.1 F Pulse Rate 94 H 94 H 104 H Respiratory Rate 28 H 20 10 L Blood Pressure 154/78 H Pulse Oximetry 99 97 96 07/01/18 04:45 07/01/18 05:00 07/01/18 05:15 Temperature Pulse Rate 103 H 92 H 87 Respiratory Rate 37 H 18 17 Blood Pressure Pulse Oximetry 97 96 96 07/01/18 05:18 07/01/18 05:30 07/01/18 05:45 Temperature Pulse Rate 88 85 80 Respiratory Rate 22 17 16 Blood Pressure 131/68 Pulse Oximetry 96 96 96 07/01/18 06:00 07/01/18 06:03 07/01/18 06:15 Temperature Pulse Rate 82 81 81 Respiratory Rate 17 17 16 Blood Pressure 127/64 Pulse Oximetry 97 98 97 07/01/18 06:30 07/01/18 06:45 07/01/18 07:00 Temperature Pulse Rate 82 82 82 Respiratory Rate 17 17 18 Blood Pressure 126/65 Pulse Oximetry 98 98 99 07/01/18 07:15 07/01/18 07:30 07/01/18 07:45 Temperature Pulse Rate 83 79 83 Respiratory Rate 18 18 17 Blood Pressure 137/76 Pulse Oximetry 97 99 99 07/01/18 08:00 07/01/18 08:15 07/01/18 08:30 Temperature 98.7 F Pulse Rate 81 87 88 Respiratory Rate 17 20 19 Blood Pressure Pulse Oximetry 98 97 98 07/01/18 08:45 07/01/18 09:00 07/01/18 09:15 Temperature Pulse Rate 86 97 H 100 H Respiratory Rate 22 36 H 34 H Blood Pressure 142/70 H Pulse Oximetry 98 99 94 L 07/01/18 09:23 07/01/18 09:30 07/01/18 09:45 Temperature Pulse Rate 94 H 92 H 103 H Respiratory Rate 24 28 H 27 H Blood Pressure 142/69 H Pulse Oximetry 96 99 93 L 07/01/18 10:00 07/01/18 10:15 07/01/18 10:30 Temperature Pulse Rate 103 H 102 H 100 H Respiratory Rate 31 H 31 H 32 H Blood Pressure Pulse Oximetry 95 96 95 07/01/18 10:45 07/01/18 11:00 07/01/18 11:15 Temperature Pulse Rate 98 H 99 H 93 H Respiratory Rate 27 H 32 H 23 Blood Pressure 143/68 H Pulse Oximetry 95 96 97 07/01/18 11:30 07/01/18 11:45 07/01/18 12:00 Temperature 101.3 F H Pulse Rate 92 H 94 H 97 H Respiratory Rate 24 31 H 35 H Blood Pressure 129/65 Pulse Oximetry 96 96 95 07/01/18 12:15 07/01/18 12:30 Temperature Pulse Rate 94 H 92 H Respiratory Rate 28 H 29 H Blood Pressure Pulse Oximetry 97 95 Intake & Output 06/30/18 07/01/18 07/01/18 18:59 06:59 18:59 Intake Total 500 / 500 690 / 690 350 / 350 Output Total 425 / 425 Balance 500 / 500 265 / 265 350 / 350 Weight 107.3 kg Intake: IV 500 / 500 450 / 450 350 / 350 Heparin/D5W 25,000 U/250 mL 25, 250 / 250 000 unit In 250 ml @ Per Protocol IV.CONT TITRATE PRN Rx #:[id number] Activase Inj 40 MG In Sterile 40 / 40 Water for Inj 40 ML @ 50 mls/hr IV.SIG ONCE ONE Rx#:[id number] Activase Inj 10 MG In Sterile 10 / 10 Water for Injection 10 ML @ 60 mls/hr IV.SIG ONCE ONE Rx#: [id number] Azithromycin Inj 500 MG In NS 250 / 250 250 / 250 Inj 250 ML @ 250 mls/hr IV.SIG Q24H HUMAIRA Rx#:[id number] Zosyn 4.5 GM Premix 4.5 gm In 200 / 200 200 / 200 100 / 100 100 ml @ 200 mls/hr IV.SIG Q6H HUMAIRA Rx#:[id number] Oral 240 / 240 Output: Urine Amount (Catheter) 425 / 425 Indwelling Urethral Catheter 425 / 425 Other: # Incontinent Voids 1 # Urine Diapers 1 Date of Last Bowel Movement 06/29/18 06/29/18 06/29/18 Narrative: GENERAL: Well-nourished, well-developed -Dominican male lying in bed in no acute distress with his at the bedside. SKIN: Warm and dry. No rash. Appropriate capillary refill. HEENT: Atraumatic, normocephalic with extraocular motions intact. No rhinorrhea. No visible lymphadenopathy or jugulovenous distension appreciated. CARDIOVASCULAR: Tachycardic rate and regular rhythm without obvious murmurs, gallops, or rubs. 2+ pulses in all four extremities. RESPIRATORY: Difficult to appropriately auscultate bilateral lungs as patient states it is difficult to take deep breaths. Shallow breath sounds appreciated anteriorly bilaterally without obvious CRW at this time. Mild increase in respiratory effort with nasal cannula applied. GASTROINTESTINAL: Abdomen soft, non-tender, nondistended with positive bowel sounds. No masses appreciated. MUSCULOSKELETAL: No cyanosis or edema. No calf tenderness with SCDs in place. NEURO/PSYCH: Afocal. Awake, alert, and oriented x3. Normal speech and judgement. - Urinary Catheter Management Indwelling Urethral Catheter Cath placed during this visit: yes Reason for continuing: Hourly intake/output Insertion date: 06/30/18 Insertion time: 15:00 Condom Cath placed during this visit: no Results - Labs CBC & Chem 7: 07/01/18 03:00 07/01/18 03:00 Laboratory Results - last 24 hr 06/30/18 06/30/18 06/30/18 15:11 16:39 17:35 WBC 14.1 H RBC 4.03 L Hgb 9.6 L Hct 30.1 L MCV 74.8 L MCH 23.8 L MCHC 31.9 L RDW 16.2 Plt Count 205 MPV 8.1 Neut % (Auto) Lymph % (Auto) Stearns % (Auto) Eos % (Auto) Baso % (Auto) Neut # (Auto) Lymph # (Auto) Stearns # (Auto) Eos # (Auto) Baso # (Auto) WBC Differential Differential Comment PT 11.6 INR 1.1 APTT 89.1 H Sodium Potassium Chloride Carbon Dioxide Anion Gap BUN Creatinine Estimated GFR POC Glucose 205 H Random Glucose Calcium Total Bilirubin AST ALT Alkaline Phosphatase Total Protein Albumin 06/30/18 06/30/18 07/01/18 20:25 20:41 02:00 WBC RBC Hgb Hct MCV MCH MCHC RDW Plt Count MPV Neut % (Auto) Lymph % (Auto) Stearns % (Auto) Eos % (Auto) Baso % (Auto) Neut # (Auto) Lymph # (Auto) Stearns # (Auto) Eos # (Auto) Baso # (Auto) WBC Differential Differential Comment PT INR APTT 64.4 H D 66.0 H Sodium Potassium Chloride Carbon Dioxide Anion Gap BUN Creatinine Estimated GFR POC Glucose 179 H Random Glucose Calcium Total Bilirubin AST ALT Alkaline Phosphatase Total Protein Albumin 07/01/18 07/01/18 07/01/18 03:00 03:00 08:05 WBC 13.4 H RBC 3.77 L Hgb 9.0 L Hct 27.8 L MCV 73.6 L MCH 23.9 L MCHC 32.4 RDW 16.2 Plt Count 218 MPV 7.9 Neut % (Auto) 83.4 H Lymph % (Auto) 7.7 L Stearns % (Auto) 7.7 Eos % (Auto) 0.6 Baso % (Auto) 0.6 Neut # (Auto) 11.1 H Lymph # (Auto) 1.0 Stearns # (Auto) 1.0 H Eos # (Auto) 0.1 Baso # (Auto) 0.1 WBC Differential . Differential Comment Auto diff final PT INR APTT 58.5 H Sodium 133 L Potassium 3.3 L Chloride 94 L Carbon Dioxide 28.4 Anion Gap 11 BUN 12 Creatinine 0.93 Estimated GFR Greater than 89 POC Glucose Random Glucose 172 H Calcium 8.1 L Total Bilirubin 0.5 AST 25 ALT 52 Alkaline Phosphatase 132 H Total Protein 6.9 Albumin 2.0 L 07/01/18 07/01/18 09:10 11:49 WBC RBC Hgb Hct MCV MCH MCHC RDW Plt Count MPV Neut % (Auto) Lymph % (Auto) Stearns % (Auto) Eos % (Auto) Baso % (Auto) Neut # (Auto) Lymph # (Auto) Stearns # (Auto) Eos # (Auto) Baso # (Auto) WBC Differential Differential Comment PT INR APTT Sodium Potassium Chloride Carbon Dioxide Anion Gap BUN Creatinine Estimated GFR POC Glucose 174 H 251 H Random Glucose Calcium Total Bilirubin AST ALT Alkaline Phosphatase Total Protein Albumin Microbiology 06/30/18 18:30 Sputum - Expectorated Sputum Gram Stain - Final 06/30/18 18:30 Sputum - Expectorated Sputum Sputum Culture - Preliminary Heavy growth normal respiratory faustino at 24 hours 06/30/18 11:15 Blood - Peripheral Aerobic Blood Culture - Preliminary No growth in 1 day 06/30/18 11:15 Blood - Peripheral Anaerobic Blood Culture - Preliminary No growth in 1 day 06/30/18 11:10 Blood - Peripheral Aerobic Blood Culture - Preliminary No growth in 1 day 06/30/18 11:10 Blood - Peripheral Anaerobic Blood Culture - Preliminary No growth in 1 day 06/30/18 15:00 Urine - Catheterized Urine Streptococcus pneumoniae Antigen ( M - Final Presumptive negative for streptococcus pneumoniae antigen, suggesting no current or recent infection. Infection due to Streptococcus pneumoniae cannot be ruled out since the antigen present in the sample may be below the detection limit of the test. Assessment and Plan - Plan IMPRESSION ACUTE PE RESPIRATORY FAILURE, RESOLVED ANGIODEMA, RESOLVED MULUGETA, NON COMPLIANT PLAN ANTI COAGULATION O2 NEEDED INCREASE ACTIVITY NPSG POST DC
--- NOTE | 2018-07-01 17:30 | P.PNCC ---
Subjective Subjective Remarks/Hospital Course: 62-year-old male who is on enalapril for hypertension for many years tonight about an hour prior to presentation started feeling the swelling of the tongue mostly on the left side. This was getting significantly worse, he presented in the emergency department with difficulty speaking due to the mechanical obstruction of his tongue. He denies any tightness or swelling in his throat no sensation of choking however he immediately was given epi IM, Decadron 10 IV Benadryl 50 IV and he was not responding to medical management after 45 minutes. He was intubated for the airway protection by ED attending. 06/16: Remains sedated, orally intubated on mechanical ventilation. Tongue swelling decreasing. 06/17: Sedated, arousable, orally intubated on mechanical vent. Continues to have some tongue swelling currently. 06/18: Sedated, arousable, orally intubated on mechanical ventilation. Continues to have tongue swelling currently. 06/19: Remains sedated, arousable, orally intubated on mechanical ventilation. Continues to have tongue swelling. 06/20: edema somewhat improved. OG tube not in the stomach and tube feeds in the hypopharynx. replaced OGT and ordered CXR. also with distended abdomen today and no BM x 3 days. will need to have successful BM before weaning towards extubation. 06/21: abdominal distension is worse today. no BM yet despite aggressive attempts. still not able to successfully tolerate spontaneous breathing trials with degree of abdominal distension. KUB nonobstructive- will repeat today. 06/22: -2400 from NG tube since placement. Extubated today without complication. Will attempt to mobilize. Aggressive pulmonary and GI bowel regimen to be initiated 06/23: Extubated yesterday without complication. Out of bed to chair today. Passed swallow evaluation. Subjective 06/24: 22.3. Voice is more hoarse today. Able to identify uvula when opens mouth able to swallow adequately. On nasal cannula. 06/25: Patient developed worsening stridor last evening and required reintubation and was placed on mechanical ventilation. Vocal cords appeared okay per intubation note by Dr. Gross. Currently remains sedated, orally intubated on mechanical ventilation. 06/26: Arousable off sedation, following commands. Orally intubated on mechanical ventilation. Tolerating tube feeds. Started on Rocephin yesterday for H. influenzae pneumonia. 11/04: Patient developed sudden shortness of breath earlier today and CTA of the chest reveals a saddle pulmonary embolism. The right ventricular dimensions are moderately enlarged compared to the left side and the patient is quite short of breath. His oxygenation is fine with supplemental oxygen but his respiratory rate is labored and his work of breathing is increased. He underwent a joint replacement about 5 weeks ago and has no contraindications to thrombolytic therapy. I have discussed thrombolysis in detail with the patient and his at the bedside. They accept the risks including catastrophic hemorrhage and stroke and wish for us to proceed with lytic agents. 07/01: Received TPA followed by IV heparin. Clinically improved he claims breathing also improved. Appears comfortable. Heparin therapeutic Objective Vital Signs / I&O: Vital Signs 06/30/18 18:00 06/30/18 20:00 06/30/18 20:18 Temperature 98.2 F Pulse Rate 87 88 90 Respiratory Rate 24 29 H 22 Blood Pressure 112/59 L 105/64 Pulse Oximetry 97 96 07/01/18 00:00 07/01/18 00:03 07/01/18 00:15 Temperature 100.9 F H Pulse Rate 106 H 105 H 103 H Respiratory Rate 32 H 20 35 H Blood Pressure 115/83 Pulse Oximetry 95 96 07/01/18 00:30 07/01/18 00:45 07/01/18 01:00 Temperature Pulse Rate 96 H 96 H 91 H Respiratory Rate 30 H 23 21 Blood Pressure 114/57 L Pulse Oximetry 96 95 96 07/01/18 01:15 07/01/18 01:30 07/01/18 01:45 Temperature Pulse Rate 93 H 94 H 95 H Respiratory Rate 21 30 H 26 H Blood Pressure Pulse Oximetry 96 96 96 07/01/18 02:00 07/01/18 02:15 07/01/18 02:30 Temperature Pulse Rate 95 H 94 H 92 H Respiratory Rate 23 27 H 28 H Blood Pressure 94/52 L Pulse Oximetry 95 96 97 07/01/18 02:45 07/01/18 03:00 07/01/18 03:15 Temperature Pulse Rate 89 91 H 90 Respiratory Rate 23 21 22 Blood Pressure 126/70 Pulse Oximetry 96 98 98 07/01/18 03:30 07/01/18 03:45 07/01/18 03:48 Temperature Pulse Rate 88 84 92 H Respiratory Rate 24 16 17 Blood Pressure Pulse Oximetry 98 98 07/01/18 04:00 07/01/18 04:15 07/01/18 04:30 Temperature 99.1 F Pulse Rate 94 H 94 H 104 H Respiratory Rate 28 H 20 10 L Blood Pressure 154/78 H Pulse Oximetry 99 97 96 07/01/18 04:45 07/01/18 05:00 07/01/18 05:15 Temperature Pulse Rate 103 H 92 H 87 Respiratory Rate 37 H 18 17 Blood Pressure Pulse Oximetry 97 96 96 07/01/18 05:18 07/01/18 05:30 07/01/18 05:45 Temperature Pulse Rate 88 85 80 Respiratory Rate 22 17 16 Blood Pressure 131/68 Pulse Oximetry 96 96 96 07/01/18 06:00 07/01/18 06:03 07/01/18 06:15 Temperature Pulse Rate 82 81 81 Respiratory Rate 17 17 16 Blood Pressure 127/64 Pulse Oximetry 97 98 97 07/01/18 06:30 07/01/18 06:45 07/01/18 07:00 Temperature Pulse Rate 82 82 82 Respiratory Rate 17 17 18 Blood Pressure 126/65 Pulse Oximetry 98 98 99 07/01/18 07:15 07/01/18 07:30 07/01/18 07:45 Temperature Pulse Rate 83 79 83 Respiratory Rate 18 18 17 Blood Pressure 137/76 Pulse Oximetry 97 99 99 07/01/18 08:00 07/01/18 08:15 07/01/18 08:30 Temperature 98.7 F Pulse Rate 81 87 88 Respiratory Rate 17 20 19 Blood Pressure Pulse Oximetry 98 97 98 07/01/18 08:45 07/01/18 09:00 07/01/18 09:15 Temperature Pulse Rate 86 97 H 100 H Respiratory Rate 22 36 H 34 H Blood Pressure 142/70 H Pulse Oximetry 98 99 94 L 07/01/18 09:23 07/01/18 09:30 07/01/18 09:45 Temperature Pulse Rate 94 H 92 H 103 H Respiratory Rate 24 28 H 27 H Blood Pressure 142/69 H Pulse Oximetry 96 99 93 L 07/01/18 10:00 07/01/18 10:15 07/01/18 10:30 Temperature Pulse Rate 103 H 102 H 100 H Respiratory Rate 31 H 31 H 32 H Blood Pressure Pulse Oximetry 95 96 95 07/01/18 10:45 07/01/18 11:00 07/01/18 11:15 Temperature Pulse Rate 98 H 99 H 93 H Respiratory Rate 27 H 32 H 23 Blood Pressure 143/68 H Pulse Oximetry 95 96 97 07/01/18 11:30 07/01/18 11:45 07/01/18 12:00 Temperature 101.3 F H Pulse Rate 92 H 94 H 97 H Respiratory Rate 24 31 H 35 H Blood Pressure 129/65 Pulse Oximetry 96 96 95 07/01/18 12:15 07/01/18 12:30 Temperature Pulse Rate 94 H 92 H Respiratory Rate 28 H 29 H Blood Pressure Pulse Oximetry 97 95 Intake & Output 06/30/18 07/01/18 07/01/18 18:59 06:59 18:59 Intake Total 500 / 500 690 / 690 350 / 350 Output Total 425 / 425 Balance 500 / 500 265 / 265 350 / 350 Weight 107.3 kg Intake: IV 500 / 500 450 / 450 350 / 350 Heparin/D5W 25,000 U/250 mL 25, 250 / 250 000 unit In 250 ml @ Per Protocol IV.CONT TITRATE PRN Rx #:[id number] Activase Inj 40 MG In Sterile 40 / 40 Water for Inj 40 ML @ 50 mls/hr IV.SIG ONCE ONE Rx#:[id number] Activase Inj 10 MG In Sterile 10 / 10 Water for Injection 10 ML @ 60 mls/hr IV.SIG ONCE ONE Rx#: [id number] Azithromycin Inj 500 MG In NS 250 / 250 250 / 250 Inj 250 ML @ 250 mls/hr IV.SIG Q24H HUMAIRA Rx#:[id number] Zosyn 4.5 GM Premix 4.5 gm In 200 / 200 200 / 200 100 / 100 100 ml @ 200 mls/hr IV.SIG Q6H HUMAIRA Rx#:[id number] Oral 240 / 240 Output: Urine Amount (Catheter) 425 / 425 Indwelling Urethral Catheter 425 / 425 Other: # Incontinent Voids 1 # Urine Diapers 1 Date of Last Bowel Movement 06/29/18 06/29/18 06/29/18 Result Diagrams: 07/01/18 03:00 07/01/18 03:00 Objective Remarks: General: Pleasant alert gentleman Head: Atraumatic normal Neck: Supple no airway obstruction, no obstructive noises. Lungs: Clear bilaterally without wheezes or crackles, breathing comfortably Heart: Normal S1-S2, soft systolic murmur heard over apex, neck veins are full but not distended Abdomen: Soft, large, no guarding, bowel sounds are active, no tenderness. Extremities: Warm, well-perfused Neuro: Oriented x3, alert, speech is clear, moves 4 extremities to command and spontaneously with purpose. Assessment and Plan - Assessment and Plan Plan: Neuro/Psych: Acetaminophen 650 every 4 hours as needed fever Morphine sulfate 2 mg IV every 2 hours as needed pain Pulm: Saddle pulmonary embolus with right ventricular strain Acute angioedema resolved Severe laryngeal edema resolved TPA 50 mg dose, with heparin gtt infusion. Continue IV heparin Previously extubated 06/22 Required reintubation on 06/24 for stridor and worsening respiratory distress Albuterol/ipratropium aerosols every 4 hours while awake albuterol aerosols every 2 hours. Dyspnea Weaned off dexamethasone currently 4 mg every 12 hours, diphenhydramine 12.5 mill grams IV every 6 hours and famotidine 20 mg IV every [address] soft tissue disorder 06/24 unremarkable CV: Essential hypertension Off amlodipine 10 mg daily Continue triamterene/hydrochlorothiazide 37.5/25 1 tablet daily Continue isosorbide dinitrate 10 mg 3 times daily and hydralazine 50 mg 3 times daily As needed labetalol, hydralazine Nitropaste Enalapril added to his allergy GI: Ileus Clinically resolved : No indication for Brand Endo: Diabetes mellitus Acute hyperglycemia secondary to steroids Holding glimepiride 2 mg daily Sliding scale insulin aspart insulin high regimen AC/at bedtime to maintain euglycemia On insulin detemir 5 units twice daily. Renal: Creatinine currently within normal Accurate I's and O's Monitor urine output Heme: Microcytic anemia Monitor CBC daily. Follow trends per No indication for transfusion of blood products at this time ID: Monitor for signs and symptomatology infection FEN: Acute hypophosphatemia 30 mmol K-Phos IV times now. Recheck in a.m. Replace electrolytes as clinically indicated Access -Utilize peripheral IV. Central line if indicated Prophylaxis -GI -famotidine - -DVT SCD/heparin gtt PT evaluate and treat Overall impression: This gentleman is critically ill having sustained a sudden saddle pulmonary embolism with right ventricular strain and hypoxia. Fortunately his hemodynamics are acceptable and he is not in shock. Because of the clot burden his risk for long-standing pulmonary hypertension and right ventricular dysfunction is increased. For that reason we will give him TPA and continuous heparin infusion. The TPA dose will be 50 mg. Clinically improved with IV TPA and heparin. Discussed with family practice resident Dr. Crum. Critical care will sign off reconsult as needed Level 2
[2018-07-02] MEDS: Piperacil/Tazo 4.5 GM Premix 4.5 GM/100 ML BAG IV.SIG SCH ×4 (00:23→16:28)
[2018-07-02] MEDS: Oral Hygiene Kit OROPHARYNG SCH ×8 (00:23→15:44)
[2018-07-02 06:02] LABS: Hematocrit 25.8 % (39.0-51.0); Hemoglobin 8.4 gm/dL (13.0-17.0); Mean Corpuscular HGB Conc 32.5 % (32.0-36.0); Mean Corpuscular Hemoglobin 23.5 pg (27.0-34.0); Mean Corpuscular Volume 72.3 fL (80.0-100.0); Platelet Count 286 th/mm3 (150-450); Red Blood Count 3.58 mil/mm3 (4.50-5.90); Red Cell Distribution Width 15.9 % (11.6-17.2); White Blood Count 11.5 th/mm3 (4.0-11.0)
[2018-07-02] MEDS: amLODIPine 10 MG Tablet PO SCH (08:11)
[2018-07-02] MEDS: predniSONE 10 MG Tablet PO SCH (08:11)
[2018-07-02] MEDS: Senna/Docusate Sodium 8.6/50 MG Tablet PO SCH ×2 (08:11→21:08)
[2018-07-02] MEDS: Triamterene/HCTZ 37.5 MG/25 MG Tablet PO SCH (08:11)
[2018-07-02] MEDS: Bisacodyl 10 MG Supp RECTAL SCH (08:12)
[2018-07-02] MEDS: Insulin Detemir Inj 1,000 UNIT/10 ML Vial SQ SCH ×2 (08:12→21:10)
[2018-07-02] MEDS: Famotidine 20 MG Tablet PO SCH ×2 (08:12→21:09)
[2018-07-02] MEDS: Chlorhexidine 0.12% Oral Kit 15 ML UDC OROPHARYNG SCH ×4 (08:12→21:08)
[2018-07-02] MEDS: Insulin NovoLIN Regular Correctional Sugar Inj SQ SCH ×4 (08:33→21:10)
[2018-07-02] MEDS: Heparin Drip 25,000 UNIT/250 ML BAG IV.CONT PRN ×2 (09:11→23:00)
--- NOTE | 2018-07-02 09:27 | P.PNFP ---
Subjective Interval history: Patient seen and examined this morning. No acute events overnight per nursing staff. Patient with continued heart rate in the mid 80s-90s, increased respiratory rate with one documented fever up to 101.3 degrees over the last 24 hours. Nursing staff reports fever was treated with Tylenol which the patient responded to appropriately. Patient states that he continues to improve and feels that he is "90% better today." He is eager to increase his physical therapy at this time is hopeful to be "released to rehab soon." He currently has no other complaints other than his continued low back pain. Regarding his back pain, he states that the oxycodone "takes the edge off, but does not resolve his pain." We discussed that this pain is likely multifactorial as he has been deconditioned and is bedbound most of the day. He does state that the pain improves with ambulation. He goes on to deny complete review of systems including but not limited to any recent fevers, chills, chest pain, NVD, abdominal pain, or calf tenderness at this time. <Solis Crum H - 07/02/18 09:27> Results - Labs Result diagrams: 07/02/18 04:50 07/02/18 08:54 <Daljit Joya - 07/02/18 11:26> Abnormal lab results 07/01/18 07/01/18 07/01/18 Range/Units 11:49 16:31 21:28 WBC (4.0-11.0) th/mm3 RBC (4.50-5.90) mil/mm3 Hgb (13.0-17.0) gm/dL Hct (39.0-51.0) % MCV (80.0-100.0) fL MCH (27.0-34.0) pg APTT (23.4-31.7) sec Sodium (136-145) meq/L Potassium (3.5-5.1) meq/L Chloride (98-107) meq/L POC Glucose 251 H 192 H 183 H (68-110) mg/dl Random Glucose (74-106) mg/dL 07/02/18 07/02/18 07/02/18 Range/Units 04:50 08:29 08:54 WBC 11.5 H (4.0-11.0) th/mm3 RBC 3.58 L (4.50-5.90) mil/mm3 Hgb 8.4 L (13.0-17.0) gm/dL Hct 25.8 L (39.0-51.0) % MCV 72.3 L (80.0-100.0) fL MCH 23.5 L (27.0-34.0) pg APTT (23.4-31.7) sec Sodium 130 L (136-145) meq/L Potassium 3.4 L (3.5-5.1) meq/L Chloride 90 L (98-107) meq/L POC Glucose 168 H (68-110) mg/dl Random Glucose 152 H (74-106) mg/dL 07/02/18 Range/Units 08:54 WBC (4.0-11.0) th/mm3 RBC (4.50-5.90) mil/mm3 Hgb (13.0-17.0) gm/dL Hct (39.0-51.0) % MCV (80.0-100.0) fL MCH (27.0-34.0) pg APTT 58.6 H (23.4-31.7) sec Sodium (136-145) meq/L Potassium (3.5-5.1) meq/L Chloride (98-107) meq/L POC Glucose (68-110) mg/dl Random Glucose (74-106) mg/dL Short CBC 07/02/18 Range/Units 04:50 WBC 11.5 H (4.0-11.0) th/mm3 Hgb 8.4 L (13.0-17.0) gm/dL Hct 25.8 L (39.0-51.0) % Plt Count 286 D (150-450) th/mm3 BMP 07/02/18 08:54 Sodium 130 L Potassium 3.4 L Chloride 90 L Carbon Dioxide 30.0 BUN 10 Creatinine 0.90 Calcium 8.6 <Daljit Joya - 07/02/18 11:26> Abnormal lab results 07/01/18 07/01/18 07/01/18 Range/Units 09:10 11:49 16:31 WBC (4.0-11.0) th/mm3 RBC (4.50-5.90) mil/mm3 Hgb (13.0-17.0) gm/dL Hct (39.0-51.0) % MCV (80.0-100.0) fL MCH (27.0-34.0) pg POC Glucose 174 H 251 H 192 H (68-110) mg/dl 07/01/18 07/02/18 07/02/18 Range/Units 21:28 04:50 08:29 WBC 11.5 H (4.0-11.0) th/mm3 RBC 3.58 L (4.50-5.90) mil/mm3 Hgb 8.4 L (13.0-17.0) gm/dL Hct 25.8 L (39.0-51.0) % MCV 72.3 L (80.0-100.0) fL MCH 23.5 L (27.0-34.0) pg POC Glucose 183 H 168 H (68-110) mg/dl Short CBC 07/02/18 Range/Units 04:50 WBC 11.5 H (4.0-11.0) th/mm3 Hgb 8.4 L (13.0-17.0) gm/dL Hct 25.8 L (39.0-51.0) % Plt Count 286 D (150-450) th/mm3 <RadamesSolis H - 07/02/18 09:27> Physical Exam Vital signs: Vital Signs 07/01/18 11:30 07/01/18 11:45 07/01/18 12:00 Temperature 101.3 F H Pulse Rate 92 H 94 H 97 H Respiratory Rate 24 31 H 35 H Blood Pressure 129/65 Pulse Oximetry 96 96 95 07/01/18 12:15 07/01/18 12:30 07/01/18 12:45 Temperature Pulse Rate 94 H 92 H 90 Respiratory Rate 28 H 29 H 12 Blood Pressure 137/63 Pulse Oximetry 97 95 95 07/01/18 13:00 07/01/18 13:45 07/01/18 14:00 Temperature Pulse Rate 90 85 85 Respiratory Rate 21 27 H 23 Blood Pressure 129/61 Pulse Oximetry 95 96 96 07/01/18 14:45 07/01/18 15:00 07/01/18 15:45 Temperature Pulse Rate 84 83 78 Respiratory Rate 13 15 18 Blood Pressure 139/67 149/70 H Pulse Oximetry 97 97 98 07/01/18 16:00 07/01/18 16:45 07/01/18 17:00 Temperature 98.8 F Pulse Rate 88 79 85 Respiratory Rate 21 19 25 H Blood Pressure 150/69 H Pulse Oximetry 99 98 99 07/01/18 17:24 07/01/18 19:00 07/01/18 19:45 Temperature Pulse Rate 87 90 89 Respiratory Rate 24 26 H 18 Blood Pressure 140/68 Pulse Oximetry 100 100 07/01/18 20:00 07/01/18 20:45 07/01/18 20:54 Temperature 100.9 F H Pulse Rate 97 H 92 H 96 H Respiratory Rate 14 23 22 Blood Pressure 138/67 Pulse Oximetry 100 95 95 07/01/18 21:00 07/01/18 21:45 07/01/18 22:00 Temperature Pulse Rate 94 H 98 H 87 Respiratory Rate 29 H 33 H 22 Blood Pressure 142/70 H 142/70 H Pulse Oximetry 97 100 100 07/01/18 22:45 07/01/18 23:00 07/01/18 23:45 Temperature Pulse Rate 91 H 92 H 94 H Respiratory Rate 30 H 32 H 31 H Blood Pressure 142/74 H 135/68 Pulse Oximetry 100 100 100 07/02/18 00:00 07/02/18 00:08 07/02/18 00:45 Temperature 99.0 F Pulse Rate 93 H 94 H 89 Respiratory Rate 30 H 22 21 Blood Pressure 145/68 H Pulse Oximetry 94 L 07/02/18 01:00 07/02/18 01:45 07/02/18 02:00 Temperature Pulse Rate 86 81 80 Respiratory Rate 19 19 20 Blood Pressure 146/72 H Pulse Oximetry 95 95 95 07/02/18 02:45 07/02/18 03:00 07/02/18 03:45 Temperature Pulse Rate 81 86 90 Respiratory Rate 20 24 27 H Blood Pressure 131/70 146/76 H Pulse Oximetry 95 96 95 07/02/18 04:00 07/02/18 04:06 07/02/18 04:45 Temperature 99.1 F Pulse Rate 87 87 95 H Respiratory Rate 28 H 21 32 H Blood Pressure 146/71 H Pulse Oximetry 94 L 93 L 07/02/18 05:00 07/02/18 05:45 07/02/18 06:00 Temperature Pulse Rate 96 H 84 86 Respiratory Rate 34 H 22 27 H Blood Pressure 148/70 H Pulse Oximetry 93 L 94 L 95 07/02/18 06:45 07/02/18 07:00 07/02/18 07:44 Temperature Pulse Rate 89 89 84 Respiratory Rate 31 H 10 L 17 Blood Pressure 142/66 H Pulse Oximetry 96 97 96 07/02/18 07:45 07/02/18 08:00 07/02/18 08:45 Temperature 98.7 F Pulse Rate 84 92 H 92 H Respiratory Rate 22 30 H 29 H Blood Pressure 141/65 H 155/72 H Pulse Oximetry 100 95 93 L 07/02/18 09:00 07/02/18 09:03 07/02/18 09:45 Temperature Pulse Rate 90 94 H Respiratory Rate 28 H 22 28 H Blood Pressure 168/76 H Pulse Oximetry 93 L 92 L 07/02/18 10:00 07/02/18 10:40 07/02/18 10:45 Temperature Pulse Rate 95 H 98 H 93 H Respiratory Rate 30 H 35 H 34 H Blood Pressure 168/79 H 162/69 H Pulse Oximetry 92 L 93 L 93 L 07/02/18 11:00 07/02/18 11:15 Temperature Pulse Rate 95 H 93 H Respiratory Rate 30 H 17 Blood Pressure Pulse Oximetry 93 L Intake & Output 07/01/18 07/02/18 07/02/18 18:59 06:59 18:59 Intake Total 1040 / 1040 300 / 300 250 / 250 Output Total 800 / 800 700 / 700 Balance 240 / 240 -400 / -400 250 / 250 Weight 111.1 kg Intake: IV 600 / 600 300 / 300 250 / 250 Heparin/D5W 25,000 U/250 mL 25, 250 / 250 250 / 250 000 unit In 250 ml @ Per Protocol IV.CONT TITRATE PRN Rx #:[id number] Azithromycin Inj 500 MG In NS 250 / 250 Inj 250 ML @ 250 mls/hr IV.SIG Q24H HUMAIRA Rx#:[id number] Zosyn 4.5 GM Premix 4.5 gm In 100 / 100 300 / 300 100 ml @ 200 mls/hr IV.SIG Q6H HUMAIRA Rx#:[id number] Oral 440 / 440 Output: Urine Amount (Catheter) 800 / 800 700 / 700 Indwelling Urethral Catheter 800 / 800 700 / 700 Other: Date of Last Bowel Movement 06/29/18 06/29/18 06/29/18 <Prevatte,Daljit - 07/02/18 11:26> Vital Signs 07/01/18 09:15 07/01/18 09:23 07/01/18 09:30 Temperature Pulse Rate 100 H 94 H 92 H Respiratory Rate 34 H 24 28 H Blood Pressure Pulse Oximetry 94 L 96 99 07/01/18 09:45 07/01/18 10:00 07/01/18 10:15 Temperature Pulse Rate 103 H 103 H 102 H Respiratory Rate 27 H 31 H 31 H Blood Pressure 142/69 H Pulse Oximetry 93 L 95 96 07/01/18 10:30 07/01/18 10:45 07/01/18 11:00 Temperature Pulse Rate 100 H 98 H 99 H Respiratory Rate 32 H 27 H 32 H Blood Pressure 143/68 H Pulse Oximetry 95 95 96 07/01/18 11:15 07/01/18 11:30 07/01/18 11:45 Temperature Pulse Rate 93 H 92 H 94 H Respiratory Rate 23 24 31 H Blood Pressure 129/65 Pulse Oximetry 97 96 96 07/01/18 12:00 07/01/18 12:15 07/01/18 12:30 Temperature 101.3 F H Pulse Rate 97 H 94 H 92 H Respiratory Rate 35 H 28 H 29 H Blood Pressure Pulse Oximetry 95 97 95 07/01/18 12:45 07/01/18 13:00 07/01/18 13:45 Temperature Pulse Rate 90 90 85 Respiratory Rate 12 21 27 H Blood Pressure 137/63 129/61 Pulse Oximetry 95 95 96 07/01/18 14:00 07/01/18 14:45 07/01/18 15:00 Temperature Pulse Rate 85 84 83 Respiratory Rate 23 13 15 Blood Pressure 139/67 Pulse Oximetry 96 97 97 07/01/18 15:45 07/01/18 16:00 07/01/18 16:45 Temperature 98.8 F Pulse Rate 78 88 79 Respiratory Rate 18 21 19 Blood Pressure 149/70 H 150/69 H Pulse Oximetry 98 99 98 07/01/18 17:00 07/01/18 17:24 07/01/18 19:00 Temperature Pulse Rate 85 87 90 Respiratory Rate 25 H 24 26 H Blood Pressure Pulse Oximetry 99 100 07/01/18 19:45 07/01/18 20:00 07/01/18 20:45 Temperature 100.9 F H Pulse Rate 89 97 H 92 H Respiratory Rate 18 14 23 Blood Pressure 140/68 138/67 Pulse Oximetry 100 100 95 07/01/18 20:54 07/01/18 21:00 07/01/18 21:45 Temperature Pulse Rate 96 H 94 H 98 H Respiratory Rate 22 29 H 33 H Blood Pressure 142/70 H Pulse Oximetry 95 97 100 07/01/18 22:00 07/01/18 22:45 07/01/18 23:00 Temperature Pulse Rate 87 91 H 92 H Respiratory Rate 22 30 H 32 H Blood Pressure 142/70 H 142/74 H Pulse Oximetry 100 100 100 07/01/18 23:45 07/02/18 00:00 07/02/18 00:08 Temperature 99.0 F Pulse Rate 94 H 93 H 94 H Respiratory Rate 31 H 30 H 22 Blood Pressure 135/68 Pulse Oximetry 100 07/02/18 00:45 07/02/18 01:00 07/02/18 01:45 Temperature Pulse Rate 89 86 81 Respiratory Rate 21 19 19 Blood Pressure 145/68 H 146/72 H Pulse Oximetry 94 L 95 95 07/02/18 02:00 07/02/18 02:45 07/02/18 03:00 Temperature Pulse Rate 80 81 86 Respiratory Rate 20 20 24 Blood Pressure 131/70 Pulse Oximetry 95 95 96 07/02/18 03:45 07/02/18 04:00 07/02/18 04:06 Temperature 99.1 F Pulse Rate 90 87 87 Respiratory Rate 27 H 28 H 21 Blood Pressure 146/76 H Pulse Oximetry 95 94 L 07/02/18 04:45 07/02/18 05:00 07/02/18 05:45 Temperature Pulse Rate 95 H 96 H 84 Respiratory Rate 32 H 34 H 22 Blood Pressure 146/71 H 148/70 H Pulse Oximetry 93 L 93 L 94 L 07/02/18 06:00 07/02/18 06:45 07/02/18 07:00 Temperature Pulse Rate 86 89 89 Respiratory Rate 27 H 31 H 10 L Blood Pressure 142/66 H Pulse Oximetry 95 96 97 07/02/18 07:44 07/02/18 08:00 Temperature Pulse Rate 84 92 H Respiratory Rate 17 Blood Pressure Pulse Oximetry 96 93 L Intake & Output 11/05/18 11/06/18 11/06/18 18:59 06:59 18:59 Intake Total 1040 / 1040 200 / 200 Output Total 800 / 800 700 / 700 Balance 240 / 240 -500 / -500 Weight 111.1 kg Intake: IV 600 / 600 200 / 200 Heparin/D5W 25,000 U/250 mL 25, 250 / 250 000 unit In 250 ml @ Per Protocol IV.CONT TITRATE PRN Rx #:[id number] Azithromycin Inj 500 MG In NS 250 / 250 Inj 250 ML @ 250 mls/hr IV.SIG Q24H HUMAIRA Rx#:[id number] Zosyn 4.5 GM Premix 4.5 gm In 100 / 100 200 / 200 100 ml @ 200 mls/hr IV.SIG Q6H HUMAIRA Rx#:[id number] Oral 440 / 440 Output: Urine Amount (Catheter) 800 / 800 700 / 700 Indwelling Urethral Catheter 800 / 800 700 / 700 Other: Date of Last Bowel Movement 06/29/18 06/29/18 06/29/18 <Solis Crum - 07/02/18 09:27> Narrative: GENERAL: Well-nourished, well-developed -[place] male lying in bed in no acute distress. SKIN: Warm and dry. No rash. Appropriate capillary refill. Patient with large areas of healing ulcerations on his upper lip secondary to being intubated per patient report. Area appears to have granulation tissue appropriately. HEENT: Atraumatic, normocephalic with extraocular motions intact. No rhinorrhea. No visible lymphadenopathy or jugulovenous distension appreciated. CARDIOVASCULAR: Tachycardic rate and regular rhythm without obvious murmurs, gallops, or rubs. 2+ pulses in all four extremities. RESPIRATORY: Improved breath sounds appreciated anteriorly bilaterally without obvious CRW at this time. Patient is able to take deeper breaths during exam today. Mild increase in respiratory effort with nasal cannula applied. GASTROINTESTINAL: Abdomen soft, non-tender, nondistended with positive bowel sounds. No masses appreciated. MUSCULOSKELETAL: No cyanosis or edema. No calf tenderness with SCDs in place. NEURO/PSYCH: Afocal. Awake, alert, and oriented x3. Normal speech and judgement. <Solis Crum - 07/02/18 09:27> - Urinary Catheter Management Condom Cath placed during this visit: no <Daljit Joya - 07/02/18 11:26> no <Solis Crum - 07/02/18 11:21> Indwelling Urethral Catheter Cath placed during this visit: no <BuffyWilmer foleyDaljit - 07/02/18 11:26> yes <Solis Crum - 07/02/18 11:21> Reason for continuing: Hourly intake/output <Solis Crum - 07/02/18 09:27> Insertion date: 06/30/18 <Solis Crum - 07/02/18 09:27> Insertion time: 15:00 <Solis Crum - 07/02/18 09:27> Assessment and Plan - Assessment (1) Acute saddle pulmonary embolism Code(s): I26.92 - Saddle embolus of pulmonary artery without acute cor pulmonale Status: Acute (2) Pneumonia Code(s): J18.9 - Pneumonia, unspecified organism Status: Acute (3) Severe sepsis Code(s): A41.9 - Sepsis, unspecified organism; R65.20 - Severe sepsis without septic shock Status: Resolved (4) Angioedema Code(s): T78.3XXA - Angioneurotic edema, initial encounter Status: Acute (5) Weakness acquired in ICU Code(s): R53.1 - Weakness Status: Acute (6) Hypertension Code(s): I10 - Essential (primary) hypertension Status: Chronic (7) Type 2 diabetes mellitus Code(s): E11.9 - Type 2 diabetes mellitus without complications Status: Acute (8) Anemia Code(s): D64.9 - Anemia, unspecified Status: Acute (9) Hyperlipidemia Code(s): E78.5 - Hyperlipidemia, unspecified Status: Chronic <Daljit Joya - 07/02/18 11:26> (1) Acute saddle pulmonary embolism Code(s): I26.92 - Saddle embolus of pulmonary artery without acute cor pulmonale Status: Acute Plan: Patient presenting with fever overnight on 06/30/18 with shortness of breath and tachycardia. CTA 06/30/18: Acute pulmonary embolism with moderate size and central location extending across the pulmonary trunk bifurcation into the lobar pulmonary arteries. Basilar consolidating infiltrate was segmental consolidation in the right lower lobe. Patient was transferred to the ICU, Supplies Packer consulted, and consented for bedside TPA 50mg. Patient did not require repeat dosing of TPA 07/01/18 Patient currently on heparin drip per protocol Medical team to reach out to pulmonology for complete recommendations regarding length of heparin drip and transitioning to oral anticoagulant (2) Pneumonia Code(s): J18.9 - Pneumonia, unspecified organism Status: Acute Plan: Patient was started on Rocephin on 06/25 for H. influenzae pneumonia. Completed 5 day course on 06/29 -Sputum culture 06/30: Heavy growth normal respiratory faustino at 24 hours Streptococcus urinary antigen negative -Continue IS -Chest x-ray 06/30/18: Persistent bibasilar opacity greater on the left with no significant change compared to prior study -Lactic acid 3.7 Blood cultures: Negative to date Patient restarted on Zosyn and Azithromycin (07/01) Medical team to reach out to pulmonology for recommendations to de-escalate antibiotic therapy (3) Severe sepsis Code(s): A41.9 - Sepsis, unspecified organism; R65.20 - Severe sepsis without septic shock Status: Resolved Plan: Patient presenting in severe sepsis with leukocytosis, elevated respiratory rate, and tachycardia on 07/01/18 with suspected pneumonia. Patient recently completed a course of Rocephin for Haemophilus influenza pneumonia Likely related to acute saddle pulmonary embolism, see above Lactic acid 3.7 Patient restarted on Zosyn and azithromycin (07/01) (4) Angioedema Code(s): T78.3XXA - Angioneurotic edema, initial encounter Status: Acute Plan: Resolved after patient was intubated in ICU for almost 2 weeks on high-dose steroids. -On oral steroid taper through 07/04 -Pulmonology consulted -Recommend oxygen as needed -NPSG post discharge -May need re-consulted if worsening of breathing/lung status -Monitor breathing and swallowing status (5) Weakness acquired in ICU Code(s): R53.1 - Weakness Status: Acute Plan: PT and OT consults -Recommend inpatient rehab -Plan to d/c to [place] when stable (6) Hypertension Code(s): I10 - Essential (primary) hypertension Status: Chronic Plan: Avoid ACEi and ARB due to angioedema BPs improving -Amlodipine 10 mg daily -Continue triamterene/hydrochlorothiazide 37.5/25 1 tablet daily -Hydralazine PRN BP (7) Type 2 diabetes mellitus Code(s): E11.9 - Type 2 diabetes mellitus without complications Status: Acute Plan: Holding glimepiride 2 mg daily; restart upon discharge Sliding scale insulin aspart insulin high regimen AC/at bedtime to maintain euglycemia On insulin detemir 5 units twice daily. Hypoglycemia protocol. Regular accuchecks (8) Anemia Code(s): D64.9 - Anemia, unspecified Status: Acute Plan: Microcytic anemia present since admission. Stable Hgb/Hct. Continue to monitor Monitor for signs of bleeding (9) Hyperlipidemia Code(s): E78.5 - Hyperlipidemia, unspecified Status: Chronic Plan: -Continue home medication of statin and aspirin <Solis Crum H - 07/02/18 11:19> - Assessment and Plan 62-year-old male who was on enalapril for hypertension for many years presented to the ED with swelling of the tongue mostly on the left side. This was getting significantly worse, he presented in the emergency department with difficulty speaking due to the mechanical obstruction of his tongue. He immediately was given epi IM, Decadron 10 IV, Benadryl 50 IV, and he was not responding to medical management after 45 minutes. He was intubated for the airway protection by ED attending and remained intubated and ventilated in the ICU until 06/22 when he was extubated. On 06/24, patient developed stridor and was reintubated and ventilated (vocal cords appeared ok). CT soft tissue disorder 06/24 unremarkable. On 06/25, patient was started on Rocephin for H. influenzae pneumonia. On 06/26, patient was successfully extubated. He remained in the ICU for almost 24 hours prior to transfer to med/surg floor for PT/OT consults and recommendations. On 06/30/18 patient presented to medical team with severe sepsis with presumed pneumonia and lactic acid of 3.7. Patient was started on azithromycin and Zosyn for antibiotic coverage. CTA was ordered which showed an acute saddle pulmonary embolism. Patient was transferred to the ICU and consented for bedside TPA which patient responded to appropriately. Fluids: none Electrolytes: monitor, replace PRN Nutrition: regular diet DVT ppx: s/p TPA, currently on Heparin drip GI ppx: Famotidine Pain medication: [place]/tylenol PRN <Solis Crum H - 07/02/18 09:27> - Attending Attestation Patient seen and examined. Discussed with Dr. Crum. Agree with assessment and plan as documented. <Daljit Joya - 07/02/18 11:26> <Solis Crum - Last Filed: 07/02/18 11:19> (2) Pneumonia Qualifiers: Pneumonia type: due to Haemophilus influenzae (8) Anemia Qualifiers: Anemia type: unspecified type Qualified Code(s): D64.9 - Anemia, unspecified <Daljit Joya - Last Filed: 07/02/18 11:26> (2) Pneumonia Qualifiers: Pneumonia type: due to Haemophilus influenzae (8) Anemia Qualifiers: Anemia type: unspecified type Qualified Code(s): D64.9 - Anemia, unspecified <Solis Crum H - Last Filed: 07/02/18 11:19> (2) Pneumonia Qualifiers: Pneumonia type: due to Haemophilus influenzae (8) Anemia Qualifiers: Anemia type: unspecified type Qualified Code(s): D64.9 - Anemia, unspecified <Daljit Joay - Last Filed: 07/02/18 11:26> (2) Pneumonia Qualifiers: Pneumonia type: due to Haemophilus influenzae (8) Anemia Qualifiers: Anemia type: unspecified type Qualified Code(s): D64.9 - Anemia, unspecified
[2018-07-02 09:43] LABS: Anion Gap 10 meq/L (5-15); Blood Urea Nitrogen 10 mg/dL (7-18); Calcium 8.6 mg/dL (8.5-10.1); Chloride 90 meq/L (98-107); Glomerular Filtration Rate Greater Than 89 mL/min (>89); Glucose,Random 152 mg/dL (74-106); Magnesium 2.3 mg/dL (1.5-2.5); Potassium 3.4 meq/L (3.5-5.1); Sodium 130 meq/L (136-145)
[2018-07-02] MEDS: Azithromycin Inj 500 MG in Sodium Chlor 0.9% Inj 250 ML IV.SIG SCH (10:50)
[2018-07-02] MEDS ORDERED: Insulin Detemir Inj 1,000 UNIT/10 ML Vial SQ SCH (12:29)
[2018-07-02] MEDS ORDERED: Insulin Detemir Inj 1,000 UNIT/10 ML Vial SQ ONE (13:33)
--- NOTE | 2018-07-02 13:53 | XR ---
EXAM DATE: 07/02/2018 1:08 PM EST AGE/SEX: 62 years / Male INDICATIONS: Evaluate pneumonia, some coughing and shortness of breath mostly at night CLINICAL DATA: This is the patient's subsequent encounter. Patient reports that signs and symptoms h ave been present for 2 weeks and indicates a pain score of 0/10. MEDICAL/SURGICAL HISTORY: Hypertension. Diabetes. pneumonia Pneumonectomy. COMPARISON: [facility] – [place], CHEST 1V SINGLE AP, 06/30/2018. . FINDINGS: Right lung base opacity is present may be due to a combination of consolidation and or pleural effusi on. Left basilar opacity is also seen may be technical due to overlap of soft tissues, however small left pleural effusion is difficult to exclude. CONCLUSION: Right lung base opacity is present may be due to a combination of consolidation and or pleural effusi on, partially could be technical. Electronically signed by: Walter Shelton MD 07/02/2018 1:51 PM EST
--- NOTE | 2018-07-02 15:32 | P.PN ---
Subjective Interval history: alert no sob Physical Exam Vital signs: Vital Signs 07/01/18 15:45 07/01/18 16:00 07/01/18 16:45 Temperature 98.8 F Pulse Rate 78 88 79 Respiratory Rate 18 21 19 Blood Pressure 149/70 H 150/69 H Pulse Oximetry 98 99 98 07/01/18 17:00 07/01/18 17:24 07/01/18 19:00 Temperature Pulse Rate 85 87 90 Respiratory Rate 25 H 24 26 H Blood Pressure Pulse Oximetry 99 100 07/01/18 19:45 07/01/18 20:00 07/01/18 20:45 Temperature 100.9 F H Pulse Rate 89 97 H 92 H Respiratory Rate 18 14 23 Blood Pressure 140/68 138/67 Pulse Oximetry 100 100 95 07/01/18 20:54 07/01/18 21:00 07/01/18 21:45 Temperature Pulse Rate 96 H 94 H 98 H Respiratory Rate 22 29 H 33 H Blood Pressure 142/70 H Pulse Oximetry 95 97 100 07/01/18 22:00 07/01/18 22:45 07/01/18 23:00 Temperature Pulse Rate 87 91 H 92 H Respiratory Rate 22 30 H 32 H Blood Pressure 142/70 H 142/74 H Pulse Oximetry 100 100 100 07/01/18 23:45 07/02/18 00:00 07/02/18 00:08 Temperature 99.0 F Pulse Rate 94 H 93 H 94 H Respiratory Rate 31 H 30 H 22 Blood Pressure 135/68 Pulse Oximetry 100 07/02/18 00:45 07/02/18 01:00 07/02/18 01:45 Temperature Pulse Rate 89 86 81 Respiratory Rate 21 19 19 Blood Pressure 145/68 H 146/72 H Pulse Oximetry 94 L 95 95 07/02/18 02:00 07/02/18 02:45 07/02/18 03:00 Temperature Pulse Rate 80 81 86 Respiratory Rate 20 20 24 Blood Pressure 131/70 Pulse Oximetry 95 95 96 07/02/18 03:45 07/02/18 04:00 07/02/18 04:06 Temperature 99.1 F Pulse Rate 90 87 87 Respiratory Rate 27 H 28 H 21 Blood Pressure 146/76 H Pulse Oximetry 95 94 L 07/02/18 04:45 07/02/18 05:00 11/06/18 05:45 Temperature Pulse Rate 95 H 96 H 84 Respiratory Rate 32 H 34 H 22 Blood Pressure 146/71 H 148/70 H Pulse Oximetry 93 L 93 L 94 L 07/02/18 06:00 07/02/18 06:45 07/02/18 07:00 Temperature Pulse Rate 86 89 89 Respiratory Rate 27 H 31 H 10 L Blood Pressure 142/66 H Pulse Oximetry 95 96 97 07/02/18 07:44 07/02/18 07:45 07/02/18 08:00 Temperature 98.7 F Pulse Rate 84 84 92 H Respiratory Rate 17 22 30 H Blood Pressure 141/65 H Pulse Oximetry 96 100 95 07/02/18 08:45 07/02/18 09:00 07/02/18 09:03 Temperature Pulse Rate 92 H 90 Respiratory Rate 29 H 28 H 22 Blood Pressure 155/72 H Pulse Oximetry 93 L 93 L 07/02/18 09:45 07/02/18 10:00 07/02/18 10:40 Temperature Pulse Rate 94 H 95 H 98 H Respiratory Rate 28 H 30 H 35 H Blood Pressure 168/76 H 168/79 H Pulse Oximetry 92 L 92 L 93 L 07/02/18 10:45 07/02/18 11:00 07/02/18 11:15 Temperature Pulse Rate 93 H 95 H 93 H Respiratory Rate 34 H 30 H 17 Blood Pressure 162/69 H Pulse Oximetry 93 L 93 L 07/02/18 12:00 07/02/18 13:00 07/02/18 14:05 Temperature 98.6 F Pulse Rate 96 H 98 H 95 H Respiratory Rate 27 H 26 H Blood Pressure Pulse Oximetry 90 L 93 L 97 07/02/18 14:13 Temperature Pulse Rate 90 Respiratory Rate 19 Blood Pressure 147/58 H Pulse Oximetry 97 Intake & Output 07/01/18 07/02/18 07/02/18 18:59 06:59 18:59 Intake Total 1040 / 1040 300 / 300 350 / 350 Output Total 800 / 800 700 / 700 Balance 240 / 240 -400 / -400 350 / 350 Weight 111.1 kg Intake: IV 600 / 600 300 / 300 350 / 350 Heparin/D5W 25,000 U/250 mL 25, 250 / 250 250 / 250 000 unit In 250 ml @ Per Protocol IV.CONT TITRATE PRN Rx #:[id number] Azithromycin Inj 500 MG In NS 250 / 250 Inj 250 ML @ 250 mls/hr IV.SIG Q24H HUMAIRA Rx#:[id number] Zosyn 4.5 GM Premix 4.5 gm In 100 / 100 300 / 300 100 / 100 100 ml @ 200 mls/hr IV.SIG Q6H HUMAIRA Rx#:[id number] Oral 440 / 440 Output: Urine Amount (Catheter) 800 / 800 700 / 700 Indwelling Urethral Catheter 800 / 800 700 / 700 Other: Date of Last Bowel Movement 06/29/18 06/29/18 06/29/18 Narrative: GENERAL: Well-nourished, well-developed -[place] male lying in bed in no acute distress. SKIN: Warm and dry. No rash. Appropriate capillary refill. Patient with large areas of healing ulcerations on his upper lip secondary to being intubated per patient report. Area appears to have granulation tissue appropriately. HEENT: Atraumatic, normocephalic with extraocular motions intact. No rhinorrhea. No visible lymphadenopathy or jugulovenous distension appreciated. CARDIOVASCULAR: Tachycardic rate and regular rhythm without obvious murmurs, gallops, or rubs. 2+ pulses in all four extremities. RESPIRATORY: Improved breath sounds appreciated anteriorly bilaterally without obvious CRW at this time. Patient is able to take deeper breaths during exam today. Mild increase in respiratory effort with nasal cannula applied. GASTROINTESTINAL: Abdomen soft, non-tender, nondistended with positive bowel sounds. No masses appreciated. MUSCULOSKELETAL: No cyanosis or edema. No calf tenderness with SCDs in place. NEURO/PSYCH: Afocal. Awake, alert, and oriented x3. Normal speech and judgement. - Urinary Catheter Management Indwelling Urethral Catheter Cath placed during this visit: yes, but has since been removed by the nurse Reason for continuing: Hourly intake/output Insertion date: 06/30/18 Insertion time: 15:00 Removal date: 07/02/18 Removal time: 14:20 Condom Cath placed during this visit: no Results - Labs CBC & Chem 7: 07/02/18 04:50 07/02/18 08:54 Laboratory Results - last 24 hr 07/01/18 07/01/18 07/02/18 16:31 21:28 04:50 WBC 11.5 H RBC 3.58 L Hgb 8.4 L Hct 25.8 L MCV 72.3 L MCH 23.5 L MCHC 32.5 RDW 15.9 Plt Count 286 D MPV 8.0 APTT Sodium Potassium Chloride Carbon Dioxide Anion Gap BUN Creatinine Estimated GFR POC Glucose 192 H 183 H Random Glucose Calcium Magnesium 07/02/18 07/02/18 07/02/18 08:29 08:54 08:54 WBC RBC Hgb Hct MCV MCH MCHC RDW Plt Count MPV APTT 58.6 H Sodium 130 L Potassium 3.4 L Chloride 90 L Carbon Dioxide 30.0 Anion Gap 10 BUN 10 Creatinine 0.90 Estimated GFR Greater than 89 POC Glucose 168 H Random Glucose 152 H Calcium 8.6 Magnesium 2.3 07/02/18 12:10 WBC RBC Hgb Hct MCV MCH MCHC RDW Plt Count MPV APTT Sodium Potassium Chloride Carbon Dioxide Anion Gap BUN Creatinine Estimated GFR POC Glucose 316 H Random Glucose Calcium Magnesium Microbiology 06/30/18 18:30 Sputum - Expectorated Sputum Gram Stain - Final 06/30/18 18:30 Sputum - Expectorated Sputum Sputum Culture - Final Heavy growth normal respiratory faustino 06/30/18 11:15 Blood - Peripheral Aerobic Blood Culture - Preliminary No growth in 2 days 06/30/18 11:15 Blood - Peripheral Anaerobic Blood Culture - Preliminary No growth in 2 days 06/30/18 11:10 Blood - Peripheral Aerobic Blood Culture - Preliminary No growth in 2 days 06/30/18 11:10 Blood - Peripheral Anaerobic Blood Culture - Preliminary No growth in 2 days 06/30/18 15:00 Urine - Catheterized Urine Streptococcus pneumoniae Antigen ( M - Final Presumptive negative for streptococcus pneumoniae antigen, suggesting no current or recent infection. Infection due to Streptococcus pneumoniae cannot be ruled out since the antigen present in the sample may be below the detection limit of the test. - Imaging Impressions Chest X-Ray 07/02/18 00:00 CONCLUSION: Right lung base opacity is present may be due to a combination of consolidation and or pleural effusion, partially could be technical. Assessment and Plan - Plan IMPRESSION ACUTE PE RESPIRATORY FAILURE, RESOLVED ANGIODEMA, RESOLVED MULUGETA, NON COMPLIANT cxray , atelectaiic change' PNA less likely PLAN change to oral ANTI COAGULATION O2 NEEDED INCREASE ACTIVITY NPSG POST DC may change to po antibx
[2018-07-03] MEDS: Oral Hygiene Kit OROPHARYNG SCH ×8 (01:29→18:07)
[2018-07-03] MEDS: Piperacil/Tazo 4.5 GM Premix 4.5 GM/100 ML BAG IV.SIG SCH ×2 (01:30→05:58)
[2018-07-03 07:10] LABS: Anion Gap 9 meq/L (5-15); Blood Urea Nitrogen 8 mg/dL (7-18); Calcium 8.7 mg/dL (8.5-10.1); Carbon Dioxide 29.8 meq/L (21.0-32.0); Chloride 92 meq/L (98-107); Glomerular Filtration Rate Greater Than 89 mL/min (>89); Glucose,Random 151 mg/dL (74-106); Hematocrit 25.6 % (39.0-51.0); Hemoglobin 8.5 gm/dL (13.0-17.0); Mean Corpuscular HGB Conc 33.2 % (32.0-36.0); Mean Corpuscular Hemoglobin 24.1 pg (27.0-34.0); Mean Corpuscular Volume 72.7 fL (80.0-100.0); Mean Platelet Volume 7.7 fL (7.0-11.0); Platelet Count 340 th/mm3 (150-450); Potassium 3.4 meq/L (3.5-5.1); Red Blood Count 3.52 mil/mm3 (4.50-5.90); Red Cell Distribution Width 16.1 % (11.6-17.2); Sodium 131 meq/L (136-145); White Blood Count 9.8 th/mm3 (4.0-11.0)
--- NOTE | 2018-07-03 09:07 | P.PNFP ---
Subjective Interval history: Patient seen and examined this morning. No acute events overnight per nursing staff. Patient with T-max of 100.1 degrees over the last 24 hours with resolution of his tachycardia. Patient continues to have an elevated respiratory rate to 37 over the last 24 hours with his oxygenation down to 93% while requiring intermittent nasal cannula. Patient states that yesterday was "his best day yet." He states that his back pain has improved and he feels much better. We discussed transitioning from IV antibiotics and anticoagulation to oral medications. Patient otherwise has no acute complaints denies any recent fevers, chills, chest pain, NVD, abdominal pain, or calf tenderness at this time. <Solis Crum - 07/03/18 09:07> Results - Labs Result diagrams: 07/03/18 06:23 07/03/18 06:23 <Daljit Joya - 07/03/18 17:03> Abnormal lab results 07/02/18 07/03/18 07/03/18 Range/Units 20:51 06:23 06:23 RBC 3.52 L (4.50-5.90) mil/mm3 Hgb 8.5 L (13.0-17.0) gm/dL Hct 25.6 L (39.0-51.0) % MCV 72.7 L (80.0-100.0) fL MCH 24.1 L (27.0-34.0) pg APTT (23.4-31.7) sec Sodium 131 L (136-145) meq/L Potassium 3.4 L (3.5-5.1) meq/L Chloride 92 L (98-107) meq/L POC Glucose 213 H (68-110) mg/dl Random Glucose 151 H (74-106) mg/dL 07/03/18 07/03/18 07/03/18 Range/Units 06:23 08:14 11:31 RBC (4.50-5.90) mil/mm3 Hgb (13.0-17.0) gm/dL Hct (39.0-51.0) % MCV (80.0-100.0) fL MCH (27.0-34.0) pg APTT 52.2 H (23.4-31.7) sec Sodium (136-145) meq/L Potassium (3.5-5.1) meq/L Chloride (98-107) meq/L POC Glucose 154 H 224 H (68-110) mg/dl Random Glucose (74-106) mg/dL 07/03/18 Range/Units 11:33 RBC (4.50-5.90) mil/mm3 Hgb (13.0-17.0) gm/dL Hct (39.0-51.0) % MCV (80.0-100.0) fL MCH (27.0-34.0) pg APTT (23.4-31.7) sec Sodium (136-145) meq/L Potassium (3.5-5.1) meq/L Chloride (98-107) meq/L POC Glucose 254 H (68-110) mg/dl Random Glucose (74-106) mg/dL Short CBC 07/03/18 Range/Units 06:23 WBC 9.8 (4.0-11.0) th/mm3 Hgb 8.5 L (13.0-17.0) gm/dL Hct 25.6 L (39.0-51.0) % Plt Count 340 (150-450) th/mm3 BMP 07/03/18 06:23 Sodium 131 L Potassium 3.4 L Chloride 92 L Carbon Dioxide 29.8 BUN 8 Creatinine 0.85 Calcium 8.7 <Daljit Joya - 07/03/18 17:03> Abnormal lab results 07/02/18 07/02/18 07/02/18 Range/Units 08:54 08:54 12:10 RBC (4.50-5.90) mil/mm3 Hgb (13.0-17.0) gm/dL Hct (39.0-51.0) % MCV (80.0-100.0) fL MCH (27.0-34.0) pg APTT 58.6 H (23.4-31.7) sec Sodium 130 L (136-145) meq/L Potassium 3.4 L (3.5-5.1) meq/L Chloride 90 L (98-107) meq/L POC Glucose 316 H (68-110) mg/dl Random Glucose 152 H (74-106) mg/dL 07/02/18 07/02/18 07/03/18 Range/Units 16:25 20:51 06:23 RBC 3.52 L (4.50-5.90) mil/mm3 Hgb 8.5 L (13.0-17.0) gm/dL Hct 25.6 L (39.0-51.0) % MCV 72.7 L (80.0-100.0) fL MCH 24.1 L (27.0-34.0) pg APTT (23.4-31.7) sec Sodium (136-145) meq/L Potassium (3.5-5.1) meq/L Chloride (98-107) meq/L POC Glucose 277 H 213 H (68-110) mg/dl Random Glucose (74-106) mg/dL 07/03/18 07/03/18 07/03/18 Range/Units 06:23 06:23 08:14 RBC (4.50-5.90) mil/mm3 Hgb (13.0-17.0) gm/dL Hct (39.0-51.0) % MCV (80.0-100.0) fL MCH (27.0-34.0) pg APTT 52.2 H (23.4-31.7) sec Sodium 131 L (136-145) meq/L Potassium 3.4 L (3.5-5.1) meq/L Chloride 92 L (98-107) meq/L POC Glucose 154 H (68-110) mg/dl Random Glucose 151 H (74-106) mg/dL Short CBC 07/03/18 Range/Units 06:23 WBC 9.8 (4.0-11.0) th/mm3 Hgb 8.5 L (13.0-17.0) gm/dL Hct 25.6 L (39.0-51.0) % Plt Count 340 (150-450) th/mm3 [facility] 07/02/18 07/03/18 08:54 06:23 Sodium 130 L 131 L Potassium 3.4 L 3.4 L Chloride 90 L 92 L Carbon Dioxide 30.0 29.8 BUN 10 8 Creatinine 0.90 0.85 Calcium 8.6 8.7 <Solis Crum H - 07/03/18 09:07> - Imaging Impressions Chest X-Ray 07/02/18 00:00 CONCLUSION: Right lung base opacity is present may be due to a combination of consolidation and or pleural effusion, partially could be technical. <Solis Crum H - 07/03/18 09:07> Physical Exam Vital signs: Vital Signs 07/02/18 18:00 07/02/18 19:00 07/02/18 20:00 Temperature 100.1 F H Pulse Rate 93 H 87 Respiratory Rate 37 H Blood Pressure Pulse Oximetry 94 L 94 L 90 L 07/02/18 20:49 07/02/18 20:58 07/02/18 21:00 Temperature Pulse Rate 87 84 Respiratory Rate 24 17 Blood Pressure 134/61 128/58 L Pulse Oximetry 95 95 100 07/02/18 22:00 07/02/18 23:00 07/02/18 23:44 Temperature Pulse Rate 86 74 82 Respiratory Rate 31 H 18 24 Blood Pressure 127/60 123/60 Pulse Oximetry 93 L 94 L 07/03/18 00:00 07/03/18 01:00 07/03/18 02:00 Temperature 98.4 F Pulse Rate 85 80 79 Respiratory Rate 35 H 10 L 30 H Blood Pressure 119/52 L 109/55 L 122/58 L Pulse Oximetry 94 L 93 L 93 L 07/03/18 03:00 07/03/18 04:00 07/03/18 05:00 Temperature 98.7 F Pulse Rate 73 77 86 Respiratory Rate 16 19 26 H Blood Pressure 128/61 116/58 L 126/72 Pulse Oximetry 93 L 93 L 93 L 07/03/18 06:00 07/03/18 07:00 07/03/18 08:00 Temperature 98.7 F Pulse Rate 80 74 87 Respiratory Rate 28 H 17 34 H Blood Pressure 164/71 H 142/60 H Pulse Oximetry 94 L 95 96 07/03/18 08:13 07/03/18 09:00 07/03/18 10:00 Temperature Pulse Rate 85 87 100 H Respiratory Rate 17 30 H 35 H Blood Pressure 141/66 H 158/66 H Pulse Oximetry 95 100 93 L 07/03/18 11:49 07/03/18 12:00 07/03/18 16:00 Temperature 98.2 F Pulse Rate 84 100 H 96 H Respiratory Rate 17 35 H 22 Blood Pressure 136/65 Pulse Oximetry 96 97 07/03/18 16:29 Temperature Pulse Rate 95 H Respiratory Rate 18 Blood Pressure Pulse Oximetry 98 Intake & Output 07/02/18 07/03/18 07/03/18 18:59 06:59 18:59 Intake Total 1420 / 1420 450 / 450 250 / 250 Output Total 1350 / 1350 700 / 700 Balance 70 / 70 -250 / -250 250 / 250 Weight 108.3 kg Intake: IV 700 / 700 450 / 450 250 / 250 Heparin/D5W 25,000 U/250 mL 25, 250 / 250 250 / 250 250 / 250 000 unit In 250 ml @ Per Protocol IV.CONT TITRATE PRN Rx #:[id number] Azithromycin Inj 500 MG In NS 250 / 250 Inj 250 ML @ 250 mls/hr IV.SIG Q24H [facility] Rx#:[id number] Zosyn 4.5 GM Premix 4.5 gm In 200 / 200 200 / 200 100 ml @ 200 mls/hr IV.SIG Q6H [facility] Rx#:[id number] Oral 720 / 720 Output: Urine 250 / 250 700 / 700 Urine Amount (Catheter) 1100 / 1100 Indwelling Urethral Catheter 1100 / 1100 Other: # Voids 1 2 # Incontinent Voids 1 Date of Last Bowel Movement 06/29/18 06/29/18 06/29/18 # Bowel Movements 0 <AnnaatteWilmerDaljit - 07/03/18 17:03> Vital Signs 07/02/18 09:00 07/02/18 09:03 07/02/18 09:45 Temperature Pulse Rate 90 94 H Respiratory Rate 28 H 22 28 H Blood Pressure 168/76 H Pulse Oximetry 93 L 92 L 07/02/18 10:00 07/02/18 10:40 07/02/18 10:45 Temperature Pulse Rate 95 H 98 H 93 H Respiratory Rate 30 H 35 H 34 H Blood Pressure 168/79 H 162/69 H Pulse Oximetry 92 L 93 L 93 L 07/02/18 11:00 07/02/18 11:15 07/02/18 12:00 Temperature 98.6 F Pulse Rate 95 H 93 H 96 H Respiratory Rate 30 H 17 27 H Blood Pressure Pulse Oximetry 93 L 90 L 07/02/18 13:00 07/02/18 14:05 07/02/18 14:13 Temperature Pulse Rate 98 H 95 H 90 Respiratory Rate 26 H 19 Blood Pressure 147/58 H Pulse Oximetry 93 L 97 97 07/02/18 15:00 07/02/18 16:00 07/02/18 16:21 Temperature 98.7 F Pulse Rate 83 82 86 Respiratory Rate 24 28 H 17 Blood Pressure Pulse Oximetry 99 98 07/02/18 17:00 07/02/18 18:00 07/02/18 19:00 Temperature Pulse Rate 90 93 H Respiratory Rate 32 H 37 H Blood Pressure Pulse Oximetry 95 94 L 94 L 07/02/18 20:00 07/02/18 20:49 07/02/18 20:58 Temperature 100.1 F H Pulse Rate 87 87 Respiratory Rate 24 Blood Pressure 134/61 Pulse Oximetry 90 L 95 95 07/02/18 21:00 07/02/18 22:00 07/02/18 23:00 Temperature Pulse Rate 84 86 74 Respiratory Rate 17 31 H 18 Blood Pressure 128/58 L 127/60 123/60 Pulse Oximetry 100 93 L 94 L 07/02/18 23:44 07/03/18 00:00 07/03/18 01:00 Temperature 98.4 F Pulse Rate 82 85 80 Respiratory Rate 24 35 H 10 L Blood Pressure 119/52 L 109/55 L Pulse Oximetry 94 L 93 L 07/03/18 02:00 07/03/18 03:00 07/03/18 04:00 Temperature 98.7 F Pulse Rate 79 73 77 Respiratory Rate 30 H 16 19 Blood Pressure 122/58 L 128/61 116/58 L Pulse Oximetry 93 L 93 L 93 L 07/03/18 05:00 07/03/18 06:00 07/03/18 08:13 Temperature Pulse Rate 86 80 85 Respiratory Rate 26 H 28 H 17 Blood Pressure 126/72 Pulse Oximetry 93 L 94 L 95 Intake & Output 07/02/18 07/03/18 07/03/18 18:59 06:59 18:59 Intake Total 1420 / 1420 450 / 450 Output Total 1350 / 1350 700 / 700 Balance 70 / 70 -250 / -250 Weight 108.3 kg Intake: IV 700 / 700 450 / 450 Heparin/D5W 25,000 U/250 mL 25, 250 / 250 250 / 250 000 unit In 250 ml @ Per Protocol IV.CONT TITRATE PRN Rx #:[id number] Azithromycin Inj 500 MG In NS 250 / 250 Inj 250 ML @ 250 mls/hr IV.SIG Q24H [facility] Rx#:[id number] Zosyn 4.5 GM Premix 4.5 gm In 200 / 200 200 / 200 100 ml @ 200 mls/hr IV.SIG Q6H [facility] Rx#:[id number] Oral 720 / 720 Output: Urine 250 / 250 700 / 700 Urine Amount (Catheter) 1100 / 1100 Indwelling Urethral Catheter 1100 / 1100 Other: # Voids 1 2 # Incontinent Voids 1 Date of Last Bowel Movement 06/29/18 06/29/18 # Bowel Movements 0 <Solis Crum - 07/03/18 09:07> Narrative: GENERAL: Well-nourished, well-developed -I[place]qi male lying in bed currently receiving a breathing treatment in no acute distress. SKIN: Warm and dry. No rash. Appropriate capillary refill. Patient with large areas of healing ulcerations on his upper lip secondary to being intubated per patient report. Area appears to have granulation tissue appropriately. HEENT: Atraumatic, normocephalic with extraocular motions intact. No rhinorrhea. No visible lymphadenopathy or jugulovenous distension appreciated. CARDIOVASCULAR: Tachycardic rate and regular rhythm without obvious murmurs, gallops, or rubs. 2+ pulses in all four extremities. RESPIRATORY: Difficult to auscultate due to referred respiratory noise from breathing treatment. Patient with improved variation of bilateral lungs and no obvious CRW appreciated. Mild increase in respiratory effort with breathing treatment ongoing. GASTROINTESTINAL: Abdomen soft, non-tender, nondistended with positive bowel sounds. No masses appreciated. MUSCULOSKELETAL: No cyanosis or edema. No calf tenderness with SCDs in place. NEURO/PSYCH: Afocal. Awake, alert, and oriented x3. Normal speech and judgement. <Solis Crum - 07/03/18 09:07> - Urinary Catheter Management Condom Cath placed during this visit: no <Daljit Joya - 07/03/18 17:03> no <Solis Crum - 07/03/18 13:49> Indwelling Urethral Catheter Cath placed during this visit: no <Daljit Joya - 07/03/18 17:03> yes, but has since been removed by the nurse <Solis Crum - 07/03/18 13:49> Reason for continuing: Hourly intake/output <Solis Crum - 07/03/18 09:07> Insertion date: 06/30/18 <Solis Crum 07/03/18 09:07> Insertion time: 15:00 <Solis Crum H - 07/03/18 09:07> Removal date: 07/02/18 <Solis Crum - 07/03/18 09:07> Removal time: 14:20 <Solis Crum - 07/03/18 09:07> Assessment and Plan - Assessment (1) Acute saddle pulmonary embolism Code(s): I26.92 - Saddle embolus of pulmonary artery without acute cor pulmonale Status: Acute (2) Pneumonia Code(s): J18.9 - Pneumonia, unspecified organism Status: Acute (3) Severe sepsis Code(s): A41.9 - Sepsis, unspecified organism; R65.20 - Severe sepsis without septic shock Status: Resolved (4) Angioedema Code(s): T78.3XXA - Angioneurotic edema, initial encounter Status: Acute (5) Weakness acquired in ICU Code(s): R53.1 - Weakness Status: Acute (6) Hypertension Code(s): I10 - Essential (primary) hypertension Status: Chronic (7) Type 2 diabetes mellitus Code(s): E11.9 - Type 2 diabetes mellitus without complications Status: Acute (8) Anemia Code(s): D64.9 - Anemia, unspecified Status: Acute (9) Hyperlipidemia Code(s): E78.5 - Hyperlipidemia, unspecified Status: Chronic (10) Hypokalemia Code(s): E87.6 - Hypokalemia Status: Acute <AnnaattWilmer foleyDaljit - 07/03/18 17:03> (1) Acute saddle pulmonary embolism Code(s): I26.92 - Saddle embolus of pulmonary artery without acute cor pulmonale Status: Acute Plan: Patient presenting with fever overnight on 06/30/18 with shortness of breath and tachycardia. CTA 06/30/18: Acute pulmonary embolism with moderate size and central location extending across the pulmonary trunk bifurcation into the lobar pulmonary arteries. Basilar consolidating infiltrate was segmental consolidation in the right lower lobe. Patient was transferred to the ICU, [employer] consulted, and consented for bedside TPA 50mg. Patient did not require repeat dosing of TPA 07/01/18 Plan to discontinue heparin drip today and transition to oral Eliquis 10 mg twice daily for the first 7 days, and then continue with Eliquis 5 mg twice daily Due to the size of the patient's saddle pulmonary embolism with his recent surgery likely being the cause, patient will require at least 6 months of oral anticoagulation. Further discussion with specialist team if further anticoagulation is needed. (2) Pneumonia Code(s): J18.9 - Pneumonia, unspecified organism Status: Acute Plan: Patient was started on Rocephin on 06/25 for H. influenzae pneumonia. Completed 5 day course on 06/29 -Sputum culture 06/30: Heavy growth normal respiratory faustino at 24 hours Streptococcus urinary antigen negative -Continue IS -Chest x-ray 06/30/18: Persistent bibasilar opacity greater on the left with no significant change compared to prior study -Lactic acid 3.7 Blood cultures: Negative to date Patient restarted on Zosyn and Azithromycin () Patient to be transition to oral antibiotics 07/03/18 with Levaquin 750 mg daily for an additional 12 days (14 days total) and oral azithromycin 500 mg daily for an additional 2 days (5 days total) (3) Severe sepsis Code(s): A41.9 - Sepsis, unspecified organism; R65.20 - Severe sepsis without septic shock Status: Resolved Plan: Patient presenting in severe sepsis with leukocytosis, elevated respiratory rate, and tachycardia on 07/01/18 with suspected pneumonia. Patient recently completed a course of Rocephin for Haemophilus influenza pneumonia Likely related to acute saddle pulmonary embolism, see above Lactic acid 3.7 Antibiotics as above (4) Angioedema Code(s): T78.3XXA - Angioneurotic edema, initial encounter Status: Acute Plan: Resolved after patient was intubated in ICU for almost 2 weeks on high-dose steroids. -On oral steroid taper through 07/04 -Pulmonology consulted -Recommend oxygen as needed -NPSG post discharge -May need re-consulted if worsening of breathing/lung status -Monitor breathing and swallowing status (5) Weakness acquired in ICU Code(s): R53.1 - Weakness Status: Acute Plan: PT and OT consults -Recommend inpatient rehab -Plan to d/c to [facility] when stable (6) Hypertension Code(s): I10 - Essential (primary) hypertension Status: Chronic Plan: Avoid ACEi and ARB due to angioedema BPs improving -Amlodipine 10 mg daily -Continue triamterene/hydrochlorothiazide 37.5/25 1 tablet daily -Hydralazine PRN BP (7) Type 2 diabetes mellitus Code(s): E11.9 - Type 2 diabetes mellitus without complications Status: Acute Plan: Holding glimepiride 2 mg daily; restart upon discharge Sliding scale insulin aspart insulin high regimen AC/at bedtime to maintain euglycemia Hypoglycemia protocol. Regular accuchecks Due to daytime hyperglycemia, patient's Levemir increased to 10 units each morning and 5 units each night on 07/04/18 (8) Anemia Code(s): D64.9 - Anemia, unspecified Status: Acute Plan: Microcytic anemia present since admission. Stable Hgb/Hct. Continue to monitor Monitor for signs of bleeding (9) Hyperlipidemia Code(s): E78.5 - Hyperlipidemia, unspecified Status: Chronic Plan: -Continue home medication of statin and aspirin (10) Hypokalemia Code(s): E87.6 - Hypokalemia Status: Acute Plan: Patient with mild hypokalemia without symptoms Continue to trend BMP Oral potassium chloride 40 mEq ordered <Solis Crum - 07/03/18 13:47> - Assessment and Plan 62-year-old male who was on enalapril for hypertension for many years presented to the ED with swelling of the tongue mostly on the left side. This was getting significantly worse, he presented in the emergency department with difficulty speaking due to the mechanical obstruction of his tongue. He immediately was given epi IM, Decadron 10 IV, Benadryl 50 IV, and he was not responding to medical management after 45 minutes. He was intubated for the airway protection by ED attending and remained intubated and ventilated in the ICU until 06/22 when he was extubated. On 06/24, patient developed stridor and was reintubated and ventilated (vocal cords appeared ok). CT soft tissue disorder 06/24 unremarkable. On 06/25, patient was started on Rocephin for H. influenzae pneumonia. On 06/26, patient was successfully extubated. He remained in the ICU for almost 24 hours prior to transfer to med/surg floor for PT/OT consults and recommendations. On 06/30/18 patient presented to medical team with severe sepsis with presumed pneumonia and lactic acid of 3.7. Patient was started on azithromycin and Zosyn for antibiotic coverage; transition to oral antibiotic on 07/03 for a 5 day course of azithromycin and Levaquin to complete a 14-day course. CTA was ordered which showed an acute saddle pulmonary embolism. Patient was transferred to the ICU and consented for bedside TPA which patient responded to appropriately. Patient transition to oral anticoagulation with Eliquis on 07/03/18. Patient was then transferred out of the ICU on 07/03/18. Fluids: none Electrolytes: monitor, replace PRN Nutrition: regular diet DVT ppx: s/p TPA, currently on Heparin drip GI ppx: Famotidine Pain medication: [place]/tylenol PRN <Solis Crum - 07/03/18 13:49> - Attending Attestation Patient seen and examined. Discussed with Dr. Crum. Agree with assessment and plan as documented. <Daljit Joya - 07/03/18 17:03> <Solis Crum - Last Filed: 07/03/18 13:47> (2) Pneumonia Qualifiers: Pneumonia type: due to Haemophilus influenzae (8) Anemia Qualifiers: Anemia type: unspecified type Qualified Code(s): D64.9 - Anemia, unspecified <Daljit Joya - Last Filed: 07/03/18 17:03> (2) Pneumonia Qualifiers: Pneumonia type: due to Haemophilus influenzae (8) Anemia Qualifiers: Anemia type: unspecified type Qualified Code(s): D64.9 - Anemia, unspecified <Solis Crum - Last Filed: 07/03/18 13:47> (2) Pneumonia Qualifiers: Pneumonia type: due to Haemophilus influenzae (8) Anemia Qualifiers: Anemia type: unspecified type Qualified Code(s): D64.9 - Anemia, unspecified <Daljit Joya - Last Filed: 07/03/18 17:03> (2) Pneumonia Qualifiers: Pneumonia type: due to Haemophilus influenzae (8) Anemia Qualifiers: Anemia type: unspecified type Qualified Code(s): D64.9 - Anemia, unspecified
[2018-07-03] MEDS: Insulin NovoLIN Regular Correctional Sugar Inj SQ SCH ×4 (09:46→21:00)
[2018-07-03] MEDS: Insulin Detemir Inj 1,000 UNIT/10 ML Vial SQ SCH ×2 (09:46→21:00)
[2018-07-03] MEDS: Senna/Docusate Sodium 8.6/50 MG Tablet PO SCH ×2 (09:49→20:48)
[2018-07-03] MEDS: Famotidine 20 MG Tablet PO SCH ×2 (09:49→20:48)
[2018-07-03] MEDS: Triamterene/HCTZ 37.5 MG/25 MG Tablet PO SCH (09:49)
[2018-07-03] MEDS: predniSONE 10 MG Tablet PO SCH (09:50)
[2018-07-03] MEDS: amLODIPine 10 MG Tablet PO SCH (09:50)
[2018-07-03] MEDS: Chlorhexidine 0.12% Oral Kit 15 ML UDC OROPHARYNG SCH ×4 (09:53→19:45)
[2018-07-03] MEDS: Azithromycin Inj 500 MG in Sodium Chlor 0.9% Inj 250 ML IV.SIG SCH (09:53)
[2018-07-03] MEDS: Bisacodyl 10 MG Supp RECTAL SCH (09:53)
[2018-07-03] MEDS: Azithromycin 250 MG Tablet PO SCH (10:05)
[2018-07-03] MEDS: levoFLOXacin 750 MG Tablet PO SCH (10:05)
[2018-07-03] MEDS: Heparin Drip 25,000 UNIT/250 ML BAG IV.CONT PRN (13:35)
[2018-07-04] MEDS: Oral Hygiene Kit OROPHARYNG SCH ×6 (03:08→16:37)
[2018-07-04 06:51] LABS: Hematocrit 25.3 % (39.0-51.0); Hemoglobin 8.5 gm/dL (13.0-17.0); Mean Corpuscular HGB Conc 33.4 % (32.0-36.0); Mean Corpuscular Hemoglobin 24.5 pg (27.0-34.0); Mean Corpuscular Volume 73.2 fL (80.0-100.0); Mean Platelet Volume 7.3 fL (7.0-11.0); Platelet Count 406 th/mm3 (150-450); Red Blood Count 3.45 mil/mm3 (4.50-5.90); Red Cell Distribution Width 16.4 % (11.6-17.2); White Blood Count 10.2 th/mm3 (4.0-11.0)
[2018-07-04 07:12] LABS: Anion Gap 11 meq/L (5-15); Blood Urea Nitrogen 10 mg/dL (7-18); Carbon Dioxide 26.8 meq/L (21.0-32.0); Chloride 98 meq/L (98-107); Glomerular Filtration Rate Greater Than 89 mL/min (>89); Glucose,Random 75 mg/dL (74-106); Potassium 3.7 meq/L (3.5-5.1); Sodium 136 meq/L (136-145)
--- NOTE | 2018-07-04 09:42 | P.PNFP ---
Subjective Interval history: Patient seen and examined this morning. No acute events overnight per nursing staff. Patient has remained afebrile and off supplemental oxygen over the last 24 hours. Patient's tachycardia remains intermittent and up to 103 bpm. Patient reports that he "feels fantastic" this morning and is ready to go to rehab. He states that he has no issues, but on further discussion does report 3 episodes of loose stools over the last 24 hours. He states that the bowel movements are predominantly liquid, but do contain solid fecal material. He denies any black or bloody stools. Patient did have an accident today in his bed, however this was not due to incontinence, but rather decreased mobility and rising from his bed in order to get to the restroom. Patient attributes his change in stooling to a change in his diet since being admitted to the hospital. He otherwise has no complaints. He denies a complete review of systems including but not limited to any recent fevers, chills, shortness of breath, chest pain, NVD, abdominal pain, or calf tenderness at this time. <Solis Crum H - 07/04/18 09:42> Results - Labs Result diagrams: 07/04/18 06:22 07/04/18 06:22 <Daljit Joya - 07/04/18 12:35> Abnormal lab results 07/03/18 07/03/18 07/04/18 Range/Units 17:10 20:51 06:22 RBC 3.45 L (4.50-5.90) mil/mm3 Hgb 8.5 L (13.0-17.0) gm/dL Hct 25.3 L (39.0-51.0) % MCV 73.2 L (80.0-100.0) fL MCH 24.5 L (27.0-34.0) pg POC Glucose 312 H 337 H (68-110) mg/dl Short CBC 07/04/18 Range/Units 06:22 WBC 10.2 (4.0-11.0) th/mm3 Hgb 8.5 L (13.0-17.0) gm/dL Hct 25.3 L (39.0-51.0) % Plt Count 406 (150-450) th/mm3 BMP 07/04/18 06:22 Sodium 136 Potassium 3.7 Chloride 98 Carbon Dioxide 26.8 BUN 10 Creatinine 0.85 Calcium 9.0 <Daljit Joya - 07/04/18 12:35> Abnormal lab results 07/03/18 07/03/18 07/03/18 Range/Units 11:31 11:33 17:10 RBC (4.50-5.90) mil/mm3 Hgb (13.0-17.0) gm/dL Hct (39.0-51.0) % MCV (80.0-100.0) fL MCH (27.0-34.0) pg POC Glucose 224 H 254 H 312 H (68-110) mg/dl 07/03/18 07/04/18 Range/Units 20:51 06:22 RBC 3.45 L (4.50-5.90) mil/mm3 Hgb 8.5 L (13.0-17.0) gm/dL Hct 25.3 L (39.0-51.0) % MCV 73.2 L (80.0-100.0) fL MCH 24.5 L (27.0-34.0) pg POC Glucose 337 H (68-110) mg/dl Short CBC 07/04/18 Range/Units 06:22 WBC 10.2 (4.0-11.0) th/mm3 Hgb 8.5 L (13.0-17.0) gm/dL Hct 25.3 L (39.0-51.0) % Plt Count 406 (150-450) th/mm3 BMP 07/04/18 06:22 Sodium 136 Potassium 3.7 Chloride 98 Carbon Dioxide 26.8 BUN 10 Creatinine 0.85 Calcium 9.0 <Solis Crum - 07/04/18 09:42> Physical Exam Vital signs: Vital Signs 07/03/18 16:00 07/03/18 16:29 07/03/18 20:00 Temperature 98.2 F 98.1 F Pulse Rate 96 H 95 H 103 H Respiratory Rate 22 18 20 Blood Pressure 136/65 141/71 H Pulse Oximetry 97 98 97 07/03/18 21:24 07/04/18 00:00 07/04/18 00:13 Temperature 99.5 F Pulse Rate 105 H 99 H 102 H Respiratory Rate 20 20 22 Blood Pressure 121/64 Pulse Oximetry 95 95 07/04/18 03:30 07/04/18 04:00 07/04/18 07:40 Temperature 99.3 F Pulse Rate 87 96 H Respiratory Rate 20 20 Blood Pressure 119/63 Pulse Oximetry 97 95 97 07/04/18 08:00 07/04/18 11:39 Temperature 97.8 F Pulse Rate 91 H 93 H Respiratory Rate 20 18 Blood Pressure 118/59 L Pulse Oximetry 97 Intake & Output 07/03/18 07/04/18 07/04/18 18:59 06:59 18:59 Intake Total 250 / 250 Output Total 300 / 300 Balance 250 / 250 -300 / -300 Weight 111.6 kg Intake: IV 250 / 250 Heparin/D5W 25,000 U/250 mL 25, 250 / 250 000 unit In 250 ml @ Per Protocol IV.CONT TITRATE PRN Rx #:[id number] Output: Urine 300 / 300 Other: # Voids 2 Date of Last Bowel Movement 06/29/18 07/03/18 07/04/18 # Bowel Movements 1 <Prevatte,Daljit - 07/04/18 12:35> Vital Signs 07/03/18 10:00 07/03/18 11:49 07/03/18 12:00 Temperature Pulse Rate 100 H 84 100 H Respiratory Rate 35 H 17 35 H Blood Pressure 158/66 H Pulse Oximetry 93 L 96 07/03/18 16:00 07/03/18 16:29 07/03/18 20:00 Temperature 98.2 F 98.1 F Pulse Rate 96 H 95 H 103 H Respiratory Rate 22 18 20 Blood Pressure 136/65 141/71 H Pulse Oximetry 97 98 97 07/03/18 21:24 07/04/18 00:00 07/04/18 00:13 Temperature 99.5 F Pulse Rate 105 H 99 H 102 H Respiratory Rate 20 20 22 Blood Pressure 121/64 Pulse Oximetry 95 95 07/04/18 03:30 07/04/18 04:00 07/04/18 07:40 Temperature 99.3 F Pulse Rate 87 96 H Respiratory Rate 20 20 Blood Pressure 119/63 Pulse Oximetry 97 95 97 Intake & Output 07/03/18 07/04/18 07/04/18 18:59 06:59 18:59 Intake Total 250 / 250 Output Total 300 / 300 Balance 250 / 250 -300 / -300 Weight 111.6 kg Intake: IV 250 / 250 Heparin/D5W 25,000 U/250 mL 25, 250 / 250 000 unit In 250 ml @ Per Protocol IV.CONT TITRATE PRN Rx #:[id number] Output: Urine 300 / 300 Other: # Voids 2 Date of Last Bowel Movement 06/29/18 07/03/18 # Bowel Movements 1 <Solis Crum - 07/04/18 09:42> Narrative: GENERAL: Well-nourished, well-developed -[place] male lying sitting up in his chair watching television with his at the bedside. SKIN: Warm and dry. No rash. Appropriate capillary refill. Patient with large areas of healing ulcerations on his upper lip secondary to being intubated per patient report. Area appears to have granulation tissue appropriately. HEENT: Atraumatic, normocephalic with extraocular motions intact. No rhinorrhea. No visible lymphadenopathy or jugulovenous distension appreciated. CARDIOVASCULAR: Regular rate and rhythm without obvious murmurs, gallops, or rubs. 2+ pulses in all four extremities. RESPIRATORY: Clear to auscultation bilaterally with good air movement. No obvious CRW appreciated. No increased work of breathing at this time. Patient currently off supplemental oxygen. GASTROINTESTINAL: Abdomen soft, non-tender, nondistended with positive bowel sounds. No masses appreciated. MUSCULOSKELETAL: No cyanosis or edema. No calf tenderness with SCDs in place. NEURO/PSYCH: Afocal. Awake, alert, and oriented x3. Normal speech and judgement. <Solis Crum - 07/04/18 09:42> - Urinary Catheter Management Condom Cath placed during this visit: no <Daljit Joya - 07/04/18 12:35> no <Solis Crum - 07/04/18 11:26> Indwelling Urethral Catheter Cath placed during this visit: no <Daljit Joya - 07/04/18 12:35> yes, but has since been removed by the nurse <Solis Crum - 07/04/18 11:26> Reason for continuing: Hourly intake/output <Solis Crum - 07/04/18 09:42> Insertion date: 06/30/18 <Solis Crum - 07/04/18 09:42> Insertion time: 15:00 <Solis Crum 07/04/18 09:42> Removal date: 07/02/18 <Solis Crum - 07/04/18 09:42> Removal time: 14:20 <Solis Crum H - 07/04/18 09:42> Assessment and Plan - Assessment (1) Acute saddle pulmonary embolism Code(s): I26.92 - Saddle embolus of pulmonary artery without acute cor pulmonale Status: Acute (2) Pneumonia Code(s): J18.9 - Pneumonia, unspecified organism Status: Acute (3) Severe sepsis Code(s): A41.9 - Sepsis, unspecified organism; R65.20 - Severe sepsis without septic shock Status: Resolved (4) Angioedema Code(s): T78.3XXA - Angioneurotic edema, initial encounter Status: Acute (5) Weakness acquired in ICU Code(s): R53.1 - Weakness Status: Acute (6) Hypertension Code(s): I10 - Essential (primary) hypertension Status: Chronic (7) Type 2 diabetes mellitus Code(s): E11.9 - Type 2 diabetes mellitus without complications Status: Acute (8) Anemia Code(s): D64.9 - Anemia, unspecified Status: Acute (9) Hyperlipidemia Code(s): E78.5 - Hyperlipidemia, unspecified Status: Chronic (10) Hypokalemia Code(s): E87.6 - Hypokalemia Status: Resolved (11) Loose stools Code(s): R19.5 - Other fecal abnormalities Status: Acute <Daljit Joya - 07/04/18 12:35> (1) Acute saddle pulmonary embolism Code(s): I26.92 - Saddle embolus of pulmonary artery without acute cor pulmonale Status: Acute Plan: Patient presenting with fever overnight on 06/30/18 with shortness of breath and tachycardia. CTA 06/30/18: Acute pulmonary embolism with moderate size and central location extending across the pulmonary trunk bifurcation into the lobar pulmonary arteries. Basilar consolidating infiltrate was segmental consolidation in the right lower lobe. Patient was transferred to the ICU, Fill Manager consulted, and consented for bedside TPA 50mg. Patient did not require repeat dosing of TPA 07/01/18 Heparin drip discontinued 07/03/18 Patient started on Eliquis 10 mg twice daily for the first 7 days, and then continue with Eliquis 5 mg twice daily as outpatient Due to the size of the patient's saddle pulmonary embolism with his recent surgery likely being the cause, patient will require at least 6 months of oral anticoagulation. Further discussion with specialist team if further anticoagulation is needed. (2) Pneumonia Code(s): J18.9 - Pneumonia, unspecified organism Status: Acute Plan: Patient was started on Rocephin on 06/25 for H. influenzae pneumonia. Completed 5 day course on 06/29 -Sputum culture 06/30: Heavy growth normal respiratory faustino at 24 hours Streptococcus urinary antigen negative -Continue IS -Chest x-ray 06/30/18: Persistent bibasilar opacity greater on the left with no significant change compared to prior study -Lactic acid 3.7 Blood cultures: Negative to date Patient restarted on Zosyn and Azithromycin () Patient to be transitioned to oral antibiotics 07/03/18 with Levaquin 750 mg daily for an additional 12 days (14 days total) and oral azithromycin 500 mg daily for an additional 2 days (5 days total) (3) Severe sepsis Code(s): A41.9 - Sepsis, unspecified organism; R65.20 - Severe sepsis without septic shock Status: Resolved Plan: Patient presenting in severe sepsis with leukocytosis, elevated respiratory rate, and tachycardia on 07/01/18 with suspected pneumonia. Patient recently completed a course of Rocephin for Haemophilus influenza pneumonia Likely related to acute saddle pulmonary embolism, see above Lactic acid 3.7 Antibiotics as above (4) Angioedema Code(s): T78.3XXA - Angioneurotic edema, initial encounter Status: Acute Plan: Resolved after patient was intubated in ICU for almost 2 weeks on high-dose steroids. -On oral steroid taper through 07/04 -Pulmonology consulted -Recommend oxygen as needed -NPSG post discharge -May need re-consulted if worsening of breathing/lung status -Monitor breathing and swallowing status (5) Weakness acquired in ICU Code(s): R53.1 - Weakness Status: Acute Plan: PT and OT consults -Recommend inpatient rehab -Plan to d/c to [facility] when stable (6) Hypertension Code(s): I10 - Essential (primary) hypertension Status: Chronic Plan: Avoid ACEi and ARB due to angioedema BPs improving -Amlodipine 10 mg daily -Continue triamterene/hydrochlorothiazide 37.5/25 1 tablet daily -Hydralazine PRN BP (7) Type 2 diabetes mellitus Code(s): E11.9 - Type 2 diabetes mellitus without complications Status: Acute Plan: -Holding glimepiride 2 mg daily; restart upon discharge -Sliding scale insulin aspart insulin high regimen AC/at bedtime to maintain euglycemia -Hypoglycemia protocol. -Regular accuchecks -Due to daytime hyperglycemia, patient's Levemir increased to 10 units each morning and 5 units each night on 07/04/18 (8) Anemia Code(s): D64.9 - Anemia, unspecified Status: Acute Plan: -Microcytic anemia present since admission. -Stable Hgb/Hct. -Continue to monitor -Monitor for signs of bleeding -Patient started on Ferrous sulfate 325mg BID, plan to alter to dosing every other day if patient is unable to tolerate every day dosing (9) Hyperlipidemia Code(s): E78.5 - Hyperlipidemia, unspecified Status: Chronic Plan: -Continue home medication of statin and aspirin (10) Hypokalemia Code(s): E87.6 - Hypokalemia Status: Resolved Plan: Patient with mild hypokalemia without symptoms Continue to trend BMP Oral potassium chloride 40 mEq ordered 07/03/18 (11) Loose stools Code(s): R19.5 - Other fecal abnormalities Status: Acute Plan: Patient with multiple episodes of loose stools over the last 24 hours with some semi-solid material. Patient is at higher risk for C. difficile due to recent antibiotic use. -C. difficile PCR ordered -Continue to monitor <Solis Crum H - 07/04/18 11:20> - Assessment and Plan 62-year-old male who was on enalapril for hypertension for many years presented to the ED with swelling of the tongue mostly on the left side. This was getting significantly worse, he presented in the emergency department with difficulty speaking due to the mechanical obstruction of his tongue. He immediately was given epi IM, Decadron 10 IV, Benadryl 50 IV, and he was not responding to medical management after 45 minutes. He was intubated for the airway protection by ED attending and remained intubated and ventilated in the ICU until 06/22 when he was extubated. On 06/24, patient developed stridor and was reintubated and ventilated (vocal cords appeared ok). CT soft tissue disorder 06/24 unremarkable. On 06/25, patient was started on Rocephin for H. influenzae pneumonia. On 06/26, patient was successfully extubated. He remained in the ICU for almost 24 hours prior to transfer to med/surg floor for PT/OT consults and recommendations. On 06/30/18 patient presented to medical team with severe sepsis with presumed pneumonia and lactic acid of 3.7. Patient was started on azithromycin and Zosyn for antibiotic coverage; transition to oral antibiotic on 07/03 for a 5 day course of azithromycin and Levaquin to complete a 14-day course. CTA was ordered which showed an acute saddle pulmonary embolism. Patient was transferred to the ICU and consented for bedside TPA which patient responded to appropriately. Patient transition to oral anticoagulation with Eliquis on 07/03/18. Patient was then transferred out of the ICU on 07/03/18. Fluids: none Electrolytes: monitor, replace PRN Nutrition: regular diet DVT ppx: s/p TPA, currently on Heparin drip GI ppx: Famotidine Pain medication: Dalton/tylenol PRN Discussed with case management patient continues to improve and has been transitioned to oral medications. Case management to discuss with [facility] for possible discharge for continued rehabilitation. <Solis Crum - 07/04/18 09:42> - Attending Attestation Patient seen and examined. Discussed with Dr. Crum. Agree with assessment and plan as documented. <Daljit Joya - 07/04/18 12:35> <Solis Crum - Last Filed: 07/04/18 11:20> (2) Pneumonia Qualifiers: Pneumonia type: due to Haemophilus influenzae (8) Anemia Qualifiers: Anemia type: unspecified type Qualified Code(s): D64.9 - Anemia, unspecified <Prevatte,Daljit - Last Filed: 07/04/18 12:35> (2) Pneumonia Qualifiers: Pneumonia type: due to Haemophilus influenzae (8) Anemia Qualifiers: Anemia type: unspecified type Qualified Code(s): D64.9 - Anemia, unspecified <Solis Crum - Last Filed: 07/04/18 11:20> (2) Pneumonia Qualifiers: Pneumonia type: due to Haemophilus influenzae (8) Anemia Qualifiers: Anemia type: unspecified type Qualified Code(s): D64.9 - Anemia, unspecified <Prevatte,Daljit - Last Filed: 07/04/18 12:35> (2) Pneumonia Qualifiers: Pneumonia type: due to Haemophilus influenzae (8) Anemia Qualifiers: Anemia type: unspecified type Qualified Code(s): D64.9 - Anemia, unspecified
[2018-07-04] MEDS: Insulin NovoLIN Regular Correctional Sugar Inj SQ SCH ×4 (09:49→21:06)
[2018-07-04] MEDS: Chlorhexidine 0.12% Oral Kit 15 ML UDC OROPHARYNG SCH ×4 (09:50→21:02)
[2018-07-04] MEDS: Triamterene/HCTZ 37.5 MG/25 MG Tablet PO SCH (10:13)
[2018-07-04] MEDS: Senna/Docusate Sodium 8.6/50 MG Tablet PO SCH ×2 (10:13→21:03)
[2018-07-04] MEDS: amLODIPine 10 MG Tablet PO SCH (10:13)
[2018-07-04] MEDS: Azithromycin 250 MG Tablet PO SCH (10:14)
[2018-07-04] MEDS: predniSONE 10 MG Tablet PO SCH (10:14)
[2018-07-04] MEDS: Famotidine 20 MG Tablet PO SCH ×2 (10:14→21:05)
[2018-07-04] MEDS: levoFLOXacin 750 MG Tablet PO SCH (10:14)
[2018-07-04] MEDS: Bisacodyl 10 MG Supp RECTAL SCH (10:15)
[2018-07-04] MEDS: Insulin Detemir Inj 1,000 UNIT/10 ML Vial SQ SCH ×2 (10:15→21:06)
[2018-07-04] MEDS: Ferrous Sulfate 325 MG Tablet PO SCH ×2 (14:20→21:05)
--- NOTE | 2018-07-04 15:41 | P.PN ---
Subjective Interval history: alert nad Physical Exam Vital signs: Vital Signs 07/03/18 16:00 07/03/18 16:29 07/03/18 20:00 Temperature 98.2 F 98.1 F Pulse Rate 96 H 95 H 103 H Respiratory Rate 22 18 20 Blood Pressure 136/65 141/71 H Pulse Oximetry 97 98 97 07/03/18 21:24 07/04/18 00:00 07/04/18 00:13 Temperature 99.5 F Pulse Rate 105 H 99 H 102 H Respiratory Rate 20 20 22 Blood Pressure 121/64 Pulse Oximetry 95 95 07/04/18 03:30 07/04/18 04:00 07/04/18 07:40 Temperature 99.3 F Pulse Rate 87 96 H Respiratory Rate 20 20 Blood Pressure 119/63 Pulse Oximetry 97 95 97 07/04/18 08:00 07/04/18 11:39 07/04/18 12:00 Temperature 97.8 F 98.2 F Pulse Rate 91 H 93 H 101 H Respiratory Rate 20 18 22 Blood Pressure 118/59 L 129/61 Pulse Oximetry 97 98 Intake & Output 07/03/18 07/04/18 07/04/18 18:59 06:59 18:59 Intake Total 250 / 250 Output Total 300 / 300 Balance 250 / 250 -300 / -300 Weight 111.6 kg Intake: IV 250 / 250 Heparin/D5W 25,000 U/250 mL 25, 250 / 250 000 unit In 250 ml @ Per Protocol IV.CONT TITRATE PRN Rx #:[id number] Output: Urine 300 / 300 Other: # Voids 2 Date of Last Bowel Movement 06/29/18 07/03/18 07/04/18 # Bowel Movements 1 Narrative: GENERAL: Well-nourished, well-developed -[place] male lying sitting up in his chair watching television with his at the bedside. SKIN: Warm and dry. No rash. Appropriate capillary refill. Patient with large areas of healing ulcerations on his upper lip secondary to being intubated per patient report. Area appears to have granulation tissue appropriately. HEENT: Atraumatic, normocephalic with extraocular motions intact. No rhinorrhea. No visible lymphadenopathy or jugulovenous distension appreciated. CARDIOVASCULAR: Regular rate and rhythm without obvious murmurs, gallops, or rubs. 2+ pulses in all four extremities. RESPIRATORY: Clear to auscultation bilaterally with good air movement. No obvious CRW appreciated. No increased work of breathing at this time. Patient currently off supplemental oxygen. GASTROINTESTINAL: Abdomen soft, non-tender, nondistended with positive bowel sounds. No masses appreciated. MUSCULOSKELETAL: No cyanosis or edema. No calf tenderness with SCDs in place. NEURO/PSYCH: Afocal. Awake, alert, and oriented x3. Normal speech and judgement. - Urinary Catheter Management Indwelling Urethral Catheter Cath placed during this visit: yes, but has since been removed by the nurse Reason for continuing: Hourly intake/output Insertion date: 06/30/18 Insertion time: 15:00 Removal date: 07/02/18 Removal time: 14:20 Condom Cath placed during this visit: no Results - Labs CBC & Chem 7: 07/04/18 06:22 07/04/18 06:22 Laboratory Results - last 24 hr 07/03/18 07/03/18 07/04/18 17:10 20:51 06:22 WBC 10.2 RBC 3.45 L Hgb 8.5 L Hct 25.3 L MCV 73.2 L MCH 24.5 L MCHC 33.4 RDW 16.4 Plt Count 406 MPV 7.3 Sodium Potassium Chloride Carbon Dioxide Anion Gap BUN Creatinine Estimated GFR POC Glucose 312 H 337 H Random Glucose Calcium 07/04/18 07/04/18 07/04/18 06:22 09:30 13:08 WBC RBC Hgb Hct MCV MCH MCHC RDW Plt Count MPV Sodium 136 Potassium 3.7 Chloride 98 Carbon Dioxide 26.8 Anion Gap 11 BUN 10 Creatinine 0.85 Estimated GFR Greater than 89 POC Glucose 90 223 H Random Glucose 75 Calcium 9.0 Microbiology 06/30/18 11:15 Blood - Peripheral Aerobic Blood Culture - Preliminary No growth in 4 days 06/30/18 11:15 Blood - Peripheral Anaerobic Blood Culture - Preliminary No growth in 4 days 06/30/18 11:10 Blood - Peripheral Aerobic Blood Culture - Preliminary No growth in 4 days 06/30/18 11:10 Blood - Peripheral Anaerobic Blood Culture - Preliminary No growth in 4 days Assessment and Plan - Plan IMPRESSION ACUTE PE ANGIODEMA, RESOLVE MULUGETA, NON COMPLIANT 'PNA less likely PLAN change to oral ANTI COAGULATION O2 NEEDED INCREASE ACTIVITY NPSG POST DC
[2018-07-04 22:43] VITALS: RESP 18
[2018-07-05] MEDS: Oral Hygiene Kit OROPHARYNG SCH ×6 (01:55→13:54)
[2018-07-05] MEDS: Chlorhexidine 0.12% Oral Kit 15 ML UDC OROPHARYNG SCH ×2 (07:34)
--- NOTE | 2018-07-05 09:09 | P.PNFP ---
Subjective Interval history: Patient seen and examined this morning. No acute events overnight per report. Patient states that he feels well and is ready to be discharged home [place] for continued rehabilitation. He states that physical therapy is going very well and he continues to progress. Regarding his loose stools from yesterday, he states that he has had no new episodes, however he has not had a new bowel movement since that time. We discussed that he is positive for Clostridium difficile DNA, but his confirmatory antigen testing is pending at this time. Otherwise he has no acute complaints. He denies a complete review of systems including but not limited to any fevers, chills, shortness of breath, chest pain , nausea, vomiting, abdominal pain, or calf tenderness at this time. <Solis Crum H - 07/05/18 09:08> Results - Labs Result diagrams: 07/04/18 06:22 07/04/18 06:22 <Janiya Duval R - 07/07/18 07:05> Abnormal lab results 07/04/18 07/04/18 07/04/18 Range/Units 13:08 14:00 17:12 POC Glucose 223 H 196 H (68-110) mg/dl Stl C.difficile DNA Amp Positive H (Negative) 07/04/18 07/05/18 Range/Units 20:11 07:50 POC Glucose 251 H 118 H (68-110) mg/dl Stl C.difficile DNA Amp (Negative) <Solis Crum H - 07/05/18 09:08> Physical Exam Vital signs: Vital Signs 07/04/18 11:39 07/04/18 12:00 07/04/18 16:00 Temperature 98.2 F 99.1 F Pulse Rate 93 H 101 H 100 H Respiratory Rate 18 22 20 Blood Pressure 129/61 131/72 Pulse Oximetry 95 95 07/04/18 20:00 07/05/18 00:00 07/05/18 04:00 Temperature 98.7 F 97.2 F L 98 F Pulse Rate 98 H 87 91 H Respiratory Rate 18 18 18 Blood Pressure 135/67 132/65 119/55 L Pulse Oximetry 97 96 97 07/05/18 05:00 Temperature Pulse Rate Respiratory Rate Blood Pressure Pulse Oximetry 97 Intake & Output 07/04/18 07/05/18 07/05/18 18:59 06:59 18:59 Intake Total 1200 / 1200 Balance 1200 / 1200 Weight 111.6 kg Intake: Oral 1200 / 1200 Other: # Voids 5 1 Date of Last Bowel Movement 07/04/18 07/03/18 # Bowel Movements 2 <Solis Crum - 07/05/18 09:08> Narrative: GENERAL: Well-nourished, well-developed -[place] male lying sitting up in bed watching television with his and daughter at the bedside. SKIN: Warm and dry. No rash. Appropriate capillary refill. Patient with large areas of healing ulcerations on his upper lip secondary to being intubated per patient report. Area appears to have granulation tissue appropriately. Barrier ointment applied. HEENT: Atraumatic, normocephalic with extraocular motions intact. No rhinorrhea. No visible lymphadenopathy or jugulovenous distension appreciated. CARDIOVASCULAR: Regular rate and rhythm without obvious murmurs, gallops, or rubs. 2+ pulses in all four extremities. RESPIRATORY: Clear to auscultation bilaterally with good air movement. No obvious CRW appreciated. No increased work of breathing at this time. Patient currently off supplemental oxygen. GASTROINTESTINAL: Abdomen soft, non-tender, nondistended with positive bowel sounds. No masses appreciated. MUSCULOSKELETAL: No cyanosis or edema. No calf tenderness. NEURO/PSYCH: Afocal. Awake, alert, and oriented x3. Normal speech and judgement. <Solis Crum - 07/05/18 09:08> - Urinary Catheter Management Condom Cath placed during this visit: no <Janiya Duval 07/07/18 07:05> no <Solis Crum - 07/05/18 09:08> Indwelling Urethral Catheter Cath placed during this visit: no <Janiya Duval 07/07/18 07:05> yes, but has since been removed by the nurse <Solis Crum 07/05/18 09:08> Reason for continuing: Hourly intake/output <Solis Crum 07/05/18 09:08> Insertion date: 06/30/18 <Solis Crum 07/05/18 09:08> Insertion time: 15:00 <Solis Crum 07/05/18 09:08> Removal date: 07/02/18 <Solis Crum 07/05/18 09:08> Removal time: 14:20 <Solis Crum - 07/05/18 09:08> Assessment and Plan - Assessment (1) Acute saddle pulmonary embolism Code(s): I26.92 - Saddle embolus of pulmonary artery without acute cor pulmonale Status: Acute Onset Date: ~06/30/18 (2) Pneumonia Code(s): J18.9 - Pneumonia, unspecified organism Status: Acute Onset Date: ~ 06/30/18 (3) Severe sepsis Code(s): A41.9 - Sepsis, unspecified organism; R65.20 - Severe sepsis without septic shock Status: Resolved (4) Angioedema Code(s): T78.3XXA - Angioneurotic edema, initial encounter Status: Acute Onset Date: ~06/14/18 (5) Weakness acquired in ICU Code(s): R53.1 - Weakness Status: Acute (6) Hypertension Code(s): I10 - Essential (primary) hypertension Status: Chronic (7) Type 2 diabetes mellitus Code(s): E11.9 - Type 2 diabetes mellitus without complications Status: Acute (8) Anemia Code(s): D64.9 - Anemia, unspecified Status: Acute Onset Date: ~05/27/18 (9) Hyperlipidemia Code(s): E78.5 - Hyperlipidemia, unspecified Status: Chronic (10) Hypokalemia Code(s): E87.6 - Hypokalemia Status: Resolved (11) Loose stools Code(s): R19.5 - Other fecal abnormalities Status: Acute <Janiya Duval - 07/07/18 07:05> (1) Acute saddle pulmonary embolism Code(s): I26.92 - Saddle embolus of pulmonary artery without acute cor pulmonale Status: Acute Plan: Patient presenting with fever overnight on 06/30/18 with shortness of breath and tachycardia. CTA 06/30/18: Acute pulmonary embolism with moderate size and central location extending across the pulmonary trunk bifurcation into the lobar pulmonary arteries. Basilar consolidating infiltrate was segmental consolidation in the right lower lobe. Patient was transferred to the ICU, Furniture Manager consulted, and consented for bedside TPA 50mg. Patient did not require repeat dosing of TPA 07/01/18 Heparin drip discontinued 07/03/18 Patient started on Eliquis 10 mg twice daily for the first 7 days, and then continue with Eliquis 5 mg twice daily as outpatient Due to the size of the patient's saddle pulmonary embolism with his recent surgery likely being the cause, patient will require at least 6 months of oral anticoagulation. Further discussion with specialist team if further anticoagulation is needed. (2) Pneumonia Code(s): J18.9 - Pneumonia, unspecified organism Status: Acute Plan: Patient was started on Rocephin on 06/25 for H. influenzae pneumonia. Completed 5 day course on 06/29 -Sputum culture 06/30: Heavy growth normal respiratory faustino at 24 hours Streptococcus urinary antigen negative -Continue IS -Chest x-ray 06/30/18: Persistent bibasilar opacity greater on the left with no significant change compared to prior study -Lactic acid 3.7 Blood cultures: Negative to date Patient restarted on Zosyn and Azithromycin () Patient to be transitioned to oral antibiotics 07/03/18 with Levaquin 750 mg daily for an additional 12 days (14 days total) and oral azithromycin 500 mg daily for an additional 2 days (5 days total) (3) Severe sepsis Code(s): A41.9 - Sepsis, unspecified organism; R65.20 - Severe sepsis without septic shock Status: Resolved Plan: Patient presenting in severe sepsis with leukocytosis, elevated respiratory rate, and tachycardia on 07/01/18 with suspected pneumonia. Patient recently completed a course of Rocephin for Haemophilus influenza pneumonia Likely related to acute saddle pulmonary embolism, see above Lactic acid 3.7 Antibiotics as above (4) Angioedema Code(s): T78.3XXA - Angioneurotic edema, initial encounter Status: Acute Plan: Resolved after patient was intubated in ICU for almost 2 weeks on high-dose steroids. -On oral steroid taper through 07/04 -Pulmonology consulted -Recommend oxygen as needed -NPSG post discharge -May need re-consulted if worsening of breathing/lung status -Monitor breathing and swallowing status (5) Weakness acquired in ICU Code(s): R53.1 - Weakness Status: Acute Plan: PT and OT consults -Recommend inpatient rehab -Plan to d/c to [facility] when stable -Discussed discharge plan with [facility] today, patient to be discharged over to [facility] with bed availability likely this afternoon. [facility] notified of pending C. difficile antigen test as well as plans for prednisone taper with sliding scale insulin and Eliquis treatment for his pulmonary embolism. (6) Hypertension Code(s): I10 - Essential (primary) hypertension Status: Chronic Plan: Avoid ACEi and ARB due to angioedema BPs improving -Amlodipine 10 mg daily -Continue triamterene/hydrochlorothiazide 37.5/25 1 tablet daily -Hydralazine PRN BP (7) Type 2 diabetes mellitus Code(s): E11.9 - Type 2 diabetes mellitus without complications Status: Acute Plan: -Holding glimepiride 2 mg daily; restart upon discharge -Sliding scale insulin aspart insulin high regimen AC/at bedtime to maintain euglycemia -Hypoglycemia protocol. -Regular accuchecks -Due to daytime hyperglycemia, patient's Levemir increased to 10 units each morning and 5 units each night on 07/04/18 (8) Anemia Code(s): D64.9 - Anemia, unspecified Status: Acute Plan: -Microcytic anemia present since admission. -Stable Hgb/Hct. -Continue to monitor -Monitor for signs of bleeding -Patient started on Ferrous sulfate 325mg BID, plan to alter to dosing every other day if patient is unable to tolerate every day dosing (9) Hyperlipidemia Code(s): E78.5 - Hyperlipidemia, unspecified Status: Chronic Plan: -Continue home medication of statin and aspirin (10) Hypokalemia Code(s): E87.6 - Hypokalemia Status: Resolved Plan: Patient with mild hypokalemia without symptoms Continue to trend BMP Oral potassium chloride 40 mEq ordered 07/03/18 (11) Loose stools Code(s): R19.5 - Other fecal abnormalities Status: Acute Plan: Patient with multiple episodes of loose stools over the last 24 hours with some semi-solid material. Patient is at higher risk for C. difficile due to recent antibiotic use. Patient denies any loose stools over the last 24 hours over these last 24 hours as well. -C. difficile DNA positive -C. difficile antigen test pending -Continue to monitor <Solis Crum H - 07/05/18 08:58> - Assessment and Plan 62-year-old male who was on enalapril for hypertension for many years presented to the ED with swelling of the tongue mostly on the left side. This was getting significantly worse, he presented in the emergency department with difficulty speaking due to the mechanical obstruction of his tongue. He immediately was given epi IM, Decadron 10 IV, Benadryl 50 IV, and he was not responding to medical management after 45 minutes. He was intubated for the airway protection by ED attending and remained intubated and ventilated in the ICU until 06/22 when he was extubated. On 06/24, patient developed stridor and was reintubated and ventilated (vocal cords appeared ok). CT soft tissue disorder 06/24 unremarkable. On 06/25, patient was started on Rocephin for H. influenzae pneumonia. On 06/26, patient was successfully extubated. He remained in the ICU for almost 24 hours prior to transfer to med/surg floor for PT/OT consults and recommendations. On 06/30/18 patient presented to medical team with severe sepsis with presumed pneumonia and lactic acid of 3.7. Patient was started on azithromycin and Zosyn for antibiotic coverage; transition to oral antibiotic on 07/03 for a 5 day course of azithromycin and Levaquin to complete a 14-day course. CTA was ordered which showed an acute saddle pulmonary embolism. Patient was transferred to the ICU and consented for bedside TPA which patient responded to appropriately. Patient transition to oral anticoagulation with Eliquis on 07/03/18. Patient was then transferred out of the ICU on 07/03/18. Patient was cleared for discharge to [facility] for continued treatment. Patient did complain of loose stools on 07/04/18 and was found to be positive for C. difficile DNA, currently C. difficile antigen is pending. Discussed discharge lines with [facility] and pending C. difficile antigen test. Fluids: none Electrolytes: monitor, replace PRN Nutrition: regular diet DVT ppx: s/p TPA, currently on Heparin drip GI ppx: Famotidine Pain medication: Rowe/tylenol PRN Discussed with case management patient continues to improve and has been transitioned to oral medications. Case management to discuss with [facility] for possible discharge for continued rehabilitation. <Solis Crum - 07/05/18 09:08> - Attending Attestation The exam, history, and the medical decision-making described in the above note were completed with the assistance of the resident physician. I reviewed and agree with the findings presented. I attest that I had a [id number] encounter with the patient on the same day, and personally performed and documented my assessment and findings in the medical record. <Janiya Duval R - 07/07/18 07:05> <Solis Crum H - Last Filed: 07/05/18 08:58> (2) Pneumonia Qualifiers: Pneumonia type: due to Haemophilus influenzae (8) Anemia Qualifiers: Anemia type: unspecified type Qualified Code(s): D64.9 - Anemia, unspecified <Janiya Duval R - Last Filed: 07/07/18 07:05> (2) Pneumonia Qualifiers: Pneumonia type: due to Haemophilus influenzae Laterality: bilateral Lung location: lower lobe of lung Qualified Code(s): J14 - Pneumonia due to Hemophilus influenzae (6) Hypertension Qualifiers: Hypertension type: essential hypertension Qualified Code(s): I10 - Essential (primary) hypertension (7) Type 2 diabetes mellitus Qualifiers: Diabetes mellitus predatory animal exterminator insulin use: without half-way use Diabetes mellitus complication status: without complication Qualified Code(s): E11.9 - Type 2 diabetes mellitus without complications (8) Anemia Qualifiers: Anemia type: unspecified type Qualified Code(s): D64.9 - Anemia, unspecified <Solis Crum H - Last Filed: 07/05/18 08:58> (2) Pneumonia Qualifiers: Pneumonia type: due to Haemophilus influenzae (8) Anemia Qualifiers: Anemia type: unspecified type Qualified Code(s): D64.9 - Anemia, unspecified <Janiya Duval R - Last Filed: 07/07/18 07:05> (2) Pneumonia Qualifiers: Pneumonia type: due to Haemophilus influenzae Laterality: bilateral Lung location: lower lobe of lung Qualified Code(s): J14 - Pneumonia due to Hemophilus influenzae (6) Hypertension Qualifiers: Hypertension type: essential hypertension Qualified Code(s): I10 - Essential (primary) hypertension (7) Type 2 diabetes mellitus Qualifiers: Diabetes mellitus predatory animal exterminator insulin use: without half-way use Diabetes mellitus complication status: without complication Qualified Code(s): E11.9 - Type 2 diabetes mellitus without complications (8) Anemia Qualifiers: Anemia type: unspecified type Qualified Code(s): D64.9 - Anemia, unspecified
--- NOTE | 2018-07-05 09:48 | P.PN ---
Subjective Interval history: ALERT , NAD Physical Exam Vital signs: Vital Signs 07/04/18 11:39 07/04/18 12:00 07/04/18 16:00 Temperature 98.2 F 99.1 F Pulse Rate 93 H 101 H 100 H Respiratory Rate 18 22 20 Blood Pressure 129/61 131/72 Pulse Oximetry 95 95 07/04/18 20:00 07/05/18 00:00 07/05/18 04:00 Temperature 98.7 F 97.2 F L 98 F Pulse Rate 98 H 87 91 H Respiratory Rate 18 Blood Pressure 135/67 132/65 119/55 L Pulse Oximetry 97 96 97 07/05/18 05:00 Temperature Pulse Rate Respiratory Rate Blood Pressure Pulse Oximetry 97 Intake & Output 07/04/18 07/05/18 07/05/18 18:59 06:59 18:59 Intake Total 1200 / 1200 Balance 1200 / 1200 Weight 111.6 kg Intake: Oral 1200 / 1200 Other: # Voids 5 1 Date of Last Bowel Movement 07/04/18 07/03/18 # Bowel Movements 2 Narrative: GENERAL: Well-nourished, well-developed -[place] male lying sitting up in bed watching television with his and daughter at the bedside. SKIN: Warm and dry. No rash. Appropriate capillary refill. Patient with large areas of healing ulcerations on his upper lip secondary to being intubated per patient report. Area appears to have granulation tissue appropriately. Barrier ointment applied. HEENT: Atraumatic, normocephalic with extraocular motions intact. No rhinorrhea. No visible lymphadenopathy or jugulovenous distension appreciated. CARDIOVASCULAR: Regular rate and rhythm without obvious murmurs, gallops, or rubs. 2+ pulses in all four extremities. RESPIRATORY: Clear to auscultation bilaterally with good air movement. No obvious CRW appreciated. No increased work of breathing at this time. Patient currently off supplemental oxygen. GASTROINTESTINAL: Abdomen soft, non-tender, nondistended with positive bowel sounds. No masses appreciated. MUSCULOSKELETAL: No cyanosis or edema. No calf tenderness. NEURO/PSYCH: Afocal. Awake, alert, and oriented x3. Normal speech and judgement. - Urinary Catheter Management Indwelling Urethral Catheter Cath placed during this visit: yes, but has since been removed by the nurse Reason for continuing: Hourly intake/output Insertion date: 06/30/18 Insertion time: 15:00 Removal date: 07/02/18 Removal time: 14:20 Condom Cath placed during this visit: no Results - Labs CBC & Chem 7: 07/04/18 06:22 07/04/18 06:22 Laboratory Results - last 24 hr 07/04/18 07/04/18 07/04/18 13:08 14:00 17:12 POC Glucose 223 H 196 H Stl C.difficile DNA Amp Positive H St C. diff Tox Epid 027 Negative 07/04/18 07/05/18 20:11 07:50 POC Glucose 251 H 118 H Stl C.difficile DNA Amp St C. diff Tox Epid 027 Microbiology 06/30/18 11:15 Blood - Peripheral Aerobic Blood Culture - Preliminary No growth in 4 days 06/30/18 11:15 Blood - Peripheral Anaerobic Blood Culture - Preliminary No growth in 4 days 06/30/18 11:10 Blood - Peripheral Aerobic Blood Culture - Preliminary No growth in 4 days 06/30/18 11:10 Blood - Peripheral Anaerobic Blood Culture - Preliminary No growth in 4 days Assessment and Plan - Plan IMPRESSION ACUTE PE ANGIODEMA, RESOLVED MULUGETA, NON COMPLIANT 'PNA less likely PLAN change to oral ANTI COAGULATION O2 NEEDED INCREASE ACTIVITY NPSG POST DC
[2018-07-05] MEDS: Triamterene/HCTZ 37.5 MG/25 MG Tablet PO SCH (10:26)
[2018-07-05] MEDS: amLODIPine 10 MG Tablet PO SCH (10:26)
[2018-07-05] MEDS: Ferrous Sulfate 325 MG Tablet PO SCH (10:26)
[2018-07-05] MEDS: levoFLOXacin 750 MG Tablet PO SCH (10:26)
[2018-07-05] MEDS: Insulin NovoLIN Regular Correctional Sugar Inj SQ SCH ×2 (10:27→13:55)
[2018-07-05] MEDS: Insulin Detemir Inj 1,000 UNIT/10 ML Vial SQ SCH (10:27)
[2018-07-05] MEDS: Famotidine 20 MG Tablet PO SCH (10:27)
[2018-07-05] MEDS: Senna/Docusate Sodium 8.6/50 MG Tablet PO SCH (10:28)
[2018-07-05] MEDS: Bisacodyl 10 MG Supp RECTAL SCH (10:28)
[2018-07-05 12:59] VITALS: BP 127/71; PULSE 94; TEMP 97.7
[2018-07-05] MEDS ORDERED: predniSONE 1 MG Tablet PO SCH (13:00)
[2018-07-05 14:44] VITALS: O2SAT 95
--- NOTE | 2018-07-06 13:22 | P.DS ---
Date of admission: 06/14/18 23:53 Primary care physician: Vj Hernandez MD, R3 Anticipated date of discharge: 07/05/18 Brief History from admission: 62-year-old male who is on enalapril for hypertension for many years tonight about an hour prior to presentation started feeling the swelling of the tongue mostly on the left side. This was getting significantly worse, he presented in the emergency department with difficulty speaking due to the mechanical obstruction of his tongue. He denies any tightness or swelling in his throat no sensation of choking however he immediately was given epi IM, Decadron 10 IV Benadryl 50 IV and he was not responding to medical management after 45 minutes. He was intubated for the airway protection by ED attending. DS: Diagnosis - Discharge Diagnosis (1) Acute saddle pulmonary embolism Status: Acute (2) Pneumonia Status: Acute (3) Severe sepsis Status: Resolved (4) Angioedema Status: Acute (5) Weakness acquired in ICU Status: Acute (6) Hypertension Status: Chronic (7) Type 2 diabetes mellitus Status: Acute (8) Anemia Status: Acute (9) Hyperlipidemia Status: Chronic (10) Hypokalemia Status: Resolved (11) Loose stools Status: Acute DS: Medications - Discharge Medications Prescriptions: acetaminophen 650 mg PO Q6H PRN #90 tab PRN Reason: Pain 1-10 And/Or Fever >101f apixaban [Eliquis] 5 mg PO BID #180 tab apixaban [Eliquis] 10 mg PO BID #20 tab chlorhexidine gluconate 15 ml OROPHARYNG BID@0800,2000 #1 bottle famotidine 20 mg PO BID 30 Days #60 tab ferrous sulfate [iron] 325 mg PO BID #60 tab levofloxacin 750 mg PO DAILY #8 tab prednisone See Taper PO DAILY #33 tab sennosides-docusate sodium [Senna Plus] 1 tab PO BID 30 Days #60 tab DS: Summary Hospital Course: 62-year-old male who was on enalapril for hypertension for many years presented to the ED with swelling of the tongue mostly on the left side. This was getting significantly worse, he presented in the emergency department with difficulty speaking due to the mechanical obstruction of his tongue. He immediately was given epi IM, Decadron 10 IV, Benadryl 50 IV, and he was not responding to medical management after 45 minutes. He was intubated for the airway protection by ED attending and remained intubated and ventilated in the ICU until 06/22 when he was extubated. On 06/24, patient developed stridor and was reintubated and ventilated (vocal cords appeared ok). CT soft tissue disorder 06/24 unremarkable. On 06/25, patient was started on Rocephin for H. influenzae pneumonia. On 06/26, patient was successfully extubated. He remained in the ICU for almost 24 hours prior to transfer to med/surg floor for PT/OT consults and recommendations. On 06/30/18 patient presented to medical team with severe sepsis with presumed pneumonia and lactic acid of 3.7. Patient was started on azithromycin and Zosyn for antibiotic coverage; transition to oral antibiotic on 07/03 for a 5 day course of azithromycin and Levaquin to complete a 14-day course. CTA was ordered which showed an acute saddle pulmonary embolism. Patient was transferred to the ICU and consented for bedside TPA which patient responded to appropriately. Patient transition to oral anticoagulation with Eliquis on 07/03/18. Patient was then transferred out of the ICU on 07/03/18. Patient was cleared for discharge to [facility] for continued treatment. Patient did complain of loose stools on 07/04/18 and was found to be positive for C. difficile DNA, however active C. difficile antigen is negative. Patient was discharged to [facility] on . At discharge his enalapril was discontinued indefinitely due to his angioedema. All other home medications were continued. He was started on Eliquis twice a day, continued on a prednisone taper with famotidine for GI coverage, ferrous sulfate for iron deficiency anemia, and levofloxacin to complete his ABX course. Discussed continued insulin use with [facility] staff until completion of prednisone taper, but will defer further management to their staff. Patient also given follow up CBC and CMP 1 week post discharge. Patient to follow up with his PCP and Pulmonology once discharged from rehabilitation. - Time Spent with Patient Total time spent providing and/or coordinating discharge services: Less than 30 minutes - Quality: VTE Deep Vein Thrombosis/Pulmonary Embolism Present on Admission: No Exam Vital signs: Vital Signs 07/05/18 14:44 Pulse Oximetry 95 Intake & Output 07/05/18 07/06/18 07/06/18 18:59 06:59 18:59 Other: Date of Last Bowel Movement 07/04/18 Results Procedures completed during hospitalization: Intubation Labs on day of discharge: Labs from last 24 hours 07/05/18 13:45 POC Glucose 233 H - Impressions ITS Impressions Abdomen X-Ray 06/21/18 00:00 CONCLUSION: Enteric tube as above. No definite dilated loops of bowel seen. Soft Tissue Neck CT 06/24/18 00:00 CONCLUSION: 1. Sinus disease, otherwise negative Chest CTA 06/30/18 00:00 CONCLUSION: 1. Acute pulmonary embolism with moderate size central embolism extending across the pulmonary trunk bifurcation into the lobar pulmonary arteries. 2. Basilar consolidating infiltrate with segmental consolidation in the right lower lobe. Chest X-Ray 07/02/18 00:00 CONCLUSION: Right lung base opacity is present may be due to a combination of consolidation and or pleural effusion, partially could be technical. Discharge Plan - Discharge Disposition Patient Disposition: 62 Rehab Inpatient - Discharge Condition Condition: Stable - Discharge Order Discharge Orders: Discharge Order (Routine); Ordered 07/05/18 Ordered By: Solis Crum - Discharge Details Anticipated Discharge Date: 07/05/18 Discharge Comment: Plan to keep patient on insulin plan while on steroids, then transition to oral control - Physicians Team Primary Care Provider: Vj Hernandez Attending Provider: Janiya Duval Other Providers: [facility] ; Koko Sutherland MD ; Kike Martinez MD
== END 2018-07-05 14:49 ==
LOC: PHED 21:58 → PHEDA 23:53 → HIMC 06-15 02:00 → N05 06-27 15:58 → N03 06-30 10:23 → N05 07-03 12:40
PROVIDERS: ADMIT Family Medicine; ATTEND Family Medicine